=== PATIENT | female | born 1960 | race Caucasian/White ===

== ENCOUNTER 2023-09-23 13:56 | Outpatient (OUT) | payer OTHER, SELFPAY ==
--- NOTE | 2023-09-23 13:59 | MM_ITS ---
Patient: IGNACIO DIAZ Exam Date: 09/23/2023 : 1960 Gender:F Ordering : DR CHIRAG SAN . Admission #: [id number] Family : Order #: [id number] CLICK HERE TO VIEW EXAM RADIOLOGY REPORT PROCEDURE: MM TOMOSYNTHESIS SCREENING BI COMPARISON: MG MAMM SCREEN 3D REGINALD CAD, 09/22/2022. MG MAMM SCREEN 3D REGINALD CAD, 09/09/2021. MG MAMM SCREEN REGINALD W CAD, 09/06/2020. MAMMO REGINALD SCREEN, 01/12/2003. INDICATIONS: Screening Calculator Name NCI Breast Cancer Risk Assessment Tool 5 Year Breast Cancer Risk 1.20% Lifetime Breast Cancer Risk 5.80% Personal Breast Cancer No Personal Ovarian Cancer No Treatments None Family Cancers Mother with ovarian cancer at age 46; Grandmother-maternal with lymph node cancer at age 80. LOCATION: [facility] BREAST COMPOSITION: Heterogeneously dense,which may obscure small masses. FINDINGS: DIAGNOSTIC CATEGORY 1--NEGATIVE. RIGHT BREAST: No significant suspicious finding. No significant change has occurred. LEFT BREAST: No significant suspicious finding. No significant change has occurred. RECOMMENDATIONS: ROUTINE MAMMOGRAM AND CLINICAL EVALUATION IN 12 MONTHS. PLEASE NOTE: A NORMAL MAMMOGRAM DOES NOT EXCLUDE THE POSSIBILITY OF BREAST CANCER. A CLINICALLY SUSPICIOUS PALPABLE LUMP SHOULD BE BIOPSIED. Dictated by: Odin Green M.D. on 09/27/2023 at 13:36 Approved by: Odin Green M.D. on 09/27/2023 at 13:39
== END 2023-09-23 13:57 | disposition home or self-care (01) ==
LOC: MAMMO 13:56
PROVIDERS: PCP Family Medicine; Visit Provider Family Medicine
DX: Z12.31 Encounter for screening mammogram for malignant neoplasm of breast (principal); Z80.41 Family history of malignant neoplasm of ovary; Z80.7 Family history of other malignant neoplasms of lymphoid, hematopoietic and related tissues
CPT/HCPCS: 77063; 77067

== ENCOUNTER 2024-04-12 13:59 | Outpatient (OUT) | payer OTHER, SELFPAY ==
--- OUTSIDE RECORDS SUMMARY | 2024-04-12 14:15 | XMS_ITS | CCD ---
Author Organization [facility] Care Team Providers Care Polisher Eyeglass Frames Name Role Phone Nayana Huitron Unavailable MD Nayana Huitron Attending Provider [phone] NON STAFF Primary Care Provider UnavailCaprice Syed Unavailable Kusum Palencia Unavailable CARIDAD TREJO Admitting Unavailable CARIDAD TREJO Attending Unavailable JASWINDER, DR CHIRAG Tellez Primary Care Unavailable SOTO HINOJOSA Consulting Unavailable NICHELLE II, DAVIE Consulting Unavailable CARIDAD TREJO Consulting Unavailable JASWINDER, DR CHIRAG Tellez Admitting Unavailable JASWINDER, DR CHIRAG Tellez Attending Unavailable JASWINDER, DR CHIRAG Tellez Primary Care Unavailable [place], DR GIBRAN Beyer Consulting Unavailable JASWINDER, DR CHIRAG Tellez Consulting Unavailable MAGUE Parekh Attending Provider [phone] Kena Parekh Attending Unavailable Kena Parekh Admitting Unavailable CHIRAG SAN Attending Unavailable CHIRAG SAN Attending Unavailable Allergies Allergy Classification Reported Allergen(s) Allergy Type Date of Onset Reaction(s) Facility (7 sources) Sulfamethoxazole / Trimethoprim Drug Allergy Unknown [facility] Other (1 source) Sulfamethoxazole / Trimethoprim Drug Allergy 9 [facility] Repository (3 sources) Sulfamethoxazole; Translations: [sulfamethoxazole] Drug Allergy 4 [facility] (3 sources) Trimethoprim; Translations: [trimethoprim] Drug Allergy 4 [facility] Medications Current Medications Medication Drug Class(es) Dates Sig (Normalized) Sig (Original) acetaminophen 325 mg oral tablet (3 sources) take 1 tablet by mouth every four hours Tylenol 325 MG 1 tablet as needed Orally every 4 hrs Active cefdinir 300 mg oral capsule (1 source) Cephalosporin Antibacterial take 1 capsule by mouth twice daily Cefdinir 300 MG TAKE 1 CAPSULE BY MOUTH TWICE A DAY Oral for 10 Days Active cholecalciferol 0.025 mg oral tablet (9 sources) Vitamin D Start: 01-13-2024 take 25 ug by mouth once daily Cholecalciferol (Vitamin D3) Active 25 MCG PO Daily January 13, 2024 12:00am take 1 tablet by cici th every twenty-four hours Vitamin D 50 MCG (1999 UT) 1 tablet Orally Once a day Active omeprazole 40 mg delayed release oral capsule (9 sources) Proton Pump Inhibitor Start: 01-13-2024 take 40 mg by mouth once daily Omeprazole Active 40 MG PO Daily January 13, 2024 12:00am Omeprazole 40 MG Oral for 90 Days Active phenazopyridine hydrochloride 200 mg oral tablet (2 sources) Start: 01-13-2024 take 1 tablet by mouth three times daily Phenazopyridine (Pyridium) 200 mg tablet Active 200 MG PO Three times daily 6 2 January 13, 2024 12:00am predniSONE 20 mg oral tablet (3 sources) Start: 09-16-2022 take 1 tablet by mouth every twelve hours predniSONE 20 MG 1 tablet Orally 2 times a day for 5 day(s) Aug, Active Completed/Discontinued Medications Medication Drug Class(es) Dates Sig (Normalized) Sig (Original) triamcinolone acetonide 40 mg/ml injectable suspension (14 sources) Corticosteroid Start: 12-30-2022 Kenalog-40 14 Sep, 2023 20 mg Start: 07-03-2022 Kenalog-40 Jun, 10 mg Problems Active Problems Problem Classification Problem Date Documented Date Episodic/Chronic Esophageal disorders (3 sources) Gastro-esophageal reflux disease without esophagitis; Translations: [Gastroesophageal reflux disease] Onset: 03-08-2023 01-13-2024 Chronic Genitourinary symptoms and ill-defined conditions (5 sources) Dysuria; Translations: [Dysuria] Onset: 01-13-2024 01-13-2024 Episodic Osteoarthritis (14 sources) Osteoarthritis of joint of right hand; Translations: [Primary osteoarthritis, right hand] Onset: 05-26-2022 Resolved: 07-03-2022 Chronic Other aftercare (1 source) Other 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 therapy; Translations: [OTH SHOCK ABSORPTION FLOOR LAYER CURRENT DRUG THERAPY] Onset: 03-08-2023 Episodic Other connective tissue disease (5 sources) Pain in right hand Onset: 05-26-2022 Resolved: 07-03-2022 Episodic Other screening for suspected conditions (not mental disorders or infectious disease) (8 sources) Encounter for screening for malignant neoplasm of colon; Translations: [Encounter for screening mammogram for malignant neoplasm of breast] Onset: 09-22-2022 Episodic Otitis media and related conditions (1 source) Unspecified nonsuppurative otitis media, right ear Episodic Residual codes; unclassified (1 source) Acquired absence of both cervix and uterus; Translations: [ACQUIRED ABSENCE BOTH CERVIX AND UTERUS] Onset: 03-08-2023 Episodic Past or Other Problems Problem Classification Problem Date Documented Date Episodic/Chronic Open wounds of extremities (1 source) Laceration without foreign body, unspecified lower leg, initial encounter Onset: 06-08-2022 Resolved: 06-08-2022 Episodic Residual codes; unclassified (1 source) Family history of malignant neoplasm of ovary; Translations: [FAM HX MALIGNANT NEOPLASM OVARY] Onset: 09-29-2022 Episodic Residual codes; unclassified (1 source) Family history of other malignant neoplasms of lymphoid, hematopoietic and related tissues; Translations: [FAM HX OTH MAL JUAN LYMPH HEMATPOETC] Onset: 09-29-2022 Episodic Results Test Name Value Interpretation Reference Range Facil ity Chlamydia/GC/Trich NAAon Chlamydia Trachomotis, FROILAN Negative Normal Negative [facility] Comment on above: Performed By: #### G CCHLAMTRI #### [facility] , #### CUU #### [facility] [address] [place] [address] [place] Neisseria Gonorrhoeae, FROILAN Negative Normal Negative [facility] Comment on above: Performed By: #### G CCHLAMTRI #### [facility] , #### CUU #### [facility] [address] [place] [address] [place] Trichomonas FROILAN Negative Normal Negative [facility] Comment on above: Result Comment: Perf ormed at: =G - [facility] [address] [id number] Massage Operator: Meena Mccabe MD, Phone: [phone] PERFORMED BY: [place] [address] PATHOLOGIST MANAGER PROPERTY SANTHOSH STAFFORD M.D. Performed By: #### G CCHLAMTRI #### [facility] , #### CUU #### [address] Urine Cultureon 01-13-2024 Bacteria identified Cx Nom (U) ORGANISM: Escherichia coli (O:ESCCOL) [place] Count 50,000 Aerobic JUVENTINO Charge (NMIC56) --- SUSCEPTIBILITY -- ORGANISM: O:ESCCOL ANTIBIOTIC INTERPRETATION JUVENTINO Amikacin S <16 Amoxacillin/K Clavulanate S <8 Ampicillin S <8 Ampicillin/Sulbactam S <4 Aztreonam S <4 Cefazolin S <2 Cefepime S <2 Ceftazidime S <1 Ceftazidime/Avibactam S <4 Ceftolozane/Tazobactam S <2 Ceftriaxone S <1 Cefuroxime S <4 Ciprofloxacin S <0.25 Ertapenem S <0.5 Gentamicin S <2 Levofloxacin S <0.5 Meropenem S <1 Meropenem/Vaborbactam S <2 Nitrofurantoin S <32 Piperacillin/Tazobacta m S <8 Tetracycline S <4 Tigecycline S <2 Tobramycin S <2 Trimethoprim/Sulfameth oxazole S <0.5 S = SUSCEPTIBLE I = INTERMEDIATE R = RESISTANT BLANK = DATA NOT AVAILABLE, OR DRUG NOT ADVISABLE OR TESTED R* = RESISTANCE DUE TO EXTENDED SPECTRUM BETA-LACTAMASES ESBL = EXTENDED SPECTRUM BETA-LACTAMASE TFG = THYMIDINE-DEPENDENT STRAIN FILEMON = BETA-LACTAMASE POSITIVE IB = INDUCIBLE BETA-LACTAMASE. APPEARS IN PLACE OF 'S' WITH SPECIES KNOWN TO POSSESS INDUCIBLE BETA-LACTAMASES. POTENTIALLY THEY MAY BECOME RESISTANT TO ALL B-LACTAM DRUGS. PERFORMED BY: [place] [address] PATHOLOGIST MANAGER PROPERTY SANTHOSH STAFFORD M.D. Normal [facility] Comment on above: Performed By: #### G CCHLAMTRI #### [facility] , #### CUU #### [facility] [address] [id number] [facility] MG MAMM SCREEN 3D REGINALD CADon 09-22-2022 MG MAMM SCREEN 3D REGINALD CAD Patient: IGNACIO DIAZ Exam Date: 09/22/2022 : 1960 Gender:F Ordering : DR CIHRAG SAN . Admission #: [id number] Family : Order #: [id number] CLICK HERE TO VIEW EXAM RADIOLOGY REPORT PROCEDURE: MAMMOGRAM SCREENING 3D BILATERAL CAD COMPARISON: MG MAMM SCREEN 3D REGINALD CAD, 09/09/2021. MG MAMM SCREEN REGINALD W CAD, 09/06/2020. INDICATIONS: Screening mammography Calculator Name NCI Breast Cancer Risk Assessment Tool 5 Year Breast Cancer Risk 1.20% Lifetime Breast Cancer Risk 6.00% Personal Breast Cancer No Personal Ovarian Cancer No Treatments None Family Cancers Mother with ovarian cancer at age 46; Grandmother-maternal with lymph node cancer at age 80. LOCATION: [facility] BREAST COMPOSITION: Heterogeneously dense,which may obscure small masses. FINDINGS: DIAGNOSTIC CATEGORY 2--BENIGN FINDING. NO CHANGE FROM COMPARISON. Scattered benign-appearing calcifications are present. Scattered benign-appearing lymph nodes are present. RIGHT BREAST: No significant suspicious finding. LEFT BREAST: No significant suspicious finding. RECOMMENDATIONS: ROUTINE MAMMOGRAM AND CLINICAL EVALUATION IN 12 MONTHS. PLEASE NOTE: A NORMAL MAMMOGRAM DOES NOT EXCLUDE THE POSSIBILITY OF BREAST CANCER. A CLINICALLY SUSPICIOUS PALPABLE LUMP SHOULD BE BIOPSIED. Dictated by: Gibran Lemus MD on 09/23/2022 at 07:58 Approved by: Gibran Lemus MD on 09/23/2022 at 08:00 Normal [facility] Vital Signs Date Time Vital Sign Value Performing Clinician Facility 01-13-2024 14:40-0500 Body height 170.18 cm [facility] 01-13-2024 14:40-0500 Body mass index (BMI) [Ratio] 26.9 kg/m2 [facility] 01-13-2024 14:40-0500 Body temperature 98.4 [degF] [facility] 01-13-2024 14:40-0500 Body weight 78.01 kg [facility] 01-13-2024 14:40-0500 Diastolic blood pressure 73 mm[Hg] [facility] 01-13-2024 14:40-0500 Heart rate 87 /min [facility] 01-13-2024 14:40-0500 Respiratory rate 18 /min [facility] 01-13-2024 14:40-0500 SaO2% (BldA) [Mass fraction] 97 % [facility] 01-13-2024 14:40-0500 Systolic blood pressure 125 mm[Hg] [facility] 09-16-2022 15:50-0400 Body height 170.18 cm Kusum Slime Other [facility] Other 09-16-2022 15:50-0400 Body mass index (BMI) [Ratio] 24.9 kg/m2 Kusum Slime Other [facility] Other 09-16-2022 15:50-0400 Body temperature 98.8 [degF] Kusum Slime Other [facility] Other 09-16-2022 15:50-0400 Body weight 72.12 kg Kusum Slime Other [facility] Other 09-16-2022 15:50-0400 Diastolic blood pressure 87 mm[Hg] Kusum Slime Other [facility] Other 09-16-2022 15:50-0400 Respiratory rate 18 /min Kusum Slime Other [facility] Other 09-16-2022 15:50-0400 SaO2% (BldA) [Mass fraction] 99 % Kusum Slime Other [facility] Other 09-16-2022 15:50-0400 Systolic blood pressure 127 mm[Hg] Kusum Palencia Other [facility] Other 07-03-2022 09:00-0400 Body height 170.18 cm Nayana Huitron Other [facility] Other 06-08-2022 17:25-0400 Body height 170.18 cm Caprice Jude Other [facility] Other 06-08-2022 17:25-0400 Body mass index (BMI) [Ratio] 24.9 kg/m2 Caprice Roque Other [facility] Other 06-08-2022 17:25-0400 Body temperature 99 [degF] Caprice Roque Other [facility] Other 06-08-2022 17:25-0400 Body weight 72.12 kg Caprice Jude Other [facility] Other 06-08-2022 17:25-0400 Diastolic blood pressure 62 mm[Hg] Caprice Roque Other [facility] Other 06-08-2022 17:25-0400 Respiratory rate 16 /min Caprice Roque Other [facility] Other 06-08-2022 17:25-0400 SaO2% (BldA) [Mass fraction] 100 % Caprice Roque Other [facility] Other 06-08-2022 17:25-0400 Systolic blood pressure 121 mm[Hg] Caprice Roque Other [facility] Other Encounters Encounter Date Encounter Type Care Provider Facility Start: 04-06-2024 End: 04-06-2024 ambulatory CHIRAG SAN Not Available Start: 03-13-2024 End: 03-13-2024 ambulatory CHIRAG SAN Not Available Start: 01-13-2024 End: 01-13-2024 Departed Referred [employer] Kena Parekh Work Phone: [facility] [place] Work Phone: Start: 01-13-2024 End: 01-13-2024 ambulatory Kena Parekh [facility] Work Phone: Start: 01-13-2024 End: 01-13-2024 Patient encounter procedure [facility] Work Phone: Start: 10-12-2023 End: 10-12-2023 ambulatory Nayana Huitron Other [facility] Other Start: 10-12-2023 Office outpatient visit 15 minutes Nayana Calvey [facility] Start: 03-05-2023 End: 03-05-2023 ambulatory CARIDAD JIMENEZ . Facility:[facility] Start: 12-30-2022 End: 12-30-2022 ambulatory Nayana Calvsaundra Other [facility] Other Start: 12-30-2022 Office outpatient visit 15 minutes Nayana Calvey [facility] Start: 09-22-2022 End: 09-23-[address] CHIRAG SAN Facility:[facility] Start: 09-16-2022 End: 09-16-2022 ambulatory Kusum Palencia Other [facility] Other Start: 09-16-2022 Office outpatient visit 15 minutes Kusum Palencia [facility] Start: 08-04-2022 End: 08-04-2022 ambulatory Nayana Huitron Other [facility] Other Start: 08-04-2022 Office outpatient visit 15 minutes Nayana Huitron [facility] Start: 07-03-2022 End: 07-03-2022 ambulatory Nayana Huitron Other [facility] Other Start: 07-03-2022 Office outpatient visit 15 minutes Nayana Huitron [facility] Start: 06-08-2022 (URG) Urgent Care Visit Caprice Roque [facility] Start: 06-08-2022 End: 06-08-2022 ambulatory Caprice Roque Other [facility] Other Start: 05-26-2022 End: 05-26-2022 ambulatory Nayana Huitron Other [facility] Other Start: 05-26-2022 Office outpatient ne w 30 minutes Nayana Huitron [facility] Start: 05-26-2022 End: 05-26-2022 Patient encounter procedure MD Nayana Huitron Work Phone: [facility] Procedures Date Procedure Procedure Detail Performing Clinician Start: 05-26-2022 Plain X-ray of right hand MD Nayana Huitron Work Phone: Plan of Treatment Date Care Activity Detail Author Start: 01-14-2024 Bacteria identified in Urine by Culture [facility] Start: 01-14-2024 [facility] Start: 01-13-2024 Bacteria identified in Urine by Culture [facility] Chlamydia trachomati s DNA [Presence] in Unspecified specimen by FROILAN with probe detection [facility] Neisseria gonorrhoea e DNA [Presence] in Unspecified specimen by FROILAN with probe detection [facility] Trichomonas vaginali s DNA [Presence] in Unspecified specimen by FROILAN with probe detection [facility] Immunizations Immunization Date Immunization Notes Care Provider Fa steven 06-08-2022 tetanus toxoid, redu simone diphtheria toxoid, and acellular pertussis vaccine, adsorbed Caprice Roque Other [facility] Payers Date Payer Category Payer Self-pay [id number] 1960 Unknown [id number] [id number] [id number] 1960 Unknown [id number] 2.16.84 [id number] 1960 Unknown [id number] 2.16.84 [id number] 1960 Unknown [id number] 2.16.84 [id number] 1957 Unknown [id number] 2. [id number] Unknown [id number] 2.16.8 [id number] Social History Date Type Detail Facility Sex Assigned At [facility] Other Start: 1960 Sex Assigned At Female F [facility] Start: 01-13-2024 Tobacco smoking stat [facility] Never smoked tobacco (finding) [facility] Evaluation note 10-12-2023 Note Date & Type Note Facility 10-12-2023 Evaluation note Encounter Date Diagnosis Assessment Notes Sep, Right hand pain (ICD-10 - M79.641) Sep, Primary osteoarthritis of right hand (ICD-10 - M19.041) Right ring and small PIP joints injected with cortisone, patient tolerated well [facility] Other Evaluation note 12-30-2022 Note Date & Type Note Facility 12-30-2022 Evaluation note Encounter Date Diagnosis Assessment Notes Dec, Right hand pain (ICD-10 - M79.641) Dec, Primary osteoarthritis of right hand (ICD-10 - M19.041) Patient returns with complaints of right hand pain secondary to osteoarthritis of the right hand, right ring and small PIP joints. Patient opts for continued conservative treatment via cortisone injections as they have been very effective in relieving her symptoms in the past. We discussed future treatment with surgical intervention for permanant relief. Patient voiced understanding and states she would like to hold off on surgery until she can retire in two years. We will proceed with cortisone injections today. , We performed a cortisone injection into the right ring and small PIP joints under sterile technique. The patient tolerated this well without complication. We discussed that the wrist/hand may feel numb and tingle for hours after this injection. [facility] Other Evaluation note 09-16-2022 Note Date & Type Note Facility 09-16-2022 Evaluation note Encounter Date Diagnosis Assessment Notes Aug, Right otitis media with effusion (ICD-10 - H65.91) Drink plenty fluids, get plenty of rest. Take the prednisone as prescribed until gone. Continue to use your Flonase inhaler as prescribed anterior symptoms improved. Follow-up with your family physician if no improvement in 2 to 3 days. Take Tylenol or Motrin as needed for aches pains or fevers Aug, Other Ear fluid (middle ear effusion) material was printed [facility] Other Evaluation note 08-04-2022 Note Date & Type Note Facility 08-04-2022 Evaluation note Encounter Date Diagnosis Assessment Notes Jul, Right hand pain (ICD-10 - M79.641) Jul, Primary osteoarthritis of right hand (ICD-10 - M19.041) Patient is progressing well from injections. May consider repeat injections in the future if needed. Continue topical and/or oral NSAIDs as needed for pain/inflammat ion. Call with questions/conc erns or return in pain. [facility] Other Evaluation note 07-03-2022 Note Date & Type Note Facility 07-03-2022 Evaluation note Encounter Date Diagnosis Assessment Notes Jun, Right hand pain (ICD-10 - M79.641) Jun, Primary osteoarthritis of right hand (ICD-10 - M19.041) The pain appears to be from arthritis in the hand, specifically the PIP joints of the ring and small fingers. Patient was instructed on the use of lidocaine patches. Cortisone injections were performed into the right ring and small finger PIP joints after sterile prep. Patient tolerated well. She was instructed to contact the office with any questions or concerns. [facility] Other Evaluation note 06-08-2022 Note Date & Type Note Facility 06-08-2022 Evaluation note Encounter Date Diagnosis Assessment Notes May, Laceration of hendrix (ICD-10 - S81.819A) Keep wound area completely dry for at least 24 hours. Do not pick at scabbed area where Dermabond applied. Call office, follow up with primary care provider or seek emergency treatment if any signs or symptoms of infection occur including increased swelling, increased pain, drainage, redness to area, fever, or have chills. TDAP updated [facility] Other Evaluation note 05-26-2022 Note Date & Type Note Facility 05-26-2022 Evaluation note Encounter Date Diagnosis Assessment Notes Apr, Right hand pain (ICD-10 - M79.641) Apr, Primary osteoarthritis of right hand (ICD-10 - M19.041) Xrays were reviewed with patient in detail. We discussed conservative and surgical option in detail. Patient would like to try topical and oral anti inflammatory medication. Additionally we will provide an order for formal therapy. If pain persists we consider a medrol dose pack or cortisone injection [facility] Other History general Narrative - Reported 06-30-2016 Note Date & Type Note Facility 06-30-2016 History general N arrative - Reported Type Medical History acid reflux Surgical History shoulder surgery right 2009 Surgical History hysterectomy 2006 Surgical History Throat Surgery 06/30/16 Surgical History wrist surgery 2020 Hospitalization History See Above [facility] Other Evaluation note Note Date & Type Note Facility Evaluation note No assessment information availa [facility] Work Phone: Evaluation note Note Date & Type Note Facility Evaluation note Diagnosis Onset Date Dysuria acute [facility] Work Phone: Chief Complaint and Reason for Visit Chief Complaint M79.641 Chief Complaint poss uti Reason for Visit Dysuria Chief Complaint poss uti Dysuria Reason for Visit Dysuria Advance Directives No Advanced Directives Records Found Advance Directive Response Recorded Date/ Time Advance Directives No May 26 10:51am Advance Directive Response Recorded Date/ Time Advance Directives No May 26 9:51am Summary Purpose Family History No Family History Records Found Relationship Condition Age at Onset Recorded Date/T angela Not Specified Unknown Malignant neoplasm Unknown father Heart disease Unknown Unknown Additional Source Comments REASON FOR VISIT (unrecogniz ed section and content) Right Hand PainLEFT KNEE/OZZIE N LACERATION TODAYRecheck Right HandRIGHT EARACHERecheck Right HandRight Hand PainRight Hand Pain Care Teams (unrecognized sec tion and content) Team Status: Inactive Member Role Status Dates Nayana Huitron MD Attending Provider Active NON STAFF Primary Care Provider Active Team Status: Active Member Role Status Dates NON STAFF Primary Care Provider Active Team Status: Inactive Member Role Status Dates NON STAFF Primary Care Provider Active Start: January 13, 2024 End: January 13, 2024 Kena Parekh APRN Attending Provider Active Start: January 13, 2024 End: January 13, 2024 Team Status: Inactive Member Role Status Dates Kena Parekh APRN Attending Provider Active Start: January 13, 2024 End: January 13, 2024 Goals (unrecognized section and content) Goals may be documented in a n alternate section INFORMATION SOURCE (unrecogn ized section and content) DATE CREATED AUTHOR 03/08/2023 [facility] DATE CREATED AUTHOR AUTHOR'S ORGANIZ ATION 01/19/2024 [facility] DATE CREATED AUTHOR AUTHOR'S ORGANIZ ATION 04/08/2024 [facility] FOR RECORDS PERTAINING TO PATIENTS WHO ARE OR HAVE BEEN ENROLLED IN A CHEMICAL DEPENDENCY/SUBSTANCEABUSE PROGRAM, SOME INFORMATION MAY BE OMITTED. This clinical summary was aggregated from multiple sources. Caution should be exercised in using it in the provision of clinical care. This summary normalizes information from multiple sources, and as a consequence, information in this document may materially change the coding, format and clinical context of patient data. In addition, data may be omitted in some cases. CLINICAL DECISIONS SHOULD BE BASED ON THE PRIMARY CLINICAL RECORDS. [employer] [facility]. provides no warranty or guarantee of the accuracy or completeness of information in this document.
== END 2024-04-12 14:00 | disposition home or self-care (01) ==
LOC: CARD 13:59
PROVIDERS: PCP Family Medicine; Visit Provider Family Medicine
DX: R00.2 Palpitations (principal)
CPT/HCPCS: 93242

== ENCOUNTER 2024-04-26 06:39 | Outpatient (OUT) | payer OTHER, SELFPAY ==
--- NOTE | 2024-04-26 | NM_ITS ---
Patient Name: IGNACIO DIAZ MR#: [id number] : 1960 Exam Date: 04/26/2024 Ordering Doctor: DR CHIRAG SAN . RADIOLOGY REPORT PROCEDURE: NM CEM PERF SPECT REST STR COMPARISON: None. INDICATIONS: PRECORDIAL PAIN TECHNIQUE: Exam Description: Stress/Rest one day protocol gated SPECT Rest Imagin.2 mCi Tc-99m Cardiolite IV on 04/26/2024 Stress Imaging 31.5 mCi Tc-99m Cardiolite IV on 04/26/2024 Exercise Protocol: Edward Heart Rate (bpm): Rest: 63 Max: 144 PMHR: 91 Blood Pressure: Rest: 118/76 Max: 178/82 Exercise Time: Minutes: 9 Seconds: 28 Stage Reached: Stage: 4 Mets 11.6 Symptoms: Rest and peak stress ECG findings were non-diagnostic and the exercise portion of the study was Non-diagnostic per attending physician Dr. Tristan due to Inferolateral ST-segment downsloping changed to upsloping during exercise. For more details please see separate cardiac stress test report. FINDINGS: QUALITY OF STUDY: Excellent. PERFUSION DEFECT: None. LOCATION: N/A SIZE: N/A. SEVERITY: N/A. TYPE: N/A. WALL MOTION: Normal. LV SIZE: Normal. 72 mL. TID / TCD: None; 0.8 LVEF: Normal. Calculated EF 80%. SUMMARY: Myocardial perfusion imaging study is NORMAL. CONCLUSION: 1. No perfusion abnormality. No reversible ischemia 2. Nondiagnostic exercise test secondary to EKG changes Dictated by: Charles Lemus MD on 04/26/2024 at 14:23 Approved by: Charles Lemus MD on 04/26/2024 at 14:28
--- OUTSIDE RECORDS SUMMARY | 2024-04-26 06:41 | XMS_ITS ---
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 Name Role Phone Nayana Huitron Unavailable MD Nayana Huitron Attending Provider NON STAFF Primary Care Provider UnavailCaprice Syed Unavailable Kusum Palencia Unavailable CARIDAD TREJO Admitting Unavailable CARIDAD TREJO Attending Unavailable JASWINDER, DR CHIRAG Tellez Primary Care Unavailable SOTO HINOJOSA Consulting Unavailable NICHELLE II, DAVIE Consulting Unavailable CARIDAD TREJO Consulting Unavailable JASWINDER, DR CHIRAG Tellez Admitting Unavailable JASWINDER, DR CHIRAG Tellez Attending Unavailable JASWINDER, DR CHIRAG Tellez Primary Care Unavailable SOUTH SUTTON, DR GIBRAN Beyer Consulting Unavailable JASWINDER, DR CHIRAG Tellez Consulting Unavailable MAGUE Parekh Attending Provider Kena Parekh Attending Unavailable Kena Parekh Admitting Unavailable JASWINDER, CHIRAG Attending Unavailable JASWINDER, CHIRAG Attending Unavailable Allergies Allergy Classification Reported Allergen(s) Allergy Type Date of Onset Reaction(s) Facility (7 sources) Sulfamethoxazole / Trimethoprim Drug Allergy Unknown [facility] Other (1 source) Sulfamethoxazole / Trimethoprim Drug Allergy 9 [facility] (3 sources) Sulfamethoxazole; Translations: [sulfamethoxazole] Drug Allergy [address] [facility] (3 sources) Trimethoprim; Translations: [trimethoprim] Drug Allergy [address] 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 ENGINEERING MANAGER Kena Parekh Work Phone: [facility] [place] Work Phone: Start: 01-13-2024 End: 01-13-2024 ambulatory Kena Kierra Parekh [facility] Work Phone: Start: 01-13-2024 End: 01-13-2024 Patient encounter procedure [facility] Work Phone: Start: 10-12-2023 End: 10-12-2023 ambulatory Nayana Calvey Other [facility] Other Start: 10-12-2023 Office outpatient visit 15 minutes Nayana Calvey [facility] Start: 03-05-2023 End: 03-05-2023 ambulatory CARIDAD JIMENEZ . Facility: Start: 12-30-2022 End: 12-30-2022 ambulatory Nayana Calvey Other [facility] Other Start: 12-30-2022 Office outpatient visit 15 minutes Nayana Calvey [facility] Start: 09-22-2022 End: 09-23-[address] CHIRAG SAN Facility: Start: 09-16-2022 End: 09-16-2022 ambulatory Kusum Palnecia Other [facility] Other Start: 09-16-2022 Office outpatient visit 15 minutes Kusum Palencia [facility] Start: 08-04-2022 End: 08-04-2022 ambulatory Nayana Calvey Other [facility] Other Start: 08-04-2022 Office outpatient visit 15 minutes Nayana Calvey [facility] Start: 07-03-2022 End: 07-03-2022 ambulatory Nayana Calvey Other [facility] Other Start: 07-03-2022 Office outpatient visit 15 minutes Nayana Huitron [facility] Start: 06-08-2022 (URG) Urgent Care Visit Caprice Roque [facility] Start: 06-08-2022 End: 06-08-2022 ambulatory Caprice Roque Other [facility] Other Start: 05-26-2022 End: 05-26-2022 ambulatory Nayana Huitron Other [facility] Other Start: 05-26-2022 Office outpatient ne w 30 minutes Nayana Huitron [facility] Start: 05-26-2022 End: 05-26-2022 Patient encounter procedure MD Nayana Huitron Work Phone: [facility] Immunizations Immunization Date Immunization Notes Care Provider Fa steven 06-08-2022 tetanus toxoid, redu simone diphtheria toxoid, and acellular pertussis vaccine, adsorbed Caprice Roque Other [facility] Medications Current Medications Medication Drug Class(es) Dates [...] every twenty-four hours Vitamin D 50 MCG (1999) 1 tablet Orally Once a day Active [...] 200 MG PO Three times daily 6 January 13, 2024 12:00am predniSONE 20 mg oral tablet (3 sources) Start: 09-16-2022 take 1 tablet by mouth every twelve hours predniSONE 20 MG 1 tablet Orally 2 times a day for 5 day(s) Aug, Active Completed/Discontinued Medications Medication Drug Class(es) Dates Sig (Normalized) Sig (Original) triamcinolone acetonide 40 mg/ml injectable suspension (14 sources) Corticosteroid Start: 12-30-2022 Kenalog-40 Sep, 20 mg Start: 07-03-2022 Kenalog-40 Jun, 10 mg Payers Date Payer Category Payer Self-pay [id number] 1960 Unknown [id number] 2.16.84 [id number] 1960 Unknown [id number] 2.16.84 [id number] 1960 Unknown [id number] 2.16.84 [id number] 1960 Unknown [id number] 2.16.84 [id number] 1957 Unknown [id number] 2. [id number] Unknown [id number] 2.16.8 [id number] Plan of Treatment Date Care Activity Detail Author Start: 01-14-2024 Bacteria identified in Urine by Culture [facility] Start: 01-14-2024 [facility] Start: 01-13-2024 Bacteria identified in Urine by Culture [facility] Chlamydia trachomati s DNA [Presence] in Unspecified specimen by FROILAN with probe detection [facility] Neisseria gonorrhoea e DNA [Presence] in Unspecified specimen by FROILAN with probe detection [facility] Trichomonas vaginali s DNA [Presence] in Unspecified specimen by FROILAN with probe detection [facility] Problems Active Problems Problem Classification Problem Date [...] 07-03-2022 Chronic Other aftercare (1 source) 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; Translations: [OTH [facility] CURRENT DRUG THERAPY] Onset: 03-08-2023 Episodic Other [...] MAL JUAN LYMPH HEMATPOETC] Onset: 09-29-2022 Episodic Procedures Date Procedure Procedure Detail Performing Clinician Start: 05-26-2022 Plain X-ray of right hand MD Nayana Huitron Work Phone: Results Test Name Value Interpretation Reference Range Facil ity Chlamydia/GC/Trich NAAon Chlamydia Trachomotis, FROILAN Negative Normal Negative [facility] Comment on above: Performed By: #### G CCHLAMTRI #### [facility] , #### CUU #### [facility] [address] [place] [address] Neisseria Gonorrhoeae, FROILAN Negative Normal Negative [facility] Comment on above: Performed By: #### G CCHLAMTRI #### [facility] , #### CUU #### [facility] [address] [place] [address] [place] Trichomonas FROILAN Negative Normal Negative [facility] Comment on above: Result Comment: Perf ormed at: =G - [facility] [address] [id number] Spa Technician: Meena Mccabe MD, Phone: [phone] PERFORMED BY: [place] [address] PATHOLOGIST MULTIPLE PRESSURE RIVETER OPERATOR SANTHOSH STAFFORD M.D. Performed By: #### G CCHLAMTRI #### [facility] , #### CUU #### [facility] [address] [place] [address] Urine Cultureon 01-13-2024 Bacteria identified Cx Nom (U) ORGANISM: Escherichia coli (O:ESCCOL) Celeste Count 50,000 Aerobic JUVENTINO Charge (NMIC56) --- [...] RESISTANT TO ALL B-LACTAM DRUGS. PERFORMED BY: [place] [address] PATHOLOGIST MULTIPLE PRESSURE RIVETER OPERATOR SANTHOSH STAFFORD M.D. [facility] Comment on above: Performed By: #### G CCHLAMTRI #### [facility] , #### CUU #### [address] MG MAMM SCREEN 3D REGINALD CADon 09-22-2022 MG MAMM SCREEN 3D REGINALD CAD Patient: IGNACIO DIAZ Exam Date: 09/22/2022 : 1960 Gender:F Ordering : DR CHIRAG SAN . Admission #: [id number] Family : Order #: [id number] CLICK HERE TO VIEW EXAM RADIOLOGY REPORT [...] node cancer at age 82. LOCATION: [facility] BREAST COMPOSITION: Heterogeneously dense,which may obscure [...] Lemus MD on 09/23/2022 at 08:00 Normal [facility] Social History Date Type Detail Facility Start: 01-13-2024 Tobacco smoking stat us ORIS Never smoked tobacco (finding) [facility] Start: 1960 Sex Assigned At Female F [facility] Sex Assigned At [facility] Other Vital Signs Date Time Vital Sign Value Performing Clinician Facility 01-13-2024 14:40-0500 Body height 170.18 cm [facility] 01-13-2024 14:40-0500 Body mass index (BMI) [Ratio] 26.9 kg/m2 [facility] 01-13-2024 14:40-0500 Body temperature 98.4 [degF] [facility] 01-13-2024 14:40-0500 Body weight 78.01 kg [facility] 01-13-2024 14:40-0500 Diastolic blood pressure 73 mm[Hg] [facility] 01-13-2024 14:40-0500 Heart rate 87 /min [facility] 01-13-2024 14:40-0500 Respiratory rate 18 /min [facility] 01-13-2024 14:40-0500 SaO2% (BldA) [Mass fraction] 97 % [facility] 01-13-2024 14:40-0500 Systolic blood pressure 125 mm[Hg] [facility] 09-16-2022 15:50-0400 Body height 170.18 cm Kusum Palencia Other [facility] Other 09-16-2022 15:50-0400 Body mass index (BMI) [Ratio] 24.9 kg/m2 Kusum Palencia Other [facility] Other 09-16-2022 15:50-0400 Body temperature 98.8 [degF] Kusum Palencia Other [facility] Other 09-16-2022 15:50-0400 Body weight 72.12 kg Kusum Palencia Other [facility] Other 09-16-2022 15:50-0400 Diastolic blood pressure 87 mm[Hg] Kusum Palencia Other [facility] Other 09-16-2022 15:50-0400 Respiratory rate 18 /min Kusum Palencia Other [facility] Other 09-16-2022 15:50-0400 SaO2% (BldA) [Mass fraction] 99 % Kusum Palencia Other [facility] Other 09-16-2022 15:50-0400 Systolic blood pressure 127 mm[Hg] Kusum Palencia Other [facility] Other 07-03-2022 09:00-0400 Body height 170.18 cm Naynaa Huitron Other [facility] Other 06-08-2022 17:25-0400 Body height 170.18 cm Caprice Roque Other [facility] Other 06-08-2022 17:25-0400 Body mass index (BMI) [Ratio] 24.9 kg/m2 Caprice Roque Other [facility] Other 06-08-2022 17:25-0400 Body temperature 99 [degF] Caprice Roque Other [facility] Other 06-08-2022 17:25-0400 Body weight 72.12 kg Caprice Roque Other [facility] Other 06-08-2022 17:25-0400 Diastolic blood pressure 62 mm[Hg] Caprice Roque Other [facility] Other 06-08-2022 17:25-0400 Respiratory rate 16 /min Caprice Roque Other [facility] Other 06-08-2022 17:25-0400 SaO2% (BldA) [Mass fraction] 100 % Caprice Roque Other [facility] Other 06-08-2022 17:25-0400 Systolic blood pressure 121 mm[Hg] Caprice Roque Other [facility] Other Evaluation note 10-12-2023 Note Date & Type Note Facility 10-12-2023 Evaluation note Encounter Date Diagnosis Assessment Notes Sep, Right hand pain (ICD-10 - M79.641) Sep, Primary osteoarthritis of right hand (ICD-10 - M19.041) Right ring and small PIP joints injected with cortisone, patient tolerated well [facility] Other Evaluation note 12-30-2022 Note Date & [...] and tingle for hours after this injection. [facility] Other Evaluation note 09-16-2022 Note Date & [...] fluid (middle ear effusion) material was printed [facility] Other Evaluation note 08-04-2022 Note Date & [...] with questions/conc erns or return in pain. [facility] Other Evaluation note 07-03-2022 Note Date & [...] the office with any questions or concerns. [facility] Other Evaluation note 06-08-2022 Note Date & [...] area, fever, or have chills. TDAP updated [facility] Other Evaluation note 05-26-2022 Note Date & [...] a medrol dose pack or cortisone injection [facility] Other History general Narrative - Reported 06-30-2016 Note Date & Type Note Facility 06-30-2016 History general N arrative - Reported Type Medical History acid reflux Surgical History shoulder surgery right 2009 Surgical History hysterectomy 2006 Surgical History Throat Surgery 06/30/16 Surgical History wrist surgery 2020 Hospitalization History See Above [facility] Other Evaluation note Note Date & Type Note Facility Evaluation note No assessment information availa [facility] Work Phone: Evaluation note Note Date & Type Note Facility Evaluation note Diagnosis Onset Date Dysuria acute [facility] Work Phone: Chief Complaint and Reason [...] and content) DATE CREATED AUTHOR 03/08/2023 [facility] DATE CREATED AUTHOR AUTHOR'S ORGANIZ ATION 01/19/2024 [facility] DATE CREATED AUTHOR AUTHOR'S ORGANIZ ATION 04/08/2024 [facility] FOR RECORDS PERTAINING TO PATIENTS WHO [...] BE BASED ON THE PRIMARY CLINICAL RECORDS. [facility]. provides no warranty or guarantee of the accuracy or completeness of information in this document.
--- NOTE | 2024-04-26 12:54 | PM.STRESS ---
Stress Test Stress Test Requesting physician: Filiberto Bernard Procedure: Exercise Cardiolite stress test General Information: Reason for Stress Test: Chest pain Cardiac History and Risk Factors: No personal history reported. A grandfather had OK. Resting 12 - Lead Electrocardiogram: Rate & rhythm: Normal sinus at a rate of 73. Mcintire: Right axis deviation ST-segments: Downsloping in the inferior (II, III, aVF) and lateral (V4-6) leads Stress Test: Protocol: Edward protocol was followed, with injection of Cardiolite once target heart rate was achieved. Exercise capacity: Good exercise capacity. Total exercise time of 9 minutes 26 seconds reached Edward stage 4 at 4.2MPH, 16% grade, & 11.6 METs. Blood pressure: Initial: 118/76, Maximum: 178/82 Rate & rhythm: Patient remained in sinus rhythm during the exercise and recovery portions of the study.? The maximum heart rate was 144, which was 91% of the maximum predicted heart rate 158. PACs and PVCs are present. ST-segments & T-waves: During exercise, the aforementioned ST-segment downsloping in the inferolateral leads assumed an upsloping orientation, which during recovery resumed their baseline donwloping. Patient response/symptoms: No reproducible symptoms to chief complaint. Interpretation: This is a non-diagnostic stress test based on the abnormal ST-segment changes in the inferolateral leads. No reproducible chest pain. Cardiolite imaging interpretation will be reported separately. Clinical correlation required.?
== END 2024-04-26 06:40 | disposition home or self-care (01) ==
LOC: NM 06:39
PROVIDERS: PCP Family Medicine; Visit Provider Family Medicine
DX: R07.2 Precordial pain (principal)
CPT/HCPCS: 78452; 93017; A9500

== ENCOUNTER 2024-05-12 09:38 | Outpatient (OUT) | payer OTHER, SELFPAY ==
--- NOTE | 2024-05-12 09:43 | CA_ITS ---
Patient Name: IGNACIO DIAZ MR#: [id number] : 1960 Exam Date: 05/12/2024 Ordering Doctor: DEYSI SMITH ECHOCARDIOGRAM REPORT PROCEDURE: CA ECHO DOPPLER COMPLETE INDICATIONS: Abnormal EKG, Chest pain COMPARISON: None. DESCRIPTION: COMPLETE ECHOCARDIOGRAM Real-time transthoracic echocardiography with 2D, M-mode, spectral and color flow Doppler performed. QUALITY: Technical quality was good. LEFT VENTRICLE: Normal chamber size. Normal left ventricular wall thickness. Global left ventricular systolic function is normal. LV EF: Estimated left ventricular ejection fraction is 55-60%. DIASTOLIC: Normal diastolic function. ATRIAL SEPTUM: LEFT ATRIUM: Normal chamber size. RIGHT ATRIUM: Mild dilatation. RIGHT VENTRICLE: Mild chamber dilatation. Normal right ventricular systolic function. TRICUSPID VALVE: Normal mobility and thickness. No stenosis with trivial regurgitation. No evidence of pulmonary hypertension. RVSP 27 mmHg MITRAL VALVE: Normal mobility and thickness. No evidence of mitral valve stenosis. There is no mitral annular calcification. Mild mitral regurgitation. AORTIC VALVE: Normal trileaflet appearance. No visible sclerosis. Normal leaflet mobility. No evidence of aortic valve stenosis. Mild aortic regurgitation. AORTIC ROOT: Mildly dilated, measuring 3.7 cm. The ascending aorta is normal diameter [3.2 cm] and appearance. The aortic arch measures 3.2 cm. PULMONIC VALVE: Normal thickness and mobility. No stenosis. Trivial regurgitation. PERICARDIUM: No evidence of pericardial effusion. IVC: Collapses with inspirations. Normal size. PLEURA: CONCLUSION: 1. Normal left ventricular size and systolic function. LVEF is 55 to 60%. 2. Mildly dilated right ventricle with normal systolic function. 3. Mild aortic and mitral regurgitation. 4. Mildly dilated aortic root. 5. Normal right-sided pressures. Adult Echocardiography Procedure Report Left Ventricle LVEDD (3.7 - 5.6 cm): 4.75 cm LVESD (2.2 - 4.0 cm): 3.05 cm LVIVS thickness (0.6 - 1.2 cm): 0.94 cm LVPW thickness (0.5 - 1.0 cm): 1.00 cm e': 0.10 m/s E - e': 6.77 LVOT Max Gradient: 4.89 mm[Hg] LVOT Area (cm2): 1.11 m/s Peak Velocity (LVOT): 1.11 m/s Mean Velocity (LVOT): 0.67 m/s LVOT Diameter 2.23 cm Left Ventricular Ejection Fraction: 55-60 % Left Atrium LA Volume Index (2D A2C): 22.19 ml/m2 Left Atrium Systolic Dimension: 2.74 cm Mitral Valve MV E to A Ratio: 1.19 Mitral Valve A-Wave Peak Velocity: 0.56 m/s Mitral Valve E-Wave Peak Velocity: 0.67 m/s Right Ventricle RV Internal Diastolic Dimension: 3.00 cm Aorta AO Root Diam: 3.67 cm Ascending Ao Diam: 3.18 cm Aortic Valve AoV Area (Peak Mk): 4.56 cm2, 4.56 cm2 AoV Area (VTI): 4.08 cm2, 4.08 cm2 Deceleration Warrick: 0.47 m/s2 Pressure Half-Time: 1.81 s Peak Velocity(Antegrade Flow): 0.94 m/s Peak Gradient(Antegrade Flow): 3.56 mm[Hg] Mean Velocity(Antegrade Flow): 0.66 m/s Mean Gradient(Antegrade Flow): 1.99 mm[Hg] Velocity Time Integral: 23.56 cm Tricuspid Valve Peak Velocity (Regurgitant Flow): 2.06 m/s, 2.18 m/s, 2.46 m/s Pulmonic Valve Mean Gradient: 1.26 mm[Hg] Mean Velocity: 0.53 m/s Peak Velocity: 0.74 m/s, 0.67 m/s Peak Gradient: 1.78 mm[Hg], 2.18 mm[Hg] Right Atrium Right Atrium Systolic Pressure: 38.60 ml, 38.60 ml Dictated by: Tanmay Dao M.D. on 05/15/2024 at 16:36 Approved by: Tanmay Dao M.D. on 05/15/2024 at 16:40
== END 2024-05-12 09:39 | disposition home or self-care (01) ==
LOC: CARD 09:38
PROVIDERS: PCP Family Medicine; Visit Provider Internal Medicine Cardiovascular Disease
DX: R07.89 Other chest pain (principal); R94.31 Abnormal electrocardiogram [ECG] [EKG]
CPT/HCPCS: 93306

== ENCOUNTER 2024-07-17 10:39 | Outpatient (OUT) | payer OTHER, SELFPAY ==
--- OUTSIDE RECORDS SUMMARY | 2024-07-17 11:01 | XMS_ITS | CCD ---
Author Organization [facility] Care Team Providers Care Thin Film Technician Name Role Phone Nayana Huitron Unavailable MD Nayana Huitron Attending Provider NON STAFF Primary Care Provider UnavailCaprice Syed Unavailable Kusum Palencia Unavailable CARIDAD TREJO Admitting Unavailable CARIDAD TREJO Attending Unavailable JASWINDER, DR FILIBERTO Tellez Primary Care Unavailable SOTO HINOJOSA Consulting Unavailable NICHELLE II, DAVIE Consulting Unavailable CARIDAD TREJO Consulting Unavailable JASWINDER, DR FILIBERTO Tellez Admitting Unavailable JASWINDER, DR FILIBERTO Tellez Attending Unavailable JASWINDER, DR FILIBERTO Tellez Primary Care Unavailable YUMA, DR GIBRAN Beyer Consulting Unavailable JASWINDER, DR FILIBERTO Tellez Consulting Unavailable MAGUE Parekh Attending Provider Kena Parekh Attending Unavailable Kena Parekh Admitting Unavailable JASWINDER, FILIBERTO Attending Unavailable JASWINDER, FILIBERTO Attending Unavailable DEYSI BARRON Attending Unavailable Allergies Allergy Classification Reported Allergen(s) Allergy Type Date of Onset Reaction(s) Facility (7 sources) Sulfamethoxazole / Trimethoprim Drug Allergy Unknown [facility] Other (1 source) Sulfamethoxazole / Trimethoprim Drug Allergy 11-03-[address] [facility] Repository (4 sources) Sulfamethoxazole; Translations: [sulfamethoxazole] Drug Allergy 01-13-20 [facility] (4 sources) Trimethoprim; Translations: [trimethoprim] Drug Allergy 01-13-20 [facility] (1 source) Sulfamethoxazole / Trimethoprim; Translations: [SULFAMETHOXAZOLE-T RIMETHOPRIM] Drug Allergy 09-29-20 [facility] Repository (1 source) Sulfonamides (Antibiotic); Translations: [SULFA (SULFONAMIDE ANTIBIOTICS)] Propensity to adverse reactions to drug (disorder) 01-13-20 [facility] Repository Medications Current Medications Medication Drug Class(es) Dates [...] Days Active cholecalciferol 0.025 mg oral tablet (10 sources) Vitamin D Start: 01-13-2024 take 25 ug by mouth once daily Cholecalciferol (Vitamin D3) Active 25 MCG PO Daily January 13, 2024 1:00am take 1 tablet by cici th every twenty-four hours Vitamin D 50 MCG (1999) 1 tablet Orally Once a day Active omeprazole 40 mg delayed release oral capsule (10 sources) Proton Pump Inhibitor Start: 01-13-2024 take 40 mg by mouth once daily Omeprazole Active 40 MG PO Daily January 13, 2024 1:00am Omeprazole 40 MG Oral for 90 Days Active predniSONE 20 mg oral tablet (3 sources) Start: 09-16-2022 take 1 tablet by mouth every twelve hours predniSONE 20 MG 1 tablet Orally 2 times a day for 5 day(s) Aug, Active Completed/Discontinued Medications Medication Drug Class(es) Dates Sig (Normalized) Sig (Original) phenazopyridine hydrochloride 200 mg oral tablet (3 sources) Start: 01-13-2024 End: 07-04-2024 take 1 tablet by mouth three times daily Phenazopyridine (Pyridium) 200 mg tablet Discontinued 200 MG PO Three times daily 6 January 13, 2024 1:00am July 04, 2024 9:21am triamcinolone acetonide 40 mg/ml injectable suspension (14 sources) Corticosteroid Start: 12-30-2022 Kenalog-40 Sep, 20 mg Start: 07-03-2022 Kenalog-40 Jun, 10 mg Problems Active Problems Problem Classification Problem Date Documented Date Episodic/Chronic Cardiac dysrhythmias (2 sources) Palpitations; Translations: [Palpitations] Onset: 05-03-2024 Episodic Esophageal disorders (4 sources) Gastro-esophageal reflux disease without esophagitis; Translations: [Gastroesophageal reflux disease] Onset: 03-08-2023 01-13-2024 Chronic Genitourinary symptoms and ill-defined conditions (6 sources) Dysuria; Translations: [Dysuria] Onset: 01-13-2024 01-13-2024 Episodic Nonspecific chest pain (2 sources) Other chest pain; Translations: [Other chest pain] Onset: 05-03-2024 Episodic Osteoarthritis (16 sources) Osteoarthritis of joint of right hand; Translations: [Primary osteoarthritis, right hand] Onset: 05-26-2022 Resolved: 07-03-2022 Chronic Other aftercare (1 source) Other halfway (current) drug therapy; Translations: [OTH HALF-WAY CURRENT DRUG THERAPY] Onset: 03-08-2023 Episodic Other connective tissue disease (6 sources) Pain in right hand; Translations: [Pain in limb] Onset: 05-26-2022 Resolved: 07-03-2022 Episodic Other connective tissue disease (1 source) Hand pain; Translations: [Pain in right hand] 07-03-2024 Episodic Other lower respiratory disease (2 sources) Other forms of dyspnea; Translations: [Other forms of dyspnea] Onset: 05-03-2024 Episodic Other screening for suspected conditions (not mental disorders or infectious disease) (10 sources) Encounter for screening for malignant neoplasm of colon; Translations: [Encounter for screening mammogram for malignant neoplasm of breast] Onset: 09-22-2022 Episodic Otitis media and related conditions (1 source) Unspecified nonsuppurative otitis media, right ear Episodic Residual codes; unclassified (1 source) Acquired absence of both cervix and uterus; Translations: [ACQUIRED ABSENCE BOTH CERVIX AND UTERUS] Onset: 03-08-2023 Episodic Unclassified (1 source) Other ventricular tachycardia; Translations: [Other ventricular tachycardia] Onset: 05-03-2024 Past or Other Problems Problem Classification Problem [...] related tissues; Translations: [FAM HX OTH MAL JUNA LYMPH HEMATPOETC] Onset: 09-29-2022 Episodic Unclassified (1 source) Other ventricular tachycardia; Translations: [Other ventricular tachycardia] Onset: 05-03-2024 Results Test Name Value Interpretation Reference Range Facil ity 36on 05-24-2024 36 Pt informed [facility] 36 Regarding echo performed on 05/12/2024: MD Carisa Healy MA Please notify the patient that her echo is overall good, heart function is good, she had mild valvular leak which is not significant and we will follow over the years. Continue current management Dr. Barron [facility] 36on 05-10-[address] Barron regarding patient's labs: Her LDL cholesterol is high and I think she needs to be on treatment but I need to know first what the date of this blood test before I recommend any treatment Thank you I spoke with the patient and she said those labs were drawn on 04/07/2024. [facility] Office Visiton 05-03-2024 Follow-up visit [id number] Ignacio Mock 1960 F Date Provider Department Center 05/03/2024 [id number] [id number] Family History Problem Relation Age of Onset Heart attack Father Heart failure Father Heart failure Maternal Grandfather Family Status - Relation Status Age at Father Maternal Grandfather Level of Service:99172 HI OFFICE/OUTPATIENT NEW MODERATE MDM 45 MINUTES [facility] Chlamydia/GC/Trich NAAon Chlamydia Trachomotis, FROILAN Negative Normal Negative [facility] Comment on above: Performed By: #### G CCHLAMTRI #### [facility] , #### CUU #### [address] Neisseria Gonorrhoeae, FROILAN Negative Normal Negative [facility] Comment on above: Performed By: #### G CCHLAMTRI #### [facility] , #### CUU #### [facility] [address] [place] [address] Trichomonas FROILAN Negative Normal Negative [facility] Comment on above: Result Comment: Perf ormed at: =G - [facility] [place] Pratik Flynn W [id number] Sewing Pattern Layout Technician: Meena Mccabe MD, Phone: [phone] PERFORMED BY: [place] [address] PATHOLOGIST LEAD ELECTRICIAN SANTHOSH STAFFORD M.D. Performed By: #### G CCHLAMTRI #### [facility] , #### CUU #### [facility] [address] [place] [address] Urine Cultureon 01-13-2024 Bacteria identified Cx Nom (U) ORGANISM: Escherichia coli (O:ESCCOL) Fishs Eddy Count 50,000 Aerobic JUVENTINO Charge (NMIC56) ---- SUSCEPTIBILITY --- ORGANISM: O:ESCCOL ANTIBIOTIC INTERPRETATION JUVENTINO Amikacin S <16 Amoxacillin/K Clavulanate S <8 Ampicillin S <8 Ampicillin/Sulbactam S <4 Aztreonam S <4 Cefazolin S <2 Cefepime S <2 Ceftazidime S <1 Ceftazidime/Avibactam S <4 Ceftolozane/Tazobacta m S <2 Ceftriaxone S <1 Cefuroxime S <4 Ciprofloxacin S <0.25 Ertapenem S <0.5 Gentamicin S <2 Levofloxacin S <0.5 Meropenem S <1 Meropenem/Vaborbactam S <2 Nitrofurantoin S <32 Piperacillin/Tazobact am S <8 Tetracycline S <4 Tigecycline S <2 Tobramycin S <2 Trimethoprim/Sulfamet hoxazole S <0.5 S = SUSCEPTIBLE I = [...] RESISTANT TO ALL B-LACTAM DRUGS. PERFORMED BY: [place] [address] PATHOLOGIST LEAD ELECTRICIAN SANTHOSH STAFFORD M.D. Normal [facility] Comment on above: Performed By: #### G CCHLAMTRI #### [facility] , #### CUU #### [address] MG MAMM SCREEN 3D REGINALD CADon 09-22-2022 MG MAMM SCREEN 3D REGINALD CAD Patient: IGNACIO MOCK Exam Date: 09/22/2022 : 1960 Gender:F Ordering : DR FILIBEROT SAN . Admission #: [id number] Family : Order #: [id number] CLICK HERE TO VIEW EXAM RADIOLOGY REPORT [...] node cancer at age 82. LOCATION: [facility] BREAST COMPOSITION: Heterogeneously dense,which may obscure [...] Lemus MD on 09/23/2022 at 08:[address] [facility] Vital Signs Date Time Vital Sign Value Performing Clinician Facility 07-04-2024 09:20-0400 Body height 167.64 cm [facility] 07-04-2024 09:20-0400 Body mass index (BMI) [Ratio] 25.3 kg/m2 [facility] 07-04-2024 09:20-0400 Body weight 71.21 kg [facility] 01-13-2024 14:40-0500 Body height 170.18 cm [facility] 01-13-2024 14:40-0500 Body mass index (BMI) [Ratio] 26.9 kg/m2 [facility] 01-13-2024 14:40-0500 Body temperature 98.4 [degF] [facility] 01-13-2024 14:40-0500 Body weight 78.01 kg [facility] 01-13-2024 14:40-0500 Diastolic blood pressure 73 mm[Hg] [facility] 01-13-2024 14:40-0500 Heart rate 87 /min [facility] 01-13-2024 14:40-0500 Respiratory rate 18 /min [facility] 01-13-2024 14:40-0500 SaO2% (BldA) [Mass fraction] 97 % [facility] 01-13-2024 14:40-0500 Systolic blood pressure 125 mm[Hg] [facility] 09-16-2022 15:50-0400 Body height 170.18 cm Kusum Palencia Other [facility] Other 09-16-2022 15:50-0400 Body mass index (BMI) [Ratio] 24.9 kg/m2 Kusum Slime Other [facility] Other 09-16-2022 15:50-0400 Body temperature 98.8 [degF] Kusum Slime Other [facility] Other 09-16-2022 15:50-0400 Body weight 72.12 kg Kusum Slime Other [facility] Other 09-16-2022 15:50-0400 Diastolic blood pressure 87 mm[Hg] Kusum Palencia Other [facility] Other 09-16-2022 15:50-0400 Respiratory rate 18 /min Kusum Palencia Other [facility] Other 09-16-2022 15:50-0400 SaO2% (BldA) [Mass fraction] 99 % Kusum Palencia Other [facility] Other 09-16-2022 15:50-0400 Systolic blood pressure 127 mm[Hg] Kusum Palencia Other [facility] Other 07-03-2022 09:00-0400 Body height 170.18 cm Nayana Huitron Other [facility] Other 06-08-2022 17:25-0400 Body height 170.18 cm Caprice Jude Other [facility] Other 06-08-2022 17:25-0400 Body mass index (BMI) [Ratio] 24.9 kg/m2 Caprice Jude Other [facility] Other 06-08-2022 17:25-0400 Body temperature 99 [degF] Caprice Jude Other [facility] Other 06-08-2022 17:25-0400 Body weight 72.12 kg Caprice Jude Other [facility] Other 06-08-2022 17:25-0400 Diastolic blood pressure 62 mm[Hg] Caprice Roque Other [facility] Other 06-08-2022 17:25-0400 Respiratory rate 16 /min Caprice Roque Other [facility] Other 06-08-2022 17:25-0400 SaO2% (BldA) [Mass fraction] 100 % Caprice Roque Other [facility] Other 06-08-2022 17:25-0400 Systolic blood pressure 121 mm[Hg] Caprice Roque Other [facility] Other Encounters Encounter Date Encounter Type Care Provider Facility Start: 07-04-2024 End: 07-04-2024 ambulatory [facility] Work Phone: Start: 07-04-2024 End: 07-04-2024 Patient encounter procedure [facility] Work Phone: Start: 05-03-2024 End: 05-03-2024 ambulatory [facility] Start: 04-06-2024 End: 04-06-2024 ambulatory FILIBERTO NADERER Not Available Start: 03-13-2024 End: 03-13-2024 ambulatory FILIBERTO NADERER Not Available Start: 01-13-2024 End: 01-13-2024 Departed Referred VAULT INSTALLER Kena Parekh Work Phone: [facility] Work Phone: Start: 01-13-2024 End: 01-13-2024 ambulatory Kena Parekh [facility] Work Phone: Start: 01-13-2024 End: 01-13-2024 Patient encounter procedure [facility] Work Phone: Start: 10-12-2023 End: 10-12-2023 ambulatory Nayana Huitron Other [facility] Other Start: 10-12-2023 Office outpatient visit 15 minutes Nayana Calvey [facility] Start: 03-05-2023 End: 03-05-2023 ambulatory CARIDAD JIMENEZ . Facility:[facility] Start: 12-30-2022 End: 12-30-2022 ambulatory Nayana Calvey Other [facility] Other Start: 12-30-2022 Office outpatient visit 15 minutes Nayana Calvey [facility] Start: 09-22-2022 End: 09-23-[address] FILIBERTO SAN Facility:[facility] Start: 09-16-2022 End: 09-16-2022 ambulatory Kusum Palencia Other [facility] Other Start: 09-16-2022 Office outpatient visit 15 minutes Kusum Slime [facility] Start: 08-04-2022 End: 08-04-2022 ambulatory Nayana Calvey Other [facility] Other Start: 08-04-2022 Office outpatient visit 15 minutes Nayana Calvey [facility] Start: 07-03-2022 End: 07-03-2022 ambulatory Nayana Calvey Other [facility] Other Start: 07-03-2022 Office outpatient visit 15 minutes Nayana Calvey [facility] Start: 06-08-2022 (URG) Urgent Care Visit Caprice Roque [facility] Start: 06-08-2022 End: 06-08-2022 ambulatory Capricekenia Roque Other [facility] Other Start: 05-26-2022 End: 05-26-2022 ambulatory Nayana Calvey Other [facility] Other Start: 05-26-2022 Office outpatient ne w 30 minutes Anyana Calvey [facility] Start: 05-26-2022 End: 05-26-2022 Patient encounter procedure MD Nayana Huitron Work Phone: [facility] Procedures Date Procedure Procedure Detail Performing Clinician Start: 05-26-2022 Plain X-ray of right hand MD Nayana Huitron Work Phone: Plan of Treatment Date Care Activity Detail Author Start: 01-14-2024 Bacteria identified in Urine by Culture [facility] Start: 01-14-2024 [facility] Start: 01-13-2024 Bacteria identified in Urine by Culture [facility] Chlamydia trachomati s DNA [Presence] in Unspecified specimen by FROILAN with probe detection [facility] Neisseria gonorrhoea e DNA [Presence] in Unspecified specimen by FROILAN with probe detection [facility] Trichomonas vaginali s DNA [Presence] in Unspecified specimen by FROILAN with probe detection [facility] Immunizations Immunization Date Immunization Notes Care Provider Fa pattity 06-08-2022 tetanus toxoid, redu simone diphtheria toxoid, and acellular pertussis vaccine, adsorbed Caprice Roque Other [facility] Payers Date Payer Category Payer Self-pay [id number] 1960 Unknown [id number] 2.16.84 [id number] 1960 Unknown [id number] 2.16.84 [id number] 1960 Unknown [id number] 2.16.84 [id number] 1960 Unknown [id number] 2.16.84 [id number] 1957 Unknown [id number] 2. [id number] Unknown [id number] 2.16.8 [id number] Social History Date Type Detail Facility Sex Assigned At License [facility] Other Start: 1960 Sex Assigned At Female F [facility] Start: 01-13-2024 End: 01-13-2024 Tobacco smoking status NHIS Never smoked tobacco (finding) [facility] Clinical Notes 06-30-2016 to 05-03-2024 Note Date & Type Note Facility 05-03-2024 Note [facility] Note Reason for cardiology consult: New patient here to establish care. Ref from Dr. Filiberto San for chest pain. stress test performed last week at [facility]. Chief Complaint: Chest pain HPI: Ignacio Mock is a 64 y.o. female without past medical history. She denies history of hypertension, or diabetes mellitus. Though she has borderline hyperlipidemia has been controlled with diet. She denies prior history of smoking. She states that lately she has been having chest pains sometimes pressure-like discomfort and sometimes sharp pain. She states that she is active and she walks a lot on her job but she does not exercise on a regular basis. Sometimes she feels little chest pressure with activities which lasts for about 20 seconds or so. The sharp pain is usually intermittent and it can occur anytime at rest or with exertion and also it lasts about 10 seconds. She admits shortness of breath with climbing stairs but not with normal walking. She denies orthopnea or paroxysmal nocturnal dyspnea or dizziness. She admits occasional fluttering without any other associated symptoms. She denies dizziness or syncope or near syncope. She denies legs edema or discomfort on exertion. She drinks 2 to 3 cans of Pepsi a day. She drinks water too. She drinks alcohol probably once every 1 to 2 weeks about 4-5 beers each time. She denies any illicit drugs. Regarding family history her father had history of coronary artery disease, stents and CABG, her paternal grandfather had [place]. Cardiology ROS: All symptoms were reviewed, they were negative except for the positive findings noted above in the history Past Medical History She has a past medical history of Chest pain, GERD (gastroesophageal reflux disease), GERD (gastroesophageal reflux disease), Heart palpitations, and Hyperlipidemia. Surgical History She has a past surgical history that includes Hysterectomy; Wrist surgery; and Esophageal dilation. Social History She reports that she has never smoked. She has never used smokeless tobacco. She reports current alcohol use. She reports that she does not use drugs. Family History Family History Problem Relation Name Age of Onset Heart attack Father Heart failure Father Heart failure Maternal Grandfather Allergies Sulfa (sulfonamide antibiotics) and Sulfamethoxazole-trimethoprim Medications Current Outpatient Medications: cholecalciferol (Vitamin D-3) 25 MCG (1000 units) tablet, Take 1,000 Units by mouth in the morning., Disp: , Rfl: omeprazole (PriLOSEC) [address] capsule, in the morning., Disp: , Rfl: Last Recorded Vitals Visit Vitals BP 122/82 (BP Location: Left arm, Patient Position: Sitting) Pulse 85 Ht 1.702 m (5' 7 ) Wt 72.1 kg (159 lb) SpO2 97% BMI 24.90 kg/m??? Smoking Status Never BSA 1.85 m??? Physical Examination: GENERAL: alert and oriented x3, well developed, in no acute distress. HEAD: atraumatic, normocephalic. EYES: NIESHA, EOMI. NECK: trachea midline, no JVD present, no carotid bruits present. CARDIAC: S1, S2 present. RRR. No murmur, rubs, or gallops. RESPIRATORY: CTAB, no increased effort of breathing, no rales, rhonchi, or wheezing. ABDOMEN: soft, nontender, nondistended. EXTREMITIES: no lower extremity edema, peripheral pulses are 2+ bilaterally. No rash/skin discoloration present. NEURO: strength/sensation equal and symmetric in bilateral upper and lower extremities. PSYCH: appropriate mood, affect, and judgement. Labs: In process of getting them from her PCP Last Images: Resting EKG 04/26/2024 at stress test showed normal sinus rhythm, slight ST depression was nonspecific T wave changes in inferior and lateral leads. Stress nuclear test 04/26/2024 Rest and peak stress ECG findings were non-diagnostic and the exercise portion of the study was Non-diagnostic per attending physician Dr. Tristan due to Inferolateral ST-segment downsloping changed to upsloping during exercise. Nuclear portion QUALITY OF STUDY: Excellent. PERFUSION DEFECT: None. LOCATION: N/A SIZE: N/A. SEVERITY: N/A. TYPE: N/A. WALL MOTION: Normal. LV SIZE: Normal. 72 mL. TID / TCD: None; 0.8 LVEF: Normal. Calculated EF 80%. SUMMARY: Myocardial perfusion imaging study is NORMAL. CONCLUSION: 1. No perfusion abnormality. No reversible ischemia 2. Nondiagnostic exercise test secondary to EKG changes Dictated by: Gibran Lemus MD on 04/26/2024 at 14:23 Approved by: Gibran Lemus MD on 04/26/2024 at 14:28 Holter monitor 04/26/2024 Interpretive Statements Predominant rhythm is sinus with average rate of 71 bpm Tachycardia - max rate of 140 bpm (PSVT) - 8 episodes of PSVT w/ longest duration of 8 beats - longest episode of 42min 48sec with rates between 111-127 bpm Bradycardia - min rate of 44 bpm - longest episode of 59min 26sec with rates between 49-55 bpm Ventricular ectopy - 107 total, <1% - 107 PVC Patient (more content not included)... [facility] 10-12-2023 Evaluation note Encounter Date Diagnosis Assessment Notes Sep, Right hand pain (ICD-10 - M79.641) Sep, Primary osteoarthritis of right hand (ICD-10 - M19.041) Right ring and small PIP joints injected with cortisone, patient tolerated well [facility] Other 02-01-2023 Evaluation note* Encounter Date Diagnosis Assessment Notes Treatment Notes Treatment Clinical Notes Dec, Right hand pain (ICD-10 - [...] and tingle for hours after this injection. [facility] Other 10-19-2022 Evaluation note* Encounter Date Diagnosis Assessment Notes Treatment Notes Treatment Clinical Notes Aug, Right otitis media with effusion (ICD-10 - H65.91) Drink plenty fluids, get plenty of rest. Take the prednisone as prescribed until gone. Continue to use your Flonase inhaler as prescribed anterior symptoms improved. Follow-up with your family physician if no improvement in 2 to 3 days. Take Tylenol or Motrin as needed for aches pains or fevers Aug, Other Ear fluid (midd le ear effusion) material was printed [facility] Other 09-06-2022 Evaluation note* Encounter Date Diagnosis Assessment Notes Treatment Notes Treatment Clinical Notes Jul, Right hand pain (ICD-10 - M79.641) Jul, Primary osteoarthritis of right hand (ICD-10 - M19.041) Patient is progressing well from injections. May consider repeat injections in the future if needed. Continue topical and/or oral NSAIDs as needed for pain/inflammation . Call with questions/concern s or return in pain. [facility] Other 08-05-2022 Evaluation note* Encounter Date Diagnosis Assessment Notes Treatment Notes Treatment Clinical Notes Jun, Right hand pain (ICD-10 - [...] the office with any questions or concerns. [facility] Other 07-11-2022 Evaluation note* Encounter Date Diagnosis Assessment Notes Treatment Notes Treatment Clinical Notes May, Laceration of hendrix (ICD-10 - S81.819A) Keep wound area completely dry for at least 24 hours. Do not pick at scabbed area where Dermabond applied. Call office, follow up with primary care provider or seek emergency treatment if any signs or symptoms of infection occur including increased swelling, increased pain, drainage, redness to area, fever, or have chills. TDAP updated [facility] Other 06-28-2022 Evaluation note* Encounter Date Diagnosis Assessment Notes Treatment Notes Treatment Clinical Notes Apr, Right hand pain (ICD-10 - [...] a medrol dose pack or cortisone injection [facility] Other 08-02-2016 History general Narrative - Reported* Type Description Date Medical History acid reflux Surgical History shoulder surgery right 2009 Surgical History hysterectomy 2006 Surgical History Throat Surgery 06/30/16 Surgical History wrist surgery 2020 Hospitalization History See Above [facility] Other Evaluation noteNo assessment information available [facility] Work Phone: Evaluation note* Diagnosis Onset Date Resolution Status Dysuria acute [facility] Work Phone: Evaluation note* Diagnosis Onset Date Resolution Status Pain in right hand acute Primary osteoarthritis of right hand acute [facility] Work Phone: Chief Complaint and Reason for Visit Chief Complaint M79.641 Chief Complaint poss uti Reason for Visit Dysuria Chief Complaint poss uti Dysuria Reason for Visit Dysuria Chief Complaint OP SP RT HAND PIAN R EQ INJECTION Reason for Visit Pain in right hand Primary osteoarthritis of right hand Advance Directives Advance Directive Response Recorded Date/ Time Advance Directives No May 26 10:51am Advance Directive Response Recorded Date/ Time Advance Directives No May 26 9:51am Summary Purpose Family History Relationship Condition Age at Onset Recorded Date/T angela Not Specified Unknown Malignant neoplasm Unknown father Heart disease Unknown Unknown Relationship Condition Age at Onset Recorded Date/T angela mother Unknown Malignant neoplasm Unknown father Heart disease [...] 2024 End: January 13, 2024 Team Status: Active Member Role Status Dates Filiberto San MD Primary Care Provider Active Team Status: Inactive Member Role Status Dates Nayana Huitron MD Attending Provider Active Start: July 04, 2024 End: July 04, 2024 Filiberto San MD Primary Care Provider Active S tart: July 04, 2024 End: July 04, 2024 Goals (unrecognized section and content) Goals may be documented in a n alternate section INFORMATION SOURCE (unrecogn ized section and content) DATE CREATED AUTHOR 03/08/[address] [facility] DATE CREATED AUTHOR AUTHOR'S ORGANIZ ATION 01/19/2024 [facility] DATE CREATED AUTHOR AUTHOR'S ORGANIZ ATION 04/08/2024 [facility] DATE CREATED AUTHOR AUTHOR'S ORGANIZ ATION 05/26/2024 [facility] FOR RECORDS PERTAINING TO PATIENTS WHO ARE [...] BE BASED ON THE PRIMARY CLINICAL RECORDS. [employer] provides no warranty or guarantee of the accuracy or completeness of information in this document.
[2024-07-17 12:16] LABS: Alanine Aminotransferase 20 U/L (14-59); Anion Gap 12.5; Aspartate Amino Transferase 18 U/L (15-37); Calcium 10.4 mg/dL (8.5-10.1); Carbon Dioxide 28.3 mmol/L (21.0-32.0); Chloride 104 mmol/L (98-107); Estimated GFR (African America >60 (>=60); Estimated GFR (Non-African Ame >60 (>=60); Glucose 92 mg/dL (74-106); Potassium 3.8 mmol/L (3.5-5.1); Sodium 141 mmol/L (136-145); Thyroid Stimulating Hormone 2.504 uIU/mL (0.358-3.740)
== END 2024-07-17 10:40 | disposition home or self-care (01) ==
LOC: LAB 10:40
PROVIDERS: PCP Family Medicine; Visit Provider Internal Medicine Cardiovascular Disease
DX: I47.29 Other ventricular tachycardia (principal); R00.2 Palpitations; E78.5 Hyperlipidemia, unspecified
CPT/HCPCS: 36415; 80048; 84443; 84450; 84460

== ENCOUNTER 2024-08-02 14:31 | Outpatient (OUT) | payer OTHER, SELFPAY ==
--- OUTSIDE RECORDS SUMMARY | 2024-08-02 14:38 | XMS_ITS | CCD ---
Author Organization [facility] Care Team Providers Care Motor Vehicle Examiner Name Role Phone Nayana Huitron Unavailable MD [...] JASWINDER, DR FILIBERTO Tellez Primary Care Unavailable PLEASANTON, DR GIBRAN Beyer Consulting Unavailable JASWINDER, DR FILIBERTO Tellez Consulting Unavailable MAGUE Parekh Attending Provider Kena Parekh Attending Unavailable Kena Parekh Admitting Unavailable JASWINDER, FILIBERTO Attending Unavailable JASWINDER, FILIBERTO Attending Unavailable DEYSI BARRON Attending Unavailable DEYSI BARRON Attending Unavailable Allergies Allergy Classification Reported Allergen(s) Allergy Type Date of Onset Reaction(s) Facility (7 sources) Sulfamethoxazole / Trimethoprim Drug Allergy Unknown [facility] Other (1 source) Sulfamethoxazole / Trimethoprim Drug Allergy 11-03-20 19 [facility] Repository (4 sources) Sulfamethoxazole; Translations: [sulfamethoxazole] Drug Allergy 01-13-20 [facility] (4 sources) Trimethoprim; Translations: [trimethoprim] Drug Allergy 01-13-20 24 [facility] (1 source) Sulfamethoxazole / Trimethoprim; Translations: [SULFAMETHOXAZOLE-T RIMETHOPRIM] Drug Allergy 09-29-20 [facility] Repository (1 source) Sulfonamides (Antibiotic); Translations: [SULFA (SULFONAMIDE ANTIBIOTICS)] Propensity to adverse reactions to drug (disorder) 01-13-20 [facility] Repository Medications Current Medications Medication Drug Class(es) [...] times daily 6 2 January 13, 2024 1:00am July 04, 2024 9:21am triamcinolone acetonide 40 mg/ml injectable suspension (14 sources) Corticosteroid Start: 12-30-2022 Kenalog-40 Sep, 20 mg Start: 07-03-2022 Kenalog-40 Jun, 10 mg Problems Active Problems Problem Classification Problem Date Documented Date Episodic/Chronic Cardiac dysrhythmias (2 sources) Palpitations; Translations: [Palpitations] Onset: 05-03-2024 Episodic Disorders of lipid metabolism (2 sources) Hyperlipidemia, unspecified; Translations: [Hyperlipidemia, unspecified] Onset: 05-03-2024 Chronic Esophageal disorders (4 sources) Gastro-esophageal reflux disease without esophagitis; Translations: [Gastroesophageal reflux disease] Onset: 03-08-2023 01-13-2024 Chronic Genitourinary symptoms and ill-defined conditions (6 sources) Dysuria; Translations: [Dysuria] Onset: 01-13-2024 01-13-2024 Episodic Heart valve disorders (2 sources) Rheumatic disorders of both mitral and aortic valves; Translations: [Rheumatic disorders of both mitral and aortic valves] Onset: 07-17-2024 Chronic Nonspecific chest pain (2 sources) Other chest pain; Translations: [Other chest pain] Onset: 05-03-2024 Episodic Osteoarthritis (16 sources) Osteoarthritis of joint of right hand; Translations: [Primary osteoarthritis, right hand] Onset: 05-26-2022 Resolved: 07-03-2022 Chronic Other aftercare (1 source) Other care home (current) drug therapy; Translations: [OTH [facility] CURRENT DRUG THERAPY] Onset: 03-08-2023 Episodic Other [...] MAL JUAN LYMPH HEMATPOETC] Onset: 09-29-2022 Episodic Unclassified (1 source) Other ventricular tachycardia; Translations: [Other ventricular tachycardia] Onset: 07-17-2024 Results Test Name Value Interpretation Reference Range Facil ity Office Visiton 07-17-2024 Follow-up visit [id number] Ignacio Mock 1960 F Date Provider Department Center 07/17/2024 [id number] BARRON [facility] Family History Problem Relation Age of Onset Heart attack Father Heart failure Father Heart failure Maternal Grandfather Family Status - Relation Status Age at Father Maternal Grandfather Level of Service:23649 [place] OFFICE/OUTPATIENT ESTABLISHED MOD MDM 30 MIN Reason for Visit and Comments: Shortness of Breath [566597] Palpitations [276723] Hyperlipidemia [182] Chest Pain [703401] [facility] 36on 05-24-2024 36 Pt informed [facility] 36 Regarding echo performed on 05/12/2024: MD Carisa Healy MA Please notify the patient that her echo is overall good, heart function is good, she had mild valvular leak which is not significant and we will follow over the years. Continue current management Dr. Barron [facility] 36on 05-10-[address] Barron regarding patient's labs: Her LDL cholesterol is high and I think she needs to be on treatment but I need to know first what the date of this blood test before I recommend any treatment Thank you I spoke with the patient and she said those labs were drawn on 04/07/2024. [facility] Office Visiton 05-03-2024 Follow-up visit [id number] Ignacio Mock 1960 F Date Provider Department Center 05/03/2024 [id number], SAMSANTOS MALIKA [facility] Family History Problem Relation Age of Onset Heart attack Father Heart failure Father Heart failure Maternal Grandfather Family Status - Relation Status Age at Father Maternal Grandfather Level of Service:30864 [place] OFFICE/OUTPATIENT NEW MODERATE MDM 45 MINUTES Normal [facility] Chlamydia/GC/Trich NAAon Chlamydia Trachomotis, FROILAN Negative Normal Negative [facility] Comment on above: Performed By: #### G CCHLAMTRI #### [facility] , #### CUU #### [facility] [address] [place] [address] Neisseria Gonorrhoeae, FROILAN Negative Normal Negative [facility] Comment on above: Performed By: #### G CCHLAMTRI #### [facility] , #### CUU #### [facility] [address] [place] [address] Trichomonas FROILAN Negative Normal Negative [facility] Comment on above: Result Comment: Perf ormed at: =G - [facility] [address] [id number] Lance Crewmember/Mlrs Sergeant: Meena Mccabe MD, Phone: [phone] PERFORMED BY: [place] [address] PATHOLOGIST RUBBER FACTORY WORKER SANTHOSH STAFFORD M.D. Performed By: #### G CCHLAMTRI #### [facility] , #### CUU #### [facility] [address] [place] [address] Urine Cultureon 01-13-2024 Bacteria identified Cx Nom (U) ORGANISM: Escherichia coli (O:ESCCOL) [place] Count 50,000 Aerobic JUVENTINO Charge (NMIC56) ---- [...] RESISTANT TO ALL B-LACTAM DRUGS. PERFORMED BY: [place] [address] PATHOLOGIST RUBBER FACTORY WORKER SANTHOSH STAFFORD M.D. [facility] Comment on above: Performed By: #### G CCHLAMTRI #### [facility] , #### CUU #### [address] MG MAMM SCREEN 3D REGINALD CADon 09-22-2022 MG MAMM SCREEN 3D REGINALD CAD Patient: IGNACIO MOCK Exam Date: 09/22/2022 : 1960 Gender:F Ordering : DR FILIBERTO SAN . Admission #: [id number] Family : Order #: [id number] CLICK HERE TO VIEW EXAM RADIOLOGY REPORT [...] lymph node cancer at age 82. LOCATION: [facility] BREAST COMPOSITION: Heterogeneously dense,which may obscure [...] Lemus MD on 09/23/2022 at 08:00 Normal [facility] Vital Signs Date Time Vital Sign Value Performing Clinician Facility 07-04-2024 09:20-0400 Body height 167.64 cm [facility] 07-04-2024 09:20-0400 Body mass index (BMI) [Ratio] 25.3 kg/m2 [facility] 07-04-2024 09:20-0400 Body weight 71.21 kg [facility] 01-13-2024 14:40-0500 Body height 170.18 cm [facility] 01-13-2024 14:40-0500 Body mass index (BMI) [Ratio] 26.9 kg/m2 [facility] 01-13-2024 14:40-0500 Body temperature 98.4 [degF] [facility] 01-13-2024 14:40-0500 Body weight 78.01 kg [facility] 01-13-2024 14:40-0500 Diastolic blood pressure 73 mm[Hg] [facility] 01-13-2024 14:40-0500 Heart rate 87 /min [facility] 01-13-2024 14:40-0500 Respiratory rate 18 /min [facility] 01-13-2024 14:40-0500 SaO2% (BldA) [Mass fraction] 97 % [facility] 01-13-2024 14:40-0500 Systolic blood pressure 125 mm[Hg] [facility] 09-16-2022 15:50-0400 Body height 170.18 cm Kusum Palencia Other [facility] Other 09-16-2022 15:50-0400 Body mass index (BMI) [Ratio] 24.9 kg/m2 Kusum Palencia Other [facility] Other 09-16-2022 15:50-0400 Body temperature 98.8 [degF] Kusum Palencia Other [facility] Other 09-16-2022 15:50-0400 Body weight 72.12 kg Kusum Palencia Other [facility] Other 09-16-2022 15:50-0400 Diastolic blood pressure 87 mm[Hg] Kusum Palencia Other [facility] Other 09-16-2022 15:50-0400 Respiratory rate 18 /min Kusum Palencia Other [facility] Other 09-16-2022 15:50-0400 SaO2% (BldA) [Mass fraction] 99 % Kusum Palencia Other [facility] Other 09-16-2022 15:50-0400 Systolic blood pressure 127 mm[Hg] Kus[facility] Palencia Other [facility] Other 07-03-2022 09:00-0400 Body height 170.18 cm Nayana Huitron Other [facility] Other 06-08-2022 17:25-0400 Body height 170.18 cm Caprice Roque Other [facility] Other 06-08-2022 17:25-0400 Body mass index (BMI) [Ratio] 24.9 kg/m2 Caprice Roque Other [facility] Other 06-08-2022 17:25-0400 Body temperature 99 [degF] Caprice Roque Other [facility] Other 06-08-2022 17:25-0400 Body weight 72.12 kg Caprice Roque Other [facility] Other 06-08-2022 17:25-0400 Diastolic blood pressure 62 mm[Hg] Capriec Roque Other [facility] Other 06-08-2022 17:25-0400 Respiratory rate 16 /min Caprice Roque Other [facility] Other 06-08-2022 17:25-0400 SaO2% (BldA) [Mass fraction] 100 % Caprice Roque Other [facility] Other 06-08-2022 17:25-0400 Systolic blood pressure 121 mm[Hg] Caprice Roque Other [facility] Other Encounters Encounter Date Encounter Type Care Provider Facility Start: 07-17-2024 End: 07-17-2024 ambulatory [facility] Start: 07-04-2024 End: 07-04-2024 ambulatory [facility] Work Phone: Start: 07-04-2024 End: 07-04-2024 Patient encounter procedure [facility] Work Phone: Start: 05-03-2024 End: 05-03-2024 ambulatory DEYSI LUIS [facility] Start: 04-06-2024 End: 04-06-2024 ambulatory FILIBERTO SAN Not Available Start: 03-13-2024 End: 03-13-2024 ambulatory FILIBERTO SAN Not Available Start: 01-13-2024 End: 01-13-2024 Departed Referred [employer] WORKER Kena Parekh Work Phone: [facility] [place] Work Phone: Start: 01-13-2024 End: 01-13-2024 ambulatory Kena Parekh [facility] Work Phone: Start: 01-13-2024 End: 01-13-2024 Patient encounter procedure [facility] Work Phone: Start: 10-12-2023 End: 10-12-2023 ambulatory Nayana Huitron Other [facility] Other Start: 10-12-2023 Office outpatient visit 15 minutes Nayana Calvey [facility] Start: 03-05-2023 End: 03-05-2023 ambulatory CARIDAD LAUGEORGEBrayden . Facility:[facility] Start: 12-30-2022 End: 12-30-2022 ambulatory Nayana Calvey Other [facility] Other Start: 12-30-2022 Office outpatient visit 15 minutes Nayana Calvey [facility] Start: 09-22-2022 End: 09-23-[address] FILIBERTO SAN Facility:[facility] Start: 09-16-2022 End: 09-16-2022 ambulatory Kusum Palencia Other [facility] Other Start: 09-16-2022 Office outpatient visit 15 minutes Kusum Palencia [facility] Start: 08-04-2022 End: 08-04-2022 ambulatory Nayana Calvsaundra Other [facility] Other Start: 08-04-2022 Office outpatient visit 15 minutes Nayana Huitron [facility] Start: 07-03-2022 End: 07-03-2022 ambulatory Nayana Huitron Other [facility] Other Start: 07-03-2022 Office outpatient visit 15 minutes Nayana Huitron [facility] Start: 06-08-2022 (URG) Urgent Care Visit Caprice Roque [facility] Start: 06-08-2022 End: 06-08-2022 ambulatory Caprice Roque Other [facility] Other Start: 05-26-2022 End: 05-26-2022 ambulatory Nayana Huitron Other [facility] Other Start: 05-26-2022 Office outpatient ne w 30 minutes Nayana Huitron [facility] Start: 05-26-2022 End: 05-26-2022 Patient encounter procedure MD Nayana Huitron Work Phone: [facility] Procedures Date Procedure Procedure Detail Performing Clinician Start: 05-26-2022 Plain X-ray of right hand MD Nayana Huitron Work Phone: Plan of Treatment Date Care Activity Detail Author Start: 01-14-2024 Bacteria identified in Urine by Culture [facility] Start: 01-14-2024 [facility] Start: 01-13-2024 Bacteria identified in Urine by Culture [facility] Chlamydia trachomati s DNA [Presence] in Unspecified specimen by FROILAN with probe detection [facility] Neisseria gonorrhoea e DNA [Presence] in Unspecified specimen by FROILAN with probe detection [facility] Trichomonas vaginali s DNA [Presence] in Unspecified specimen by FROILAN with probe detection [facility] Immunizations Immunization Date Immunization Notes Care Provider Fa steven 06-08-2022 tetanus toxoid, redu simone diphtheria toxoid, and acellular pertussis vaccine, adsorbed Caprice Crowleyault Other [facility] Payers Date Payer Category Payer Self-pay [id number] 1960 Unknown [id number] 2.16.84 [id number] 1960 Unknown [id number] 2.16.84 [id number] 1960 Unknown [id number] 2.16.84 [id number] 1960 Unknown [id number] 2.16.84 [id number] 1957 Unknown [id number] 2. [id number] Unknown [id number] 2.16.8 [id number] Social History Date Type Detail Facility Sex Assigned At [facility] Other Start: 1960 Sex Assigned At Female F [facility] Start: 01-13-2024 End: 01-13-2024 Tobacco smoking status NHIS Never smoked tobacco (finding) [facility] Clinical Notes 06-30-2016 to 07-17-2024 Note Date & Type Note Facility 07-17-2024 Note [facility] Note Reason for cardiology follow-up: 2 months follow-up Chief Complaint: Chest pain HPI: 07/17/2024 Patient reports 2 events of having lightheadedness after or during the shower which she takes early in the morning before she goes to work. No prior similar history. No history of syncope. Patient drinks water however she drinks a lot of [employer]epsi about 4 cans a day and she is cutting down to 2-3 a day. She rarely drinks small amount of alcohol probably once a month. She continues to have brief episodes of chest discomfort which lasts 5 to 10 seconds, they are random, not necessarily related to exertion. No other symptoms. She denies exertional dyspnea, orthopnea or paroxysmal nocturnal dyspnea or legs edema. 05/03/2024 Ignacio Mock is a 64 y.o. female [...] stents and CABG, her paternal grandfather had [facility]. Cardiology ROS: All symptoms were reviewed, they [...] Rfl: Last Recorded Vitals Visit Vitals BP 139/79 (BP Location: Right arm, Patient Position: Sitting) Pulse 74 Ht 1.702 m (5' 7 ) Wt 69.9 kg (154 lb) SpO2 99% BMI 24.12 kg/m??? Smoking Status Never BSA 1.82 m??? Physical Examination: GENERAL: alert and oriented [...] PSYCH: appropriate mood, affect, and judgement. Labs: 05/04/2024 Cholesterol 220, HDL 59, LDL 143, triglyceride 89, glucose 98 Last Images: Resting EKG 04/26/2024 at stress test showed normal sinus rhythm, slight ST depression was nonspecific T wave changes in inferior and lateral leads. Echo 05/12/2024 Stress nuclear test 04/26/2024 Rest and peak [...] CONCLUSION: 1. No perfusion abnormality. No reversible isc (more content not included)... [facility] 05-03-2024 Note [facility] Note Reason for cardiology consult: New patient here to establish care. Ref from Dr. Filiberto San for chest pain. stress test performed last week at [facility]. Chief Complaint: Chest pain HPI: Ignacio Mock [...] stents and CABG, her paternal grandfather had [facility]. Cardiology ROS: All symptoms were reviewed, they [...] 107 PVC Patient (more content not included)... [facility] 10-12-2023 Evaluation note Encounter Date Diagnosis Assessment Notes Sep, Right hand pain (ICD-10 - M79.641) Sep, Primary osteoarthritis of right hand (ICD-10 - M19.041) Right ring and small PIP joints injected with cortisone, patient tolerated well [facility] Other 02-01-2023 Evaluation note* Encounter Date Diagnosis [...] and tingle for hours after this injection. [facility] Other 10-19-2022 Evaluation note* Encounter Date Diagnosis [...] (midd le ear effusion) material was printed [facility] Other 09-06-2022 Evaluation note* Encounter Date Diagnosis Assessment Notes Treatment Notes Treatment Clinical Notes Jul, Right hand pain (ICD-10 - M79.641) Jul, Primary osteoarthritis of right hand (ICD-10 - M19.041) Patient is progressing well from injections. May consider repeat injections in the future if needed. Continue topical and/or oral NSAIDs as needed for pain/inflammation . Call with questions/concern s or return in pain. [facility] Other 08-05-2022 Evaluation note* Encounter Date Diagnosis [...] the office with any questions or concerns. [facility] Other 07-11-2022 Evaluation note* Encounter Date Diagnosis [...] area, fever, or have chills. TDAP updated [facility] Other 06-28-2022 Evaluation note* Encounter Date Diagnosis [...] a medrol dose pack or cortisone injection [facility] Other 08-02-2016 History general Narrative - Reported* Type Description Date Medical History acid reflux Surgical History shoulder surgery right 2009 Surgical History hysterectomy 2007 Surgical History Throat Surgery 06/30/16 Surgical History wrist surgery 2020 Hospitalization History See Above [facility] Other Evaluation noteNo assessment information available [facility] Work Phone: Evaluation note* Diagnosis Onset Date Resolution Status Dysuria acute [facility] Work Phone: Evaluation note* Diagnosis Onset Date Resolution Status Pain in right hand acute Primary osteoarthritis of right hand acute [facility] Work Phone: Chief Complaint and Reason for Visit Chief Complaint M79.641 Chief Complaint poss uti Reason for Visit Dysuria Chief Complaint poss uti Dysuria Reason for Visit Dysuria Chief Complaint OP SP RT HAND PIAN R EQ INJECTION Reason for Visit Pain in right hand Primary osteoarthritis of right hand Advance Directives No Advanced Directives Records Found [...] and content) DATE CREATED AUTHOR 03/08/2023 [facility] DATE CREATED AUTHOR AUTHOR'S ORGANIZ ATION 01/19/2024 [facility] DATE CREATED AUTHOR AUTHOR'S ORGANIZ ATION 04/08/2024 [facility] DATE CREATED AUTHOR AUTHOR'S ORGANIZ ATION 07/18/2024 [facility] FOR RECORDS PERTAINING TO PATIENTS WHO ARE [...] BE BASED ON THE PRIMARY CLINICAL RECORDS. [employer] provides no warranty or guarantee of the accuracy or completeness of information in this document.
[2024-08-02 16:07] LABS: Magnesium 2.1 mg/dL (1.8-2.4)
== END 2024-08-02 14:32 | disposition home or self-care (01) ==
LOC: LAB 14:32
PROVIDERS: PCP Family Medicine; Visit Provider Internal Medicine Cardiovascular Disease
DX: I47.29 Other ventricular tachycardia (principal); R00.2 Palpitations
CPT/HCPCS: 36415; 83735

== ENCOUNTER 2024-09-27 13:07 | Outpatient (OUT) | payer OTHER, SELFPAY ==
--- NOTE | 2024-09-27 13:10 | MM_ITS ---
Patient Name: IGNACIO DIAZ MR#: [id number] : 1960 Exam Date: 09/27/2024 Ordering Doctor: DR Filiberto Bernard . RADIOLOGY REPORT PROCEDURE: MM TOMOSYNTHESIS SCREENING BI COMPARISON: MM TOMOSYNTHESIS SCREENING BI, 09/23/2023. MG MAMM SCREEN 3D REGINALD CAD, 09/22/2022. MG MAMM SCREEN 3D REGINALD CAD, 09/09/2021. MAMMO REGINALD SCREEN, 01/12/2003. INDICATIONS: Screening Calculator Name NCI Breast Cancer Risk Assessment Tool 5 Year Breast Cancer Risk 1.20% Lifetime Breast Cancer Risk 5.70% Personal Breast Cancer No Personal Ovarian Cancer No Treatments None Family Cancers Mother with ovarian cancer at age 46; Grandmother-maternal with lymph node cancer at age 80. LOCATION: [facility] BREAST COMPOSITION: The breasts are heterogeneously dense,which may obscure small masses. FINDINGS: DIAGNOSTIC CATEGORY 2--BENIGN FINDING: RIGHT BREAST: No significant suspicious finding. No significant change has occurred. LEFT BREAST: No significant suspicious finding. Scattered benign-appearing calcifications are present. No significant change has occurred.. No significant change has occurred. No significant change has occurred. No significant change has occurred. No significant change has occurred. RECOMMENDATIONS: ROUTINE MAMMOGRAM AND CLINICAL EVALUATION IN 12 MONTHS. PLEASE NOTE: A NORMAL MAMMOGRAM DOES NOT EXCLUDE THE POSSIBILITY OF BREAST CANCER. A CLINICALLY SUSPICIOUS PALPABLE LUMP SHOULD BE BIOPSIED. Dictated by: Odin Green M.D. on 09/27/2024 at 16:35 Approved by: Odin Green M.D. on 09/27/2024 at 16:38
== END 2024-09-27 13:08 | disposition home or self-care (01) ==
LOC: MAMMO 13:07
PROVIDERS: PCP Family Medicine; Visit Provider Family Medicine
DX: Z12.31 Encounter for screening mammogram for malignant neoplasm of breast (principal); Z80.41 Family history of malignant neoplasm of ovary; Z80.7 Family history of other malignant neoplasms of lymphoid, hematopoietic and related tissues
CPT/HCPCS: 77063; 77067

== ENCOUNTER 2024-10-20 09:54 | Outpatient (OUT) | payer OTHER, SELFPAY ==
--- OUTSIDE RECORDS SUMMARY | 2024-10-20 10:09 | XMS_ITS | CCD ---
Author Organization [facility] Care Team Providers Care Forming Fixer Name Role Phone Nayana Huitron Unavailable MD [...] JASWINDER, DR FILIBERTO Tellez Primary Care Unavailable PUEBLO, DR GIBRAN Beyer Consulting Unavailable JASWINDER, DR FILIBERTO Tellez Consulting Unavailable MAGUE Parekh Attending Provider Kena Parekh Attending Unavailable Kena Parekh Admitting Unavailable JASWINDER, FILIBERTO Attending Unavailable JASWINDER, FILIBERTO Attending Unavailable DEYSI BARRON Attending Unavailable DEYSI BARRON Attending Unavailable Allergies Allergy Classification Reported Allergen(s) Allergy Type Date of Onset Reaction(s) Facility (7 sources) Sulfamethoxazole / Trimethoprim Drug Allergy Unknown [facility] Other (1 source) Sulfamethoxazole / Trimethoprim Drug Allergy 11-03-20 19 [facility] Repository (4 sources) Sulfamethoxazole; Translations: [sulfamethoxazole] Drug Allergy 01-13-20 [facility] (4 sources) Trimethoprim; Translations: [trimethoprim] Drug Allergy 01-13-20 24 [facility] (1 source) Sulfamethoxazole / Trimethoprim; Translations: [SULFAMETHOXAZOLE-T RIMETHOPRIM] Drug Allergy 09-29-20 [facility] Repository (1 source) Sulfonamides (Antibiotic); Translations: [SULFA (SULFONAMIDE ANTIBIOTICS)] Propensity to adverse reactions to drug (disorder) 01-13-20 [facility] Repository Medications Current Medications Medication Drug Class(es) [...] 07-03-2022 Chronic Other aftercare (1 source) Other correction (current) drug therapy; Translations: [OTH LONGTERM CURRENT DRUG THERAPY] Onset: 03-08-2023 Episodic Other connective tissue disease (6 sources) Pain in right hand; Translations: [Pain in limb] Onset: 05-26-2022 Resolved: 07-03-2022 Episodic Other connective tissue disease (1 source) Hand pain; Translations: [Pain in right hand] 07-03-2024 Episodic Other screening for suspected conditions (not [...] initial encounter Onset: 06-08-2022 Resolved: 06-08-2022 Episodic Other lower respiratory disease (2 sources) Other forms of dyspnea; Translations: [Other forms of dyspnea] Onset: 05-03-2024 Episodic Residual codes; unclassified (1 source) Family [...] Value Interpretation Reference Range Facil ity 36on 08-02-2024 36 Regarding lab result s for 07/17/24 From: Deysi Barron MD Sent: 08/01/2024 4:58 PM EDT To: Carisa Cash MA Subject: RE: Scan Those labs are normal. But we need to check magnesium level please Pt was informed and will stop down today to have the magnesium level drawn. 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 [facility] Office Visiton 07-17-2024 Follow-up visit [id number] Ignacio Mock 1960 F Date Provider Department Center 07/17/2024 [id number] BARRON MALIKA [place] [facility] Family History Problem Relation Age of Onset Heart attack Father Heart failure Father Heart failure Maternal Grandfather Family Status - Relation Status Age at Father Maternal Grandfather Level of Service:94686 [place] OFFICE/OUTPATIENT ESTABLISHED MOD MDM 30 MIN Reason for Visit and Comments: Shortness of Breath [894145] Palpitations [658715] Hyperlipidemia [182] Chest Pain [534863] [facility] 36on 05-24-2024 36 Pt informed [facility] 36 Regarding echo performed on 05/12/2024: MD Carisa Healy MA Please notify the patient that her echo is overall good, heart function is good, she had mild valvular leak which is not significant and we will follow over the years. Continue current management Dr. Barron [facility] 36on 05-10-[address] Barron regarding patient's labs: Her LDL cholesterol is high and I think she needs to be on treatment but I need to know first what the date of this blood test before I recommend any treatment Thank you I spoke with the patient and she said those labs were drawn on 04/07/2024. Normal [facility] Office Visiton 05-03-2024 Follow-up visit [id number] Ignacio Mock Geoff 1960 F Date Provider Department Center 05/03/2024 [id number] RODRIGUEZ [facility] Pamela [facility] Family History Problem Relation Age of Onset Heart attack Father Heart failure Father Heart failure Maternal Grandfather Family Status - Relation Status Age at Father Maternal Grandfather Level of Service:26875 [place] OFFICE/OUTPATIENT NEW MODERATE MDM 45 MINUTES Normal [facility] Chlamydia/GC/Trich NAAon Chlamydia Trachomotis, FROILAN Negative Normal Negative [facility] Comment on above: Performed By: #### G CCHLAMTRI #### [facility] , #### CUU #### [facility] [address] [place] [address] [place] Neisseria Gonorrhoeae, FROILAN Negative Normal Negative [facility] Comment on above: Performed By: #### G CCHLAMTRI #### [facility] , #### CUU #### [facility] [address] [place] [address] Trichomonas FROILAN Negative Normal Negative [facility] Comment on above: Result Comment: Perf ormed at: =G - [facility] [address] [id number] Luster Repairer: Meena Mccabe MD, Phone: [phone] PERFORMED BY: [place] [address] PATHOLOGIST BOAT PERSON SANTHOSH STAFFORD M.D. Performed By: #### G CCHLAMTRI #### [facility] , #### CUU #### [facility] [address] [place] [address] [place] Urine Cultureon 01-13-2024 Bacteria identified Cx Nom (U) ORGANISM: Escherichia coli (O:ESCCOL) [place] Count 50,000 Aerobic JUVENTINO Charge (NMIC56) ---- [...] RESISTANT TO ALL B-LACTAM DRUGS. PERFORMED BY: [place] [address] PATHOLOGIST BOAT PERSON SANTHOSH STAFFORD M.D. Normal [facility] Comment on above: Performed By: #### G CCHLAMTRI #### [facility] , #### CUU #### [address] MG MAMM SCREEN 3D REGINALD CADon 09-22-2022 MG MAMM SCREEN 3D REGINALD CAD Patient: IGNACIO MOCK Exam Date: 09/22/2022 : 1960 Gender:F Ordering : DR FILIBERTO SAN . Admission #: [id number] Family : Order #: [id number] CLICK HERE TO VIEW EXAM RADIOLOGY REPORT [...] node cancer at age 82. LOCATION: [facility] BREAST COMPOSITION: Heterogeneously dense,which may obscure [...] MD on 09/23/2022 at 08:00 Normal [facility] Vital Signs Date Time Vital Sign Value Performing Clinician Facility 07-04-2024 09:20-0400 Body height 167.64 cm [facility] 07-04-2024 09:20-0400 Body mass index (BMI) [Ratio] 25.3 kg/m2 [facility] 07-04-2024 09:20-0400 Body weight 71.21 kg [facility] 01-13-2024 14:40-0500 Body height 170.18 cm [facility] 01-13-2024 14:40-0500 Body mass index (BMI) [Ratio] 26.9 kg/m2 [facility] 01-13-2024 14:40-0500 Body temperature 98.4 [degF] [facility] 01-13-2024 14:40-0500 Body weight 78.01 kg [facility] 01-13-2024 14:40-0500 Diastolic blood pressure 73 mm[Hg] [facility] 01-13-2024 14:40-0500 Heart rate 87 /min [facility] 01-13-2024 14:40-0500 Respiratory rate 18 /min [facility] 01-13-2024 14:40-0500 SaO2% (BldA) [Mass fraction] 97 % [facility] 01-13-2024 14:40-0500 Systolic blood pressure 125 mm[Hg] [facility] 09-16-2022 15:50-0400 Body height 170.18 cm Kusum Slime Other [facility] Other 09-16-2022 15:50-0400 Body mass index (BMI) [Ratio] 24.9 kg/m2 [facility] Sl[facility] Other [facility] Other 09-16-2022 15:50-0400 Body temperature 98.8 [degF] [facility] Other [facility] Other 09-16-2022 15:50-0400 Body weight 72.12 kg Kusum Slime Other [facility] Other 09-16-2022 15:50-0400 Diastolic blood pressure 87 mm[Hg] [facility] Slime Other [facility] Other 09-16-2022 15:50-0400 Respiratory rate 18 /min Kusum Slime Other [facility] Other 09-16-2022 15:50-0400 SaO2% (BldA) [Mass fraction] 99 % Kusum Slime Other [facility] Other 09-16-2022 15:50-0400 Systolic blood pressure 127 mm[Hg] [facility] Other [facility] Other 07-03-2022 09:00-0400 Body height 170.18 cm Nayana Huitron Other [facility] Other 06-08-2022 17:25-0400 Body height 170.18 cm Caprice Jude Other [facility] Other 06-08-2022 17:25-0400 Body mass index (BMI) [Ratio] 24.9 kg/m2 Caprice Jude Other [facility] Other 06-08-2022 17:25-0400 Body temperature 99 [degF] Caprice Jude Other [facility] Other 06-08-2022 17:25-0400 Body weight 72.12 kg Caprice Crowleyault Other [facility] Other 06-08-2022 17:25-0400 Diastolic blood pressure 62 mm[Hg] Caprice Jude Other [facility] Other 06-08-2022 17:25-0400 Respiratory rate 16 /min Caprice Jude Other [facility] Other 06-08-2022 17:25-0400 SaO2% (BldA) [Mass fraction] 100 % Caprice Jude Other [facility] Other 06-08-2022 17:25-0400 Systolic blood pressure 121 mm[Hg] Caprice Jude Other [facility] Other Encounters Encounter Date Encounter Type Care Provider Facility Start: 07-17-2024 End: 07-17-2024 ambulatory [facility] Start: 07-04-2024 End: 07-04-2024 ambulatory [facility] Work Phone: Start: 07-04-2024 End: 07-04-2024 Patient encounter procedure [facility] Work Phone: Start: 05-03-2024 End: 05-03-2024 ambulatory [facility] Start: 04-06-2024 End: 04-06-2024 ambulatory FILIBERTO SAN Not Available Start: 03-13-2024 End: 03-13-2024 ambulatory FILIBERTO SAN Not Available Start: 01-13-2024 End: 01-13-2024 Departed Referred MAGUE Parekh Work Phone: [facility] Work Phone: Start: 01-13-2024 End: 01-13-2024 ambulatory Kena Parekh [facility] Work Phone: Start: 01-13-2024 End: 01-13-2024 Patient encounter procedure [facility] Work Phone: Start: 10-12-2023 End: 10-12-2023 ambulatory Nayana Huitron Other [employer] [facility] [employer] Other Start: 10-12-2023 Office outpatient visit 15 minutes Nayana Calvey [facility] Start: 03-05-2023 End: 03-05-2023 ambulatory CARIDAD LAUGEORGEBrayden . Facility:[facility]1 Start: 12-30-2022 End: 12-30-2022 ambulatory Nayana Huitron Other [facility] Other Start: 12-30-2022 Office outpatient visit 15 minutes Nayana Calvey [facility] Start: 09-22-2022 End: 09-23-[address] FILIBERTO A NADERER Facility:[facility] Start: 09-16-2022 End: 09-16-2022 ambulatory Kusum Palencia Other [facility] Other Start: 09-16-2022 Office outpatient visit 15 minutes Kusum Palencia [facility] Start: 08-04-2022 End: 08-04-2022 ambulatory Nayana Huitron Other [facility] Other Start: 08-04-2022 Office outpatient visit 15 minutes Nayana Calvey [facility] Start: 07-03-2022 End: 07-03-2022 ambulatory Nayana Tomy Other [facility] Other Start: 07-03-2022 Office outpatient visit 15 minutes Nayana Calvey [facility] Start: 06-08-2022 (URG) Urgent Care Visit Caprice Jude [facility] Start: 06-08-2022 End: 06-08-2022 ambulatory Caprice Crowleyault Other [facility] Other Start: 05-26-2022 End: 05-26-2022 ambulatory Nayana Huitron Other [facility] Other Start: 05-26-2022 Office outpatient ne w 30 minutes Nayanapuneet Huitron [facility] Start: 05-26-2022 End: 05-26-2022 Patient encounter procedure MD Nayana Huitron Work Phone: [facility] Procedures Date Procedure Procedure Detail Performing Clinician Start: 05-26-2022 Plain X-ray of right hand MD Nayana Huitron Work Phone: Plan of Treatment Date Care Activity Detail Author Start: 01-14-2024 Bacteria identified in Urine by Culture [facility] Start: 01-14-2024 [facility] Start: 01-13-2024 Bacteria identified in Urine by Culture [facility] Chlamydia trachomati s DNA [Presence] in Unspecified specimen by FROILAN with probe detection [facility] Neisseria gonorrhoea e DNA [Presence] in Unspecified specimen by FROILAN with probe detection [facility] Trichomonas vaginali s DNA [Presence] in Unspecified specimen by FROILAN with probe detection [facility] Immunizations Immunization Date Immunization Notes Care Provider Kate harris 06-08-2022 tetanus toxoid, redu simone diphtheria toxoid, and acellular pertussis vaccine, adsorbed Caprice Roque Other [facility] Payers Date Payer Category Payer Self-pay [id number] 1960 Unknown [id number] 2.16.84 [id number] 1960 Unknown [id number] [id number] [id number] 1960 Unknown [id number] 2.16.84 [id number] 1960 Unknown [id number] 2.16.84 [id number] 1957 Unknown [id number] 2. [id number] Unknown [id number] 2.16.8 [id number] Social History Date Type Detail Facility Sex Assigned At [facility] Other Start: 1960 Sex Assigned At Female F [facility] Start: 01-13-2024 End: 01-13-2024 Tobacco smoking status NHIS Never smoked tobacco (finding) [facility] Clinical Notes 06-30-2016 to 07-17-2024 Note Date & Type Note Facility 07-17-2024 Note [facility] Note Reason for cardiology [...] stents and CABG, her paternal grandfather had PA. Cardiology ROS: All symptoms were reviewed, they [...] No reversible isc (more content not included)... [facility] 05-03-2024 Note [facility] Note Reason for cardiology consult: New patient here to establish care. Ref from Dr. Filiberto San for chest pain. stress test performed last week at [facility]. Chief Complaint: Chest pain HPI: Ignacio [...] stents and CABG, her paternal grandfather had PA. Cardiology ROS: All symptoms were reviewed, they [...] 107 PVC Patient (more content not included)... [facility] 10-12-2023 Evaluation note Encounter Date Diagnosis Assessment Notes Sep, Right hand pain (ICD-10 - M79.641) Sep, Primary osteoarthritis of right hand (ICD-10 - M19.041) Right ring and small PIP joints injected with cortisone, patient tolerated well [facility] Other 02-01-2023 Evaluation note* Encounter Date Diagnosis [...] and tingle for hours after this injection. [facility] Other 10-19-2022 Evaluation note* Encounter Date Diagnosis [...] (midd le ear effusion) material was printed [facility] Other 09-06-2022 Evaluation note* Encounter Date Diagnosis Assessment Notes Treatment Notes Treatment Clinical Notes Jul, Right hand pain (ICD-10 - M79.641) Jul, Primary osteoarthritis of right hand (ICD-10 - M19.041) Patient is progressing well from injections. May consider repeat injections in the future if needed. Continue topical and/or oral NSAIDs as needed for pain/inflammation . Call with questions/concern s or return in pain. [facility] Other 08-05-2022 Evaluation note* Encounter Date Diagnosis [...] the office with any questions or concerns. [facility] Other 07-11-2022 Evaluation note* Encounter Date Diagnosis [...] area, fever, or have chills. TDAP updated [facility] Other 06-28-2022 Evaluation note* Encounter Date Diagnosis [...] a medrol dose pack or cortisone injection [employer] [facility] [employer] Other 08-02-2016 History general Narrative - Reported* Type Description Date Medical History acid reflux Surgical History shoulder surgery right 2009 Surgical History hysterectomy 2007 Surgical History Throat Surgery 06/30/16 Surgical History wrist surgery 2020 Hospitalization History See Above [facility] Other Evaluation noteNo assessment information available [facility] Work Phone: Evaluation note* Diagnosis Onset Date Resolution Status Dysuria acute [facility] Work Phone: Evaluation note* Diagnosis Onset Date Resolution Status Pain in right hand acute Primary osteoarthritis of right hand acute [facility] Work Phone: Chief Complaint and Reason for [...] and content) DATE CREATED AUTHOR 03/08/2023 [facility] DATE CREATED AUTHOR AUTHOR'S ORGANIZ ATION 01/19/2024 [facility] DATE CREATED AUTHOR AUTHOR'S ORGANIZ ATION 04/08/2024 [facility] DATE CREATED AUTHOR AUTHOR'S ORGANIZ ATION 08/04/2024 [facility] FOR RECORDS PERTAINING TO PATIENTS WHO ARE [...] BE BASED ON THE PRIMARY CLINICAL RECORDS. [employer] provides no warranty or guarantee of the accuracy or completeness of information in this document.
[2024-10-20 11:00] LABS: Chol HDL Ratio 3.1; Cholesterol 213 mg/dL (<=200); HDL Cholesterol 69 mg/dL (40-60); Triglycerides 45 mg/dL (<=150)
== END 2024-10-20 09:55 | disposition home or self-care (01) ==
LOC: LAB 09:55
PROVIDERS: PCP Family Medicine; Visit Provider Internal Medicine Cardiovascular Disease
DX: E78.5 Hyperlipidemia, unspecified (principal)
CPT/HCPCS: 36415; 80061

== ENCOUNTER 2024-12-04 13:04 | Emergency (ER) | payer OTHER, SELFPAY ==
[2024-12-04 13:10] VITALS: BP 137/84; PULSE 82; TEMP 36.8; O2SAT 98; BMI 24.3
--- NOTE | 2024-12-04 13:15 | XR_ITS ---
The [address] [address] Patient Name: IGNACIO DIAZ MRN: [id number] date: 1960 Sex: F Assigned Patient Location: ER Current Patient Location: ED.MAIN Accession/Order Number: [id number] Exam Date: 12/04/2024 13:20 Report Date: 12/04/2024 14:00 At the request of: ADY DOSS Procedure: XR elbow LT min 3V EXAM: XR elbow LT min 3V HISTORY: fall c/o pain COMPARISON: None. TECHNIQUE: 3 views of the left elbow were obtained. FINDINGS: Very subtle cortical changes are seen in the radial neck suggesting a nondisplaced fracture. There is no other evidence of an acute fracture or dislocation. The joint spaces are intact throughout. No osteochondral injury is identified. There is a significant joint effusion present. XR/XR elbow LT min 3V IMPRESSION: A subtle fracture involving the radial neck is suggested and may be present. There is no other evidence of an acute fracture or dislocation. The prominent joint effusion suggested fracture as well. A follow-up study in 6-8 days is recommended. Electronically authenticated by: LAYLA HAAS Date: 12/04/2024 14:00
--- NOTE | 2024-12-04 13:15 | XR_ITS ---
The [address] [address] Patient Name: IGNACIO DIAZ MRN: [id number] date: 1960 Sex: F Assigned Patient Location: ER Current Patient Location: ER Accession/Order Number: [id number] Exam Date: 12/04/2024 13:20 Report Date: 12/04/2024 14:07 At the request of: ADY DOSS Procedure: XR forearm LT 2V EXAM: XR forearm LT 2V HISTORY: fall c/o pain after patient fell on ice. COMPARISON: None. TECHNIQUE: 2 views left forearm. FINDINGS: There is a left elbow effusion with positive anterior and posterior fat pad signs partially visualized on this nondedicated examination. There is suggestion of a subtle acute left radial head fracture. XR/XR forearm LT 2V IMPRESSION: 1. Left elbow effusion with suggestion of a subtle acute left radial head fracture. Correlate with site of patient's pain. Dedicated left elbow radiographs may be useful for further evaluation. Electronically authenticated by: ROSY CHRISTIE Date: 12/04/2024 14:07
--- NOTE | 2024-12-04 13:41 | ED_ITS ---
HPI HPI - Extremity Injury (Upper) General Chief Complaint: Extremity Injury, Upper Stated Complaint: FELL ON ICE, UPPER EXTRIMITY PAIN Time Seen by Provider: 12/04/24 13:19 Source: patient Mode of arrival: walk-in Limitations: no limitations History of Present Illness HPI narrative: 64-year-old female presents to the emergency department for left elbow pain. She fell in her driveway this morning about 10 AM snowblowing. No other injury was sustained. She did not hit her head and has no hip pain. She came in ambulatory. It hurts to extend her elbow. Related Data Home Medications ?Medication ?Instructions ?Recorded ?Confirmed atorvastatin 20 mg tablet 20 mg PO BEDTIME 12/04/24 12/04/24 cholecalciferol (vitamin D3) 25 25 mcg PO DAILY 12/04/24 12/04/24 mcg (1,000 unit) tablet omeprazole 40 mg capsule,delayed 40 mg PO DAILY 12/04/24 12/04/24 release Previous Rx's ?Medication ?Instructions ?Recorded acetaminophen 300 mg-codeine 30 mg 1 tab PO Q6H PRN pain 5 days #20 12/04/24 tablet tabs Allergies Allergy/AdvReac Type Severity Reaction Status Date / Time sulfamethoxazole (From Allergy Severe Hives Verified 12/04/24 13:10 Bactrim) trimethoprim (From Bactrim) Allergy Severe Hives Verified 12/04/24 13:10 Opioid HPI Opioid Management Most Recent Pain and Opioid Data: No Data to Display Review of Systems ROS Narrative A ten point review of systems is negative except as noted above. PFSH PFSH Social History Little interest or pleasure in doing things: not at all Feeling down, depressed, or hopeless: not at all Exam Narrative Exam Narrative: Nurses note and vital signs reviewed and patient is not hypoxic. General: The patient appears in no apparent distress. Skin: Warm, dry, no pallor noted. There is no rash noted. Head: Normocephalic, atraumatic Eye: Normal conjunctiva, no drainage Ears, Nose, Mouth, and Throat: oral mucosa is moist. Nares patent. Cardiovascular: Regular Rate and Rhythm Respiratory: Patient is in no distress, no accessory muscle use, lungs are clear to auscultation, no wheezing, rales or rhonchi Back: non-tender GI: Soft and nontender Musculoskeletal: The left elbow has no obvious deformity. She is unable to fully extend it. No break in the skin. Wrist and shoulder are nontender. Neurological: A&O, normal speech Psychiatric: Cooperative Constitutional Vital Signs, click to edit/add: Last Vital Signs Temp 98.2 F 12/04/24 13:10 Pulse 82 12/04/24 13:10 Resp 20 12/04/24 13:10 BP 137/84 12/04/24 13:10 Pulse Ox 98 12/04/24 13:10 Course Vital Signs Vital signs: Vital Signs Temperature 98.2 F 12/04/24 13:10 Pulse Rate 82 12/04/24 13:10 Respiratory Rate 20 12/04/24 13:10 Blood Pressure 137/84 12/04/24 13:10 Pulse Oximetry 98 12/04/24 13:10 Temperature 98.2 F 12/04/24 13:10 Pulse Rate 82 12/04/24 13:10 Respiratory Rate 20 12/04/24 13:10 Blood Pressure 137/84 12/04/24 13:10 Pulse Oximetry 98 12/04/24 13:10 MDM - Extremity Injury (Upper) MDM Narrative Medical decision making narrative: Radial head fractures identified on her x-ray. Long-arm posterior splint applied by me, the patient is neurovascular intact. Sling also applied, application checked by me and found to be appropriate, she is neurovascularly intact Case discussed with Dr. Juarez and follow-up is arranged. She was made an appointment for a week from todayDecember 11 at 11 AM. Treatment diagnosis and follow-up were discussed with the patient. Differential Diagnosis Differential diagnosis: Likely other (Contusion, fracture) Imaging Data Left elbow: Radiologist's impression: ITS Impressions Elbow X-Ray 12/04/24 13:15 IMPRESSION: A subtle fracture involving the radial neck is suggested and may be present. There is no other evidence of an acute fracture or dislocation. The prominent joint effusion suggested fracture as well. A follow-up study in 6-8 days is recommended. Electronically authenticated by: LAYLA HAAS Date: 12/04/2024 14:00 Forearm X-Ray 12/04/24 13:15 IMPRESSION: 1. Left elbow effusion with suggestion of a subtle acute left radial head fracture. Correlate with site of patient's pain. Dedicated left elbow radiographs may be useful for further evaluation. Electronically authenticated by: ROSY CHRISTIE Date: 12/04/2024 14:07 Discharge Plan Discharge Chief Complaint: Extremity Injury, Upper Clinical Impression: Closed fracture of radial head Patient Disposition: Home, Self-Care Time of Disposition Decision: 15:08 Condition: Good Mode of Transportation: Private Vehicle Prescriptions / Home Meds: New acetaminophen-codeine 300-30 mg tablet 1 tab PO Q6H PRN (Reason: pain) 5 Days Qty: 20 0RF No Action atorvastatin 20 mg tablet 20 mg PO BEDTIME cholecalciferol (vitamin D3) 25 mcg (1,000 unit) tablet 25 mcg PO DAILY omeprazole 40 mg capsule,delayed release(DR/EC) 40 mg PO DAILY Print Language: Beninese Instructions: Elbow Fracture (ED) Referrals: Filiberto Bernard MD [Primary Care Provider] - 1 week Odin Juarez MD [Physician] - 12/11/24 11:00 am
== END 2024-12-04 15:19 | disposition home or self-care (01) ==
PROVIDERS: Emergency Provider Emergency Medicine; PCP Family Medicine
DX: S52.122A Displaced fracture of head of left radius, initial encounter for closed fracture (principal); W00.0XXA Fall on same level due to ice and snow, initial encounter
CPT/HCPCS: 29105; 73080; 73090; 99283

== ENCOUNTER 2024-12-18 10:30 | Outpatient (OUT) | payer OTHER, SELFPAY ==
--- NOTE | 2024-12-18 | XR_ITS ---
[address] [address] Patient Name: IGNACIO DIAZ MRN: [id number] date: 1960 Sex: F Assigned Patient Location: Current Patient Location: Accession/Order Number: [id number] Exam Date: 12/18/2024 11:07 Report Date: 12/18/2024 23:14 At the request of: BARBIE LIANG Procedure: XR elbow LT min 3V EXAM: XR elbow LT min 3V HISTORY: LEFT ELBOW PAIN COMPARISON: None. FINDINGS/IMPRESSION: 1. There is an elbow joint effusion.. 2. Suspected nondisplaced fracture of the proximal aspect of the radius. 3. Normal alignment of the elbow. Electronically authenticated by: OSMAN DAY Date: 12/18/2024 23:14
--- OUTSIDE RECORDS SUMMARY | 2024-12-18 10:33 | XMS_ITS | CCD ---
Author Organization [facility] Care Team Providers Care Flavor Room Worker Name Role Phone Nayana Huitron Unavailable MD Nayana Huitron Attending Provider NON STAFF Primary Care Provider UnavailCaprice Syed Unavailable Kusum Palencia Unavailable TAMCARIDAD MCINTOSH Admitting Unavailable CARIDAD TREJO Attending Unavailable JASWINDER, DR FILIBERTO Tellez Primary Care Unavailable SOTO HINOJOSA Consulting Unavailable NICHELLE IIDAVIE Consulting Unavailable CARIDAD TREJO Consulting Unavailable JASWINDER, DR FILIBERTO Tellez Admitting Unavailable JASWINDER, DR FILIBERTO Tellez Attending Unavailable JASWINDER, DR FILIBERTO Tellez Primary Care Unavailable QUINCY, DR GIBRAN Beyer Consulting Unavailable JASWINDER, DR FILIBERTO Tellez Consulting Unavailable MAGUE Parekh Attending Provider Kena Parekh Attending Unavailable Kena Parekh Admitting Unavailable FILIBERTO SAN Attending Unavailable FILIBERTO SAN Attending Unavailable DEYSI BARRON Attending Unavailable DEYSI BARRON Attending Unavailable Filiberto San MD Primary Care Provider Filiberto San MD Unavailable Allergies Allergy Classification Reported Allergen(s) Allergy Type Date of Onset Reaction(s) Facility (7 sources) Sulfamethoxazole / Trimethoprim Drug Allergy Unknown [facility] Other (1 source) Sulfamethoxazole / Trimethoprim Drug Allergy 11-03-20 19 [facility] (4 sources) Sulfamethoxazole; Translations: [sulfamethoxazole] Drug Allergy 01-13-20 24 [facility] (4 sources) Trimethoprim; Translations: [trimethoprim] Drug Allergy 01-13-20 [facility] (1 source) Sulfamethoxazole / Trimethoprim; Translations: [SULFAMETHOXAZOLE-T RIMETHOPRIM] Drug Allergy 09-29-[address] [facility] (1 source) Sulfonamides (Antibiotic); Translations: [SULFA (SULFONAMIDE ANTIBIOTICS)] Propensity to adverse reactions to drug (disorder) 01-13-[address] [facility] (2 sources) Sulfonamides (Antibiotic) Propensity to adverse reactions 03-13-20 [facility] Medications Current Medications Medication Drug Class(es) Dates [...] Days Active cholecalciferol 0.025 mg oral tablet (13 sources) Vitamin D Start: 10-09-2024 take 1 tablet by mouth once daily cholecalciferol (Vitamin D3) 25 MCG (1000 UT) tablet Indications: Vitamin D deficiency TAKE 1 TABLET BY MOUTH EVERY DAY 90 tablet 5 10/09/2024 Active Start: 01-13-2024 take 25 ug by mouth once daily Cholecalciferol (Vitamin D3) Active 25 MCG PO Daily January 13, 2024 1:00am cholecalciferol (Vitamin D-3) 50 MCG (2000 UT) tablet 1 (one) time each day at the same time Active omeprazole 40 mg delayed release oral capsule (12 sources) Proton Pump Inhibitor Start: 09-11-2024 omeprazole (PriLOSEC ) [address] capsule Indications: Gastroesophageal reflux disease without esophagitis TAKE 1 CAPSULE DAILY 90 capsule 3 09/11/2024 Active Start: 01-13-2024 omeprazole (Pr iLOSEC) [address] capsule Daily 01/13/2024 Active Omeprazole 40 MG Oral for 90 Days [...] Discontinued 200 MG PO Three times daily 04 30January 13, 2024 1:00am July 04, 2024 9:21am triamcinolone acetonide 40 mg/ml injectable suspension (14 sources) Corticosteroid Start: 12-30-2022 Kenalog-40 Sep, 20 mg Start: 07-03-2022 Kenalog-40 Jun, 10 mg Problems Active Problems Problem Classification Problem Date Documented Date Episodic/Chronic Disorders of lipid metabolism (4 sources) Hyperlipidemia, unspecified; Translations: [Dyslipidemia] Onset: 03-13-2024 Chronic Esophageal disorders (6 sources) Gastro-esophageal reflux disease without esophagitis; Translations: [Gastroesophageal reflux disease] Onset: 03-08-2023 01-13-2024 Chronic Genitourinary symptoms and ill-defined conditions (6 sources) Dysuria; Translations: [Dysuria] Onset: 01-13-2024 01-13-2024 Episodic Heart valve disorders (2 sources) Rheumatic disorders of both mitral and aortic valves; Translations: [Rheumatic disorders of both mitral and aortic valves] Onset: 07-17-2024 Chronic Nutritional deficiencies (2 sources) Vitamin D deficiency; Translations: [Vitamin D deficiency, unspecified] Onset: 03-13-2024 03-13-2024 Chronic Osteoarthritis (18 sources) Osteoarthritis of joint of right hand; Translations: [Primary osteoarthritis, right hand] Onset: 05-26-2022 Resolved: 07-03-2022 Chronic Other acquired deformities (2 sources) Equinus contracture of the ankle; Translations: [Contracture, left ankle] Onset: 03-13-2024 03-13-2024 Chronic Other aftercare (1 source) Other long term care administrator (current) drug therapy; Translations: [OTH SWITCH OPERATORS SUPERVISOR CURRENT DRUG THERAPY] Onset: 03-08-2023 Episodic Other [...] Problem Date Documented Date Episodic/Chronic Cardiac dysrhythmias (4 sources) Palpitations; Translations: [Palpitations] Onset: 04-06-2024 Episodic Fracture of upper limb (2 sources) Closed Colles' fracture; Translations: [Colles' fracture of right radius, initial encounter for closed fracture] Onset: 03-13-2024 Resolved: 03-13-2024 03-13-2024 Episodic Nonspecific chest pain (4 sources) Other chest pain; Translations: [Precordial pain] Onset: 04-06-2024 Episodic Open wounds of extremities (1 source) Laceration without foreign body, unspecified lower leg, initial encounter Onset: 06-08-2022 Resolved: 06-08-2022 Episodic Other connective tissue disease (2 sources) Pain of left heel; Translations: [Pain in left foot] Onset: 03-13-2024 03-13-2024 Episodic Other lower respiratory disease (2 sources) [...] MAL JUAN LYMPH HEMATPOETC] Onset: 09-29-2022 Episodic Residual codes; unclassified (2 sources) Persistent insomnia; Translations: [Insomnia, unspecified] Onset: 03-13-2024 03-13-2024 Episodic Spondylosis; intervertebral disc disorders; other back problems (2 sources) Acute thoracic back pain; Translations: [Pain in thoracic spine] Onset: 03-13-2024 03-13-2024 Episodic Unclassified (1 source) Other ventricular tachycardia; Translations: [Other ventricular tachycardia] Onset: 07-17-2024 Results Test Name Value Interpretation Reference Range Facility ALL LIPID PROFILE (FASTING)o n 10-20-2024 [facility] Comment on above: 3.3 - 4.4 LOW RISK 4.4 - 7.1 AVERAGE RISK 7.1 - 11.0 MODERATE RISK >11.0 HIGH RISK Cholesterol [Mass/Vol] 213 mg/dL High NINF - 200 mg/dL [facility] Cholesterol in HDL [Mass/Vol] 69 mg/dL High 40 - 60 mg/dL [facility] Comment on above: > or =60 mg/dl - LOW CARDIOVASCULAR RISK <40 mg/dl - HIGH CARDIOVASCULAR RISK Interpretation and review of laboratory results Abnormal [facility] Magnesium [Mass/Vol] 135 mg/dL [facility] Comment on above: <100 mg/dl OPTIMAL 100-129 mg/dl NEAR OR ABOVE OPTIMAL 130-159 mg/dl BORDERLINE HIGH 160-189 mg/dl HIGH >190 mg/dl VERY HIGH Magnesium [Mass/Vol] 9 mg/dL [facility] Triglyceride [Mass/Vol] 45 mg/dL NINF - 150 mg/dL [facility] 36on 08-02-2024 36 Regarding lab result s for 07/17/24 From: Deysi Barron MD Sent: 08/01/2024 4:58 PM EDT To: Carisa Cash MA Subject: RE: Scan Those labs are normal. But we need to check magnesium level please Pt was informed and will stop down today to have the magnesium level drawn. 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 Normal [facility] ALL MAGNESIUMon 08-02-2024 Magnesium [Mass/Vol] 2.1 mg/dL 1.8 - 2 .4 mg/dL [facility] Office Visiton 07-17-2024 Follow-up visit [id number] Ignacio Mock 1960 F Date Provider Department Center 07/17/2024 [id number] Delgado Family History Problem Relation Age of Onset Heart attack Father Heart failure Father Heart failure Maternal Grandfather Family Status - Relation Status Age at Father Maternal Grandfather Level of Service:72885 [place] OFFICE/OUTPATIENT ESTABLISHED MOD MDM 30 MIN Reason for Visit and Comments: Shortness of Breath [762151] Palpitations [423520] Hyperlipidemia [182] Chest Pain [811605] [facility] 36on 05-24-2024 36 Pt informed [facility] 36 Regarding echo performed on 05/12/2024: MD Carisa Healy MA Please notify the patient that her echo is overall good, heart function is good, she had mild valvular leak which is not significant and we will follow over the years. Continue current management Dr. Barron [facility] 36on 05-10-[address] Barron regarding patient's labs: Her LDL cholesterol is high and I think she needs to be on treatment but I need to know first what the date of this blood test before I recommend any treatment Thank you I spoke with the patient and she said those labs were drawn on 04/07/2024. [facility] Office Visiton 05-03-2024 Follow-up visit [id number] Ignacio Mock 1960 F Date Provider Department Center 05/03/2024 [id number] BARRON Family History Problem Relation Age of Onset Heart attack Father Heart failure Father Heart failure Maternal Grandfather Family Status - Relation Status Age at Father Maternal Grandfather Level of Service:70995 [place] OFFICE/OUTPATIENT NEW MODERATE MDM 45 MINUTES [facility] Chlamydia/GC/Trich NAAon Chlamydia Trachomotis, FROILAN Negative Normal Negative [facility] Comment on above: Performed By: #### G CCHLAMTRI #### [facility] , #### CUU #### [facility] [address] Neisseria Gonorrhoeae, FROILAN Negative Normal Negative [facility] Comment on above: Performed By: #### G CCHLAMTRI #### [facility] , #### CUU #### [facility] [address] Trichomonas FROILAN Negative Normal Negative [facility] Comment on above: Result Comment: Perf ormed at: =G - [facility] [address] Pratik Flynn W [id number] Internet Retailer: Meena Mccabe MD, Phone: [phone] PERFORMED BY: [place] [address] PATHOLOGIST FINANCIAL REPORTING ANALYST SANTHOSH STAFFORD M.D. Performed By: #### G CCHLAMTRI #### [facility] , #### CUU #### [facility] [address] [place] [address] Urine Cultureon 01-13-2024 Bacteria identified Cx Nom (U) ORGANISM: Escherichia coli (O:ESCCOL) [place] Count 50,000 Aerobic JUVENTINO Charge (NMIC56) ---- [...] RESISTANT TO ALL B-LACTAM DRUGS. PERFORMED BY: [place] [id number] PATHOLOGIST FINANCIAL REPORTING ANALYST SANTHOSH STAFFORD M.D. Normal [facility] Comment on above: Performed By: #### G CCHLAMTRI #### [facility] , #### CUU #### [address] MG MAMM SCREEN 3D REGINALD CADon 09-22-2022 MG MAMM SCREEN 3D REGINALD CAD Patient: IGNACIO MOCK Exam Date: 09/22/2022 : 1960 Gender:F Ordering : DR FILIBERTO SAN . Admission #: [id number] Family : Order #: [id number] CLICK HERE TO VIEW EXAM RADIOLOGY REPORT [...] node cancer at age 82. LOCATION: [facility] BREAST COMPOSITION: Heterogeneously dense,which may obscure [...] Lemus MD on 09/23/2022 at 08:00 Normal [facility] Vital Signs Date Time Vital Sign Value Performing Clinician Facility 07-04-2024 09:20-0400 Body height 167.64 cm [facility] 07-04-2024 09:20-0400 Body mass index (BMI) [Ratio] 25.3 kg/m2 [facility] 07-04-2024 09:20-0400 Body weight 71.21 kg [facility] 01-13-2024 14:40-0500 Body height 170.18 cm [facility] 01-13-2024 14:40-0500 Body mass index (BMI) [Ratio] 26.9 kg/m2 [facility] 01-13-2024 14:40-0500 Body temperature 98.4 [degF] [facility] 01-13-2024 14:40-0500 Body weight 78.01 kg [facility] 01-13-2024 14:40-0500 Diastolic blood pressure 73 mm[Hg] [facility] 01-13-2024 14:40-0500 Heart rate 87 /min [facility] 01-13-2024 14:40-0500 Respiratory rate 18 /min [facility] 01-13-2024 14:40-0500 SaO2% (BldA) [Mass fraction] 97 % [facility] 01-13-2024 14:40-0500 Systolic blood pressure 125 mm[Hg] [facility] 09-16-2022 15:50-0400 Body height 170.18 cm Kusum Palencia Other [facility] Other 09-16-2022 15:50-0400 Body mass index (BMI) [Ratio] 24.9 kg/m2 Kusum Palencia Other [facility] Other 09-16-2022 15:50-0400 Body temperature 98.8 [degF] Kusum Palencia Other [facility] Other 09-16-2022 15:50-0400 Body weight 72.12 kg Kusum Palencia Other [facility] Other 09-16-2022 15:50-0400 Diastolic blood pressure 87 mm[Hg] Kusum Palencia Other [facility] Other 09-16-2022 15:50-0400 Respiratory rate 18 /min Kusum Palencia Other [facility] Other 09-16-2022 15:50-0400 SaO2% (BldA) [Mass fraction] 99 % Kusum Palencia Other [facility] Other 09-16-2022 15:50-0400 Systolic blood pressure 127 mm[Hg] Kusum Palencia Other [facility] Other 07-03-2022 09:00-0400 Body height 170.18 cm Nayana Huitron Other [facility] Other 06-08-2022 17:25-0400 Body height 170.18 cm Caprice Roque Other [facility] Other 06-08-2022 17:25-0400 Body mass index (BMI) [Ratio] 24.9 kg/m2 Caprice Roque Other [facility] Other 06-08-2022 17:25-0400 Body temperature 99 [degF] Caprice Roque Other [facility] Other 06-08-2022 17:25-0400 Body weight 72.12 kg Caprice Roque Other [facility] Other 06-08-2022 17:25-0400 Diastolic blood pressure 62 mm[Hg] Caprice Roque Other [facility] Other 06-08-2022 17:25-0400 Respiratory rate 16 /min Caprice Roque Other [facility] Other 06-08-2022 17:25-0400 SaO2% (BldA) [Mass fraction] 100 % Caprice Roque Other [facility] Other 06-08-2022 17:25-0400 Systolic blood pressure 121 mm[Hg] Caprice Roque Other [facility] Other Encounters Encounter Date Encounter Type Care Provider Facility Start: 10-20-2024 End: 10-20-2024 [facility] Result Encounter Generic External Data Provider [facility] External Department Unsolicited Start: 10-20-2024 End: 10-20-2024 [facility] Result Encounter Generic External Data Provider [facility] External Department Unsolicited Start: 08-02-2024 End: 08-02-2024 [facility] Result Encounter Generic External Data Provider [facility] External Department Unsolicited Start: 08-02-2024 End: 08-02-2024 [facility] Result Encounter Generic External Data Provider [facility] External Department Unsolicited Start: 07-17-2024 End: 07-17-2024 ambulatory [facility] Start: 07-04-2024 End: 07-04-[address] [facility] Work Phone: Start: 07-04-2024 End: 07-04-2024 Patient encounter procedure [facility] Work Phone: Start: 05-03-2024 End: 05-03-2024 ambulatory [facility] Start: 04-06-2024 End: 04-06-2024 ambulatory FILIBERTO NADERER Not Available Start: 03-13-2024 End: 03-13-2024 ambulatory FILIBERTO NADERER Not Available Start: 01-13-2024 End: 01-13-2024 Departed Referred HIGH LEAD YARDER Kena Parekh Work Phone: [facility] [place] Work Phone: Start: 01-13-2024 End: 01-13-2024 ambulatory Kena Kierra Parekh [facility] Work Phone: Start: 01-13-2024 End: 01-13-2024 Patient encounter procedure [facility] Work Phone: Start: 10-12-2023 End: 10-12-2023 ambulatory Nayana Huitron Other [facility] Other Start: 10-12-2023 Office outpatient visit 15 minutes Nayana Calvey [facility] Start: 03-05-2023 End: 03-05-2023 ambulatory CARIDAD JIMENEZ . Facility:[facility] Start: 12-30-2022 End: 12-30-2022 ambulatory Nayana Calvey Other [facility] Other Start: 12-30-2022 Office outpatient visit 15 minutes Nayana Calvey [facility] Start: 09-22-2022 End: 09-23-[address] FILIBERTO SAN Facility: Start: 09-16-2022 End: 09-16-2022 ambulatory Kusum Palencia Other [facility] Other Start: 09-16-2022 Office outpatient visit 15 minutes Kusum Palencia [facility] Start: 08-04-2022 End: 08-04-2022 ambulatory Nayana Calvey Other [facility] Other Start: 08-04-2022 Office outpatient visit 15 minutes Nayana Calvey [facility] Start: 07-03-2022 End: 07-03-2022 ambulatory Nayana Calvey Other [facility] Other Start: 07-03-2022 Office outpatient visit 15 minutes Nayana Huitron [facility] Start: 06-08-2022 (URG) Urgent Care Visit Caprice Roque [facility] Start: 06-08-2022 End: 06-08-2022 ambulatory Caprice Roque Other [facility] Other Start: 05-26-2022 End: 05-26-2022 ambulatory Nayana Huitron Other [facility] Other Start: 05-26-2022 Office outpatient ne w 30 minutes Nayana Huitron [facility] Start: 05-26-2022 End: 05-26-2022 Patient encounter procedure MD Nayana Huitron Work Phone: [facility] Procedures Date Procedure Procedure Detail Performing Clinician Start: 10-20-2024 ALL LIPID PROFILE (FASTING) Generic External Data Provider Start: 09-27-2024 Mammography Generic Pr ovider Start: 08-02-2024 ALL MAGNESIUM Generic E xternal Data Provider Start: 09-23-2023 Mammography Generic Pr ovider Start: 03-05-2023 Colonoscopy Generic Pr ovider Start: 05-26-2022 Plain X-ray of right hand MD Nayana Huitron Work Phone: Plan of Treatment Date Care Activity Detail Author Start: 03-05-2033 Screening for malign ant neoplasm of colon [facility] Start: 09-27-2025 Screening for malign ant neoplasm of breast Mammogram [facility] Start: 09-23-2024 Screening for malign ant neoplasm of breast Mammogram [facility] Start: 07-30-2024 Influenza vaccination Influenza Vacc ine (#1) [facility] Start: 01-14-2024 Bacteria identified in Urine by Culture [facility] Start: 01-14-2024 [facility] Start: 01-13-2024 Bacteria identified in Urine by Culture [facility] Start: 1992 Screening for malign ant neoplasm of cervix [facility] Start: 1983 Screening for malign ant neoplasm of cervix Pap Smear [facility] Start: 1960 Screening for malign ant neoplasm of colon [facility] Chlamydia trachomati s DNA [Presence] in Unspecified specimen by FROILAN with probe detection [facility] Neisseria gonorrhoea e DNA [Presence] in Unspecified specimen by FROILAN with probe detection [facility] Trichomonas vaginali s DNA [Presence] in Unspecified specimen by FROILAN with probe detection [facility] Immunizations Immunization Date Immunization Notes Care Provider Fa cility 09-30-2023 influenza virus vaccine, unspecified formulation Generic Provider [facility] 06-08-2022 tetanus toxoid, reduced diphtheria toxoid, and acellular pertussis vaccine, adsorbed Caprice Roque Other [facility] Payers Date Payer Category Payer Self-pay [id number] [phone] [id number] 2023 Private Health Insurance [employer] [id number] 2023 Unknown [employer] [id number] 2023-Present [address] [place] [address] [id number] 1960 Unknown [id number] 1960 Unknown [id number] 1960 Unknown [id number] 1960 Unknown [id number] 1959 Unknown [id number] Unknown [id number] Social History Date Type Detail Facility Start: 03-13-2024 End: 03-30-2024 Sex Assigned At [facility] Start: 1960 Sex Assigned At Female [facility] Start: 01-13-2024 End: 03-13-2024 Tobacco smoking status NHIS Never smoked tobacco (finding) [facility] Start: 03-13-2024 Tobacco use and exposure Smokeless tobacco non-user [facility] Start: 03-13-2024 End: 03-30-2024 History of Social function [facility] Do you belong to any clubs or organizations such as congregation groups, unions, fraternal or athletic groups, or school groups? No [facility] Are you now , , , , never or living with a partner? [facility] How often to you hav e a drink containing alcohol? Monthly or less [facility] How many standard dr inks containing alcohol do you have on a typical day? 1 or 2 [facility] How often do you hav e 6 or more drinks on 1 occasion? Less than monthly [facility] How hard is it for y ou to pay for the very basics like food, housing, medical care, and heating Not hard at all [facility] Do you feel stress - tense, restless, nervous, or anxious, or unable to sleep at night because your mind is troubled all the time - these days [OSQ] Not at all [facility] (I/We) worried whekim er (my/our) food would run out before (I/we) got money to buy more. Never true [facility] Start: 03-13-2024 Gender identity Identifies as female gender (finding) [facility] Start: 03-13-2024 Sexual orientation Heterosexual (finding) [facility] Clinical Notes 06-30-2016 to 07-17-2024 Note Date & Type Note Facility 07-17-2024 Note [facility] Note Reason for cardiology [...] stents and CABG, her paternal grandfather had SD. Cardiology ROS: All symptoms were reviewed, they [...] No reversible isc (more content not included)... [facility] 05-03-2024 Note [facility] Note Reason for cardiology consult: New patient here to establish care. Ref from Dr. Filiberto San for chest pain. stress test performed last week at [facility]. Chief Complaint: Chest pain HPI: Ignacio [...] stents and CABG, her paternal grandfather had SD. Cardiology ROS: All symptoms were reviewed, they [...] 107 PVC Patient (more content not included)... [facility] 10-12-2023 Evaluation note Encounter Date Diagnosis Assessment Notes Sep, Right hand pain (ICD-10 - M79.641) Sep, Primary osteoarthritis of right hand (ICD-10 - M19.041) Right ring and small PIP joints injected with cortisone, patient tolerated well [facility] Other 02-01-2023 Evaluation note* Encounter Date Diagnosis [...] and tingle for hours after this injection. [facility] Other 10-19-2022 Evaluation note* Encounter Date Diagnosis [...] (midd le ear effusion) material was printed [facility] Other 09-06-2022 Evaluation note* Encounter Date Diagnosis Assessment Notes Treatment Notes Treatment Clinical Notes Jul, Right hand pain (ICD-10 - M79.641) Jul, Primary osteoarthritis of right hand (ICD-10 - M19.041) Patient is progressing well from injections. May consider repeat injections in the future if needed. Continue topical and/or oral NSAIDs as needed for pain/inflammation . Call with questions/concern s or return in pain. [facility] Other 08-05-2022 Evaluation note* Encounter Date Diagnosis [...] the office with any questions or concerns. [facility] Other 07-11-2022 Evaluation note* Encounter Date Diagnosis [...] area, fever, or have chills. TDAP updated [facility] Other 06-28-2022 Evaluation note* Encounter Date Diagnosis [...] a medrol dose pack or cortisone injection [facility] Other 08-02-2016 History general Narrative - Reported* Type Description Date Medical History acid reflux Surgical History shoulder surgery right 2009 Surgical History hysterectomy 2006 Surgical History Throat Surgery 06/30/16 Surgical History wrist surgery 2020 Hospitalization History See Above [facility] Other Evaluation noteNo assessment information available [facility] Work Phone: Evaluation note* Diagnosis Onset Date Resolution Status Dysuria acute [facility] Work Phone: Evaluation note* Diagnosis Onset Date Resolution Status Pain in right hand acute Primary osteoarthritis of right hand acute [facility]. [facility] Work Phone: Chief Complaint and Reason [...] July 04, 2024 End: July 04, 2024 Flavor Room Worker Relationship Specialty Start Date End Date Filiberto San MD [address] [place] [id number] PCP - General Family Medicine 01/13/24 Filiberto San MD [address] [place] [id number] PCP - Medical [employer] 11/29/12 11/28/99 Flavor Room Worker Relationship Specialty Start Date End Date Filiberto San MD [address] [place] [id number] PCP - General Family Medicine 01/13/24 Filiberto San MD [address] [place] [id number] PCP - Medical [employer] 11/29/12 11/28/99 Goals (unrecognized section and content) Goals may be documented in a n alternate section INFORMATION SOURCE (unrecogn ized section and content) DATE CREATED AUTHOR 03/08/2023 [facility] pital DATE CREATED AUTHOR AUTHOR'S ORGANIZ ATION 01/19/2024 [facility] DATE CREATED AUTHOR AUTHOR'S ORGANIZ ATION 04/08/2024 [facility] dical [facility] DATE CREATED AUTHOR AUTHOR'S ORGANIZ ATION 08/04/2024 [facility] FOR RECORDS PERTAINING TO PATIENTS [...] BE BASED ON THE PRIMARY CLINICAL RECORDS. [employer] provides no warranty or guarantee of the accuracy or completeness of information in this document.
== END 2024-12-18 10:31 | disposition home or self-care (01) ==
LOC: EC 10:31
PROVIDERS: PCP Family Medicine; Visit Provider Orthopaedic Surgery
DX: S52.125A Nondisplaced fracture of head of left radius, initial encounter for closed fracture (principal); M25.422 Effusion, left elbow
CPT/HCPCS: 73080

== ENCOUNTER 2024-12-29 09:02 | Outpatient (OUT) | payer OTHER, SELFPAY ==
--- OUTSIDE RECORDS SUMMARY | 2024-12-29 09:12 | XMS_ITS | CCD ---
Author Organization [facility] ion Partnership [facility] Care Team Providers Care 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 Name Role Phone Nayana Huitron Unavailable MD Nayana Huitron Attending Provider [phone] NON STAFF Primary Care Provider UnavailCaprice Syed Unavailable Kusum Palencia Unavailable TAMCARIDAD MCINTOSH Admitting Unavailable CARIDAD TREJO Attending Unavailable JASWINDER, DR FILIBERTO Tellez Primary Care Unavailable SOTO HINOJOSA Consulting Unavailable NICHELLE IIDAVIE Consulting Unavailable CARIDAD TREJO Consulting Unavailable JASWINDER, DR FILIBERTO Tellez Admitting Unavailable JASWINDER, DR FILIBERTO Tellez Attending Unavailable JASWINDER, DR FILIBERTO Tellez Primary Care Unavailable AVON, DR GIBRAN Beyer Consulting Unavailable JASWINDER, DR [...] sources) Sulfamethoxazole / Trimethoprim Drug Allergy Unknown [employer] Other (1 source) Sulfamethoxazole / Trimethoprim Drug Allergy 11-03-20 19 [facility] (4 sources) Sulfamethoxazole; Translations: [sulfamethoxazole] Drug Allergy 01-13-20 [facility] (4 sources) Trimethoprim; Translations: [trimethoprim] Drug Allergy 01-13-20 [facility] (1 source) Sulfamethoxazole / Trimethoprim; Translations: [SULFAMETHOXAZOLE-T RIMETHOPRIM] Drug Allergy 09-29-20 [facility] (1 source) Sulfonamides (Antibiotic); Translations: [SULFA (SULFONAMIDE ANTIBIOTICS)] Propensity to adverse reactions to drug (disorder) 01-13-20 [facility] (2 sources) Sulfonamides (Antibiotic) Propensity to adverse reactions 03-13-20 [facility] Medications Current Medications Medication Drug [...] 03-13-2024 Chronic Other aftercare (1 source) 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; Translations: [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 CURRENT DRUG THERAPY] Onset: 03-08-2023 Episodic Other [...] (FASTING)o n 10-20-2024 [facility]OL [facility] Comment on above: 3.3 - 4.4 LOW RISK 4.4 - 7.1 AVERAGE RISK 7.1 - 11.0 MODERATE RISK >11.0 HIGH RISK Cholesterol [Mass/Vol] 213 mg/dL High NINF - 200 mg/dL [facility] Cholesterol in HDL [Mass/Vol] 69 mg/dL High 40 - 60 mg/dL [facility] Comment on above: > or =60 mg/dl - LOW CARDIOVASCULAR RISK <40 mg/dl - HIGH CARDIOVASCULAR RISK Interpretation and review of laboratory results Abnormal [facility] Magnesium [Mass/Vol] 135 mg/dL [facility] Comment on above: <100 mg/dl OPTIMAL 100-129 mg/dl NEAR OR ABOVE OPTIMAL 130-159 mg/dl BORDERLINE HIGH 160-189 mg/dl HIGH >190 mg/dl VERY HIGH Magnesium [Mass/Vol] 9 mg/dL [facility] Triglyceride [Mass/Vol] 45 mg/dL NINF - 150 mg/dL [facility] Health[facility] e 36on 08-02-2024 36 Regarding lab result s for 07/17/24 From: Deysi Barron MD Sent: 08/01/2024 4:58 PM EDT To: Carisa Cash MA Subject: RE: Scan Those labs are normal. But we need to check magnesium level please Pt was informed and will stop down today to have the magnesium level drawn. Order walked down to front end assistant. Normal [facility] ALL MAGNESIUMon 08-02-2024 Magnesium [Mass/Vol] 2.1 mg/dL 1.8 - 2 .4 mg/dL [facility] Office Visiton 07-17-2024 Follow-up visit [id number] Ignacio Mock 1960 F Date Provider Department Center 07/17/2024 [id number] Delgado Family History Problem Relation Age of Onset Heart attack Father Heart failure Father Heart failure Maternal Grandfather Family Status - Relation Status Age at Father Maternal Grandfather Level of Service:23992 CO OFFICE/OUTPATIENT ESTABLISHED MOD MDM 30 MIN Reason for Visit and Comments: Shortness of Breath [244087] Palpitations [015252] Hyperlipidemia [182] Chest Pain [949346] [facility] 36on 05-24-2024 36 Pt informed [facility] 36 Regarding echo performed on 05/12/2024: MD Carisa Healy MA Please notify the patient that her echo is overall good, heart function is good, she had mild valvular leak which is not significant and we will follow over the years. Continue current management Dr. Barron [facility] 36on 05-10-[address] Barron regarding patient's labs: Her LDL cholesterol is high and I think she needs to be on treatment but I need to know first what the date of this blood test before I recommend any treatment Thank you I spoke with the patient and she said those labs were drawn on 04/07/2024. [facility] Office Visiton 05-03-2024 Follow-up visit [id number] Ignacio Mock 1960 F Date Provider Department Center 05/03/2024 [id number] BARRON Family History Problem Relation Age of Onset Heart attack Father Heart failure Father Heart failure Maternal Grandfather Family Status - Relation Status Age at Father Maternal Grandfather Level of Service:02200 CO OFFICE/OUTPATIENT NEW MODERATE MDM 45 MINUTES [facility] Chlamydia/GC/Trich NAAon Chlamydia Trachomotis, FROILAN Negative Normal Negative [facility] Comment on above: Performed By: #### G CCHLAMTRI #### [facility] , #### CUU #### [facility] [address] Neisseria Gonorrhoeae, FROILAN Negative Normal Negative [facility] Comment on above: Performed By: #### G CCHLAMTRI #### [facility] , #### CUU #### [facility] [address] Trichomonas FROILAN Negative Normal Negative [facility] Comment on above: Result Comment: Perf ormed at: =G - [facility] [address] Pratik Flynn W [id number] Venture Capitalist: Meena Mccabe MD, Phone: [phone] PERFORMED BY: [place] [address] PATHOLOGIST GIS SOFTWARE ENGINEER SANTHOSH STAFFORD M.D. Performed By: #### G CCHLAMTRI #### [facility] , #### CUU #### [facility] [address] [place] [address] Urine Cultureon 01-13-2024 Bacteria identified Cx Nom (U) ORGANISM: Escherichia coli (O:ESCCOL) [place]lin Count 50,000 Aerobic JUVENTINO Charge (NMIC56) ---- [...] RESISTANT TO ALL B-LACTAM DRUGS. PERFORMED BY: [place] [id number] PATHOLOGIST GIS SOFTWARE ENGINEER SANTHOSH STAFFORD M.D. Normal [facility] Comment on above: Performed By: #### G CCHLAMTRI #### [facility] , #### CUU #### [address] MG MAMM SCREEN 3D REGINALD CADon 09-22-2022 MG MAMM SCREEN 3D REGINALD CAD Patient: IGNACIO MOCK Exam Date: 09/22/2022 : 1960 Gender:F Ordering : DR FILIBERTO SAN . Admission #: [id number] Family : Order #: [id number] CLICK HERE TO VIEW EXAM RADIOLOGY REPORT [...] cancer at age 82. LOCATION: [facility] BREAST COMPOSITION: Heterogeneously dense,which may obscure small [...] Lemus MD on 09/23/2022 at 08:00 Normal [facility] Vital Signs Date Time Vital Sign Value Performing Clinician Facility 07-04-2024 09:20-0400 Body height 167.64 cm [facility] 07-04-2024 09:20-0400 Body mass index (BMI) [Ratio] 25.3 kg/m2 [facility] 07-04-2024 09:20-0400 Body weight 71.21 kg [facility] 01-13-2024 14:40-0500 Body height 170.18 cm [facility] 01-13-2024 14:40-0500 Body mass index (BMI) [Ratio] 26.9 kg/m2 [facility] 01-13-2024 14:40-0500 Body temperature 98.4 [degF] [facility] 01-13-2024 14:40-0500 Body weight 78.01 kg [facility] 01-13-2024 14:40-0500 Diastolic blood pressure 73 mm[Hg] [facility] 01-13-2024 14:40-0500 Heart rate 87 /min [facility] 01-13-2024 14:40-0500 Respiratory rate 18 /min [facility] 01-13-2024 14:40-0500 SaO2% (BldA) [Mass fraction] 97 % [facility] 01-13-2024 14:40-0500 Systolic blood pressure 125 mm[Hg] [facility] 09-16-2022 15:50-0400 Body height 170.18 cm Kusum Palencia Other [employer] [facility] [employer] Other 09-16-2022 15:50-0400 Body mass index (BMI) [Ratio] 24.9 kg/m2 Kusum Palencia Other [employer] Other 09-16-2022 15:50-0400 Body temperature 98.8 [degF] Kusum Palencia Other [employer] Other 09-16-2022 15:50-0400 Body weight 72.12 kg Kusum Palencia Other [employer] Other 09-16-2022 15:50-0400 Diastolic blood pressure 87 mm[Hg] Kusum Palencia Other [employer] Other 09-16-2022 15:50-0400 Respiratory rate 18 /min Kusum Palencia Other [employer] Other 09-16-2022 15:50-0400 SaO2% (BldA) [Mass fraction] 99 % Kusum Palencia Other [employer] Other 09-16-2022 15:50-0400 Systolic blood pressure 127 mm[Hg] Kusum Palencia Other [employer] Other 07-03-2022 09:00-0400 Body height 170.18 cm Nayana Huitron Other [employer] Other 06-08-2022 17:25-0400 Body height 170.18 cm Caprice Roque Other [employer] Other 06-08-2022 17:25-0400 Body mass index (BMI) [Ratio] 24.9 kg/m2 Caprice Roque Other [employer] Other 06-08-2022 17:25-0400 Body temperature 99 [degF] Caprice Roque Other [employer] Other 06-08-2022 17:25-0400 Body weight 72.12 kg Caprice Roque Other [employer] Other 06-08-2022 17:25-0400 Diastolic blood pressure 62 mm[Hg] Caprice Roque Other [employer] Other 06-08-2022 17:25-0400 Respiratory rate 16 /min Caprice Roque Other [employer] Other 06-08-2022 17:25-0400 SaO2% (BldA) [Mass fraction] 100 % Caprice Roque Other [employer] Other 06-08-2022 17:25-0400 Systolic blood pressure 121 mm[Hg] Caprice Roque Other [employer] Other Encounters Encounter Date Encounter Type Care [...] Department Unsolicited Start: 07-17-2024 End: 07-17-2024 ambulatory [facility] Start: 07-04-2024 End: 07-04-2024 ambulatory [facility] Work Phone: Start: 07-04-2024 End: 07-04-2024 Patient encounter procedure [facility] Work Phone: Start: 05-03-2024 End: 05-03-2024 ambulatory [facility] Start: 04-06-2024 End: 04-06-2024 ambulatory FILIBERTO NADERER Not Available Start: 03-13-2024 End: 03-13-2024 ambulatory FILIBERTO NADERER Not Available Start: 01-13-2024 End: 01-13-2024 Departed [employer] WORKDAY DIRECTOR Kena Parekh Work Phone: [facility] [place] Work Phone: Start: 01-13-2024 End: 01-13-2024 ambulatory Kena Kierra Parekh [facility] Work Phone: Start: 01-13-2024 End: 01-13-2024 Patient encounter procedure [facility] Work Phone: Start: 10-12-2023 End: 10-12-2023 ambulatory Nayana Huitron Other [employer] Other Start: 10-12-2023 Office outpatient visit 15 minutes Nayana Calvey [facility] Start: 03-05-2023 End: 03-05-2023 ambulatory CARIDAD JIMENEZ . Facility:[facility]1 Start: 12-30-2022 End: 12-30-2022 ambulatory Nayana Calvey Other [employer] Other Start: 12-30-2022 Office outpatient visit 15 minutes Nayana Calvey [facility] Start: 09-22-2022 End: 09-23-[address] FILIBERTO SAN Facility: Start: 09-16-2022 End: 09-16-2022 ambulatory Kusum Palencia Other [employer] Other Start: 09-16-2022 Office outpatient visit 15 minutes Kusum Palencia [facility] Start: 08-04-2022 End: 08-04-2022 ambulatory Nayana Calvey Other [employer] Other Start: 08-04-2022 Office outpatient visit 15 minutes Nayana Calvey [facility] Start: 07-03-2022 End: 07-03-2022 ambulatory Nayana Calvey Other [employer] Other Start: 07-03-2022 Office outpatient visit 15 minutes Nayana Huitron [facility] Start: 06-08-2022 (URG) Urgent Care Visit Caprice Roque [facility] Start: 06-08-2022 End: 06-08-2022 ambulatory Caprice Roque Other [facility] [employer] Other Start: 05-26-2022 End: 05-26-2022 ambulatory Nayana Huitron Other [employer] Other Start: 05-26-2022 Office outpatient ne w 30 minutes Nayana Huitron [facility] Start: 05-26-2022 End: 05-26-2022 Patient encounter procedure MD Nayana Huitron Work Phone: [facility] Procedures Date Procedure Procedure Detail Performing [...] Screening for malign ant neoplasm of colon [facility] Start: 09-27-2025 Screening for malign ant neoplasm of breast Mammogram [facility] Start: 09-23-2024 Screening for malign ant neoplasm of breast Mammogram [facility] Start: 07-30-2024 Influenza vaccination Influenza Vacc ine (#1) [facility] Start: 01-14-2024 Bacteria identified in Urine by Culture [facility] Start: 01-14-2024 [facility] Start: 01-13-2024 Bacteria identified in Urine by Culture [facility] Start: 1992 Screening for malign ant neoplasm of cervix [facility] Start: 1983 Screening for malign ant neoplasm of cervix Pap Smear [facility] Start: 1960 Screening for malign ant neoplasm of colon [facility] Chlamydia trachomati s DNA [Presence] in Unspecified specimen by FROILAN with probe detection [facility] Neisseria gonorrhoea e DNA [Presence] in Unspecified specimen by FROILAN with probe detection [facility] Trichomonas vaginali s DNA [Presence] in Unspecified specimen by FROILAN with probe detection [facility] Immunizations Immunization Date Immunization Notes Care Provider Fa cility 09-30-2023 influenza virus vaccine, unspecified formulation Generic Provider [facility] 06-08-2022 tetanus toxoid, reduced diphtheria toxoid, and acellular pertussis vaccine, adsorbed Caprice Roque Other [facility] Payers Date Payer Category Payer Self-pay [id number] [phone] [id number] 2023 Private Health Insurance [employer] [id number] 2023 Unknown [employer] [id number] 2023-Present [address] [place] [address] [id number] 1960 Unknown [id number] 1960 Unknown [id number] 1960 Unknown [id number] [id number] 1960 Unknown [id number] [id number] 1959 Unknown [id number] Unknown [id number] Social History Date Type Detail Facility Start: 03-13-2024 End: 03-30-2024 Sex Assigned At [facility] Start: 1960 Sex Assigned At Female [facility] Start: 01-13-2024 End: 03-13-2024 Tobacco smoking status NHIS Never smoked tobacco (finding) [facility] Start: 03-13-2024 Tobacco use and exposure Smokeless tobacco non-user [facility] Start: 03-13-2024 End: 03-30-2024 History of Social function [facility] Do you belong to any clubs or organizations such as sikhism groups, unions, fraternal or athletic groups, or [...] Date & Type Note Facility 07-17-2024 Note [facility] Note Reason for cardiology [...] stents and CABG, her paternal grandfather had [place]. Cardiology ROS: All symptoms were reviewed, they [...] No reversible isc (more content not included)... [facility] 05-03-2024 Note [facility] Note Reason for cardiology consult: New patient here to establish care. Ref from Dr. Filiberto San for chest pain. stress test performed last week at [facility]. Chief Complaint: Chest pain HPI: Ignacio Mock [...] stents and CABG, her paternal grandfather had [place]. Cardiology ROS: All symptoms were reviewed, they [...] 107 PVC Patient (more content not included)... [facility] 10-12-2023 Evaluation note Encounter Date Diagnosis Assessment Notes Sep, Right hand pain (ICD-10 - M79.641) Sep, Primary osteoarthritis of right hand (ICD-10 - M19.041) Right ring and small PIP joints injected with cortisone, patient tolerated well [employer] Other 02-01-2023 Evaluation note* Encounter Date Diagnosis [...] and tingle for hours after this injection. [employer] Other 10-19-2022 Evaluation note* Encounter Date Diagnosis [...] (midd le ear effusion) material was printed [employer] Other 09-06-2022 Evaluation note* Encounter Date Diagnosis Assessment Notes Treatment Notes Treatment Clinical Notes Jul, Right hand pain (ICD-10 - M79.641) Jul, Primary osteoarthritis of right hand (ICD-10 - M19.041) Patient is progressing well from injections. May consider repeat injections in the future if needed. Continue topical and/or oral NSAIDs as needed for pain/inflammation . Call with questions/concern s or return in pain. [employer] Other 08-05-2022 Evaluation note* Encounter Date Diagnosis [...] the office with any questions or concerns. [employer] Other 07-11-2022 Evaluation note* Encounter Date Diagnosis [...] area, fever, or have chills. TDAP updated [employer] Other 06-28-2022 Evaluation note* Encounter Date Diagnosis [...] a medrol dose pack or cortisone injection [employer] Other 08-02-2016 History general Narrative - Reported* Type Description Date Medical History acid reflux Surgical History shoulder surgery right 2009 Surgical History hysterectomy 2006 Surgical History Throat Surgery 06/30/16 Surgical History wrist surgery 2020 Hospitalization History See Above [employer] Other Evaluation noteNo assessment information available [facility] Work Phone: Evaluation note* Diagnosis Onset Date Resolution Status Dysuria acute [facility] Work Phone: Evaluation note* Diagnosis Onset Date Resolution Status Pain in right hand acute Primary osteoarthritis of right hand acute [facility] Work Phone: Chief Complaint and Reason [...] July 04, 2024 End: July 04, 2024 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 Relationship Specialty Start Date End Date Filiberto San MD [address] [place] [id number] PCP - General Family Medicine 01/13/24 Filiberto San MD [address] [place] [id number] PCP - Medical [employer] 11/29/12 11/28/99 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 Relationship Specialty Start Date End Date Filiberto San MD [address] [place] [phone] PCP - General Family Medicine 01/13/24 Filiberto San MD [address] [place] [id number] PCP - Medical [employer] 11/29/12 11/28/99 Goals (unrecognized section and content) Goals may be documented in a n alternate section INFORMATION SOURCE (unrecogn ized section and content) DATE CREATED AUTHOR 03/08/2023 [facility] pital DATE CREATED AUTHOR AUTHOR'S ORGANIZ ATION 01/19/2024 [facility] DATE CREATED AUTHOR AUTHOR'S ORGANIZ ATION 04/08/2024 [facility] dical [facility] DATE CREATED AUTHOR AUTHOR'S ORGANIZ ATION 08/04/2024 [facility] FOR RECORDS PERTAINING TO PATIENTS WHO ARE [...] BE BASED ON THE PRIMARY CLINICAL RECORDS. [employer] provides no warranty or guarantee of the accuracy or completeness of information in this document.
[2024-12-29 10:05] LABS: Alanine Aminotransferase 21 U/L (14-59); Aspartate Amino Transferase 16 U/L (15-37); Chol HDL Ratio 2.5; Cholesterol 146 mg/dL (<=200); HDL Cholesterol 58 mg/dL (40-60); LDL Cholesterol Calculated 76.8 mg/dL; Triglycerides 56 mg/dL (<=150); VLDL CHOLESTEROL 11.2 mg/dL
== END 2024-12-29 09:03 | disposition home or self-care (01) ==
LOC: LAB 09:06
PROVIDERS: PCP Family Medicine; Visit Provider Internal Medicine Cardiovascular Disease
DX: E78.5 Hyperlipidemia, unspecified (principal)
CPT/HCPCS: 36415; 80061; 84450; 84460

== ENCOUNTER 2025-01-15 08:19 | Outpatient (OUT) | payer OTHER, SELFPAY ==
--- NOTE | 2025-01-15 | XR_ITS ---
The [address] [address] Patient Name: IGNACIO DIAZ MRN: [id number] date: 1960 Sex: F Assigned Patient Location: Current Patient Location: Accession/Order Number: [id number] Exam Date: 01/15/2025 08:43 Report Date: 01/15/2025 16:30 At the request of: BARBIE LIANG Procedure: XR elbow LT min 3V EXAM: XR elbow LT min 3V HISTORY: LEFT ELBOW PAIN COMPARISON: 12/18/2024. TECHNIQUE: 3 views. FINDINGS: There has been interval decrease of previously noted hemarthrosis. Slight sclerosis radial neck consistent with interval healing of nondisplaced fracture. XR/XR elbow LT min 3V IMPRESSION: 1. Slight transverse sclerotic band of the radial neck consistent with interval healing of nondisplaced radial neck fracture. 2. Interval decreased size of hemarthrosis. Electronically authenticated by: DAVIE WEN Date: 01/15/2025 16:30
--- OUTSIDE RECORDS SUMMARY | 2025-01-15 08:42 | XMS_ITS | CCD ---
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 Name Role Phone Nayana Huitron Unavailable MD [...] JASWINDER, DR FILIBERTO Tellez Primary Care Unavailable MONESSEN, DR GIBRAN Beyer Consulting Unavailable JASWINDER, DR FILIBERTO Tellez Consulting Unavailable MAGUE Parekh Attending Provider [phone] Kena Parekh Attending Unavailable Kena Parekh Admitting Unavailable FILIBERTO SAN Attending Unavailable FILIBERTO SAN Attending Unavailable Filiberto San MD Primary Care Provider Filiberto San MD Unavailable DEYSI BARRON Attending Unavailable DEYSI BARRON Attending Unavailable DEYSI BARRON Attending Unavailable Allergies Allergy Classification Reported Allergen(s) Allergy Type Date of Onset Reaction(s) Facility (7 sources) Sulfamethoxazole / Trimethoprim Drug Allergy Unknown [facility] Other (1 source) Sulfamethoxazole / Trimethoprim Drug Allergy 11-03-20 19 [facility] Repository (4 sources) Sulfamethoxazole; Translations: [sulfamethoxazole] Drug Allergy 01-13-20 [facility] (4 sources) Trimethoprim; Translations: [trimethoprim] Drug Allergy 01-13-20 [facility] (3 sources) Sulfonamides (Antibiotic) Propensity to adverse reactions 03-13-[address] [facility] (1 source) Sulfamethoxazole / Trimethoprim; Translations: [SULFAMETHOXAZOLE-T RIMETHOPRIM] Drug Allergy 09-29-20 [facility] Repository (1 source) Sulfonamides (Antibiotic); Translations: [SULFA (SULFONAMIDE ANTIBIOTICS)] Propensity to adverse reactions to drug (disorder) 01-13-20 [facility] Repository Medications Current Medications Medication Drug [...] Days Active cholecalciferol 0.025 mg oral tablet (15 sources) Vitamin D Start: 10-09-2024 take 1 [...] omeprazole 40 mg delayed release oral capsule (13 sources) Proton Pump Inhibitor Start: 09-11-2024 omeprazole [...] Problem Classification Problem Date Documented Date Episodic/Chronic Aortic; peripheral; and visceral artery aneurysms (2 sources) Thoracic aortic ectasia; Translations: [Thoracic aortic ectasia] Onset: 01-05-2025 Chronic Conditions associated with dizziness or vertigo (2 sources) Dizziness and giddiness; Translations: [Dizziness and giddiness] Onset: 01-05-2025 Episodic Disorders of lipid metabolism (5 sources) Dyslipidemia; Translations: [Hyperlipidemia, unspecified] Onset: 03-13-2024 03-13-2024 Chronic Esophageal disorders (7 sources) Gastro-esophageal reflux disease without esophagitis; Translations: [Gastroesophageal reflux disease] Onset: 03-08-2023 01-13-2024 Chronic Genitourinary symptoms and ill-defined conditions (6 sources) Dysuria; Translations: [Dysuria] Onset: 01-13-2024 01-13-2024 Episodic Heart valve disorders (2 sources) Rheumatic disorders of both mitral and aortic valves; Translations: [Rheumatic disorders of both mitral and aortic valves] Onset: 07-17-2024 Chronic Nonspecific chest pain (7 sources) Precordial pain; Translations: [Precordial pain] Onset: 04-06-2024 04-06-2024 Episodic Nutritional deficiencies (3 sources) Vitamin D deficiency; Translations: [Vitamin D deficiency, unspecified] Onset: 03-13-2024 03-13-2024 Chronic Osteoarthritis (19 sources) Osteoarthritis of joint of right hand; Translations: [Primary osteoarthritis, right hand] Onset: 05-26-2022 Resolved: 07-03-2022 Chronic Other acquired deformities (3 sources) Equinus contracture of the ankle; Translations: [Contracture, left ankle] Onset: 03-13-2024 03-13-2024 Chronic Other aftercare (1 source) Other jail (current) drug therapy; Translations: [OTH INDIGO VAT TENDER CLOTH CURRENT DRUG THERAPY] Onset: 03-08-2023 Episodic Other connective tissue disease (6 sources) Pain in right hand; Translations: [Pain in limb] Onset: 05-26-2022 Resolved: 07-03-2022 Episodic Other connective tissue disease (1 source) Hand pain; Translations: [Pain in right hand] 07-03-2024 Episodic Otitis media and related conditions (1 source) Unspecified nonsuppurative otitis media, right ear Episodic Residual codes; unclassified (1 source) Acquired absence of both cervix and uterus; Translations: [ACQUIRED ABSENCE BOTH CERVIX AND UTERUS] Onset: 03-08-2023 Episodic Unclassified (1 source) Other ventricular tachycardia; Translations: [Other ventricular tachycardia] Onset: 05-03-2024 Past or Other Problems Problem Classification Problem Date Documented Date Episodic/Chronic Cardiac dysrhythmias (5 sources) Palpitations; Translations: [Palpitations] Onset: 04-06-2024 04-06-2024 Episodic Fracture of upper limb (3 sources) Closed Colles' fracture; Translations: [Colles' fracture of right radius, initial encounter for closed fracture] Onset: 03-13-2024 Resolved: 03-13-2024 03-13-2024 Episodic Open wounds of extremities (1 source) Laceration without foreign body, unspecified lower leg, initial encounter Onset: 06-08-2022 Resolved: 06-08-2022 Episodic Other connective tissue disease (3 sources) Pain of left heel; Translations: [Pain [...] malignant neoplasm of breast] Onset: 09-22-2022 Episodic Residual codes; unclassified (1 source) Family history of malignant neoplasm of ovary; Translations: [FAM HX MALIGNANT NEOPLASM OVARY] Onset: 09-29-2022 Episodic Residual codes; unclassified (1 source) Family history of other malignant neoplasms of lymphoid, hematopoietic and related tissues; Translations: [FAM HX OTH MAL JUAN LYMPH HEMATPOETC] Onset: 09-29-2022 Episodic Residual codes; unclassified (3 sources) Persistent insomnia; Translations: [Insomnia, unspecified] Onset: 03-13-2024 03-13-2024 Episodic Spondylosis; intervertebral disc disorders; other back problems (3 sources) Acute thoracic back pain; Translations: [Pain in thoracic spine] Onset: 03-13-2024 03-13-2024 Episodic Unclassified (1 source) Other ventricular tachycardia; Translations: [Other ventricular tachycardia] Onset: 05-03-2024 Results Test Name Value Interpretation Reference Range Facility Office Visiton 01-05-2025 Follow-up visit [id number] Ignacio Mock 1960 F Date Provider Department Center 01/05/2025 [id number] BARRON [facility] Family History Problem Relation Age of Onset Heart attack Father Heart failure Father Heart failure Maternal Grandfather Family Status - Relation Status Age at Father Maternal Grandfather Level of Service:40147 AL OFFICE/OUTPATIENT NEW MODERATE MDM 45 MINUTES Reason for Visit and Comments: Chest Pain [963198] - Says chest pain is occurring much less often that it was before. Valve Disorder [3372] Hyperlipidemia [182] - Had lipid in Sep 2024, and again last week. Shortness of Breath [451660] - Only with stairs Normal [facility] ALL LIPID PROFILE (FASTING)o n 12-29-2024 CHOL HDL RATIO 2.5 [facility] Comment on above: 3.3 - 4.4 LOW RISK 4.4 - 7.1 AVERAGE RISK 7.1 - 11.0 MODERATE RISK >11.0 HIGH RISK Cholesterol [Mass/Vol] 146 mg/dL NINF - 200 mg/dL [facility] Cholesterol in HDL [Mass/Vol] 58 mg/dL 40 - 60 mg/dL [facility] Comment on above: > or =60 mg/dl - LOW CARDIOVASCULAR RISK <40 mg/dl - HIGH CARDIOVASCULAR RISK Magnesium [Mass/Vol] 76.8 mg/dL [facility] Comment on above: <100 mg/dl OPTIMAL 100-129 mg/dl NEAR OR ABOVE OPTIMAL 130-159 mg/dl BORDERLINE HIGH 160-189 mg/dl HIGH >190 mg/dl VERY HIGH Magnesium [Mass/Vol] 11.2 mg/dL [facility] Triglyceride [Mass/Vol] 56 mg/dL NINF - 150 mg/dL [facility] Onur 12-29-2024 ALT [Catalytic activity/Vol] 21 U/L 14 - 59 U/L [facility] Shandra 12-29-2024 AST [Catalytic activity/Vol] 16 U/L 15 - 37 U/L [facility] No Panel Informationon 12-29 [facility] 11-02-2024 36 Regarding lab result s from 10/20/2024: MD Carisa Healy MA Please notify the patient that her total cholesterol and LDL cholesterol are elevated. The goal is to have LDL cholesterol below 100. I recommend to start atorvastatin 20 mg daily with low-fat diet and recheck lipids and ALT/AST in 2 months. Spoke with patient and she is now agreeable to start atorvastatin. RX sent to [facility]. She will have labs prior to her follow up with Dr. Barron in Dec 2024. Lab orders printed, faxed to [facility], and also sent to patient in the mail. She verbalized understanding. Normal [facility] ALL LIPID PROFILE (FASTING)o n 10-20-2024 CHOL HDL RATIO 3.1 [facility] Comment on above: 3.3 - 4.4 LOW RISK 4.4 - 7.1 AVERAGE RISK 7.1 - 11.0 MODERATE RISK >11.0 HIGH RISK Cholesterol [Mass/Vol] 213 mg/dL High NINF - 200 mg/dL [facility] Cholesterol in HDL [Mass/Vol] 69 mg/dL High 40 - 60 mg/dL [facility] Comment on above: > or =60 mg/dl - LOW CARDIOVASCULAR RISK <40 mg/dl - HIGH CARDIOVASCULAR RISK Interpretation and review of laboratory results Abnormal [facility] Magnesium [Mass/Vol] 135 mg/dL [facility] Comment on above: <100 mg/dl OPTIMAL 100-129 mg/dl NEAR OR ABOVE OPTIMAL 130-159 mg/dl BORDERLINE HIGH 160-189 mg/dl HIGH >190 mg/dl VERY HIGH Magnesium [Mass/Vol] 9 mg/dL [facility] Triglyceride [Mass/Vol] 45 mg/dL NINF - 150 mg/dL [facility]on 08-02-2024 36 Regarding lab result s for 07/17/24 From: Deysi Barron MD Sent: 08/01/2024 4:58 PM EDT To: Carisa Cash MA Subject: RE: Scan Those labs are normal. But we need to check magnesium level please Pt was informed and will stop down today to have the magnesium level drawn. Order walked down to front desk host. [facility] ALL MAGNESIUMon 08-02-2024 Magnesium [Mass/Vol] 2.1 mg/dL 1.8 - 2 .4 mg/dL [facility] Office Visiton 07-17-2024 Follow-up visit [id number] Ignacio Mock 1960 F Date Provider Department Center 07/17/2024 [id number] BARRON MALIKA Santiago [facility] Family History Problem Relation Age of Onset Heart attack Father Heart failure Father Heart failure Maternal Grandfather Family Status - Relation Status Age at Father Maternal Grandfather Level of Service:18703 AL OFFICE/OUTPATIENT ESTABLISHED MOD MDM 30 MIN Reason for Visit and Comments: Shortness of Breath [811179] Palpitations [565664] Hyperlipidemia [182] Chest Pain [241267] [facility] 36on 05-24-2024 36 Pt informed [facility] 36 Regarding echo performed on 05/12/2024: MD Carisa Healy MA Please notify the patient that her echo is overall good, heart function is good, she had mild valvular leak which is not significant and we will follow over the years. Continue current management Dr. Barron [facility] 36on 05-10-[address] Barron regarding patient's labs: Her LDL cholesterol is high and I think she needs to be on treatment but I need to know first what the date of this blood test before I recommend any treatment Thank you I spoke with the patient and she said those labs were drawn on 04/07/2024. [facility] Office Visiton 05-03-2024 Follow-up visit [id number] Ignacio Mock 1960 F Date Provider Department Center 05/03/2024 [id number], SAMSANTOS MALIKA [facility] Family History Problem Relation Age of Onset Heart attack Father Heart failure Father Heart failure Maternal Grandfather Family Status - Relation Status Age at Father Maternal Grandfather Level of Service:86997 AL OFFICE/OUTPATIENT NEW MODERATE MDM 45 MINUTES Normal [facility] Chlamydia/GC/Trich NAAon Chlamydia Trachomotis, FROILAN Negative Normal Negative [facility] Comment on above: Performed By: #### G CCHLAMTRI #### [facility] , #### CUU #### [facility] [address] [place] [address] Neisseria Gonorrhoeae, FROILAN Negative Normal Negative [facility] Comment on above: Performed By: #### G CCHLAMTRI #### [facility] , #### CUU #### [facility] [address] [place] [address] Trichomonas FROILAN Negative Normal Negative [facility] Comment on above: Result Comment: Perf ormed at: =G - [facility] [address] [id number] Doormaker: Meena Mccabe MD, Phone: [phone] PERFORMED BY: [place] [address] PATHOLOGIST POLE CUTTER SANTHOSH STAFFORD M.D. Performed By: #### G CCHLAMTRI #### [facility] , #### CUU #### [facility] [address] [place] [address] Urine Cultureon 01-13-2024 Bacteria identified Cx Nom (U) ORGANISM: Escherichia coli (O:ESCCOL) Tovey Count 50,000 Aerobic JUVENTINO Charge (NMIC56) ---- [...] RESISTANT TO ALL B-LACTAM DRUGS. PERFORMED BY: [place] [address] PATHOLOGIST POLE CUTTER SANTHOSH STAFFORD M.D. [facility] Comment on above: Performed By: #### G CCHLAMTRI #### [facility] , #### CUU #### [address] MG MAMM SCREEN 3D REGINALD CADon 09-22-2022 MG MAMM SCREEN 3D REIGNALD CAD Patient: IGNACIO MOCK Exam Date: 09/22/2022 : 1960 Gender:F Ordering : DR FILIBERTO SAN . Admission #: [id number] Family : Order #: [id number] CLICK HERE TO VIEW EXAM RADIOLOGY REPORT [...] lymph node cancer at age 82. LOCATION: [facility] BREAST COMPOSITION: Heterogeneously dense,which may obscure small [...] Lemus MD on 09/23/2022 at 08:00 Normal [facility] Vital Signs Date Time Vital Sign Value Performing Clinician Facility 07-04-2024 09:20-0400 Body height 167.64 cm [facility] 07-04-2024 09:20-0400 Body mass index (BMI) [Ratio] 25.3 kg/m2 [facility] 07-04-2024 09:20-0400 Body weight 71.21 kg [facility] 01-13-2024 14:40-0500 Body height 170.18 cm [facility] 01-13-2024 14:40-0500 Body mass index (BMI) [Ratio] 26.9 kg/m2 [facility] 01-13-2024 14:40-0500 Body temperature 98.4 [degF] [facility] 01-13-2024 14:40-0500 Body weight 78.01 kg [facility] 01-13-2024 14:40-0500 Diastolic blood pressure 73 mm[Hg] [facility] 01-13-2024 14:40-0500 Heart rate 87 /min [facility] 01-13-2024 14:40-0500 Respiratory rate 18 /min [facility] 01-13-2024 14:40-0500 SaO2% (BldA) [Mass fraction] 97 % [facility] 01-13-2024 14:40-0500 Systolic blood pressure 125 mm[Hg] [facility] 09-16-2022 15:50-0400 Body height 170.18 cm Kusum Palencia Other [facility] Other 09-16-2022 15:50-0400 Body mass index (BMI) [Ratio] 24.9 kg/m2 Kuusm Palencia Other [facility] Other 09-16-2022 15:50-0400 Body temperature 98.8 [degF] Kusum Palencia Other [facility] Other 09-16-2022 15:50-0400 Body weight 72.12 kg Kusum Palencia Other [facility] Other 09-16-2022 15:50-0400 Diastolic blood pressure 87 mm[Hg] Kusum Palencia Other [facility] Other 09-16-2022 15:50-0400 Respiratory rate 18 /min Kusum Palencia Other [facility] Other 09-16-2022 15:50-0400 SaO2% (BldA) [Mass fraction] 99 % Kusum Palencia Other [facility] Other 09-16-2022 15:50-0400 Systolic blood pressure 127 mm[Hg] Kusum Palencia Other [facility] Other 07-03-2022 09:00-0400 Body height 170.18 cm Nayana Huitron Other [facility] Other 06-08-2022 17:25-0400 Body height 170.18 cm Caprice Roque Other [facility] Other 06-08-2022 17:25-0400 Body mass index (BMI) [Ratio] 24.9 kg/m2 Caprice Roque Other [facility] Other 06-08-2022 17:25-0400 Body temperature 99 [degF] Caprice Roque Other [facility] Other 06-08-2022 17:25-0400 Body weight 72.12 kg Caprice Roque Other [facility] Other 06-08-2022 17:25-0400 Diastolic blood pressure 62 mm[Hg] Caprice Roque Other [facility] Other 06-08-2022 17:25-0400 Respiratory rate 16 /min Caprice Roque Other [facility] Other 06-08-2022 17:25-0400 SaO2% (BldA) [Mass fraction] 100 % Caprice Roque Other [facility] Other 06-08-2022 17:25-0400 Systolic blood pressure 121 mm[Hg] Caprice Roque Other [facility] Other Encounters Encounter Date Encounter Type Care Provider Facility Start: 01-05-2025 End: 01-05-2025 [facility] Start: 12-29-2024 End: 12-29-2024 [facility] Result Encounter Generic External Data Provider [facility] External Department Unsolicited Start: 12-29-2024 End: 12-29-2024 [facility] Result Encounter Generic External Data Provider [...] Department Unsolicited Start: 07-17-2024 End: 07-17-2024 ambulatory [facility] Start: 07-04-2024 End: 07-04-2024 ambulatory [facility] Work Phone: Start: 07-04-2024 End: 07-04-2024 Patient encounter procedure [facility] Physician [facility] Work Phone: Start: 05-03-2024 End: 05-03-2024 ambulatory [facility] Start: 04-06-2024 End: 04-06-2024 ambulatory FILIBERTO NADERER Not Available Start: 03-13-2024 End: 03-13-2024 ambulatory FILIBERTO NADERER Not Available Start: 01-13-2024 End: 01-13-2024 Departed Referred MAGUE Parekh Work Phone: [facility] [place] Work Phone: Start: 01-13-2024 End: 01-13-2024 ambulatory Kena Parekh [facility] Work Phone: Start: 01-13-2024 End: 01-13-2024 Patient encounter procedure [facility] Physician [facility] Work Phone: Start: 10-12-2023 End: 10-12-2023 ambulatory Nayana Huitron Other [facility] Other Start: 10-12-2023 Office outpatient visit 15 minutes Nayana Calvey [facility] Start: 03-05-2023 End: 03-05-2023 ambulatory CARIDAD JIMENEZ . Facility:[facility] Start: 12-30-2022 End: 12-30-2022 ambulatory Nayanapuneet Huitron Other [facility] Other Start: 12-30-2022 Office outpatient visit 15 minutes Nayana Antoineey [facility] Start: 09-22-2022 End: 09-23-[address] FILIBERTO SAN Facility:[facility] Start: 09-16-2022 End: 09-16-2022 ambulatory Kusum Palencia Other [facility] Other Start: 09-16-2022 Office outpatient visit 15 minutes Kusum Slime [facility] Start: 08-04-2022 End: 08-04-2022 ambulatory Nayanapuneet Huitron Other [facility] Other Start: 08-04-2022 Office outpatient visit 15 minutes Nayana Tomy [facility] Start: 07-03-2022 End: 07-03-2022 ambulatory Nayanapuneet Huitron Other [facility] Other Start: 07-03-2022 Office outpatient visit 15 minutes Nayanapuneet Huitron [facility] Start: 06-08-2022 (URG) Urgent Care Visit Caprice Roque [facility] Start: 06-08-2022 End: 06-08-2022 ambulatory Caprice Roque Other [facility] Other Start: 05-26-2022 End: 05-26-2022 ambulatory Nayana Tomy Other [facility] Other Start: 05-26-2022 Office outpatient ne w 30 minutes Nayana Calvey [facility] Start: 05-26-2022 End: 05-26-2022 Patient encounter procedure MD Nayana Huitron Work Phone: [facility] Procedures Date Procedure Procedure Detail Performing Clinician Start: 12-29-2024 ALL LIPID PROFILE (FASTING) Generic External Data Provider Start: 12-29-2024 [facility] ALT Generic Ex ternal Data Provider Start: 12-29-2024 [facility] AST Generic Ex ternal Data Provider Start: 10-20-2024 ALL LIPID PROFILE (FASTING) Generic [...] Screening for malign ant neoplasm of colon [facility] Start: 09-27-2025 Screening for malign ant neoplasm of breast Mammogram [facility] Start: 09-23-2024 Screening for malign ant neoplasm of breast Mammogram [facility] Start: 07-30-2024 Influenza vaccination Influenza Vacc ine (#1) [facility] Start: 01-14-2024 Bacteria identified in Urine by Culture [facility] Start: 01-14-2024 [facility] Start: 01-13-2024 Bacteria identified in Urine by Culture [facility] Start: 1992 Screening for malign ant neoplasm of cervix [facility] Start: 1983 Screening for malign ant neoplasm of cervix Pap Smear [facility] Start: 1960 Screening for malign ant neoplasm of colon [facility] Chlamydia trachomati s DNA [Presence] in Unspecified specimen by FROILAN with probe detection [facility] Neisseria gonorrhoea e DNA [Presence] in Unspecified specimen by FROILAN with probe detection [facility] Trichomonas vaginali s DNA [Presence] in Unspecified specimen by FROILAN with probe detection [facility] Immunizations Immunization Date Immunization Notes Care Provider Fa cility 09-30-2023 influenza virus vaccine, unspecified formulation Generic Provider [facility] 06-08-2022 tetanus toxoid, reduced diphtheria toxoid, and acellular pertussis vaccine, adsorbed Caprice Jude Other [facility] Payers Date Payer Category Payer Self-pay [id number] [phone] [id number] 2023 Private Health Insurance [employer] [id number] 2023 Unknown [employer] [id number] 2023-Present [address] [place] [address] [id number] 1960 Unknown [id number] 1960 Unknown [id number] 1960 Unknown [id number] 1960 Unknown [id number] 1959 Unknown [id number] Unknown [id number] Social History Date Type Detail Facility Start: 03-13-2024 End: 03-30-2024 Sex Assigned At [facility] Start: 1960 Sex Assigned At Female [facility] Start: 01-13-2024 End: 03-13-2024 Tobacco smoking status NHIS Never smoked tobacco (finding) [facility] Start: 03-13-2024 Tobacco use and exposure Smokeless tobacco non-user [facility] Start: 03-13-2024 End: 03-30-2024 History of Social function [facility] Do you belong to any clubs or organizations such as religious groups, unions, fraternal or athletic groups, or [...] Not at all [facility] (I/We) worried wheth er (my/our) food would run out before (I/we) got money to buy more. Never true [facility] Start: 03-13-2024 Gender identity Identifies as female gender (finding) [facility] Start: 03-13-2024 Sexual orientation Heterosexual (finding) [facility] Clinical Notes 06-30-2016 to 01-05-2025 Note Date & Type Note Facility 01-05-2025 Note [facility] Note Reason for cardiology visit: follow-up HPI: 01/05/2025 The patient is here today for follow-up visit. She had recently a fall on the ice which caused a fracture on the left forearm required a cast. The cast is off and she is able now to do exercises with the arm. Otherwise she has been doing well. She still has occasional brief chest pain not related to exertion but much less than before. She denies exertional dyspnea orthopnea or paroxysmal nocturnal dyspnea. She denies any further dizziness or palpitations. She denies legs edema or leg discomfort on exertion 07/17/2024 Patient reports 2 events of having [...] stents and CABG, her paternal grandfather had [place]. Cardiology ROS: All symptoms were reviewed, they were negative except for the positive findings noted above in the history Past Medical History She has a past medical history of Abnormal ECG, Chest pain, GERD (gastroesophageal reflux disease), GERD [...] antibiotics) and Sulfamethoxazole-trimethoprim Medications Current Outpatient Medications: atorvastatin (Lipitor) 20 mg tablet, Take 1 tablet (20 mg) by mouth at bedtime., Disp: 90 tablet, Rfl: 3 cholecalciferol (Vitamin D-3) 25 MCG (1000 units) tablet, Take 1,000 Units by mouth in the morning., Disp: , Rfl: omeprazole (PriLOSEC) [address] capsule, in the morning., Disp: , Rfl: Last Recorded Vitals Visit Vitals Pulse 70 Ht 1.702 m (5' 7 ) Wt 71.7 kg (158 lb) SpO2 98% BMI 24.75 kg/m??? Smoking Status Never BSA 1.84 m??? Physical Examination: GENERAL: alert and oriented x3, well developed, in no acute distress. HEAD: atraumatic, normocephalic. EYES: NIESHA, EOMI. NECK: trachea midline, no JVD present, no carotid bruits present. CARDIAC: S1, S2 present. RRR. No murmur, rubs, or gallops. RESPIRATORY: CTAB, no increased effort of breathing, no rales, rhonchi, or wheezing. ABDOMEN: soft, nontender, nondistended. EXTREMITIES: no lower extremity edema. No rash/skin discoloration present. NEURO: strength/sensation equal and symmetric in bilateral upper and lower extremities. PSYCH: appropriate mood, affect, and judgement. Labs: 12/29/2024 Cholesterol 146, triglyceride 56, HDL 58, LDL 76.8, AST 16, ALT 21 10/20/2024 Cholesterol 213, HDL 59, LDL 135, triglyceride 45 05/04/2024 Cholesterol 220, HDL 59, LDL 143, triglyceride 89, glucose 98 Last Images: Resting EKG 04/26/2024 at stress test showed normal sinus rhythm, slight ST depression was nonspecific T wave changes in inferior an (more content not included)... [facility] 07-17-2024 Note [facility] Note Reason for cardiology [...] stents and CABG, her paternal grandfather had AK. Cardiology ROS: All symptoms were reviewed, they [...] No reversible isc (more content not included)... [facility] 05-03-2024 Note [facility] Note Reason for cardiology consult: New patient here to establish care. Ref from Dr. Filiberto San for chest pain. stress test performed last week at [facility]. Chief Complaint: Chest pain HPI: Ignacio [...] stents and CABG, her paternal grandfather had AK. Cardiology ROS: All symptoms were reviewed, they [...] 107 PVC Patient (more content not included)... [facility] 10-12-2023 Evaluation note Encounter Date Diagnosis Assessment Notes Sep, Right hand pain (ICD-10 - M79.641) Sep, Primary osteoarthritis of right hand (ICD-10 - M19.041) Right ring and small PIP joints injected with cortisone, patient tolerated well [employer] Other 02-01-2023 Evaluation note* Encounter Date Diagnosis [...] and tingle for hours after this injection. [employer] [facility] Other 10-19-2022 Evaluation note* Encounter Date Diagnosis [...] (midd le ear effusion) material was printed [employer] Other 09-06-2022 Evaluation note* Encounter Date Diagnosis Assessment Notes Treatment Notes Treatment Clinical Notes Jul, Right hand pain (ICD-10 - M79.641) Jul, Primary osteoarthritis of right hand (ICD-10 - M19.041) Patient is progressing well from injections. May consider repeat injections in the future if needed. Continue topical and/or oral NSAIDs as needed for pain/inflammation . Call with questions/concern s or return in pain. [employer] [facility] Other 08-05-2022 Evaluation note* Encounter Date Diagnosis [...] the office with any questions or concerns. [employer] Other 07-11-2022 Evaluation note* Encounter Date Diagnosis [...] area, fever, or have chills. TDAP updated [employer] Other 06-28-2022 Evaluation note* Encounter Date Diagnosis [...] a medrol dose pack or cortisone injection [employer] [facility] [employer] Other 08-02-2016 History general Narrative - Reported* Type Description Date Medical History acid reflux Surgical History shoulder surgery right 2009 Surgical History hysterectomy 2006 Surgical History Throat Surgery 06/30/16 Surgical History wrist surgery 2020 Hospitalization History See Above [employer] Other Evaluation noteNo assessment information available [facility] Work Phone: Evaluation note* Diagnosis Onset Date Resolution Status Dysuria acute [facility] Work Phone: Evaluation note* Diagnosis Onset Date Resolution Status Pain in right hand acute Primary osteoarthritis of right hand acute [facility] Work Phone: Chief Complaint and Reason for [...] July 04, 2024 End: July 04, 2024 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 Start Date End Date Filiberto San MD [address] [place] [phone] PCP - General Family Medicine 01/13/24 Filiberto San MD [address] [place] [phone] PCP - Medical [facility] 11/29/12 11/28/99 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 Start Date End Date Filiberto San MD [address] [place] [phone] PCP - General Family Medicine 01/13/24 Filiebrto San MD [address] [place] [phone] PCP - Medical [facility] 11/29/12 11/28/99 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 Start Date End Date Filiberto San MD [address] [place] [phone] PCP - General Family Medicine 01/13/24 Filiberto San MD [address] [place] [phone] PCP - Medical [facility] [employer] 11/29/12 11/28/99 Goals (unrecognized section and content) Goals may be documented in a n alternate section INFORMATION SOURCE (unrecogn ized section and content) DATE CREATED AUTHOR 03/08/2023 [facility] DATE CREATED AUTHOR AUTHOR'S ORGANIZ ATION 01/19/2024 [facility] DATE CREATED AUTHOR AUTHOR'S ORGANIZ ATION 04/08/2024 [facility] DATE CREATED AUTHOR AUTHOR'S ORGANIZ ATION 01/07/2025 [facility] FOR RECORDS PERTAINING TO PATIENTS WHO ARE [...] BE BASED ON THE PRIMARY CLINICAL RECORDS. [employer] provides no warranty or guarantee of the accuracy or completeness of information in this document.
== END 2025-01-15 08:20 | disposition home or self-care (01) ==
PROVIDERS: PCP Family Medicine; Visit Provider Orthopaedic Surgery
DX: S52.125D Nondisplaced fracture of head of left radius, subsequent encounter for closed fracture with routine healing (principal)
CPT/HCPCS: 73080

== ENCOUNTER 2025-02-12 08:26 | Outpatient (OUT) | payer OTHER, SELFPAY ==
--- NOTE | 2025-02-12 | XR_ITS ---
The [address] [address] Patient Name: IGNACIO DIAZ MRN: [id number] date: 1960 Sex: F Assigned Patient Location: Current Patient Location: Accession/Order Number: [id number] Exam Date: 02/12/2025 10:11 Report Date: 02/12/2025 10:12 At the request of: BARBIE LIANG MD Procedure: XR elbow LT min 3V LEFT ELBOW - 3 views CLINICAL HISTORY: Left elbow pain. Follow-up radial neck fracture. COMPARISON: Left elbow 01/15/2025 FINDINGS: No elbow joint effusion. No fracture line is seen involving the radial head/neck region. Proximal ulna appears intact. XR/XR elbow LT min 3V IMPRESSION: NO FRACTURE LINE IS SEEN INVOLVING THE RADIAL NECK. Impression dictated by: Ankit James Jr., D.O.02/12/2025 10:12 AM Dictation Location: [place] [address] Electronically authenticated by: [id number] Y Date: 02/12/2025 10:12
--- OUTSIDE RECORDS SUMMARY | 2025-02-12 08:47 | XMS_ITS | CCD ---
Author Organization [facility] ion Partnership [facility] Care Team Providers Care Telephone Order Dispatcher Name Role Phone Nayana Huitron Unavailable MD Nayana Huitron Attending Provider [phone] NON STAFF Primary Care Provider UnavailCaprice Syed Unavailable Kusum Palencia Unavailable TAMCARIDAD MCINTOSH Admitting Unavailable CARIDAD TREJO Attending Unavailable JASWINDER, DR FILIBERTO Tellez Primary Care Unavailable SOTO HINOJOSA Consulting Unavailable NICHELLE IIDAVIE Consulting Unavailable CARIDAD TREJO Consulting Unavailable JASWINDER, DR FILIBERTO Tellez Admitting Unavailable JASWINDER, DR FILIBERTO Tellez Attending Unavailable JASWINDER, DR FILIBERTO Tellez Primary Care Unavailable RESTON, DR GIBRAN Beyer Consulting Unavailable JASWINDER, DR FILIBERTO Tellez Consulting Unavailable MAGUE Parekh Attending Provider Kena Parekh Attending Unavailable Kena Parekh Admitting Unavailable FILIBERTO SAN Attending Unavailable FILIBERTO SAN Attending Unavailable Filiberto San MD Primary Care Provider [phone] Filiberto San MD Unavailable DEYSI BARRON Attending Unavailable DEYSI BARRON Attending Unavailable DEYSI BARRON Attending Unavailable Allergies Allergy Classification Reported Allergen(s) Allergy Type Date of Onset Reaction(s) Facility (7 sources) Sulfamethoxazole / Trimethoprim Drug Allergy Unknown [facility] Other (1 source) Sulfamethoxazole / Trimethoprim Drug Allergy 11-03-[address] [facility] Repository (4 sources) Sulfamethoxazole; Translations: [sulfamethoxazole] Drug Allergy 01-13-20 24 [facility] (4 sources) Trimethoprim; Translations: [trimethoprim] Drug Allergy 01-13-20 [facility] (4 sources) Sulfonamides (Antibiotic) Propensity to adverse reactions 03-13-20 [facility] (1 source) Sulfamethoxazole / Trimethoprim; Translations: [SULFAMETHOXAZOLE-T RIMETHOPRIM] Drug Allergy 09-29-20 [place] Repository (1 source) Sulfonamides (Antibiotic); Translations: [SULFA (SULFONAMIDE ANTIBIOTICS)] Propensity to adverse reactions to drug (disorder) 01-13-20 [place] Repository Medications Current Medications Medication Drug Class(es) [...] Days Active cholecalciferol 0.025 mg oral tablet (17 sources) Vitamin D Start: 10-09-2024 take 1 [...] omeprazole 40 mg delayed release oral capsule (14 sources) Proton Pump Inhibitor Start: 09-11-2024 omeprazole [...] Onset: 01-05-2025 Episodic Disorders of lipid metabolism (6 sources) Dyslipidemia; Translations: [Hyperlipidemia, unspecified] Onset: 03-13-2024 03-13-2024 Chronic Esophageal disorders (8 sources) Gastro-esophageal reflux disease without esophagitis; Translations: [Gastroesophageal reflux disease] Onset: 03-08-2023 01-13-2024 Chronic Genitourinary symptoms and ill-defined conditions (6 sources) Dysuria; Translations: [Dysuria] Onset: 01-13-2024 01-13-2024 Episodic Heart valve disorders (2 sources) Rheumatic disorders of both mitral and aortic valves; Translations: [Rheumatic disorders of both mitral and aortic valves] Onset: 07-17-2024 Chronic Nutritional deficiencies (4 sources) Vitamin D deficiency; Translations: [Vitamin D deficiency, unspecified] Onset: 03-13-2024 03-13-2024 Chronic Osteoarthritis (20 sources) Osteoarthritis of joint of right hand; Translations: [Primary osteoarthritis, right hand] Onset: 05-26-2022 Resolved: 07-03-2022 Chronic Other acquired deformities (4 sources) Equinus contracture of the ankle; Translations: [Contracture, left ankle] Onset: 03-13-2024 03-13-2024 Chronic Other aftercare (1 source) 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; Translations: [OTH NURSING HOME CURRENT DRUG THERAPY] Onset: 03-08-2023 Episodic Other [...] Problem Date Documented Date Episodic/Chronic Cardiac dysrhythmias (6 sources) Palpitations; Translations: [Palpitations] Onset: 04-06-2024 04-06-2024 Episodic Fracture of upper limb (4 sources) Closed Colles' fracture; Translations: [Colles' fracture of right radius, initial encounter for closed fracture] Onset: 03-13-2024 Resolved: 03-13-2024 03-13-2024 Episodic Nonspecific chest pain (8 sources) Precordial pain; Translations: [Precordial pain] Onset: 04-06-2024 04-06-2024 Episodic Open wounds of extremities (1 source) Laceration without foreign body, unspecified lower leg, initial encounter Onset: 06-08-2022 Resolved: 06-08-2022 Episodic Other connective tissue disease (4 sources) Pain of left heel; Translations: [Pain [...] HEMATPOETC] Onset: 09-29-2022 Episodic Residual codes; unclassified (4 sources) Persistent insomnia; Translations: [Insomnia, unspecified] Onset: 03-13-2024 03-13-2024 Episodic Spondylosis; intervertebral disc disorders; other back problems (4 sources) Acute thoracic back pain; Translations: [Pain in thoracic spine] Onset: 03-13-2024 03-13-2024 Episodic Unclassified (1 source) Other ventricular tachycardia; Translations: [Other ventricular tachycardia] Onset: 05-03-2024 Results Test Name Value Interpretation Reference Range Facility XR Elbow - left [address] [place] [address] XRay Report Signed Patient: IGNACIO MOCK MR#: [id number] : 1960 Acct:[id number] Age/Sex: 65 / F ADM Date: 01/15/25 Loc: EC Attending Dr: Odin Liang M.D. Ordering Physician: Odin Liang M.D. Date of Service: 01/15/25 Procedure(s): XR elbow LT min 3V Accession Number(s): [id number] cc: Odin Liang M.D.; Filiberto San M.D. [place] [id number] Patient Name: IGNACIO MOCK MRN: [id number] date: 1960 Sex: F Assigned Patient Location: Current Patient Location: Accession/Order Number: [id number] Exam Date: 2025 08:43 Report Date: 2025 16:30 At the request of: ODIN LIANG Procedure: XR elbow LT min 3V EXAM: XR elbow LT min 3V HISTORY: LEFT ELBOW PAIN COMPARISON: 12/18/2024. TECHNIQUE: 3 views. FINDINGS: There has been interval decrease of previously noted hemarthrosis. Slight sclerosis radial neck consistent with interval healing of nondisplaced fracture. XR/XR elbow LT min 3V IMPRESSION: 1. Slight transverse sclerotic band of the radial neck consistent with interval healing of nondisplaced radial neck fracture. 2. Interval decreased size of hemarthrosis. Electronically authenticated by: DAVIE WEN Date: 2025 16:30 Dictated By: Davie Wen M.D. Signed By: 01/15/25 1633 DD/ 1630 TD/TT: Stator Winder: [facility] Radiology, Radiologist, MD - [address] [place] [address] XRay Report Signed Patient: IGNACIO MOCK MR#: [id number] : 1960 Acct:[id number] Age/Sex: 65 / F ADM Date: 01/15/25 Loc: EC Attending Dr: Odin Liang M.D. Ordering Physician: Odin Liang M.D. Date of Service: 01/15/25 Procedure(s): XR elbow LT min 3V Accession Number(s): [id number] cc: Odin Liang M.D.; Filiberto San M.D. [facility] [place] [address] Patient Name: IGNACIO MOCK MRN: [facility]:[id number] date: 1960 Sex: F Assigned Patient Location: Current Patient Location: Accession/Order Number: [id number] Exam Date: 2025 08:43 Report Date: 2025 16:30 At the request of: ODIN LIANG Procedure: XR elbow LT min 3V EXAM: XR elbow LT min 3V HISTORY: LEFT ELBOW PAIN COMPARISON: 12/18/2024. TECHNIQUE: 3 views. FINDINGS: There has been interval decrease of previously noted hemarthrosis. Slight sclerosis radial neck consistent with interval healing of nondisplaced fracture. XR/XR elbow LT min 3V IMPRESSION: 1. Slight transverse sclerotic band of the radial neck consistent with interval healing of nondisplaced radial neck fracture. 2. Interval decreased size of hemarthrosis. Electronically authenticated by: DAVIE WEN Date: 2025 16:30 Dictated By: Davie Wen M.D. Signed By: 01/15/25 163 DD/ 163 TD/TT: Stator Winder: [facility] Radiology Study observation (narrative) [facility] XR Elbow - left 3 ViewsOrder ed By: Radi[facility] Office Visiton 01-05-2025 Follow-up visit [id number] Ignacio Mock 1960 F Date Provider Department Center 01/05/2025 [id number] BARRON Family History Problem Relation Age of Onset Heart attack Father Heart failure Father Heart failure Maternal Grandfather Family Status - Relation Status Age at Father Maternal Grandfather Level of Service:70555 [place] OFFICE/OUTPATIENT NEW MODERATE MDM 45 MINUTES Reason for Visit and Comments: Chest Pain [181232] - Says chest pain is occurring much less often that it was before. Valve Disorder [3372] Hyperlipidemia [182] - Had lipid in Sep 2024, and again last week. Shortness of Breath [676196] - Only with stairs Normal [place] ALL LIPID PROFILE (FASTING)o n 12-29-2024 CHOL HDL RATIO 2.5 [facility] Comment on above: 3.3 - 4.4 LOW RISK 4.4 - 7.1 AVERAGE RISK 7.1 - 11.0 MODERATE RISK >11.0 HIGH RISK Cholesterol [Mass/Vol] 146 mg/dL NINF - 200 mg/dL [facility] Cholesterol in HDL [Mass/Vol] 58 mg/dL 40 - 60 mg/dL [facility] Comment on above: > or =60 mg/dl - LOW CARDIOVASCULAR RISK <40 mg/dl - HIGH CARDIOVASCULAR RISK Magnesium [Mass/Vol] 76.8 mg/dL [facility] Comment on above: <100 mg/dl OPTIMAL 100-129 mg/dl NEAR OR ABOVE OPTIMAL 130-159 mg/dl BORDERLINE HIGH 160-189 mg/dl HIGH >190 mg/dl VERY HIGH Magnesium [Mass/Vol] 11.2 mg/dL [facility] Triglyceride [Mass/Vol] 56 mg/dL NINF - 150 mg/dL [facility] On[facility] 12-29-2024 ALT [Catalytic activity/Vol] 21 U/L 14 - 59 U/L [facility] Shandra 12-29-2024 AST [Catalytic activity/Vol] 16 U/L 15 - 37 U/L [facility] No Panel Informationon 12-29 [facility] 36on 11-02-2024 36 Regarding lab [...] agreeable to start atorvastatin. RX sent to [facility]. She will have labs prior to her follow up with Dr. Barron in Dec 2024. Lab orders printed, faxed to [facility], and also sent to patient in the mail. She verbalized understanding. Normal [place] ALL LIPID PROFILE (FASTING)o n 10-20-2024 [facility]OL [facility]1 [facility] Comment on above: 3.3 - 4.4 LOW RISK 4.4 - 7.1 AVERAGE RISK 7.1 - 11.0 MODERATE RISK >11.0 HIGH RISK Cholesterol [Mass/Vol] 213 mg/dL High NINF - 200 mg/dL [facility] Cholesterol in HDL [Mass/Vol] 69 mg/dL High 40 - 60 mg/dL [facility] Comment on above: > or =60 mg/dl - LOW CARDIOVASCULAR RISK <40 mg/dl - HIGH CARDIOVASCULAR RISK Interpretation and review of laboratory results Abnormal [facility] Magnesium [Mass/Vol] 135 mg/dL [facility] Comment on above: <100 mg/dl OPTIMAL 100-129 mg/dl NEAR OR ABOVE OPTIMAL 130-159 mg/dl BORDERLINE HIGH 160-189 mg/dl HIGH >190 mg/dl VERY HIGH Magnesium [Mass/Vol] 9 mg/dL [facility] Triglyceride [Mass/Vol] 45 mg/dL NINF - 150 mg/dL [facility] 36on 08-02-2024 36 Regarding lab result s for 07/17/24 From: Deysi Barron MD Sent: 08/01/2024 4:58 PM EDT To: Carisa Cash MA Subject: RE: Scan Those labs are normal. But we need to check magnesium level please Pt was informed and will stop down today to have the magnesium level drawn. 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 [facility] ALL MAGNESIUMon 08-02-2024 Magnesium [Mass/Vol] 2.1 mg/dL 1.8 - 2 .4 mg/dL [facility] Visiton 07-17-2024 Follow-up visit [id number] Ignacio Mock 1960 F Date Provider Department Center 07/17/2024 DEYSI THOMASON Family History Problem Relation Age of Onset Heart attack Father Heart failure Father Heart failure Maternal Grandfather Family Status - Relation Status Age at Father Maternal Grandfather Level of Service:61846 AR OFFICE/OUTPATIENT ESTABLISHED MOD MDM 30 MIN Reason for Visit and Comments: Shortness of Breath [778309] Palpitations [337716] Hyperlipidemia [182] Chest Pain [184530] [facility] 36on 05-24-2024 36 Pt informed [facility] 36 Regarding echo performed on 05/12/2024: MD Carisa Healy MA Please notify the patient that her echo is overall good, heart function is good, she had mild valvular leak which is not significant and we will follow over the years. Continue current management Dr. Barron [facility] 36on 05-10-[address] Barron regarding patient's labs: Her LDL cholesterol is high and I think she needs to be on treatment but I need to know first what the date of this blood test before I recommend any treatment Thank you I spoke with the patient and she said those labs were drawn on 04/07/2024. [facility] Office Visiton 05-03-2024 Follow-up visit [id number] Ignacio Mock 1960 F Date Provider Department Center 05/03/2024 [id number], SAMAR BH CARD [facility] Family History Problem Relation Age of Onset Heart attack Father Heart failure Father Heart failure Maternal Grandfather Family Status - Relation Status Age at Father Maternal Grandfather Level of Service:89164 [place] OFFICE/OUTPATIENT NEW MODERATE MDM 45 MINUTES Normal [place] Chlamydia/GC/Trich NAAon Chlamydia Trachomotis, FROILAN Negative Normal Negative [facility] Comment on above: Performed By: #### G CCHLAMTRI #### [facility] , #### CUU #### [facility] [address] [place] [address] Neisseria Gonorrhoeae, FROILAN Negative Normal Negative [facility] Comment on above: Performed By: #### G CCHLAMTRI #### [facility] , #### CUU #### [facility] [address] [place] [address] Trichomonas FROILAN Negative Normal Negative [facility] Comment on above: Result Comment: Perf ormed at: =G - [facility] [address] [id number] Candy Separator Enrobing: Meena Mccabe MD, Phone: [phone] PERFORMED BY: [place] [address] PATHOLOGIST LANDSCAPE ARCHITECTURE TEACHER SANTHOSH STAFFORD M.D. Performed By: #### G CCHLAMTRI #### [facility] , #### CUU #### [facility] [address] [place] [address] Urine Cultureon 01-13-2024 Bacteria identified Cx Nom (U) ORGANISM: Escherichia coli (O:ESCCOL) [place] Count 50,000 Aerobic JUVENTINO Charge (NMIC56) ---- [...] RESISTANT TO ALL B-LACTAM DRUGS. PERFORMED BY: [place] [address] PATHOLOGIST LANDSCAPE ARCHITECTURE TEACHER SANTHOSH STAFFORD M.D. [place] Comment on above: Performed By: #### G CCHLAMTRI #### [facility] , #### CUU #### [address] MG MAMM SCREEN 3D REGINALD CADon 09-22-2022 MG MAMM SCREEN 3D REGINALD CAD Patient: IGNACIO MOCK Exam Date: 09/22/2022 : 1960 Gender:F Ordering : DR FILIBERTO SAN . Admission #: [id number] Family : Order #: [id number] CLICK HERE TO VIEW EXAM RADIOLOGY REPORT [...] node cancer at age 82. LOCATION: [facility] BREAST COMPOSITION: Heterogeneously dense,which may [...] Lemus MD on 09/23/2022 at 08:00 Normal [facility] Vital Signs Date Time Vital Sign Value Performing Clinician Facility 07-04-2024 09:20-0400 Body height 167.64 cm [facility] 07-04-2024 09:20-0400 Body mass index (BMI) [Ratio] 25.3 kg/m2 [facility] 07-04-2024 09:20-0400 Body weight 71.21 kg [facility] 01-13-2024 14:40-0500 Body height 170.18 cm [facility] 01-13-2024 14:40-0500 Body mass index (BMI) [Ratio] 26.9 kg/m2 [facility] 01-13-2024 14:40-0500 Body temperature 98.4 [degF] [facility] 01-13-2024 14:40-0500 Body weight 78.01 kg [facility] 01-13-2024 14:40-0500 Diastolic blood pressure 73 mm[Hg] [facility] 01-13-2024 14:40-0500 Heart rate 87 /min [facility] 01-13-2024 14:40-0500 Respiratory rate 18 /min [facility] 01-13-2024 14:40-0500 SaO2% (BldA) [Mass fraction] 97 % [facility] 01-13-2024 14:40-0500 Systolic blood pressure 125 mm[Hg] [facility] 09-16-2022 15:50-0400 Body height 170.18 cm Kusum Palencia Other [facility] Other 09-16-2022 15:50-0400 Body mass index (BMI) [Ratio] 24.9 kg/m2 Kusum Palencia Other [facility] Other 09-16-2022 15:50-0400 Body temperature 98.8 [degF] Kusum Palencia Other [facility] Other 09-16-2022 15:50-0400 Body weight 72.12 kg Kusum Palencia Other [facility] Other 09-16-2022 15:50-0400 Diastolic blood pressure 87 mm[Hg] Kusum Rolandmond Other [facility] Other 09-16-2022 15:50-0400 Respiratory rate 18 /min Kusum Palencia Other [facility] Other 09-16-2022 15:50-0400 SaO2% (BldA) [Mass fraction] 99 % Kusum Palencia Other [facility] Other 09-16-2022 15:50-0400 Systolic blood pressure 127 mm[Hg] Kusum Palencia Other [facility] Other 07-03-2022 09:00-0400 Body height 170.18 cm Nayana Huitron Other [facility] Other 06-08-2022 17:25-0400 Body height 170.18 cm Caprice Roque Other [facility] Other 06-08-2022 17:25-0400 Body mass index (BMI) [Ratio] 24.9 kg/m2 Caprice Roque Other [facility] Other 06-08-2022 17:25-0400 Body temperature 99 [degF] Caprice Roque Other [facility] Other 06-08-2022 17:25-0400 Body weight 72.12 kg Caprice Roque Other [facility] Other 06-08-2022 17:25-0400 Diastolic blood pressure 62 mm[Hg] Caprice Roque Other [facility] Other 06-08-2022 17:25-0400 Respiratory rate 16 /min Caprice Roque Other [facility] Other 06-08-2022 17:25-0400 SaO2% (BldA) [Mass fraction] 100 % Caprice Roque Other [facility] Other 06-08-2022 17:25-0400 Systolic blood pressure 121 mm[Hg] Caprice Roque Other [facility] Other Encounters Encounter Date Encounter Type Care Provider Facility Start: 2025 End: 2025 [facility] Result Encounter Generic External Data Provider [facility] External Department Unsolicited Start: 2025 End: 2025 [facility] Result Encounter Generic External Data Provider [facility] External Department Unsolicited Start: 01-05-2025 End: 01-05-2025 [facility] Start: 12-29-2024 End: 12-29-2024 [facility] Result Encounter [...] Department Unsolicited Start: 07-17-2024 End: 07-17-2024 ambulatory [facility] Start: 07-04-2024 End: 07-04-2024 ambulatory [facility] Work Phone: Start: 07-04-2024 End: 07-04-2024 Patient encounter procedure [facility] Physician [facility] Work Phone: Start: 05-03-2024 End: 05-03-2024 ambulatory [facility] Start: 04-06-2024 End: 04-06-2024 ambulatory FILIBERTO NADERER Not Available Start: 03-13-2024 End: 03-13-2024 ambulatory FILIBERTO NADERER Not Available Start: 01-13-2024 End: 01-13-2024 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[employer] Kena Parekh Work Phone: [facility] [place] Work Phone: Start: 01-13-2024 End: 01-13-2024 ambulatory Kena Parekh [facility] Work Phone: Start: 01-13-2024 End: 01-13-2024 Patient encounter procedure [facility] Physician [facility] Work Phone: Start: 10-12-2023 End: 10-12-2023 ambulatory Nayana Huitron Other [facility] Other Start: 10-12-2023 Office outpatient visit 15 minutes Nayana Calvey [facility] Start: 03-05-2023 End: 03-05-2023 ambulatory CARIDAD JIMENEZ . Facility:[facility] Start: 12-30-2022 End: 12-30-2022 ambulatory Nayana Calvey Other [facility] Other Start: 12-30-2022 Office outpatient visit 15 minutes Nayana Calvey [facility] Start: 09-22-2022 End: 09-23-[address] FILIBERTO SAN Facility:[facility] Start: 09-16-2022 End: 09-16-2022 ambulatory Kusum Palencia Other [facility] Other Start: 09-16-2022 Office outpatient visit 15 minutes Kusumjeanette Palencia [facility] Start: 08-04-2022 End: 08-04-2022 ambulatory Nayana Calvey Other [facility] Other Start: 08-04-2022 Office outpatient visit 15 minutes Nayana Calvey [facility] Start: 07-03-2022 End: 07-03-2022 ambulatory Nayana Calvey Other [facility] Other Start: 07-03-2022 Office outpatient visit 15 minutes Nayana Calvey [facility] Start: 06-08-2022 (URG) Urgent Care Visit Caprice Roque [facility] Start: 06-08-2022 End: 06-08-2022 ambulatory Caprice Roque Other [facility] Other Start: 05-26-2022 End: 05-26-2022 ambulatory Nayana Calvey Other [facility] Other Start: 05-26-2022 Office outpatient ne w 30 minutes Nayana Calvey [facility] Start: 05-26-2022 End: 05-26-2022 Patient encounter procedure MD Nayana Huitron Work Phone: [facility] Procedures Date Procedure Procedure Detail Performing Clinician Start: 2025 Radex elbow complete minimum 3 views Generic External Data Provider Start: 12-29-2024 ALL LIPID PROFILE (FASTING) Generic [...] Screening for malign ant neoplasm of colon [facility] Start: 09-27-2025 Screening for malign ant neoplasm of breast Mammogram [facility] Start: 09-23-2024 Screening for malign ant neoplasm of breast Mammogram [facility] Start: 07-30-2024 Influenza vaccination Influenza Vacc ine (#1) [facility] Start: 01-14-2024 Bacteria identified in Urine by Culture [facility] Start: 01-14-2024 [facility] Start: 01-13-2024 Bacteria identified in Urine by Culture [facility] Start: 1992 Screening for malign ant neoplasm of cervix [facility] Start: 1983 Screening for malign ant neoplasm of cervix Pap Smear [facility] Start: 1960 Screening for malign ant neoplasm of colon [facility] Chlamydia trachomati s DNA [Presence] in Unspecified specimen by FROILAN with probe detection [facility] Neisseria gonorrhoea e DNA [Presence] in Unspecified specimen by FROILAN with probe detection [facility] Trichomonas vaginali s DNA [Presence] in Unspecified specimen by FROILAN with probe detection [facility] Immunizations Immunization Date Immunization Notes Care Provider Fa pattity 09-30-2023 influenza virus vaccine, unspecified formulation Generic Provider [facility] 06-08-2022 tetanus toxoid, reduced diphtheria toxoid, and acellular pertussis vaccine, adsorbed Caprice Roque Other [facility] Payers Date Payer Category Payer Self-pay [id number] [phone] [id number] 2023 Private Health Insurance [employer] [id number] 2023 Unknown [employer] [id number] 2023-Present [address] [place] [address] [id number] 1960 Unknown [id number] 1960 Unknown [id number] 1960 Unknown [id number] [id number] 1960 Unknown [id number] [id number] 1959 Unknown [id number] Unknown [id number] Social History Date Type Detail Facility Start: 03-13-2024 End: 03-30-2024 Sex Assigned At [facility] Start: 1960 Sex Assigned At Female [facility] Start: 01-13-2024 End: 03-13-2024 Tobacco smoking status NHIS Never smoked tobacco (finding) [facility] Start: 03-13-2024 Tobacco use and exposure Smokeless tobacco non-user [facility] Start: 03-13-2024 End: 03-30-2024 History of Social function [facility] Do you belong to any clubs or organizations such as roman catholic groups, unions, fraternal or athletic groups, or [...] (finding) [facility] Clinical Notes 06-30-2016 to 01-05-2025 Note Date & Type Note Facility 01-05-2025 Note [facility] Note Reason for cardiology [...] stents and CABG, her paternal grandfather had MS. Cardiology ROS: All symptoms were reviewed, they [...] in inferior an (more content not included)... [place] 07-17-2024 Note [facility] Note Reason [...] stents and CABG, her paternal grandfather had MS. Cardiology ROS: All symptoms were reviewed, they [...] No reversible isc (more content not included)... [place] 05-03-2024 Note [facility] Note Reason for cardiology consult: New patient here to establish care. Ref from Dr. Filiberto San for chest pain. stress test performed last week at [facility]. Chief Complaint: Chest pain HPI: Ignacio [...] stents and CABG, her paternal grandfather had MS. Cardiology ROS: All symptoms were reviewed, they [...] 107 PVC Patient (more content not included)... [place] 10-12-2023 Evaluation note Encounter Date Diagnosis Assessment Notes Sep, Right hand pain (ICD-10 - M79.641) Sep, Primary osteoarthritis of right hand (ICD-10 - M19.041) Right ring and small PIP joints injected with cortisone, patient tolerated well [facility] Other 02-01-2023 Evaluation note* Encounter Date Diagnosis [...] and tingle for hours after this injection. [facility] Other 10-19-2022 Evaluation note* Encounter Date Diagnosis [...] (midd le ear effusion) material was printed [facility] Other 09-06-2022 Evaluation note* Encounter Date Diagnosis Assessment Notes Treatment Notes Treatment Clinical Notes Jul, Right hand pain (ICD-10 - M79.641) Jul, Primary osteoarthritis of right hand (ICD-10 - M19.041) Patient is progressing well from injections. May consider repeat injections in the future if needed. Continue topical and/or oral NSAIDs as needed for pain/inflammation . Call with questions/concern s or return in pain. [facility] Other 08-05-2022 Evaluation note* Encounter Date Diagnosis [...] the office with any questions or concerns. [facility] Other 07-11-2022 Evaluation note* Encounter Date Diagnosis [...] area, fever, or have chills. TDAP updated [facility] Other 06-28-2022 Evaluation note* Encounter Date Diagnosis [...] a medrol dose pack or cortisone injection [facility] Other 08-02-2016 History general Narrative - Reported* Type Description Date Medical History acid reflux Surgical History shoulder surgery right 2009 Surgical History hysterectomy 2006 Surgical History Throat Surgery 06/30/16 Surgical History wrist surgery 2020 Hospitalization History See Above [facility] Other Evaluation noteNo assessment information available [facility] Work Phone: Evaluation note* Diagnosis Onset Date Resolution Status Dysuria acute [facility] Work Phone: Evaluation note* Diagnosis Onset Date Resolution Status Pain in right hand acute Primary osteoarthritis of right hand acute [facility] Work Phone: Chief Complaint and Reason [...] July 04, 2024 End: July 04, 2024 Telephone Order Dispatcher Relationship Specialty Start Date End Date Filiberto San MD [address] [place] [phone] PCP - General Family Medicine 01/13/24 Filiberto San MD [address] [place] [phone] PCP - Medical [place] [employer] 11/29/12 11/28/99 Telephone Order Dispatcher Relationship Specialty Start Date End Date Filiberto San MD [address] [place] [phone] PCP - General Family Medicine 01/13/24 Filiberto San MD [address] [place] [phone] PCP - Medical [place] [employer] 11/29/12 11/28/99 Telephone Order Dispatcher Relationship Specialty Start Date End Date Filiberto San MD [address] [place] [phone] PCP - General Family Medicine 01/13/24 Filiberto San MD [address] [place] [phone] PCP - Medical [place] [employer] 11/29/12 11/28/99 Goals (unrecognized section and content) Goals may be documented in a n alternate section INFORMATION SOURCE (unrecogn ized section and content) DATE CREATED AUTHOR [facility]/08/2023 [facility] DATE CREATED AUTHOR AUTHOR'S ORGANIZ ATION 01/19/2024 [facility] DATE CREATED AUTHOR AUTHOR'S ORGANIZ ATION 04/08/2024 [facility] DATE CREATED AUTHOR AUTHOR'S ORGANIZ ATION 01/07/2025 [facility] FOR RECORDS PERTAINING TO PATIENTS WHO [...] BE BASED ON THE PRIMARY CLINICAL RECORDS. [employer] provides no warranty or guarantee of the accuracy or completeness of information in this document.
== END 2025-02-12 08:27 | disposition home or self-care (01) ==
LOC: EC 08:26
PROVIDERS: PCP Family Medicine; Visit Provider Orthopaedic Surgery
DX: S52.125D Nondisplaced fracture of head of left radius, subsequent encounter for closed fracture with routine healing (principal)
CPT/HCPCS: 73080

== ENCOUNTER 2025-05-11 09:39 | Outpatient (OUT) | payer OTHER, SELFPAY ==
--- OUTSIDE RECORDS SUMMARY | 2024-12-18 06:20 | XMS_ITS ---
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 Name Role Phone Odin Juarez Unavailable [phone] Allergies Allergen (clinical drug ingredient) Drug/Non Drug Allergy documented on EMR Reaction Allergy Type Onset Date Status sulfamethoxazole / trimethoprim Bactrim Unknown Drug Allergy Active Results Component Value Reference Range Notes SCC- ELBOW 3 VIEW LEFT [id number] Reviewed date:12/19/2024 03:35:47 PM Interpretation: Performing Lab: Notes/Report: REASON FOR VISIT LEFT RADIAL HEAD FX Social History Tobacco Use: Social History Observation Description Date Details (start date - stop date) Never Smoker NA - NA AUDIT-C (Standard) Question Answer Notes Did you have a drink contain ing alcohol in the past year? Yes How often did you have six o r more drinks on one occasion in the past year? Never (0 point) How many drinks did you have on a typical day when you were drinking in the past year? 1 or 2 drinks (0 point) How often did you have a dri nk containing alcohol in the past year? Monthly or less (1 point) Points 1 Interpretation Negative Tobacco Control (Standard) Question Answer Notes Tobacco use: Nonsmoker Problems Problem Type SNOMED Code ICD Code Onset Dates Problem Status W/U Status Risk Notes Problem [id number] Nondisplaced fracture of head of left radius, subsequent encounter for closed fracture with routine healing (S52.125D) Active confirmed Encounters Encounter Location Date Provider Diagnosis [facility] [address] [place] [address] [address] [place] [address] 12/18/2024 Odin Juarez Nondisplaced fractur e of head of left radius, subsequent encounter for closed fracture with routine healing S52.125D Assessments Encounter Date Diagnosis (ICD Code) Assessment Notes Treatment Notes Treatment Clinical Notes Section Notes 12/18/2024 Nondisplaced fracture of head of left radius, subsequent encounter for closed fracture with routine healing (ICD-10 - S52.125D) 12/18/2024 Other Tear splint was removed today in clinic. She will wear a sling. She will work on restoring motion. She will not do any lifting. She will follow-up in 4 weeks to repeat x-rays of her elbow and reassess her progress. Import medication Plan Of Treatment Treatment Notes Assessment Notes Other Tear splint was removed today in clinic. She will wear a sling. She will work on restoring motion. She will not do any lifting. She will follow-up in 4 weeks to repeat x-rays of her elbow and reassess her progress. 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 She has been having minimal discomfort. * Medical History: * Surgical History: w rist 2020 * Family History: N o Family History documented.. * Social History: E xercise regularly D o you exercise? Y es. W hat is your place of residence? W here do you live? P rivate home. A LISA-C (Standard) D id you have a drink containing alcohol in the past year? Y es, H ow often did you have six or more drinks on one occasion in the past year? N ever (0 point), H ow many drinks did you have on a typical day when you were drinking in the past year? 1 or 2 drinks (0 point), H ow often did you have a drink containing alcohol in the past year? M onthly or less (1 point), P oints 1 , I nterpretation N egative. T obacco Control (Standard) T obacco use: N onsmoker. * Medications: N one * Allergies: B actrimno[Allergies Verified] Objective: * Vitals: * Examination: G eneral examination: O n exam today she is in no obvious distress. Splint was removed from the elbow. She has nearly full extension and flexes past 100 degrees. . X -ray Imaging Studies: X -rays show the radial head fracture is difficult to visualize. . Assessment: * Assessment: 1. N ondisplaced fracture of head of left radius, subsequent encounter for closed fracture with routine healing - S52.125D (Primary) Plan: * Treatment: * Procedure Codes: * Follow Up: 4 Weeks Forms: * Images: * Sign off status: Completed true * Provider: Madelin Juarez MD Date: 0 12/18/2024 Generated for Mandeep farah/Mannie/Joselinitting on: 0 05/11/2025 09:43 AM EDT History and Physical Notes * HPI (History of Present Illness) Category Sub-Category Detail Notes Category Not es General Follow Up Information Patient presents tod ay for follow-up of her left radial head fracture doing well. She has been having minimal discomfort. Examination Category Sub-Category Detail Notes Category Not es General examination On exam today she is in no obvious distress. Splint was removed from the elbow. She has nearly full extension and flexes past 100 degrees. X-ray Imaging Studies X-rays show the radial head fracture is difficult to visualize.
--- OUTSIDE RECORDS SUMMARY | 2025-02-12 04:10 | XMS_ITS ---
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 Role Phone Odin Juarez Unavailable [phone] Lakshmi Monzon Unavailable [phone] REASON FOR VISIT Left radial head fx Medications Medication SIG (Take, Route, Frequency, Duration) Notes Start Date End Date Status Vitamin D3 Active PriLOSEC Active Encounters Encounter Location Date Provider Diagnosis [facility] Office [address] [place] [address] [address] [place] [address] 02/12/2025 Lakshmi Monzon Nondisplaced fractur e of head of left radius, subsequent encounter for closed fracture with routine healing S52.125D Assessments Encounter Date Diagnosis (ICD Code) Assessment Notes Treatment Notes Treatment Clinical Notes Section Notes 02/12/2025 Nondisplaced fracture of head of left radius, subsequent encounter for closed fracture with routine healing (ICD-10 - S52.125D) 02/12/2025 Other Patient is now a little over 2 months out from injury and doing well with return to work and activities of daily living with lifting restriction. Her fracture is healed on x-ray today and I am going to start allowing her to progressively start lifting more as tolerated. We can see her back on an as-needed basis. Plan Of Treatment Treatment Notes Assessment Notes Other Patient is now a lit tle over 2 months out from injury and doing well with return to work and activities of daily living with lifting restriction. Her fracture is healed on x-ray today and I am going to start allowing her to progressively start lifting more as tolerated. We can see her back on an as-needed basis. Pending Test Test Name Order Date SCC- ELBOW 3 VIEW LEFT [id number] 02/12/2025 Next Appt Details Follow Up: prn, Reason: Progress Notes * DESHAWN DIAZOB:[birth year] (65 yo F)Acc No.[id number]:02/12/2025 Patient: IGNACIO CARTER Provider: VENUS Heath :1960 A ge:65 Y S ex:Female Date:02/12/2025 Address:[address] [place] [address] Subjective: * Chief Complaints: * L eft radial head fx * HPI: G eneral Follow Up Information: Patient returns the office today for recheck of her left radial head fracture. At her last appointment we had let her return to work with lifting restrictions. Today she states she is doing well, minimal discomfort, has been having help with lifting at work. 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 * Medical History: * Surgical History: * Medications: T akingVitamin D3 PriLOSEC Taking Vitamin D3 Taking PriLOSEC Objective: * Vitals: * Examination: G eneral examination: O n exam patient is in no distress, age-appropriate, alert and oriented x 3. On inspection skin is intact, no swelling, no erythema, no warmth to touch. Left elbow has full ROM as compared contralaterally. Radial head is nontender with palpation. 5/5 senior energy analyst strength. 2+ radial pulse palpated. Sensation intact distally with light touch. X -ray Imaging Studies: 3 view x-rays of the left elbow were taken in office today and reviewed and interpreted by myself as a healed radial head fracture. No new fracture or dislocation noted. Assessment: * Assessment: 1. N ondisplaced fracture of head of left radius, subsequent encounter for closed fracture with routine healing - S52.125D (Primary) Plan: * Treatment: 2. O thers Notes: Patient is now a little over 2 months out from injury and doing well with return to work and activities of daily living with lifting restriction. Her fracture is healed on x-ray today and I am going to start allowing her to progressively start lifting more as tolerated. We can see her back on an as-needed basis. * Procedure Codes: * Follow Up: p rn Forms: * Images: * Sign off status: Completed true * Provider: VENUS Heath Date: 0 02/12/2025 Generated for Mandeep farah/Mannie/Abiel on: 0 05/11/2025 09:43 AM EDT History and Physical Notes * HPI (History of Present Illness) Category Sub-Category Detail Notes Category Not es General Follow Up Information Patient returns the office today for recheck of her left radial head fracture. At her last appointment we had let her return to work with lifting restrictions. Today she states she is doing well, minimal discomfort, has been having help with lifting at work. 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 Examination Category Sub-Category Detail Notes Category Not es General examination On exam patient is in no distress, age-appropriate, alert and oriented x 3. On inspection skin is intact, no swelling, no erythema, no warmth to touch. Left elbow has full ROM as compared contralaterally. Radial head is nontender with palpation. 5/5 senior energy analyst strength. 2+ radial pulse palpated. Sensation intact distally with light touch. X-ray Imaging Studies 3 view x-rays of the left elbow were taken in office today and reviewed and interpreted by myself as a healed radial head fracture. No new fracture or dislocation noted.
--- OUTSIDE RECORDS SUMMARY | 2025-05-11 09:43 | XMS_ITS | Encounter Summary ---
Author Organization [facility] Address [address] [place] [address] Care Team Providers Care Event Management Consultant Name Role Phone Filiberto Bernard MD Primary Care Provider [phone] Filiberto Bernard MD Unavailable Encounter Details Date Type Department Care Team (Late st Contact Info) Description 05/15/2024 Clinisync Result Encounter [facility] External Department Unsolicited Provider, Generic External Data Social History Tobacco Use Types Packs/Day Years Used Date Smoking Tobacco: Never Smokeless Tobacco: Never Social Connection and Isolat ion Panel [NHANES] Answer Date Recorded In a typical week, how many times do you talk on the phone with family, friends, or neighbors? More than three times a week 03/30/2024 How often do you get togethe r with friends or relatives? Twice a week 03/30/2024 How often do you attend chur ch or mandaeism services? More than 4 times per year 03/30/2024 Do you belong to any clubs o r organizations such as restorationist groups, unions, fraternal or athletic groups, or school groups? No 03/30/2024 How often do you attend meet ings of the clubs or organizations you belong to? 1 to 4 times per year 03/30/2024 Are you , , di vorced, , never , or living with a partner? 03/30/2024 AUDIT-C Answer Date Recorded Q1: How often do you have a drink containing alc ohol? Monthly or less 03/30/2024 Q2: How many drinks containi ng alcohol do you have on a typical day when you are drinking? 1 or 2 03/30/2024 Q3: How often do you have si x or more drinks on one occasion? Less than monthly 03/30/2024 Overall Financial Resource Strain (CARDIA) Answe r Date Recorded How hard is it for you to pa y for the very basics like food, housing, medical care, and heating? Not hard at all 03/30/2024 PHQ-2 Answer Date Recorded Patient Health Questionnaire-2 Score 0 03/13/2024 [facility] Occupational Stress Questionnaire Answer Date Recorded Do you feel stress - tense, restless, nervous, or anxious, or unable to sleep at night because your mind is troubled all the time - these days? Not at all 03/30/2024 Exercise Vital Sign Answer Date Recorde d On average, how many days pe r week do you engage in moderate to strenuous exercise (like a brisk walk)? 2 days 03/30/2024 On average, how many minutes do you engage in exercise at this level? 60 min 03/30/2024 Hunger Vital Sign Answer Date Recorded Within the past 12 months, y ou worried that your food would run out before you got the money to buy more. Never true 03/30/20 24 Within the past 12 months, t he food you bought just didn't last and you didn't have money to get more. Never true 03/30/2024 PRAPARE - Transportation Answer Date Re corded In the past 12 months, has l ack of transportation kept you from medical appointments or from getting medications? No 12/2023 In the past 12 months, has l ack of transportation kept you from meetings, work, or from getting things needed for daily living? No 03/30/2024 Housing Stability Vital Sign Answer Solo e Recorded In the last 12 months, was t here a time when you were not able to pay the mortgage or rent on time? No 03/30/2024 In the last 12 months, how many places have you lived? 1 03/30/2024 In the last 12 months, was t here a time when you did not have a steady place to sleep or slept in a skilled nursing (including now)? No 03/30/2024 Comments Unknown Sex and Gender Information Value Date Recorded Sex Assigned at Female 03/13/2024 9:44 AM EDT Legal Sex Female 10:15 PM EDT Gender Identity Female 03/13/2024 9:44 AM EDT Sexual Orientation Straight 03/13/2024 9: 44 AM EDT documented as of this encounter Plan of Treatment Upcoming Encounters Date Type Department Care Team (Late st Contact Info) Description 06/18/2025 9:45 AM EDT Office Visit [facility] [address] [place] [address] Filiberto Bernard MD [address] [place] [address] documented as of this encounter Procedures Procedure Name Priority Date/Time Associated Diagnosis Comments CA ECHO DOPPLER COMPLETE 05/15/2024 4:40 PM EDT documented in this encounter Results * CA ECHO DOPPLER COMPLETE (05/15/2024 4:40 PM EDT) Anatomical Region Laterality Modality Other 05/15/2024 4:40 PM EDT Narrative 05/15/2024 4:42 [place] [address] Cardiology Report Signed Patient: KAROLINA DIAZ MR#: [id number] : 1960 Acct:[id number] Age/Sex: 64 / F ADM Date: 05/12/24 Loc: CARD Attending Dr: Deysi Barron M.D. Ordering Physician: Deysi Barron M.D. Date of Service: 05/12/24 Procedure(s): CA echo doppler complete Accession Number(s): [id number] cc: Deysi Barron M.D.; Filiberto Bernard M.D. Patient Name: KAROLINA DIAZ MR#: [id number] : 1960 Exam Date: 05/12/2024 Ordering Doctor: DEYSI BARRON ECHOCARDIOGRAM REPORT PROCEDURE: CA ECHO DOPPLER COMPLETE INDICATIONS: Abnormal EKG, Chest pain COMPARISON: None. DESCRIPTION: COMPLETE ECHOCARDIOGRAM Real-time transthoracic echocardiography with 2D, M-mode, spectral and color flow Doppler performed. QUALITY: Technical quality was good. LEFT VENTRICLE: Normal chamber size. Normal left ventricular wall thickness. Global left ventricular systolic function is normal. LV EF: Estimated left ventricular ejection fraction is 55-60%. DIASTOLIC: Normal diastolic function. ATRIAL SEPTUM: LEFT ATRIUM: Normal chamber size. RIGHT ATRIUM: Mild dilatation. RIGHT VENTRICLE: Mild chamber dilatation. Normal right ventricular systolic function. TRICUSPID VALVE: Normal mobility and thickness. No stenosis with trivial regurgitation. No evidence of pulmonary hypertension. RVSP 27 mmHg MITRAL VALVE: Normal mobility and thickness. No evidence of mitral valve stenosis. There is no mitral annular calcification. Mild mitral regurgitation. AORTIC VALVE: Normal trileaflet appearance. No visible sclerosis. Normal leaflet mobility. No evidence of aortic valve stenosis. Mild aortic regurgitation. AORTIC ROOT: Mildly dilated, measuring 3.7 cm. The ascending aorta is normal diameter [3.2 cm] and appearance. The aortic arch measures 3.2 cm. PULMONIC VALVE: Normal thickness and mobility. No stenosis. Trivial regurgitation. PERICARDIUM: No evidence of pericardial effusion. IVC: Collapses with inspirations. Normal size. PLEURA: CONCLUSION: 1. Normal left ventricular size and systolic function. LVEF is 55 to 60%. 2. Mildly dilated right ventricle with normal systolic function. 3. Mild aortic and mitral regurgitation. 4. Mildly dilated aortic root. 5. Normal right-sided pressures. Adult Echocardiography Procedure Report Left Ventricle LVEDD (3.7 - 5.6 cm): 4.75 cm LVESD (2.2 - 4.0 cm): 3.05 cm LVIVS thickness (0.6 - 1.2 cm): 0.94 cm LVPW thickness (0.5 - 1.0 cm): 1.00 cm e': 0.10 m/s E - e': 6.77 LVOT Max Gradient: 4.89 mm[Hg] LVOT Area (cm2): 1.11 m/s Peak Velocity (LVOT): 1.11 m/s Mean Velocity (LVOT): 0.67 m/s LVOT Diameter 2.23 cm Left Ventricular Ejection Fraction: 55-60 % Left Atrium LA Volume Index (2D A2C): 22.19 ml/m2 Left Atrium Systolic Dimension: 2.74 cm Mitral Valve MV E to A Ratio: 1.19 Mitral Valve A-Wave Peak Velocity: 0.56 m/s Mitral Valve E-Wave Peak Velocity: 0.67 m/s Right Ventricle RV Internal Diastolic Dimension: 3.00 cm Aorta AO Root Diam: 3.67 cm Ascending Ao Diam: 3.18 cm Aortic Valve AoV Area (Peak Mk): 4.56 cm2, 4.56 cm2 AoV Area (VTI): 4.08 cm2, 4.08 cm2 Deceleration Crisp: 0.47 m/s2 Pressure Half-Time: 1.81 s Peak Velocity(Antegrade Flow): 0.94 m/s Peak Gradient(Antegrade Flow): 3.56 mm[Hg] Mean Velocity(Antegrade Flow): 0.66 m/s Mean Gradient(Antegrade Flow): 1.99 mm[Hg] Velocity Time Integral: 23.56 cm Tricuspid Valve Peak Velocity (Regurgitant Flow): 2.06 m/s, 2.18 m/s, 2.46 m/s Pulmonic Valve Mean Gradient: 1.26 mm[Hg] Mean Velocity: 0.53 m/s Peak Velocity: 0.74 m/s, 0.67 m/s Peak Gradient: 1.78 mm[Hg], 2.18 mm[Hg] Right Atrium Right Atrium Systolic Pressure: 38.60 ml, 38.60 ml Dictated by: Christian Dao M.D. on 05/15/2024 at 16:36 Approved by: Christian Dao M.D. on 05/15/2024 at 16:40 Dictated By: CHRISTIAN DAO Signed By: 05/15/24 1642 DD/ 1640 TD/TT: Screen Printing Supervisor: Procedure Note Radiology, Radiologist, MD - 05/15/2024 [facility] [place] [id number] Cardiology Report Signed Patient: KAROLINA DIAZ [facility]#: [id number] : 2Acct:[id number] Age/Sex: 64 / FADM Date: 05/12/24 Loc: CARD Attending Dr: Deysi Barron M.D. Ordering Physician: Deysi Barron M.D. Date of Service: 05/12/24 Procedure(s): CA echo doppler complete Accession Number(s): [id number] cc: Deysi Barron M.D.; Filiberto Bernard M.D. Patient Name: KAROLINA DIAZ MR#: [id number] : 1960 Exam Date: 05/12/2024 Ordering Doctor: DEYSI BARRON ECHOCARDIOGRAM REPORT PROCEDURE: CA ECHO DOPPLER COMPLETE INDICATIONS: Abnormal EKG, Chest pain COMPARISON: None. DESCRIPTION: COMPLETE ECHOCARDIOGRAM Real-time transthoracic echocardiography with 2D, M-mode, spectral and color flow Dopplerperformed. QUALITY: Technical quality was good. LEFT VENTRICLE: Normal chamber size. Normal left ventricular wall thickness. Global left ventricular systolic function is normal. LV EF: Estimated left ventricular ejection fraction is 55-60%. DIASTOLIC: Normal diastolic function. ATRIAL SEPTUM: LEFT ATRIUM: Normal chamber size. RIGHT ATRIUM: Mild dilatation. RIGHT VENTRICLE: Mild chamber dilatation. Normal right ventricular systolic function. TRICUSPID VALVE: Normal mobility and thickness. No stenosis withtrivial regurgitation. No evidence of pulmonary hypertension. RVSP 27 mmHg MITRAL VALVE: Normal mobility and thickness. No evidence of mitralvalve stenosis. There is no mitral annular calcification. Mild mitral regurgitation. AORTIC VALVE: Normal trileaflet appearance. No visible sclerosis.Normal leaflet mobility. No evidence of aortic valve stenosis. Mild aortic regurgitation. AORTIC ROOT: Mildly dilated, measuring 3.7 cm. The ascending aorta is normal diameter [3.2 cm] and appearance. The aortic arch measures 3.2 cm. PULMONIC VALVE: Normal thickness and mobility. No stenosis. Trivial regurgitation. PERICARDIUM: No evidence of pericardial effusion. IVC: Collapses with inspirations. Normal size. PLEURA: CONCLUSION: 1. Normal left ventricular size and systolic function. LVEF is 55 to 60%. 2. Mildly dilated right ventricle with normal systolic function. 3. Mild aortic and mitral regurgitation. 4. Mildly dilated aortic root. 5. Normal right-sided pressures. Adult Echocardiography Procedure Report Left Ventricle LVEDD (3.7 - 5.6 cm): 4.75 cm LVESD (2.2 - 4.0 cm): 3.05 cm LVIVS thickness (0.6 - 1.2 cm): 0.94 cm LVPW thickness (0.5 - 1.0 cm): 1.00 cm e': 0.10 m/s E - e': 6.77 LVOT Max Gradient: 4.89 mm[Hg] LVOT Area (cm2): 1.11 m/s Peak Velocity (LVOT): 1.11 m/s Mean Velocity (LVOT): 0.67 m/s LVOT Diameter 2.23 cm Left Ventricular Ejection Fraction: 55-60 % Left Atrium LA Volume Index (2D A2C): 22.19 ml/m2 Left Atrium Systolic Dimension: 2.74 cm Mitral Valve MV E to A Ratio: 1.19 Mitral Valve A-Wave Peak Velocity: 0.56 m/s Mitral Valve E-Wave Peak Velocity: 0.67 m/s Right Ventricle RV Internal Diastolic Dimension: 3.00 cm Aorta AO Root Diam: 3.67 cm Ascending Ao Diam: 3.18 cm Aortic Valve AoV Area (Peak Mk): 4.56 cm2, 4.56 cm2 AoV Area (VTI): 4.08 cm2, 4.08 cm2 Deceleration Crisp: 0.47 m/s2 Pressure Half-Time: 1.81 s Peak Velocity(Antegrade Flow): 0.94 m/s Peak Gradient(Antegrade Flow): 3.56 mm[Hg] Mean Velocity(Antegrade Flow): 0.66 m/s Mean Gradient(Antegrade Flow): 1.99 mm[Hg] Velocity Time Integral: 23.56 cm Tricuspid Valve Peak Velocity (Regurgitant Flow): 2.06 m/s, 2.18 m/s, 2.46 m/s Pulmonic Valve Mean Gradient: 1.26 mm[Hg] Mean Velocity: 0.53 m/s Peak Velocity: 0.74 m/s, 0.67 m/s Peak Gradient: 1.78 mm[Hg], 2.18 mm[Hg] Right Atrium Right Atrium Systolic Pressure: 38.60 ml, 38.60 ml Dictated by: Christian Dao M.D. on 05/15/2024 at 16:36 Approved by: Christian Dao M.D. on 05/15/2024 at 16:40 Dictated By: CHRISTIAN DAO Signed By:05/15/24 1642 DD/ 1640 TD/TT: Screen Printing Supervisor: us Generic External Data Provider [facility] Final Result documented in this encounter Visit Diagnoses Not on filedocumented in this encounter Care Teams Event Management Consultant Relationship Specialty Start Date End Date Filiberto Bernard MD [address] [place] [phone] PCP - General Family Medicine 01/13/24 Filiberto Bernard MD [address] [place] [address] PCP - Medical [place] [employer] 11/29/12 11/28/99 documented as of this encounter
--- OUTSIDE RECORDS SUMMARY | 2025-05-11 09:43 | XMS_ITS | Encounter Summary ---
Author Organization [facility] Address [address] [place] [address] Care Team Providers Care Hogshead Roller Name Role Phone Filiberto Bernard MD Primary Care Provider [phone] Filiberto Bernard MD Unavailable Encounter Details Date Type Department Care Team (Late st Contact Info) Description 05/04/2024 Orders Only [facility] [address] [place] [address] Filiberto Bernard MD [address] [facility] [place] [address] Social History Tobacco Use Types Packs/Day Years [...] often do you attend chur ch or jain services? More than 4 times per year 03/30/2024 Do you belong to any clubs o r organizations such as shinto groups, unions, fraternal or athletic groups, or [...] Recorded Patient Health Questionnaire-2 Score 0 03/13/2024 [facility] - Occupational Stress Questionnaire Answer Date Recorded [...] place to sleep or slept in a group home (including now)? No 03/30/2024 Comments Unknown Sex [...] 06/18/2025 9:45 AM EDT Office Visit [facility] [address] [place] [address] Filiberto Bernard MD [address] [place] [phone] documented as of this encounter Procedures Procedure Name Priority Date/Time Associated Diagnosis Comments HOLTER MONITOR 48 HOUR Routine 05/04/2024 1:59 PM EDT documented in this encounter Results * Holter monitor 48 hour (05/04/2024 1:59 PM EDT) Anatomical Region Laterality Modality Other Filiberto Bernard MD [facility] PROCEDURES F inal Result documented in this encounter Visit Diagnoses Not on filedocumented in this encounter Care Teams Hogshead Roller Relationship Specialty Start Date End Date Filiberto Bernard MD [address] [place] [phone] PCP - General Family Medicine 01/13/24 Filiberto Bernard MD [address] [place] [phone] PCP - Medical [place] [employer] 11/29/12 11/28/99 documented as of this encounter
--- OUTSIDE RECORDS SUMMARY | 2025-05-11 09:43 | XMS_ITS | Clinical Summary ---
Author Organization [facility] Address [address] [place] [address] Care Team Providers Care Account Specialist Name Role Phone Filiberto Bernard MD Primary Care Provider [phone] Filiberto Bernard MD Unavailable Allergies Active Allergy Reactions Criticality Noted Date Comments Sulfa Antibiotics Hives 03/13/2024 Medications cholecalciferol (Vitamin D-3) 50 MCG (2000 UT) tablet 1 (one) time each day at the same time Active omeprazole (PriLOSEC) [address] capsuleIndicatio ns:Gastroesophag eal reflux disease without esophagitis TAKE 1 CAPSULE DAILY 90 capsule 3 09/11/2024 Active cholecalciferol (Vitamin D3) 25 MCG (1000 UT) tabletIndication s:Vitamin D deficiency TAKE 1 TABLET BY MOUTH EVERY DAY 90 tablet 5 10/09/2024 Active Active Problems Problem Noted Date Diagnosed Date Palpitation 04/06/2024 Assessment & Plan (04/06/2024 3:13 PM EDT): Frequent symptoms and check Holter. Precordial pain 04/06/2024 Assessment & Plan (04/06/2024 3:13 PM EDT): Recent pain and concerning of cardiac ischemia. Check treadmill cardiolyte stress test. If pain worsens or persists go to ER. Dyslipidemia 03/13/2024 Equinus contracture of left ankle 03/13/2024 Gastroesophageal reflux disease without esophagi tis 03/13/2024 Persistent insomnia 03/13/2024 Pain of left heel 03/13/2024 Vitamin D deficiency 03/13/2024 Primary osteoarthritis of right hand 03/13/2024 Acute right-sided thoracic back pain 03/13/2024 Assessment & Plan (03/13/2024 11:19 AM EDT): Recent pain but no injury and likely muscular. Treat with prednisone and use robaxin PRN. Use heat PRN. If no improvement will refer for PT. Resolved Problems Problem Noted Date Diagnosed Date Resolved Date Closed Colles' fracture of right radius 03/13/2024 03/13/2024 Encounters Date Type Department Care Team Description 02/12/2025 Clinisync Result Encounter [facility] External Department Unsolicited Provider, Generic External Data from Last 3 Months Social History Tobacco Use Types Packs/Day Years Used Date Smoking Tobacco: Never Smokeless Tobacco: Never Tobacco Cessation:Counseling Given: Not Answered Social Connection and Isolat ion Panel [NHANES] Answer Date Recorded In a typical week, how many times do you talk on the phone with family, friends, or neighbors? More than three times a week 03/30/2024 How often do you get togethe r with friends or relatives? Twice a week 03/30/2024 How often do you attend chur ch or jew services? More than 4 times per year 03/30/2024 Do you belong to any clubs o r organizations such as spiritism groups, unions, fraternal or athletic groups, or [...] Recorded Patient Health Questionnaire-2 Score 0 03/13/2024 [facility] - Occupational Stress Questionnaire Answer Date [...] place to sleep or slept in a m[facility]p (including now)? No 03/30/2024 Comments Unknown Sex and Gender Information Value Date Recorded Sex Assigned at Female 03/13/2024 9:44 AM EDT Legal Sex Female 10:15 PM EDT Gender Identity Female 03/13/2024 9:44 AM EDT Sexual Orientation Straight 03/13/2024 9: 44 AM EDT Last Filed Vital Signs Vital Sign Reading Time Taken Comments Blood Pressure 116/60 04/06/2024 1:40 PM EDT Pulse 69 04/06/2024 1:40 PM EDT Temperature 36.6 C (97.9 F) 04/06/2024 1:40 PM EDT Respiratory Rate 20 04/06/2024 1:40 PM EDT Oxygen Saturation 98% 04/06/2024 1:40 PM EDT Inhaled Oxygen Concentration - - Weight 74.8 kg (165 lb) 04/06/2024 1:40 PM EDT Height 170.2 cm (5' 7 ) 04/06/2024 1:40 PM EDT Body Mass Index 25.84 04/06/2024 1:40 PM EDT Plan of Treatment Upcoming Encounters Date Type Department Care Team (Late st Contact Info) Description 06/18/2025 9:45 AM EDT Office Visit [facility] [address] [place] [address] Filiberto Bernard MD [address] [place] [address] Health Maintenance Due Date Last Done Comments CT Colonography 1962 FIT-DNA 1962 FIT 1962 FOBT 1962 Sigmoidoscopy 1962 Pap Smear 1983 Cervical Cancer Screening 1992 HPV/Cotest 1992 Mammogram 09/27/2025 09/27/2024, 09/23/2023, 09/29 Colonoscopy 03/05/2033 03/05/2023 Colorectal Cancer Screening 03/05/2033 Influenza Vaccine Completed 09/08/2024, , 10/10/2022, Additional history exists Procedures Procedure Name Priority Date/Time Associated Diagnosis Comments XR ELBOW 3+ VIEWS LEFT 10:12 AM EDT MM TOMOSYNTHESIS SCREENING BI 09/27/2024 4:38 PM EDT from Last 3 Months or Most Recently Relevant to Health Maintenance Results * XR elbow 3+ views left (02/12/2025 10:12 AM EDT) Anatomical Region Laterality Modality Upper Extremities, Elbow Left Radiogr aphic Imaging 02/12/2025 10:1 2 AM EDT Narrative 02/12/2025 10:15 [place] [address] XRay Report Signed Patient: KAROLINA MOCK MR#: [id number] : 1960 Acct:[id number] Age/Sex: 65 / F ADM Date: 02/12/25 Loc: EC Attending Dr: Barbie Liang M.D. Ordering Physician: Barbie Liang M.D. Date of Service: 02/12/25 Procedure(s): XR elbow LT min 3V Accession Number(s): [id number] cc: Barbie Liang M.D.; Filiberto Bernard M.D. [place] [id number] Patient Name: KAROLINA MOCK MRN: [facility]:[id number] date: 1960 Sex: F Assigned Patient Location: Current Patient Location: Accession/Order Number: [id number] Exam Date: 02/12/2025 10:11 Report Date: 02/12/2025 10:12 At the request of: BARBIE LIANG MD Procedure: XR elbow LT min 3V LEFT ELBOW - 3 views CLINICAL HISTORY: Left elbow pain. Follow-up radial neck fracture. COMPARISON: Left elbow 2025 FINDINGS: No elbow joint effusion. No fracture line is seen involving the radial head/neck region. Proximal ulna appears intact. XR/XR elbow LT min 3V IMPRESSION: NO FRACTURE LINE IS SEEN INVOLVING THE RADIAL NECK. Impression dictated by: Ankit James Jr., D.O.02/12/2025 10:12 AM Dictation Location: [place] [address] Electronically authenticated by: [id number] Y Date: 02/12/2025 10:12 Dictated By: Ankit James M.D. Signed By: 02/12/25 1015 DD/ 1012 TD/TT: Equal Opportunity Officer: Procedure Note Radiology, Radiologist, - 02/12/2025 [place] [address] XRay Report Signed Patient: KAROLINA MOCK AMR#: [id number] : 1960cct:[id number] Age/Sex: 65 / FADM Date: 02/12/25 Loc: Attending Dr: Barbie Liang M.D. Ordering Physician: Barbie Liang M.D. Date of Service: 02/12/25 Procedure(s): XR elbow LT min 3V Accession Number(s): [id number] cc: Barbie Liang M.D.; Filiberto Bernard M.D. The [place] [address] Patient Name: KAROLINA MOCK MRN: [facility]:[id number] date: 1960 Sex: F Assigned Patient Location: Current Patient Location: Accession/Order Number: [id number] Exam Date: 02/12/2025 10:11 Report Date: 02/12/2025 10:12 At the request of: BARBIE LIANG MD Procedure: XR elbow LT min 3V LEFT ELBOW - 3 views CLINICAL HISTORY: Left elbow pain. Follow-up radial neck fracture. COMPARISON: Left elbow 2025 FINDINGS: No elbow joint effusion. No fracture line is seen involving the radial head/neck region. Proximal ulna appears intact. XR/XR elbow LT min 3V IMPRESSION: NO FRACTURE LINE IS SEEN INVOLVING THE RADIAL NECK. Impression dictated by: Ankit James Jr., D.O.02/12/2025 10:12 AM Dictation Location: [place] [address] Electronically authenticated by: [id number] Y Date: 0:12 Dictated By: Ankit James M.D. Signed By:02/12/25 1015 DD/ 1012 TD/TT: Equal Opportunity Officer: us Generic External Data Provider IMG XR PROCEDURES Final Result * MM TOMOSYNTHESIS SCREENING BI (09/27/2024 4:38 PM EDT) Anatomical Region Laterality Modality Other 09/27/2024 4:38 PM EDT Narrative 09/27/2024 4:39 [place] [address] Mammography Report Signed Patient: KAROLINA MOCK MR#: [id number] : 1960 Acct:[id number] Age/Sex: 64 / F ADM Date: 09/27/24 Loc: MAMMO Attending Dr: Filiberto Bernard M.D. Ordering Physician: Filiberto Bernard M.D. Results: Date of Service: 09/27/24 Follow Up: Procedure(s): MM tomosynthesis screening BI Accession Number(s): [id number] cc: Filiberto Bernard M.D. Patient Name: KAROLINA MOCK MR#: [id number] : 1960 Exam Date: 09/27/2024 Ordering Doctor: DR Filiberto Bernard . RADIOLOGY REPORT PROCEDURE: MM TOMOSYNTHESIS SCREENING BI COMPARISON: MM TOMOSYNTHESIS SCREENING BI, 09/23/2023. MG MAMM SCREEN 3D REGINALD CAD, 09/22/2022. MG MAMM SCREEN 3D REGINALD CAD, 09/09/2021. MAMMO REGINALD SCREEN, 01/12/2003. INDICATIONS: Screening Calculator Name NCI Breast Cancer Risk Assessment Tool 5 Year Breast Cancer Risk 1.20% Lifetime Breast Cancer Risk 5.70% Personal Breast Cancer No Personal Ovarian Cancer No Treatments None Family Cancers Mother with ovarian cancer at age 46; Grandmother-maternal with lymph node cancer at age 80. LOCATION: The [facility] BREAST COMPOSITION: The breasts are heterogeneously dense,which may obscure small masses. FINDINGS: DIAGNOSTIC CATEGORY 2--BENIGN FINDING: RIGHT BREAST: No significant suspicious finding. No significant change has occurred. LEFT BREAST: No significant suspicious finding. Scattered benign-appearing calcifications are present. No significant change has occurred.. No significant change has occurred. No significant change has occurred. No significant change has occurred. No significant change has occurred. RECOMMENDATIONS: ROUTINE MAMMOGRAM AND CLINICAL EVALUATION IN 12 MONTHS. PLEASE NOTE: A NORMAL MAMMOGRAM DOES NOT EXCLUDE THE POSSIBILITY OF BREAST CANCER. A CLINICALLY SUSPICIOUS PALPABLE LUMP SHOULD BE BIOPSIED. Dictated by: Barbie Green M.D. on 09/27/2024 at 16:35 Approved by: Barbie Green M.D. on 09/27/2024 at 16:38 Dictated By: Barbie Green M.D. Signed By: 09/27/24 1639 DD/ 1638 TD/TT: Equal Opportunity Officer: Procedure Note Radiology, Radiologist, MD - 09/27/2024 [place] [address] Mammography Report Signed Patient: KAROLINA MOCK AMR#: [id number] : 1960cct:[id number] Age/Sex: 64 / FADM Date: 09/27/24 Loc: MAMMO Attending Dr: Filiberto Bernard M.D. Ordering Physician: Filiberto Bernard M.D.Results: Date of Service: 09/27/24Follow Up: Procedure(s): MM tomosynthesis screening BI Accession Number(s): [id number] cc: Filiberto Bernard M.D. Patient Name: KAROLINA MOCK MR#: [id number] : 1960 Exam Date: 09/27/2024 Ordering Doctor: DR Filiberto Bernard . RADIOLOGY REPORT PROCEDURE: MM TOMOSYNTHESIS SCREENING BI COMPARISON: MM TOMOSYNTHESIS SCREENING BI, 09/23/2023. MG MAMM [id number] REGINALD CAD, 09/22/2022. MG MAMM SCREEN 3D REGINALD CAD, 09/09/2021. MAMMO REGINALD SCREEN, 01/12/2003. INDICATIONS: Screening Calculator Name NCI Breast Cancer Risk Assessment Tool 5 Year Breast Cancer Risk 1.20% Lifetime Breast Cancer Risk 5.70% Personal Breast Cancer No Personal Ovarian Cancer No Treatments None Family Cancers Mother with ovarian cancer at age 46;Grandmother-maternal with lymph node cancer at age 80. LOCATION: The [facility] BREAST COMPOSITION: The breasts are heterogeneously dense,which may obscure small masses. FINDINGS: DIAGNOSTIC CATEGORY 2--BENIGN FINDING: RIGHT BREAST: No significant suspicious finding. No significant changehas occurred. LEFT BREAST: No significant suspicious finding. Scatteredbenign-appearing calcifications are present. No significant change has occurred.. No significant change has occurred. No significant change has occurred. No significant change has occurred. No significant change has occurred. RECOMMENDATIONS: ROUTINE MAMMOGRAM AND CLINICAL EVALUATION IN 12 MONTHS. PLEASE NOTE: A NORMAL MAMMOGRAM DOES NOT EXCLUDE THE POSSIBILITY OFBREAST CANCER. A CLINICALLY SUSPICIOUS PALPABLE LUMP SHOULD BE BIOPSIED. Dictated by: Barbie Green M.D. on 09/27/2024 at 16:35 Approved by: Barbie Green M.D. on 09/27/2024 at 16:38 Dictated By: Barbie Green M.D. Signed By:09/27/249 DD/ TD/TT: Equal Opportunity Officer: Filiberto Bernard MD [facility] Final Result from Last 3 Months or Most Recently Relevant to Health Maintenance Insurance [employer] Care Teams Account Specialist Relationship Specialty Start Date End Date Filiberto Bernard MD [address] [place] [phone] PCP - General Family Medicine 01/13/24 Filiberto Bernard MD [address] [place] [phone] PCP - Medical [employer] 11/29/12 11/28/99
--- OUTSIDE RECORDS SUMMARY | 2025-05-11 09:43 | XMS_ITS | Encounter Summary ---
Author Organization [facility] Address [id number] [address] [place] [address] Care Team Providers Care Maintenance Mill[place] Name Role Phone Remy Kirby DO Primary Care Provider [phone] Encounter Details Date Type Department Care Team (Late st Contact Info) Description 06/22/2016 [facility]ation [facility] [address] [facility], [address] [id number] Jose Raul Green MD Social History Tobacco Use Types Packs/Day Years Used Date Smoking Tobacco: Never Alcohol Use Standard Drinks/Week Comments Yes 0 (1 standard drink = 0.6 oz pur e alcohol) Comments Unknown Sex and Gender Information Value Date Recorded Sex Assigned at Not on file Legal Sex Female 11:23 AM EDT Gender Identity Not on file Sexual Orientation Not on file documented as of this encounter Plan of Treatment Not on file documented as of this encounter Visit Diagnoses Not on filedocumented in this encounter Care Teams Maintenance [place] Relationship Specialty Start Date End Date Remy Kirby DO [address] [place] [address] PCP - General 03/20/13 documented as of this encounter
--- OUTSIDE RECORDS SUMMARY | 2025-05-11 09:43 | XMS_ITS | Clinical Summary ---
Author Organization [facility] Address [id number] [address] [place] [address] Care Team Providers Care Athletic Trainer Name Role Phone Remy Kirby Primary Care Provider [phone] Allergies Active Allergy Reactions Criticality Noted Date Comments Sulfamethoxazole-Trimethoprim 2015 Latex, Natural Rubber 04/17/2016 Medications NEXIUM 40 mg capsule Take 40 mg by mouth once daily. 4 6 Active esomeprazole (NexIUM) 40 mg capsuleIndicati ons:Esophageal reflux Take 1 capsule (40 mg total) by mouth every morning before breakfast. 90 capsule 3 6 Active Additional Information Patient not taking.Reported on 09/26/2018 omeprazole (PriLOSEC) 40 mg capsule Take 40 mg by mouth daily. Active zolpidem (AMBIEN) 5 mg tablet Take 5 mg by mouth as needed for sleep. Active meloxicam (MOBIC) 15 mg tablet Take 15 mg by mouth daily as needed. 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 Oropharyngeal dysphagia 05/08/2016 Family History Medical History Relation Name Comments Heart disease Father Asthma Mother Relation Name Status Comments Father Mother Social History Tobacco Use Types Packs/Day Years Used Date Smoking Tobacco: Never Smokeless Tobacco: Never Alcohol Use Standard Drinks/Week Comments Yes 0 (1 standard drink = 0.6 oz pur e alcohol) Childcare Answer Date Recorded Childcare Unknown 05/10/2019 Employment Answer Date Recorded Employment Unknown 05/10/2019 Purpose - Life Answer Date Recorded Purpose and direction in life Unknown Comments Unknown Sex and Gender Information Value Date Recorded Sex Assigned at Not on file Legal Sex Female 11:23 AM EDT Gender Identity Not on file Sexual Orientation Not on file Last Filed Vital Signs Vital Sign Reading Time Taken Comments Blood Pressure 130/78 09/26/2018 3:33 PM EDT Pulse - - Temperature 37.1 C (98.7 F) 07/13/2016 1:24 PM EDT Respiratory Rate - - Oxygen Saturation - - Inhaled Oxygen Concentration - - Weight 71.7 kg (158 lb) 09/26/2018 3:33 PM EDT Height 170.2 cm (5' 7 ) 09/26/2018 3:33 PM EDT Body Mass Index 24.75 09/26/2018 3:33 PM EDT Plan of Treatment Health Maintenance Due Date Last Done Comments Depression Screening 1974 Tobacco Screening 1974 Adult BMI Screening 1980 DTaP,Tdap and Td Vaccines (1 - Tdap) 1981 Pap Smear 1983 Zoster (Shingles) Vaccine (1 of 2) 2012 Influenza Vaccine 07/30/2025 Medical Devices Not on file Insurance [employer] Care Teams Athletic Trainer Relationship Specialty Start Date End Date Remy Kirby DO [address] [place] [id number] PCP - General 03/20/13
--- OUTSIDE RECORDS SUMMARY | 2025-05-11 09:43 | XMS_ITS | Encounter Summary ---
Author Organization [facility] Address [address] [place] [address] Care Team Providers Care Safety Specialist Name Role Phone Filiberto Bernard MD Primary Care Provider [phone] Filiberto Bernard MD Unavailable Encounter Details Date Type Department Care Team (Late st Contact Info) Description 12/18/2024 Clinisync Result Encounter [facility] External Department Unsolicited [...] often do you attend chur ch or restorationism services? More than 4 times per year 03/30/2024 Do you belong to any clubs o r organizations such as taoist groups, unions, fraternal or athletic groups, or [...] Recorded Patient Health Questionnaire-2 Score 0 03/13/2024 [facility] - Occupational Stress Questionnaire Answer Date [...] place to sleep or slept in a senior living (including now)? No 03/30/2024 Comments Unknown Sex [...] 9:45 AM EDT Office Visit [facility] [address] [place] [address] Filiberto Bernard MD [address] [place] [address] documented as of this encounter Procedures Procedure Name Priority Date/Time Associated Diagnosis Comments XR ELBOW 3+ VIEWS LEFT 12/18/2024 11:14 PM EST documented in this encounter Results * XR elbow 3+ views left (12/18/2024 11:14 PM EST) Anatomical Region Laterality Modality Upper Extremities, Elbow Left Radiogr aphic Imaging 12/18/2024 11:1 4 PM EST Narrative 12/18/2024 11:16 PM EST The [place] [id number] XRay Report Signed Patient: KAROLINA DIAZ MR#: [id number] : 1960 Acct:[id number] Age/Sex: 64 / F ADM Date: 12/18/24 Loc: EC Attending Dr: Odin Liang M.D. Ordering Physician: Odin Liang M.D. Date of Service: 12/18/24 Procedure(s): XR elbow LT min 3V Accession Number(s): [id number] cc: Odin Liang M.D.; Filiberto Bernard M.D. The [address] [id number] Patient Name: KAROLINA DIAZ MRN: [id number] date: 1960 Sex: F Assigned Patient Location: Current Patient Location: Accession/Order Number: [id number] Exam Date: 12/18/2024 11:07 Report Date: 12/18/2024 23:14 At the request of: ODIN LIANG Procedure: XR elbow LT min 3V EXAM: XR elbow LT min 3V HISTORY: LEFT ELBOW PAIN COMPARISON: None. FINDINGS/IMPRESSION: 1. There is an elbow joint effusion.. 2. Suspected nondisplaced fracture of the proximal aspect of the radius. 3. Normal alignment of the elbow. Electronically authenticated by: NICHOLAS CONTI Date: 12/18/2024 23:14 Dictated By: Nicholas Conti M.D. Signed By: 12/18/242315 DD/ 13 TD/TT: Pipeline Gang Supervisor: Procedure Note Radiology, Radiologist, MD - 12/18/2024 [place] [address] XRay Report Signed Patient: KAROLINA DIAZ AMR#: [id number] : 1960cct:[id number] Age/Sex: 64 / FADM Date: 12/18/24 Loc: EC Attending Dr: Odin Liang M.D. Ordering Physician: Odin Liang M.D. Date of Service: 12/18/24 Procedure(s): XR elbow LT min 3V Accession Number(s): [id number] cc: Odin Liang M.D.; Filiberto Bernard M.D. The [address] [id number] Patient Name: KAROLINA DIAZ MRN: [id number] date: 1960 Sex: F Assigned Patient Location: Current Patient Location: Accession/Order Number: [id number] Exam Date: 12/18/2024 11:07 Report Date: 12/18/2024 23:14 At the request of: ODIN LIANG Procedure: XR elbow LT min 3V EXAM: XR elbow LT min 3V HISTORY: LEFT ELBOW PAIN COMPARISON: None. FINDINGS/IMPRESSION: 1. There is an elbow joint effusion.. 2. Suspected nondisplaced fracture of the proximal aspect of the radius. 3. Normal alignment of the elbow. Electronically authenticated by: NICHOLAS CONTI Date: 12/18/2024 23:14 Dictated By: Nicholas Conti M.D. Signed By:12/18/242315 DD/ 13 TD/TT: Pipeline Gang Supervisor: us Generic External Data Provider IMG XR PROCEDURES Final Result documented in this encounter Visit Diagnoses Not on filedocumented in this encounter Care Teams Safety Specialist Relationship Specialty Start Date End Date Filiberto Bernard MD [address] [place] [address] PCP - General Family Medicine 01/13/24 Filiberto Bernard MD [address] [place] [address] PCP - Medical [employer] 11/29/12 11/28/99 documented as of this encounter
--- OUTSIDE RECORDS SUMMARY | 2025-05-11 09:43 | XMS_ITS | Encounter Summary ---
Author Organization [facility] Address [address] [place] [address] Care Team Providers Care Baker Paint Name Role Phone Chirag San MD Primary Care Provider [phone] Chirag San MD Unavailable Encounter Details Date Type Department Care Team (Late st Contact Info) Description 04/26/2024 Clinisync Result Encounter [facility] External Department Unsolicited Chirag San MD [address] [place] [address] Social History Tobacco Use Types Packs/Day Years [...] often do you attend chur ch or samaritan services? More than 4 times per year 03/30/2024 Do you belong to any clubs o r organizations such as baptist groups, unions, fraternal or athletic groups, or [...] Recorded Patient Health Questionnaire-2 Score 0 03/13/2024 [facility] - Occupational Stress Questionnaire Answer Date Recorded [...] place to sleep or slept in a penitentiary (including now)? No 03/30/2024 Comments Unknown Sex [...] Visit [facility] [address] [place] [address] Chirag San MD [address] [place] [address] documented as of this encounter Procedures Procedure Name Priority Date/Time Associated Diagnosis Comments CA HOLTER MONITOR 2-7 DAYS 04/26/2024 3:04 PM EDT documented in this encounter Results * CA HOLTER MONITOR 2-7 DAYS (04/26/2024 3:04 PM EDT) Anatomical Region Laterality Modality Other 04/26/2024 3:04 PM EDT Narrative 04/27/2024 6:56 [place] [address] Cardiology Report Signed Patient: KAROLINA DIAZ MR#: [id number] : 1960 Acct:[id number] Age/Sex: 64 / F ADM Date: 04/12/24 Loc: CARD Attending Dr: Chirag San M.D. Ordering Physician: Chirag San M.D. Date of Service: 04/12/24 Procedure(s): CA holter montior 2-7 days Accession Number(s): [id number] cc: Chirag San M.D. The [facility] Date: 2024-04-26 Pat Name: KAROLINA DIAZ Department: Room: - Gender: Female Trader: : 1960 Requested By: CHIRAG SAN Order Number: [id number] Reading MD: DAYRON JONES Interpretive Statements Predominant rhythm is sinus with [...] 107 total, <1% - 107 PVC Patient triggered events: 1 - associated with chest pain - associated with NSR Impression: - Predominant rhythm is sinus with average rate of 71 bpm - Fastest rate of 140 bpm (PSVT) and slowest rate of 44 bpm - 107 PVC - 8 episodes of PSVT w/ longest duration of 8 beats - There are episodes where the QRS widens into a BBB pattern. During slower rates a P wave can be easily seen prior to each QRS, however when the rate is faster it appears to resemble NSVT - No atrial fibrillation - No pauses or blocks Electronically Signed On 04-27-2024 6:55:41 EDT by DAYRON JONES Dictated By: Dayron Jones D.O. Signed By: 04/27/24 0656 04/27/24 0656 DD/ 1504 TD/TT: Technical Asst: Procedure Note Radiology, Radiologist, MD - 04/27/2024 [place] [address] Cardiology Report Signed Patient: KAROLINA DIAZ AMR#: [id number] : 2Acct:[id number] Age/Sex: 64 / FADM Date: 04/12/24 Loc: CARD Attending Dr: Chirag San M.D. Ordering Physician: Chirag San M.D. Date of Service: 04/12/24 Procedure(s): CA holter montior 2-7 days Accession Number(s): [id number] cc: Chirag San M.D. The [facility] Test Date: 2024-04-26 Pat Name: KAROLINA DIAZ Department: Room: - Gender: Female Trader: : 1960 Requested By: CHIRAG SAN Order Number: [id number] Reading MD: DAYRON JONES Interpretive Statements Predominant rhythm is sinus with [...] 107 total, <1% - 107 PVC Patient triggered events: 1 - associated with chest pain - associated with NSR Impression: - Predominant rhythm is sinus with average rate of 71 bpm - Fastest rate of 140 bpm (PSVT) and slowest rate of 44 bpm - 107 PVC - 8 episodes of PSVT w/ longest duration of 8 beats - There are episodes where the QRS widens into a BBB pattern. Duringslower rates a P wave can be easily seen prior to each QRS, however when the rateis faster it appears to resemble NSVT - No atrial fibrillation - No pauses or blocks Electronically Signed On 04-27-2024 6:55:41 EDT by DAYRON JONES Dictated By: Dayron Jones D.O. Signed By:04/27/24 0656 04/27/24 0656 DD/ 1504 TD/TT: Technical Asst: Chirag San MD [facility] Final Result documented in this encounter Visit Diagnoses Not on filedocumented in this encounter Care Teams Baker Paint Relationship Specialty Start Date End Date Chirag San MD [address] [place] [address] PCP - General Family Medicine 01/13/24 Chirag San MD [address] [place] [address] PCP - Medical [place] [employer] 11/29/12 11/28/99 documented as of this encounter
--- OUTSIDE RECORDS SUMMARY | 2025-05-11 09:43 | XMS_ITS | Clinical Summary ---
Author Organization [facility] Address [address] [place] [address] Care Team Providers Care Relays Draftsperson Name Role Phone Filiberto Bernard MD Primary Care Provider [phone] Allergies Active Allergy Reactions Criticality Noted Date Comments Sulfa (Sulfonamide Antibiotics) Hives 12/30 Sulfamethoxazole-Trimethoprim Hives 2011 Medications cholecalciferol (Vitamin D-3) 25 MCG (1000 units) tablet Take 1,000 Units by mouth in the morning. Active omeprazole (PriLOSEC) [address] capsule in the morning. 4 Active atorvastatin (Lipitor) 20 mg tabletIndications:H yperlipidemia, unspecified hyperlipidemia type Take 1 tablet (20 mg) by mouth at bedtime. 90 tablet 3 4 11/02/20 25 Active Active Problems Problem Noted Date Diagnosed Date Dizziness 01/05/2025 Nonrheumatic aortic valve insufficiency 01/05/20 25 Aortic root dilatation 01/05/2025 Mitral valve insufficiency and aortic valve insu fficiency 07/17/2024 Dysuria 05/03/2024 Other chest pain 05/03/2024 Abnormal EKG 05/03/2024 Dyspnea on exertion 05/03/2024 Nonsustained ventricular tachycardia 05/03/2024 Palpitations 04/06/2024 Overview (05/03/2024): Last Assessment & Plan: Frequent symptoms and check Holter. Precordial pain 04/06/2024 Overview (05/03/2024): Last Assessment & Plan: Recent pain and concerning of cardiac ischemia. Check treadmill cardiolyte stress test. If pain worsens or persists go to ER. Acute right-sided thoracic back pain 03/13/2024 Overview (05/03/2024): Last Assessment & Plan: Recent pain but no injury and likely muscular. Treat with prednisone and use robaxin PRN. Use heat PRN. If no improvement will refer for PT. Hyperlipidemia 03/13/2024 Equinus contracture of left ankle 03/13/2024 Gastroesophageal reflux disease without esophagi tis 03/13/2024 Pain of left heel 03/13/2024 Persistent insomnia 03/13/2024 Primary osteoarthritis of right hand 03/13/2024 Vitamin D deficiency 03/13/2024 Cricopharyngeal spasm 05/08/2016 Oropharyngeal dysphagia 05/08/2016 Skin lesion of right leg 10/06/2012 Family History Medical History Relation Name Comments Heart attack Father Heart failure Father Heart failure Maternal Grandfather Relation Name Status Comments Father Maternal Grandfather Social History Tobacco Use Types Packs/Day Years Used Date Smoking Tobacco: Never Smokeless Tobacco: Never Tobacco Cessation:Counseling Given: Not Answered Alcohol Use Standard Drinks/Week Comments Yes 0 (1 standard drink = 0.6 oz pure alcohol) Once every 1 to 2 weeks, usually 4-5 [place] Safety & Environment Answer Date Rec orded Fear of Current or Ex-Partner Not on file Emotionally Abused Not on file 04/28/2024 Physically Abused Not on file 04/28/2024 Sexually Abused Not on file 04/28/2024 Physically or Sexually Abused Not on file Comments Unknown Sex and Gender Information Value Date Recorded Sex Assigned at Not on file Legal Sex Female 11:12 AM EDT Gender Identity Not on file Sexual Orientation Not on file Last Filed Vital Signs Vital Sign Reading Time Taken Comments Blood Pressure 114/76 01/05/2025 1:45 PM EST Pulse 70 01/05/2025 1:45 PM EST Temperature - - Respiratory Rate - - Oxygen Saturation 98% 01/05/2025 1:45 PM EST Inhaled Oxygen Concentration - - Weight 71.7 kg (158 lb) 01/05/2025 1:45 PM EST Height 170.2 cm (5' 7 ) 01/05/2025 1:45 PM EST Body Mass Index 24.75 01/05/2025 1:45 PM EST Plan of Treatment Health Maintenance Due Date Last Done Comments CT Colonography 1960 Colonoscopy 1960 Colorectal Cancer Screening 1960 FIT-DNA 1960 FIT 1960 FOBT 1960 Sigmoidoscopy 1960 Depression Screening 1974 Pneumococcal Vaccine: Pediatrics (0 to 5 Years) and At-Risk Patients (6 to 64 Years) (1 of 2 - PCV) 1981 Pap Smear 1983 Cervical Cancer Screening 1992 HPV/Cotest 1992 Zoster Vaccines (1 of 2) 2012 Mammogram 10/08/2016 10/08/2014 COVID-19 Vaccine ( season) 2024 09/18/2024, 09/30/2023, 11/25/2022, Additional history exists Adult Tetanus 06/08/2032 06/08/2022 Influenza Vaccine Completed 09/08/2024, , 10/10/2022, Additional history exists HIB Vaccines Aged Out No longer eligi ble based on patient's age to complete this topic HPV Vaccines Aged Out No longer eligi ble based on patient's age to complete this topic IPV Vaccines Aged Out No longer eligi ble based on patient's age to complete this topic Meningococcal B Vaccine Aged Out No l onger eligible based on patient's age to complete this topic Meningococcal Vaccine Aged Out No tera hipolito eligible based on patient's age to complete this topic Rotavirus Vaccines Aged Out No longer eligible based on patient's age to complete this topic Insurance [employer] Care Teams Relays Draftsperson Relationship Specialty Start Date End Date Filiberto Bernard MD [address] [place] [address] PCP - General Family Medicine 05/03/24
--- OUTSIDE RECORDS SUMMARY | 2025-05-11 09:43 | XMS_ITS | Encounter Summary ---
Author Organization [facility] Address [address] [place] [address] Care Team Providers Care Display Trimmer Name Role Phone Filiberto Bernard MD Primary Care Provider [phone] Filiberto Bernard MD Unavailable Encounter Details Date Type Department Care Team (Late st Contact Info) Description 12/04/2024 Orders Only [facility] [address] [place] [address] Didier Vu MD [address] [place] [address] Social History Tobacco Use Types Packs/Day Years [...] often do you attend chur ch or yazidi services? More than 4 times per year 03/30/2024 Do you belong to any clubs o r organizations such as alevism groups, unions, fraternal or athletic groups, or [...] Recorded Patient Health Questionnaire-2 Score 0 03/13/2024 [facility] - Occupational Stress Questionnaire Answer Date [...] place to sleep or slept in a care home (including now)? No 03/30/2024 Comments Unknown [...] Office Visit [facility] [address] [place] [address] Filiberto Bernard MD [address] [place] [address] documented as of this encounter Procedures Procedure Name Priority Date/Time Associated Diagnosis Comments XR ELBOW 3+ VIEWS LEFT Routine 12/04/2024 2:39 PM EST documented in this encounter Results * XR elbow 3+ views left (12/04/2024 2:39 PM EST) Anatomical Region Laterality Modality Upper Extremities, Elbow Left Radiogr aphic Imaging Didier Vu MD IMG XR PROCEDURES Final Resul t documented in this encounter Visit Diagnoses Not on filedocumented in this encounter Care Teams Display Trimmer Relationship Specialty Start Date End Date Filiberto Bernard MD [address] [place] [address] PCP - General Family Medicine 01/13/24 Filiberto Bernard MD [address] [place] [address] PCP - Medical [employer] 11/29/12 11/28/99 documented as of this encounter
--- OUTSIDE RECORDS SUMMARY | 2025-05-11 09:43 | XMS_ITS | Encounter Summary ---
Author Organization [facility] Address [address] [place] [address] Care Team Providers Care Personal Care Home Administrator Name Role Phone Chirag San MD Primary Care Provider Chirag San MD Unavailable Encounter Details Date Type Department Care Team (Late st Contact Info) Description 04/26/2024 Clinisync Result Encounter [facility] External Department Unsolicited Chirag San MD [address] [place] [address] Social History Tobacco Use Types [...] often do you attend chur ch or advent services? More than 4 times per year 03/30/2024 Do you belong to any clubs o r organizations such as latter day groups, unions, fraternal or athletic groups, or [...] Recorded Patient Health Questionnaire-2 Score 0 03/13/2024 [facility] - Occupational Stress [...] place to sleep or slept in a chcf (including now)? No 03/30/2024 Comments Unknown Sex [...] Visit [facility] [address] [place] [address] Chirga San MD [address] [place] [address] documented as of this encounter Procedures Procedure Name Priority Date/Time Associated Diagnosis Comments NM CEM PERF SPECT REST STR 04/26/2024 2:28 PM EDT documented in this encounter Results * NM CEM PERF SPECT REST STR (04/26/2024 2:28 PM EDT) Anatomical Region Laterality Modality Other 04/26/2024 2:28 PM EDT Narrative 04/26/2024 2:29 [place] [address] Nuclear Medicine Report Signed Patient: KAROLINA DIAZ MR#: [id number] : 1960 Acct:[id number] Age/Sex: 64 / F ADM Date: 04/26/24 Loc: NM Attending Dr: Chirag San M.D. Ordering Physician: Chirag San M.D. Date of Service: 04/26/24 Procedure(s): NM cem perf SPECT rest str Accession Number(s): [id number] cc: Chirag San M.D. Patient Name: KAROLINA DIAZ MR#: [id number] : 1960 Exam Date: 04/26/2024 Ordering Doctor: DR CHIRAG SAN . RADIOLOGY REPORT PROCEDURE: NM CEM PERF SPECT REST STR COMPARISON: None. INDICATIONS: PRECORDIAL PAIN TECHNIQUE: Exam Description: Stress/Rest one day protocol gated SPECT Rest Imagin.2 mCi Tc-99m Cardiolite IV on 04/26/2024 Stress Imaging 31.5 mCi Tc-99m Cardiolite IV on 04/26/2024 Exercise Protocol: Edward Heart Rate (bpm): Rest: 63 Max: 144 PMHR: 91 Blood Pressure: Rest: 118/76 Max: 178/82 Exercise Time: Minutes: 9 Seconds: 28 Stage Reached: Stage: 4 Mets 11.6 Symptoms: Rest and peak stress ECG findings were non-diagnostic and the exercise portion of the study was Non-diagnostic per attending physician Dr. Tristan due to Inferolateral ST-segment downsloping changed to upsloping during exercise. For more details please see separate cardiac stress test report. FINDINGS: QUALITY OF STUDY: Excellent. PERFUSION DEFECT: None. LOCATION: N/A SIZE: N/A. SEVERITY: N/A. TYPE: N/A. WALL MOTION: Normal. LV SIZE: Normal. 72 mL. TID / TCD: None; 0.8 LVEF: Normal. Calculated EF 80%. SUMMARY: Myocardial perfusion imaging study is NORMAL. CONCLUSION: 1. No perfusion abnormality. No reversible ischemia 2. Nondiagnostic exercise test secondary to EKG changes Dictated by: Charles Lemus MD on 04/26/2024 at 14:23 Approved by: Charles Lemus MD on 04/26/2024 at 14:28 Dictated By: Charles Lemus M.D. Signed By: 04/26/24 1429 DD/ 1428 TD/TT: Touch Up Carver: Procedure Note Radiology, Radiologist, - 04/26/2024 [place] [address] Nuclear Medicine Report Signed Patient: KAROLINA DIAZ AMR#: [id number] : 1960cct:[id number] Age/Sex: 64 / FADM Date: 04/26/24 Loc: NM Attending Dr: Chirag San M.D. Ordering Physician: Chirag San M.D. Date of Service: 04/26/24 Procedure(s): NM cem perf SPECT rest str Accession Number(s): [id number] cc: Chirag San M.D. Patient Name: KAROLINA DIAZ MR#: [id number] : 1960 Exam Date: 04/26/2024 Ordering Doctor: DR CHIRAG Stern RADIOLOGY REPORT PROCEDURE: NM CEM PERF SPECT REST STR COMPARISON: None. INDICATIONS: PRECORDIAL PAIN TECHNIQUE: Exam Description: Stress/Rest one day protocol gated SPECT Rest Imagin.2 mCi Tc-99m Cardiolite IV on 04/26/2024 Stress Imaging 31.5 mCi Tc-99m Cardiolite IV on 04/26/2024 Exercise Protocol: Edward Heart Rate (bpm): Rest: 63 Max: 144 PMHR: 91 Blood Pressure: Rest: 118/76 Max: 178/82 Exercise Time: Minutes: 9 Seconds: 28 Stage Reached: Stage: 4 Mets 11.6 Symptoms: Rest and peak stress ECG findings were non-diagnostic and the exerciseportion of the study was Non-diagnostic per attending physician Dr. Tristan due to Inferolateral ST-segment downsloping changed to upsloping during exercise.For more details please see separate cardiac stress test report. FINDINGS: QUALITY OF STUDY: Excellent. PERFUSION DEFECT: None. LOCATION: N/A SIZE: N/A. SEVERITY: N/A. TYPE: N/A. WALL MOTION: Normal. LV SIZE: Normal. 72 mL. TID / TCD: None; 0.8 LVEF: Normal. Calculated EF 80%. SUMMARY: Myocardial perfusion imaging study is NORMAL. CONCLUSION: 1. No perfusion abnormality. No reversible ischemia 2. Nondiagnostic exercise test secondary to EKG changes Dictated by: Charles Lemus MD on 04/26/2024 at 14:23 Approved by: Charles Lemus MD on 04/26/2024 at 14:28 Dictated By: Charles Lemus M.D. Signed By:04/26/24 1429 DD/ 1428 TD/TT: Touch Up Carver: Chirag San MD [facility] Final Result documented in this encounter Visit Diagnoses Not on filedocumented in this encounter Care Teams Personal Care Home Administrator Relationship Specialty Start Date End Date Chirag San MD [address] [place] [address] PCP - General Family Medicine 01/13/24 Chirag San MD [address] [place] [address] PCP - Medical [place] [employer] 11/29/12 11/28/99 documented as of this encounter
--- OUTSIDE RECORDS SUMMARY | 2025-05-11 09:43 | XMS_ITS | Referral Summary ---
Author Organization [facility] Address [address] [place] [address] Care Team Providers Care Fmd Teacher Name Role Phone Filiberto Bernard MD Primary Care Provider [phone] Allergies Active Allergy Reactions Criticality Noted Date [...] 05/08/2016 Skin lesion of right leg 10/06/2012 Social History Tobacco Use Types Packs/Day Years [...] 01/05/2025 1:45 PM EST Plan of Treatment Not on file Insurance [employer] Care Teams Fmd Teacher Relationship Specialty Start Date End Date Filiberto Bernard MD [address] [place] [address] PCP - General Family Medicine 05/03/24
--- OUTSIDE RECORDS SUMMARY | 2025-05-11 09:43 | XMS_ITS | Encounter Summary ---
Author Organization [facility] Address [address] [place] [address] Care Team Providers Care Master Plumber Name Role Phone Filiberto Bernard MD Primary Care Provider [phone] Filiberto Bernard MD Unavailable Encounter Details Date Type Department Care Team (Late st Contact Info) Description 04/27/2024 Orders Only [facility] [address] [place] [address] Filiberto Bernard MD [address] [place] [address] Social History Tobacco Use Types Packs/Day Years [...] often do you attend chur ch or spiritism services? More than 4 times per year 03/30/2024 Do you belong to any clubs o r organizations such as confucianism groups, unions, fraternal or athletic groups, or [...] Recorded Patient Health Questionnaire-2 Score 0 03/13/2024 [facility] - Occupational Stress Questionnaire Answer [...] Visit [facility] [address] [address] Filiberto Bernard MD [address] [place] [address] documented as of this encounter Procedures Procedure Name Priority Date/Time Associated Diagnosis Comments CARD HOLTER MONITOR RECORDING Routine 04/27/2024 8:25 AM EDT documented in this encounter Results * CARD HOLTER MONITOR RECORDING (04/27/2024 8:25 AM EDT) Anatomical Region Laterality Modality Radiographic Purvi ging Filiberto Bernard MD IMG XR PROCEDURES Final Result documented in this encounter Visit Diagnoses Not on filedocumented in this encounter Care Teams Master Plumber Relationship Specialty Start Date End Date Filiberto Bernard MD [address] [place] [address] PCP - General Family Medicine 01/13/24 Filiberto Bernard MD [address] [place] [address] PCP - Medical [place] [employer] 11/29/12 11/28/99 documented as of this encounter
--- OUTSIDE RECORDS SUMMARY | 2025-05-11 09:43 | XMS_ITS | Clinical Summary ---
Author Organization [facility] Address [address] [place] [address] Care Team Providers Care Farmworker Fruit Name Role Phone KofiRemy DO Primary Care Provider Unavaila ble Allergies Active Allergy Reactions Criticality Noted Date Comments Bactrim Hives 09/29/2012 Medications esomeprazole Magnesium (NEXIUM) 40 MG PACK Take 40 mg by mouth daily. Active Active Problems Problem Noted Date Diagnosed Date Skin lesion of right infrapatellar area 10/06/20 12 Resolved Problems Problem Noted Date Diagnosed Date Resolved Date Left thigh lump 10/04/2013 10/09/2013 Family History Medical History Relation Name Comments Cancer Mother Uterine Relation Name Status Comments Father Alive Mother Social History Tobacco Use Types Packs/Day Years Used Date Smoking Tobacco: Never Smokeless Tobacco: Never Alcohol Use Standard Drinks/Week Comments Yes 0 (1 standard drink = 0.6 oz pur e alcohol) occasional beer Comments No Sex and Gender Information Value Date Recorded Sex Assigned at Not on file Legal Sex Female 9:21 AM EST Gender Identity Not on file Sexual Orientation Not on file Last Filed Vital Signs Vital Sign Reading Time Taken Comments Blood Pressure 159/86 01/17/2016 9:47 PM EST Pulse 93 01/17/2016 7:35 PM EST Temperature 37.2 C (98.9 F) 10/12/2013 3:19 PM EST Respiratory Rate 20 01/17/2016 7:35 PM EST Oxygen Saturation 96% 01/17/2016 9:31 PM EST Inhaled Oxygen Concentration - - Weight 74.8 kg (165 lb) 01/17/2016 7:35 PM EST Height 170.2 cm (5' 7 ) 01/17/2016 7:35 PM EST Body Mass Index 25.84 01/17/2016 7:35 PM EST Plan of Treatment Not on file Advance Directives * Full Code (Latest Code Status on File) Date Activated Date Inactivated Comments 10/04/2013 5:50 PM 10/05/2013 11:55 AM * Full Code Date Activated Date Inactivated Comments 11/10/2012 5:56 PM 11/11/2012 3:04 PM Care Teams Farmworker Fruit Relationship Specialty Start Date End Date Remy Kirby DO PCP - General Family Medicine 09/19/12
--- OUTSIDE RECORDS SUMMARY | 2025-05-11 09:43 | XMS_ITS | Encounter Summary ---
Author Organization [facility] Address [address] [place] [address] Care Team Providers Care Orthopedic Shoe Maker Name Role Phone Filiberto Bernard MD Primary Care Provider [phone] Filiberto Bernard MD Unavailable Encounter Details Date Type Department Care Team (Late st Contact Info) Description 09/27/2024 Clinisync Result Encounter [facility] External Department Unsolicited Filiberto Bernard MD [address] [place] [address] Social History Tobacco Use Types [...] often do you attend chur ch or restorationist services? More than 4 times per year 03/30/2024 Do you belong to any clubs o r organizations such as episcopal groups, unions, fraternal or athletic groups, or [...] Recorded Patient Health Questionnaire-2 Score 0 03/13/2024 [facility] - [...] place to sleep or slept in a longterm (including now)? No 03/30/2024 Comments Unknown Sex [...] Visit [facility] [address] [place] [address] Filiberto Bernard MD [address] [place] [address] documented as of this encounter Procedures Procedure Name Priority Date/Time Associated Diagnosis Comments MM TOMOSYNTHESIS SCREENING BI 09/27/2024 4:38 PM EDT documented in this encounter Results * MM TOMOSYNTHESIS SCREENING BI (09/27/2024 4:38 PM EDT) Anatomical Region Laterality Modality Other 09/27/2024 4:38 PM EDT Narrative 09/27/2024 4:39 [place] [address] Mammography Report Signed Patient: KAROLINA DIAZ MR#: [id number] : 1960 Acct:[id number] Age/Sex: 64 / F ADM Date: 09/27/24 Loc: MAMMO Attending Dr: Filiberto Bernard M.D. Ordering Physician: Filiberto Bernard M.D. Results: Date of Service: 09/27/24 Follow Up: Procedure(s): MM tomosynthesis screening BI Accession Number(s): [id number] cc: Filiberto Bernard M.D. Patient Name: KAROLINA DIAZ MR#: [id number] : 1960 Exam Date: 09/27/2024 Ordering Doctor: [...] node cancer at age 82. LOCATION: [facility] BREAST COMPOSITION: The breasts are heterogeneously dense,which [...] PALPABLE LUMP SHOULD BE BIOPSIED. Dictated by: Odin Green M.D. on 09/27/2024 at 16:35 Approved by: Odin Green M.D. on 09/27/2024 at 16:38 Dictated By: Odin Green M.D. Signed By: 09/27/24 1639 DD/ 1638 TD/TT: Hand Cultivator: Procedure Note Radiology, Radiologist, MD - 09/27/2024 [place] [address] Mammography Report Signed Patient: KAROLINA DIAZ [facility]#: [id number] : 2Acct:[id number] Age/Sex: 64 / FADM Date: 09/27/24 Loc: MAMMO Attending Dr: Filiberto Bernard M.D. Ordering Physician: Filiberto Benrard M.D.Results: Date of Service: 09/27/24Follow Up: Procedure(s): MM tomosynthesis screening BI Accession Number(s): [id number] cc: Filiberto Bernard M.D. Patient Name: KAROLINA DIAZ MR#: [id number] : 1960 Exam Date: 09/27/2024 Ordering Doctor: DR Filiberto Bernard . RADIOLOGY REPORT PROCEDURE: MM TOMOSYNTHESIS SCREENING BI COMPARISON: MM TOMOSYNTHESIS SCREENING BI, 09/23/2023. MG MAMM QBCSLL4H REGINALD CAD, 09/22/2022. MG MAMM SCREEN 3D REGINALD CAD, 09/09/2021. MAMMO REGINALD SCREEN, 01/12/2003. INDICATIONS: Screening Calculator Name NCI Breast Cancer Risk Assessment Tool 5 Year Breast Cancer Risk 1.20% Lifetime Breast Cancer Risk 5.70% Personal Breast Cancer No Personal Ovarian Cancer No Treatments None Family Cancers Mother with ovarian cancer at age 46;Grandmother-maternal with lymph node cancer at age 80. LOCATION: [facility] BREAST COMPOSITION: The breasts are heterogeneously dense,which [...] PALPABLE LUMP SHOULD BE BIOPSIED. Dictated by: Odin Green M.D. on 09/27/2024 at 16:35 Approved by: Odin Green M.D. on 09/27/2024 at 16:38 Dictated By: Odin Green M.D. Signed By:09/27/24 1639 DD/ TD/TT: Hand Cultivator: Filiberto Bernard MD [facility] Final Result documented in this encounter Visit Diagnoses Not on filedocumented in this encounter Care Teams Orthopedic Shoe Maker Relationship Specialty Start Date End Date Filibreto Bernard MD [address] [place] [address] PCP - General Family Medicine 01/13/24 Filiberto Bernard MD [address] [place] [address] PCP - Medical Shepherd Commercial 11/29/12 11/28/99 documented as of this encounter
--- OUTSIDE RECORDS SUMMARY | 2025-05-11 09:44 | XMS_ITS | Patient Health Record ---
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 Role Phone Odin Juarez Unavailable [phone] Lakshmi Monzon Unavailable [phone] Allergies Allergen (clinical drug ingredient) Drug/Non Drug Allergy documented on EMR Reaction Allergy Type Onset Date Status sulfamethoxazole / trimethoprim Bactrim Unknown Drug Allergy Active Results Component Value Reference Range Notes SCC- ELBOW 3 VIEW LEFT [id number] Reviewed date:02/15/2025 01:20:10 PM Interpretation: Performing Lab: Notes/Report: SCC- ELBOW 3 VIEW LEFT [id number] Reviewed date:12/19/2024 03:35:47 PM Interpretation: Performing Lab: Notes/Report: Reason For Referral No Information Medications Medication SIG (Take, Route, Frequency, Duration) Notes Start Date End Date Status Vitamin D3 Active PriLOSEC Active Social History Tobacco Use: Social History Observation [...] Problem Status W/U Status Risk Notes Problem 65918680 Nondisplaced fracture of head of left radius, subsequent encounter for closed fracture with routine healing (S52.125D) Active confirmed Problem 14952680 Closed nondisplaced fracture of head of left radius, initial encounter (S52.125A) Active confirmed Vital Signs Height 5'7 in 2025 Weight 158 lbs 2025 BMI 24.74 2025 Encounters Encounter Location Date Provider Diagnosis [facility] Office [address] [facility] [address] [place] [address] 12/11/2024 Odin Juarez Closed nondisplaced fracture of head of left radius, [facility] [address] [facility] [place] [address] [place] [address] 12/18/2024 Odin Juarez Nondisplaced fractur e of head of left radius, subsequent encounter for closed fracture with routine healing S52.125D [facility] [address] [place] [address] 2025 Odin Juarez Nondisplaced fractur e of head of left radius, subsequent encounter for closed fracture with routine healing S52.125D [facility] [address] [facility] [place] [address] [place] [address] 02/12/2025 Lakshmi Monzon Nondisplaced fractur e of head of left radius, subsequent encounter for closed fracture with routine healing S52.125D Assessments Encounter Date Diagnosis (ICD Code) Assessment Notes Treatment Notes Treatment Clinical Notes Section Notes 12/11/2024 Closed nondisplaced fracture of head of left radius, initial encounter (ICD-10 - S52.125A) 12/18/2024 Nondisplaced fracture of head of left radius, subsequent encounter for closed fracture with routine healing (ICD-10 - S52.125D) 2025 Nondisplaced fracture of head of left radius, subsequent encounter for closed fracture with routine healing (ICD-10 - S52.125D) 02/12/2025 Nondisplaced fracture of head of left radius, subsequent encounter for closed fracture with routine healing (ICD-10 - S52.125D) 12/11/2024 Other For left radial head fracture we will continue with the posterior splint. She will follow-up in 1 week to remove the splint and repeat x-rays. At that time we will use a sling and have her start to work on restoring motion. Import medication 12/18/2024 Other Tear splint was removed today in clinic. She will wear a sling. She will work on restoring motion. She will not do any lifting. She will follow-up in 4 weeks to repeat x-rays of her elbow and reassess her progress. Import medication 2025 Other Patient is doing well. She would like to return to work next Wednesday. She will need the work note to say no restrictions but her boss is agreed that she will be given assistance for any heavy lifting. She will follow-up in 1 month to repeat a likely final set of x-rays and reassess her progress. Import medication 02/12/2025 Other Patient is now a little over 2 months out from injury and doing well with return to work and activities of daily living with lifting restriction. Her fracture is healed on x-ray today and I am going to start allowing her to progressively start lifting more as tolerated. We can see her back on an as-needed basis. Plan Of Treatment Pending Test Test Name Order Date SCC- ELBOW 3 VIEW LEFT [id number] 02/12/2025 Insurance Providers Payer Name Payer Address Payer Phone Subscriber Number Group Number Insured Name Patient Relationship to Insured Coverage Start Date Coverage End Date [facility] [address] [place] [phone] [id number] DIAZ Self - patient is the insured Medical (General) History Medical History History ICD Code Drug Allergies Surgical History Surgery Date(Month/Year) wrist 2020
--- OUTSIDE RECORDS SUMMARY | 2025-05-11 09:44 | XMS_ITS | Patient Health Record ---
Author Organization [facility] [place] Address [address] [place] [address] Care Team Providers Care Environmental Technician Name Role Phone Filiberto Bernard MD Primary Care Provider Unavailab le Allergies Allergen (clinical drug ingredient) Drug/Non Drug Allergy documented on EMR Reaction Allergy Type Onset Date Status sulfamethoxazole / trimethoprim Bactrim Unknown Drug Allergy Active Reason For Referral No Information Medications Medication SIG (Take, Route, Frequency, Duration) Notes Start Date End Date Status traZODone HCl Active Omeprazole Active PEG-3350/Electrolyte s 236 GM as directed Orally 8 oz every 10-15 mins for 1 days drink 8 oz every 10-15 mins until the jug is completely gone. 02/23/2023 Active Vitamin D Active Social History Tobacco Use: Social History Observation Description Date Details (start date - stop date) Never Smoker NA - NA Tobacco Use/Smoking Question Answer Notes Patient is a nonsmoker Plan Of Treatment No Information Insurance Providers Payer Name Payer Address Payer Phone Subscriber Number Group Number Insured Name Patient Relationship to Insured Coverage Start Date Coverage End Date MMO [employer] [address] [place] [phone] [id number] Karolina Mock Self - patient is the insured Medical (General) History Medical History History ICD Code Colon cancer screening Z12.11 Closed Colles fracture of right radius, initial encounter S52.531A Plantar fasciitis of left foot M72.2 Acid reflux K21.9 Surgical History Surgery Date(Month/Year) throat surgery 06/30/16 shoulder surgery 02/27/09 HYSTERECTOMY TOTAL 07/07/05 Hospitalization History Reason Date(Month/Year) see above
--- OUTSIDE RECORDS SUMMARY | 2025-05-11 10:05 | XMS_ITS | CCD ---
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 Name Role Phone Nayana Huitron Unavailable MD [...] JASWINDER, DR FILIBERTO Tellez Primary Care Unavailable MCGEE, DR GIBRAN Beyer Consulting Unavailable JASWINDER, DR FILIBERTO Tellez Consulting Unavailable MAGUE Parekh Attending Provider [phone] Kena Parekh Attending Unavailable Kena Parekh Admitting Unavailable FILIBERTO SAN Attending Unavailable FILIBERTO SAN Attending Unavailable Filiberto San MD Primary Care Provider [phone] Filiberto San MD Unavailable DEYSI BARRON Attending Unavailable DEYSI BARRON Attending Unavailable DEYSI BARRON Attending Unavailable Allergies Allergy Classification Reported Allergen(s) Allergy Type Date of Onset Reaction(s) Facility (7 sources) Sulfamethoxazole / Trimethoprim Drug Allergy Unknown [facility] Other (1 source) Sulfamethoxazole / Trimethoprim Drug Allergy 11-03-20 19 [facility] Repository (4 sources) Sulfamethoxazole; Translations: [sulfamethoxazole] Drug Allergy 01-13-20 24 [facility] (4 sources) Trimethoprim; Translations: [trimethoprim] Drug Allergy 01-13-20 [facility] (5 sources) Sulfonamides (Antibiotic) Propensity to adverse reactions 03-13-20 [facility] (1 source) Sulfamethoxazole / Trimethoprim; Translations: [SULFAMETHOXAZOLE-T RIMETHOPRIM] Drug Allergy 09-29-20 [facility] Repository (1 source) Sulfonamides (Antibiotic); Translations: [SULFA (SULFONAMIDE ANTIBIOTICS)] Propensity to adverse reactions to drug (disorder) 01-13-20 [facility] Repository Medications Current Medications Medication Drug [...] Days Active cholecalciferol 0.025 mg oral tablet (19 sources) Vitamin D Start: 10-09-2024 take 1 [...] omeprazole 40 mg delayed release oral capsule (15 sources) Proton Pump Inhibitor Start: 09-11-2024 omeprazole [...] Onset: 01-05-2025 Episodic Disorders of lipid metabolism (7 sources) Dyslipidemia; Translations: [Hyperlipidemia, unspecified] Onset: 03-13-2024 03-13-2024 Chronic Esophageal disorders (9 sources) Gastro-esophageal reflux disease without esophagitis; Translations: [Gastroesophageal reflux disease] Onset: 03-08-2023 01-13-2024 Chronic Genitourinary symptoms and ill-defined conditions (6 sources) Dysuria; Translations: [Dysuria] Onset: 01-13-2024 01-13-2024 Episodic Heart valve disorders (2 sources) Rheumatic disorders of both mitral and aortic valves; Translations: [Rheumatic disorders of both mitral and aortic valves] Onset: 07-17-2024 Chronic Nutritional deficiencies (5 sources) Vitamin D deficiency; Translations: [Vitamin D deficiency, unspecified] Onset: 03-13-2024 03-13-2024 Chronic Osteoarthritis (20 sources) Osteoarthritis of joint of right hand; Translations: [Primary osteoarthritis, right hand] Onset: 05-26-2022 Resolved: 07-03-2022 Chronic Other acquired deformities (5 sources) Equinus contracture of the ankle; Translations: [Contracture, left ankle] Onset: 03-13-2024 03-13-2024 Chronic Other aftercare (1 source) Other intermediate frame tender (current) drug therapy; Translations: [OTH 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 CURRENT DRUG THERAPY] Onset: 03-08-2023 Episodic Other [...] Problem Date Documented Date Episodic/Chronic Cardiac dysrhythmias (7 sources) Palpitations; Translations: [Palpitations] Onset: 04-06-2024 04-06-2024 Episodic Fracture of upper limb (5 sources) Closed Colles' fracture; Translations: [Colles' fracture of right radius, initial encounter for closed fracture] Onset: 03-13-2024 Resolved: 03-13-2024 03-13-2024 Episodic Nonspecific chest pain (9 sources) Precordial pain; Translations: [Precordial pain] Onset: 04-06-2024 04-06-2024 Episodic Open wounds of extremities (1 source) Laceration without foreign body, unspecified lower leg, initial encounter Onset: 06-08-2022 Resolved: 06-08-2022 Episodic Other connective tissue disease (5 sources) Pain of left heel; Translations: [Pain [...] HEMATPOETC] Onset: 09-29-2022 Episodic Residual codes; unclassified (5 sources) Persistent insomnia; Translations: [Insomnia, unspecified] Onset: 03-13-2024 03-13-2024 Episodic Spondylosis; intervertebral disc disorders; other back problems (5 sources) Acute thoracic back pain; Translations: [Pain in thoracic spine] Onset: 03-13-2024 03-13-2024 Episodic Unclassified (1 source) Other ventricular tachycardia; Translations: [Other ventricular tachycardia] Onset: 05-03-2024 Results Test Name Value Interpretation Reference Range Facility XR Elbow - left [address] [place] [address] XRay Report Signed Patient: IGNACIO MOCK MR#: [id number] : 1960 Acct:[id number] Age/Sex: 65 / F ADM Date: 02/12/25 Loc: Attending Dr: Odin Liang M.D. Ordering Physician: Odin Liang M.D. Date of Service: 02/12/25 Procedure(s): XR elbow LT min 3V Accession Number(s): [id number] cc: Odin Liang M.D.; Filiberto San M.D. [place] [id number] Patient Name: IGNACIO MOCK MRN: [id number] date: 1960 Sex: F Assigned Patient Location: Current Patient Location: Accession/Order Number: [id number] Exam Date: 02/12/2025 10:11 Report Date: 02/12/2025 10:12 At the request of: ODIN LIANG MD Procedure: XR elbow LT min [...] James Jr., D.O.02/12/2025 10:12 AM Dictation Location: [place] [address] Electronically authenticated by: [id number] Y Date: 02/12/2025 10:12 Dictated By: Ankit James M.D. Signed By: 02/12/25 1015 DD/ 1012 TD/TT: Manager Of Global: [facility] Radiology, Radiologist, MD - 02/12/2025 [place] [address] XRay Report Signed Patient: IGNACIO MOCK MR#: [id number] : 1960 Acct:[id number] Age/Sex: 65 / F ADM Date: 02/12/25 Loc: Attending Dr: Odin Liang M.D. Ordering Physician: Odin Liang M.D. Date of Service: 02/12/25 Procedure(s): XR elbow LT min 3V Accession Number(s): [id number] cc: Odin Liang M.D.; Filiberto San M.D. The [place] [id number] Patient Name: IGNACIO MOCK MRN: [facility]:[id number] date: 1960 Sex: F Assigned Patient Location: Current Patient Location: Accession/Order Number: [id number] Exam Date: 02/12/2025 10:11 Report Date: 02/12/2025 10:12 At the request of: ODIN LIANG MD Procedure: XR elbow LT min [...] James Jr., D.O.02/12/2025 10:12 AM Dictation Location: [place] [address] Electronically authenticated by: [id number] Y Date: 02/12/2025 10:12 Dictated By: Ankit James M.D. Signed By: 02/12/25 1015 DD/ 1012 TD/TT: Manager Of Global: [facility] Radiology Study observation (narrative) [facility] XR Elbow - left 3 ViewsOrder ed By: Radiologist Radiology on 02-12-2025 [facility] [employer] Work Phone: XR Elbow - left [address] [place] [address] XRay Report Signed Patient: IGNACIO MOCK MR#: [id number] : 1960 Acct:[id number] Age/Sex: 65 / F ADM Date: 01/15/25 Loc: Attending Dr: Odin Liang M.D. Ordering Physician: Odin Liang M.D. Date of Service: 01/15/25 Procedure(s): XR elbow LT min 3V Accession Number(s): [id number] cc: Odin Liang M.D.; Filiberto San M.D. [place] [id number] Patient Name: IGNACIO MOCK MRN: [facility]:[id number] date: 1960 Sex: F Assigned Patient Location: Current Patient Location: Accession/Order Number: [id number] Exam Date: 2025 08:43 Report Date: 2025 [...] Signed By: 01/15/25 1633 DD/ 1630 TD/TT: Manager Of Global: [facility] Radiology, Radiologist, MD - [address] [place] [address] XRay Report Signed Patient: IGNACIO MOCK MR#: [id number] : 1960 Acct:[id number] Age/Sex: 65 / F ADM Date: 01/15/25 Loc: EC Attending Dr: Odin Liang M.D. Ordering Physician: Odin Liang M.D. Date of Service: 01/15/25 Procedure(s): XR elbow LT min 3V Accession Number(s): [id number] cc: Odin Liang M.D.; Filiberto San M.D. The [place] [address] Patient Name: IGNACIO MOCK MRN: [facility]:[id number] date: 1960 Sex: F Assigned Patient Location: Current Patient Location: Accession/Order Number: [id number] Exam Date: 2025 08:43 Report Date: 2025 [...] Wen M.D. Signed By: 01/15/25 163 DD/ 1630 TD/TT: Manager Of Global: [facility] Radiology Study observation (narrative) [facility] XR Elbow - left 3 ViewsOrder ed By: Radiologist Rad[facility] Office Visiton 01-05-2025 Follow-up visit [id number] Ignacio Mock 1960 F Date Provider Department Center 01/05/2025 [id number] BARRON [facility] Family History Problem Relation Age of Onset Heart attack Father Heart failure Father Heart failure Maternal Grandfather Family Status - Relation Status Age at Father Maternal Grandfather Level of Service:68834 NC OFFICE/OUTPATIENT NEW MODERATE MDM 45 MINUTES Reason for Visit and Comments: Chest Pain [287161] - Says chest pain is occurring much less often that it was before. Valve Disorder [3372] Hyperlipidemia [182] - Had lipid in Sep 2024, and again last week. Shortness of Breath [551667] - Only with stairs Normal [facility] ALL LIPID PROFILE (FASTING)o n 12-29-2024 CHOL [facility]IO [facility].5 [facility] Comment on above: 3.3 - 4.4 LOW RISK 4.4 - 7.1 AVERAGE RISK 7.1 - 11.0 MODERATE RISK >11.0 HIGH RISK Cholesterol [Mass/Vol] 146 mg/dL NINF - 200 mg/dL [facility] Cholesterol in HDL [Mass/Vol] 58 mg/dL 40 - 60 mg/dL [facility] Comment on above: > or =60 mg/dl - LOW CARDIOVASCULAR RISK <40 mg/dl - HIGH CARDIOVASCULAR RISK Magnesium [Mass/Vol] 76.8 mg/dL [facility] Comment on above: <100 mg/dl OPTIMAL 100-129 mg/dl NEAR OR ABOVE OPTIMAL 130-159 mg/dl BORDERLINE HIGH 160-189 mg/dl HIGH >190 mg/dl VERY HIGH Magnesium [Mass/Vol] 11.2 mg/dL [facility] Triglyceride [Mass/Vol] 56 mg/dL NINF - 150 mg/dL [facility] On[facility] 12-29-2024 ALT [Catalytic activity/Vol] 21 U/L 14 - 59 U/L [facility] Shandra 12-29-2024 AST [Catalytic activity/Vol] 16 U/L 15 - 37 U/L [facility] No Panel Informationon 12-29 [facility] 36on 11-02-2024 36 Regarding lab [...] agreeable to start atorvastatin. RX sent to [facility]. She will have labs prior to her follow up with Dr. Barron in Dec 2024. Lab orders printed, faxed to [facility], and also sent to patient in the mail. She verbalized understanding. Normal [facility] ALL LIPID PROFILE (FASTING)o n 10-20-2024 CHOL HDL RATIO 3.1 [facility] hcare Comment on above: 3.3 - 4.4 LOW RISK 4.4 - 7.1 AVERAGE RISK 7.1 - 11.0 MODERATE RISK >11.0 HIGH RISK Cholesterol [Mass/Vol] 213 mg/dL High NINF - 200 mg/dL [facility] Cholesterol in HDL [Mass/Vol] 69 mg/dL High 40 - 60 mg/dL [facility] Comment on above: > or =60 mg/dl - LOW CARDIOVASCULAR RISK <40 mg/dl - HIGH CARDIOVASCULAR RISK Interpretation and review of laboratory results [facility] Magnesium [Mass/Vol] 135 mg/dL [facility] Comment on above: <100 mg/dl OPTIMAL 100-129 mg/dl NEAR OR ABOVE OPTIMAL 130-159 mg/dl BORDERLINE HIGH 160-189 mg/dl HIGH >190 mg/dl VERY HIGH Magnesium [Mass/Vol] 9 mg/dL [facility] Triglyceride [Mass/Vol] 45 mg/dL NINF - 150 mg/dL [facility] 36on 08-02-2024 36 Regarding lab result s for 07/17/24 From: Deysi Barron MD Sent: 08/01/2024 4:58 PM EDT To: Carisa Cash MA Subject: RE: Scan Those labs are normal. But we need to check magnesium level please Pt was informed and will stop down today to have the magnesium level drawn. 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 [facility] ALL MAGNESIUMon 08-02-2024 Magnesium [Mass/Vol] 2.1 mg/dL 1.8 - 2 .4 mg/dL [facility] Visiton 07-17-2024 Follow-up visit [id number] Ignacio Mock Geoff 1960 F Date Provider Department Center 07/17/2024 DEYSI THOMASON Family History Problem Relation Age of Onset Heart attack Father Heart failure Father Heart failure Maternal Grandfather Family Status - Relation Status Age at Father Maternal Grandfather Level of Service:64946 NC OFFICE/OUTPATIENT ESTABLISHED MOD MDM 30 MIN Reason for Visit and Comments: Shortness of Breath [574757] Palpitations [067536] Hyperlipidemia [182] Chest Pain [636215] [facility] 36on 05-24-20[address] [facility] 36 Regarding echo performed on 05/12/2024: MD Carisa Healy MA Please notify the patient that her echo is overall good, heart function is good, she had mild valvular leak which is not significant and we will follow over the years. Continue current management Dr. Barron [facility] 36on 05-10-[address] Barron regarding patient's labs: Her LDL cholesterol is high and I think she needs to be on treatment but I need to know first what the date of this blood test before I recommend any treatment Thank you I spoke with the patient and she said those labs were drawn on 04/07/2024. [facility] Office Visiton 05-03-2024 Follow-up visit [id number] Ignacio Mock Geoff 1960 F Date Provider Department Center 05/03/2024 DEYSI THOMASON Family History Problem Relation Age of Onset Heart attack Father Heart failure Father Heart failure Maternal Grandfather Family Status - Relation Status Age at Father Maternal Grandfather Level of Service:46405 NC OFFICE/OUTPATIENT NEW MODERATE MDM 45 MINUTES Normal [facility] Chlamydia/GC/Trich NAAon Chlamydia Trachomotis, FROILAN Negative Normal Negative [facility] Comment on above: Performed By: #### G CCHLAMTRI #### [facility] , #### CUU #### [facility] [address] [place] [address] Neisseria Gonorrhoeae, FROILAN Negative Normal Negative [facility] Comment on above: Performed By: #### G CCHLAMTRI #### [facility] , #### CUU #### [facility] [address] [place] [address] Trichomonas FROILAN Negative Normal Negative [facility] Comment on above: Result Comment: Perf ormed at: =G - [facility] [address] [id number] [employer] Metal Sprayer: Meena Mccabe MD, Phone: [phone] PERFORMED BY: [place] [address] PATHOLOGIST CLAIM PROCESSOR SANTHOSH STAFFORD M.D. Performed By: #### G CCHLAMTRI #### [facility] , #### CUU #### [facility] [address] [place] [address] Urine Cultureon 01-13-2024 Bacteria identified Cx Nom (U) ORGANISM: Escherichia coli (O:ESCCOL) [place] Count 50,000 Aerobic JUVENTINO Charge (NMIC56) ---- [...] RESISTANT TO ALL B-LACTAM DRUGS. PERFORMED BY: [place] [address] PATHOLOGIST CLAIM PROCESSOR SANTHOSH STAFFORD M.D. [facility] Comment on above: Performed By: #### G CCHLAMTRI #### [facility] , #### CUU #### [address] MG MAMM SCREEN 3D REGINALD CADon 09-22-2022 MG MAMM SCREEN 3D REGINALD CAD Patient: IGNACIO MOCK Exam Date: 09/22/2022 : 1960 Gender:F Ordering : DR FILIBERTO SAN . Admission #: [id number] Family : Order #: [id number] CLICK HERE TO VIEW EXAM RADIOLOGY REPORT [...] node cancer at age 82. LOCATION: [facility] BREAST COMPOSITION: Heterogeneously dense,which may [...] MD on 09/23/2022 at 08:00 Normal [facility] Vital Signs Date Time Vital Sign Value Performing Clinician Facility 07-04-2024 09:20-0400 Body height 167.64 cm [facility] 07-04-2024 09:20-0400 Body mass index (BMI) [Ratio] 25.3 kg/m2 [facility] 07-04-2024 09:20-0400 Body weight 71.21 kg [facility] 01-13-2024 14:40-0500 Body height 170.18 cm [facility] 01-13-2024 14:40-0500 Body mass index (BMI) [Ratio] 26.9 kg/m2 [facility] 01-13-2024 14:40-0500 Body temperature 98.4 [degF] [facility] 01-13-2024 14:40-0500 Body weight 78.01 kg [facility] 01-13-2024 14:40-0500 Diastolic blood pressure 73 mm[Hg] [facility] 01-13-2024 14:40-0500 Heart rate 87 /min [facility] 01-13-2024 14:40-0500 Respiratory rate 18 /min [facility] 01-13-2024 14:40-0500 SaO2% (BldA) [Mass fraction] 97 % [facility] 01-13-2024 14:40-0500 Systolic blood pressure 125 mm[Hg] [facility] 09-16-2022 15:50-0400 Body height 170.18 cm Kusum Palencia Other [facility] Other 09-16-2022 15:50-0400 Body mass index (BMI) [Ratio] 24.9 kg/m2 Kusum Palencia Other [facility] Other 09-16-2022 15:50-0400 Body temperature 98.8 [degF] Kus[facility] Palencia Other [facility] Other 09-16-2022 15:50-0400 Body weight 72.12 kg Kusum Palencia Other [facility] Other 09-16-2022 15:50-0400 Diastolic blood pressure 87 mm[Hg] Kusum Palencia Other [facility] Other 09-16-2022 15:50-0400 Respiratory rate 18 /min Kusum Palencia Other [facility] Other 09-16-2022 15:50-0400 SaO2% (BldA) [Mass fraction] 99 % Kusum Palencia Other [facility] Other 09-16-2022 15:50-0400 Systolic blood pressure 127 mm[Hg] Kusum Palencia Other [facility] Other 07-03-2022 09:00-0400 Body height 170.18 cm Nayana Huitron Other [facility] Other 06-08-2022 17:25-0400 Body height 170.18 cm Caprice Roque Other [facility] Other 06-08-2022 17:25-0400 Body mass index (BMI) [Ratio] 24.9 kg/m2 Caprice Roque Other [facility] Other 06-08-2022 17:25-0400 Body temperature 99 [degF] Caprice Roque Other [facility] Other 06-08-2022 17:25-0400 Body weight 72.12 kg Caprice Roque Other [facility] Other 06-08-2022 17:25-0400 Diastolic blood pressure 62 mm[Hg] Caprice Roque Other [facility] Other 06-08-2022 17:25-0400 Respiratory rate 16 /min Caprice Roque Other [facility] Other 06-08-2022 17:25-0400 SaO2% (BldA) [Mass fraction] 100 % Caprice Roque Other [facility] Other 06-08-2022 17:25-0400 Systolic blood pressure 121 mm[Hg] Caprice Roque Other [facility] Other Encounters Encounter Date Encounter Type Care Provider Facility Start: 02-12-2025 End: 02-12-2025 [facility] Result Encounter Generic External Data Provider [facility] External Department Unsolicited Start: 02-12-2025 End: 02-12-2025 [facility] Result Encounter Generic External Data Provider [facility] External Department Unsolicited Start: 2025 End: 2025 [facility] Result Encounter Generic External Data Provider [facility] External Department Unsolicited Start: 2025 End: 2025 [facility] Result Encounter Generic External Data Provider [facility] External Department Unsolicited Start: 01-05-2025 End: 01-05-2025 ambulatory [facility] Start: 12-29-2024 End: 12-29-2024 [facility] Result [...] Department Unsolicited Start: 07-17-2024 End: 07-17-2024 ambulatory [facility] Start: 07-04-2024 End: 07-04-[address] [facility] Work Phone: Start: 07-04-2024 End: 07-04-2024 Patient encounter procedure [facility] Work Phone: Start: 05-03-2024 End: 05-03-2024 ambulatory [facility] Start: 04-06-2024 End: 04-06-2024 ambulatory FILIBERTO NADERER Not Available Start: 03-13-2024 End: 03-13-2024 ambulatory FILIBERTO NADERER Not Available Start: 01-13-2024 End: 01-13-2024 Departed Referred VISITING NURSE Kena Parekh Work Phone: [facility] [place] Work Phone: Start: 01-13-2024 End: 01-13-[address] [facility] Work Phone: Start: 01-13-2024 End: 02-15-2024 Patient encounter procedure [facility] Work Phone: Start: 10-12-2023 End: 10-12-2023 ambulatory Nayana Calvey Other [facility] Other Start: 10-12-2023 Office outpatient visit 15 minutes Nayana Calvey [facility] Start: 03-05-2023 End: 03-05-2023 ambulatory CARIDAD NEYBrayden . Facility:[facility] Start: 12-30-2022 End: 12-30-2022 ambulatory Nayana Calvey Other [facility] Other Start: 12-30-2022 Office outpatient visit 15 minutes Nayana Calvey [facility] Start: 09-22-2022 End: 09-23-[address] FILIBERTO SAN Facility: Start: 09-16-2022 End: 09-16-2022 ambulatory Kusum Palencia Other [facility] Other Start: 09-16-2022 Office outpatient visit 15 minutes Kusum Palnecia [facility] Start: 08-04-2022 End: 08-04-2022 ambulatory Nayana Calvey Other [facility] Other Start: 08-04-2022 Office outpatient visit 15 minutes Nayana Calvey [facility] Start: 07-03-2022 End: 07-03-2022 ambulatory Nayana Calvey Other [facility] Other Start: 07-03-2022 Office outpatient visit 15 minutes Nayana Calvey [facility] Start: 06-08-2022 (URG) Urgent Care Visit Caprice Roque [facility] Start: 06-08-2022 End: 06-08-2022 ambulatory Caprice Roque Other [facility] Other Start: 05-26-2022 End: 05-26-2022 ambulatory Nayana Huitron Other [facility] [employer] Other Start: 05-26-2022 Office outpatient ne w 30 minutes Nayana Huitron [facility] Start: 05-26-2022 End: 05-26-2022 Patient encounter procedure MD Nayana Huitron Work Phone: [facility] Procedures Date Procedure Procedure Detail Performing Clinician Start: 02-12-2025 Radex elbow complete minimum 3 views Generic External Data Provider Start: 2025 Radex elbow complete minimum 3 [...] Screening for malign ant neoplasm of colon [facility] Start: 09-27-2025 Screening for malign ant neoplasm of breast Mammogram [facility] Start: 09-23-2024 Screening for malign ant neoplasm of breast Mammogram [facility] Start: 07-30-2024 Influenza vaccination Influenza Vacc ine (#1) [facility] Start: 01-14-2024 Bacteria identified in Urine by Culture [facility] Start: 01-14-2024 [facility] Start: 01-13-2024 Bacteria identified in Urine by Culture [facility] Start: 1992 Screening for malign ant neoplasm of cervix [facility] Start: 1983 Screening for malign ant neoplasm of cervix Pap Smear [facility] Start: 1960 Screening for malign ant neoplasm of colon [facility] Chlamydia trachomati s DNA [Presence] in Unspecified specimen by FROILAN with probe detection [facility] Neisseria gonorrhoea e DNA [Presence] in Unspecified specimen by FROILAN with probe detection [facility] Trichomonas vaginali s DNA [Presence] in Unspecified specimen by FROILAN with probe detection [facility] Immunizations Immunization Date Immunization Notes Care Provider Fa cility 09-30-2023 influenza virus vaccine, unspecified formulation Generic Provider [facility] 06-08-2022 tetanus toxoid, reduced diphtheria toxoid, and acellular pertussis vaccine, adsorbed Caprice Roque Other [facility] Payers Date Payer Category Payer Self-pay [id number] [phone] [id number] 2023 Private Health Insurance [employer] [id number] 2023 Unknown [employer] [id number] 2023-Present [address] [place] [address] [id number] 1960 Unknown [id number] 1960 Unknown [id number] 1960 Unknown [id number] [id number] 1960 Unknown [id number] [id number] 1959 Unknown [id number] Unknown [id number] Social History Date Type Detail Facility Start: 03-13-2024 End: 03-30-2024 Sex Assigned At [facility] Start: 1960 Sex Assigned At Female [facility] Start: 01-13-2024 End: 03-13-2024 Tobacco smoking status NHIS Never smoked tobacco (finding) [facility] Start: 03-13-2024 Tobacco use and exposure Smokeless tobacco non-user [facility] Start: 03-13-2024 End: 03-30-2024 History of Social function [facility] Do you belong to any clubs or organizations such as worship groups, unions, fraternal or athletic groups, or [...] Date & Type Note Facility 01-05-2025 Note [facility] Note Reason for cardiology [...] stents and CABG, her paternal grandfather had MA. Cardiology ROS: All symptoms were reviewed, they [...] in inferior an (more content not included)... [facility] 07-17-2024 Note [facility] Note [...] stents and CABG, her paternal grandfather had MA. Cardiology ROS: All symptoms were reviewed, they [...] No reversible isc (more content not included)... [facility] 05-03-2024 Note [facility] Note Reason for cardiology consult: New patient here to establish care. Ref from Dr. Filiberto San for chest pain. stress test performed last week at [facility]. Chief Complaint: Chest pain HPI: Ignacio [...] stents and CABG, her paternal grandfather had MA. Cardiology ROS: All symptoms were reviewed, they [...] 107 PVC Patient (more content not included)... [facility] 10-12-2023 Evaluation note Encounter Date Diagnosis Assessment Notes Sep, Right hand pain (ICD-10 - M79.641) Sep, Primary osteoarthritis of right hand (ICD-10 - M19.041) Right ring and small PIP joints injected with cortisone, patient tolerated well [facility] Other 02-01-2023 Evaluation note* Encounter Date Diagnosis [...] and tingle for hours after this injection. [facility] Other 10-19-2022 Evaluation note* Encounter Date Diagnosis [...] (midd le ear effusion) material was printed [facility] Other 09-06-2022 Evaluation note* Encounter Date Diagnosis Assessment Notes Treatment Notes Treatment Clinical Notes Jul, Right hand pain (ICD-10 - M79.641) Jul, Primary osteoarthritis of right hand (ICD-10 - M19.041) Patient is progressing well from injections. May consider repeat injections in the future if needed. Continue topical and/or oral NSAIDs as needed for pain/inflammation . Call with questions/concern s or return in pain. [facility] Other 08-05-2022 Evaluation note* Encounter Date Diagnosis [...] the office with any questions or concerns. [facility] Other 07-11-2022 Evaluation note* Encounter Date Diagnosis [...] area, fever, or have chills. TDAP updated [facility] Other 06-28-2022 Evaluation note* Encounter Date Diagnosis [...] a medrol dose pack or cortisone injection [facility] Other 08-02-2016 History general Narrative - Reported* Type Description Date Medical History acid reflux Surgical History shoulder surgery right 2009 Surgical History hysterectomy 2006 Surgical History Throat Surgery 06/30/16 Surgical History wrist surgery 2020 Hospitalization History See Above [facility] Other Evaluation noteNo assessment information available [facility] Work Phone: Evaluation note* Diagnosis Onset Date Resolution Status Dysuria acute [facility] Work Phone: Evaluation note* Diagnosis Onset Date Resolution Status Pain in right hand acute Primary osteoarthritis of right hand acute [facility] Work Phone: Chief Complaint and Reason for [...] July 04, 2024 End: July 04, 2024 Material Handling Crew Supervisor Relationship Specialty Start Date End Date Filiberto San MD [address] [place] [address] PCP - General Family Medicine 01/13/24 Filiberto San MD [address] [place] [address] PCP - Medical [employer] 11/29/12 11/28/99 Material Handling Crew Supervisor Relationship Specialty Start Date End Date Filiberto San MD [address] [place] [address] PCP - General Family Medicine 01/13/24 Filiberto San MD [address] [place] [address] PCP - Medical [place] [employer] 11/29/12 11/28/99 Material Handling Crew Supervisor Relationship Specialty Start Date End Date Filiberto San MD [address] [place] [address] PCP - General Family Medicine 01/13/24 Filiberto San MD [address] [place] [address] PCP - Medical [employer] [place] [employer] 11/29/12 11/28/99 Goals (unrecognized section and content) Goals may be documented in a n alternate section INFORMATION SOURCE (unrecogn ized section and content) DATE CREATED AUTHOR [facility]/08/2023 [facility] DATE CREATED AUTHOR AUTHOR'S ORGANIZ ATION 01/19/2024 [facility] DATE CREATED AUTHOR AUTHOR'S ORGANIZ ATION 04/08/2024 [facility] DATE CREATED AUTHOR AUTHOR'S ORGANIZ ATION 01/07/2025 [facility] FOR RECORDS PERTAINING TO PATIENTS [...] BE BASED ON THE PRIMARY CLINICAL RECORDS. [employer] provides no warranty or guarantee of the accuracy or completeness of information in this document.
[2025-05-11 11:47] LABS: Alanine Aminotransferase 22 U/L (14-59); Aspartate Amino Transferase 18 U/L (15-37); Chol HDL Ratio 2.2; Cholesterol 154 mg/dL (<=200); HDL Cholesterol 69 mg/dL (40-60); Triglycerides 60 mg/dL (<=150)
== END 2025-05-11 09:40 | disposition home or self-care (01) ==
LOC: LAB 09:41
PROVIDERS: PCP Family Medicine; Visit Provider Internal Medicine Cardiovascular Disease
DX: E78.5 Hyperlipidemia, unspecified (principal)
CPT/HCPCS: 36415; 80061; 84450; 84460

== ENCOUNTER 2025-05-18 09:21 | Outpatient (OUT) | payer OTHER, SELFPAY ==
--- OUTSIDE RECORDS SUMMARY | 2025-05-18 09:23 | XMS_ITS | Encounter Summary ---
Author Organization [facility] Address [address] [place] [address] Care Team Providers Care Sales Order Administrator Name Role Phone Filiberto Bernard MD Primary Care Provider [phone] Filiberto Bernard MD Unavailable Encounter Details Date Type Department Care Team (Late st Contact Info) Description 09/27/2024 Clinisync Result Encounter [facility] External Department Unsolicited Filiberto Bernard MD [address] [place] [address] Social History Tobacco Use Types [...] often do you attend chur ch or baptist services? More than 4 times per year 03/30/2024 Do you belong to any clubs o r organizations such as hinduism groups, unions, fraternal or athletic groups, or [...] Recorded Patient Health Questionnaire-2 Score 0 03/13/2024 [facility] - Occupational [...] Visit [facility] [address] [place] [address] Filiberto Bernard MD [address] [place] [address] documented as of this encounter Procedures Procedure Name Priority Date/Time Associated Diagnosis Comments MM TOMOSYNTHESIS SCREENING BI 09/27/2024 4:38 PM EDT documented in this encounter Results * MM TOMOSYNTHESIS SCREENING BI (09/27/2024 4:38 PM EDT) Anatomical Region Laterality Modality Other 09/27/2024 4:38 PM EDT Narrative 09/27/2024 4:39 [place] [address] Mammography Report Signed Patient: KAROLINA DIAZ MR#: [id number] : 1960 Acct:[id number] Age/Sex: 64 / F ADM Date: 09/27/24 Loc: MAMMO Attending Dr: Filiberto Bernard M.D. Ordering Physician: Filiberto Bernard M.D. Results: Date of Service: 09/27/24 Follow Up: Procedure(s): MM tomosynthesis screening BI Accession Number(s): [id number] cc: Filiberto Bernard M.D. Patient Name: KAROLINA DIAZ MR#: [id number] : 1960 Exam Date: 09/27/2024 Ordering Doctor: [...] at age 82. LOCATION: [facility] BREAST COMPOSITION: The breasts are heterogeneously dense,which [...] Signed By: 09/27/24 1639 DD/ 1638 TD/TT: Director Consumer: Procedure Note Radiology, Radiologist, MD - 09/27/2024 [place] [address] Mammography Report Signed Patient: KAROLINA DIAZ AMR#: [id number] : 2Acct:[id number] Age/Sex: 64 / FADM Date: 09/27/24 Loc: MAMMO Attending Dr: Filiberto Bernard M.D. Ordering Physician: Filiberto Bernard M.D.Results: Date of Service: 09/27/24Follow Up: Procedure(s): MM tomosynthesis screening BI Accession Number(s): [id number] cc: Filiberto Bernard M.D. Patient Name: KAROLINA DIAZ MR#: [id number] : 1960 Exam Date: 09/27/2024 Ordering Doctor: DR Filiberto Bernard . RADIOLOGY REPORT PROCEDURE: MM TOMOSYNTHESIS SCREENING BI COMPARISON: MM TOMOSYNTHESIS SCREENING BI, 09/23/2023. MG MAMM [id number] REGINALD CAD, 09/22/2022. MG MAMM SCREEN 3D [...] at age 82. LOCATION: The [facility] BREAST COMPOSITION: The breasts are heterogeneously dense,which [...] Green M.D. Signed By:09/27/24 1639 DD/ TD/TT: Director Consumer: Filiberto Bernard MD [facility] Final Result documented in this encounter Visit Diagnoses Not on filedocumented in this encounter Care Teams Sales Order Administrator Relationship Specialty Start Date End Date Filiberto Bernard MD [address] [place] [address] PCP - General Family Medicine 01/13/24 Filiberto Bernard MD [address] [place] [address] PCP - Medical [place] [employer] 11/29/12 11/28/99 documented as of this encounter
--- OUTSIDE RECORDS SUMMARY | 2025-05-18 09:24 | XMS_ITS | Encounter Summary ---
Author Organization [facility] Address [address] [place] [address] Care Team Providers Care Ice Guard Tester Name Role Phone Filiberto Bernard MD Primary Care Provider [phone] Filiberto Bernard MD Unavailable Encounter Details Date Type Department Care Team (Late st Contact Info) Description 05/04/2024 Orders Only [facility] [address] [place] [address] Filiberto Bernard MD [address] [facility] [place] [address] Social History Tobacco Use Types Packs/Day Years [...] often do you attend chur ch or denominational services? More than 4 times per year 03/30/2024 Do you belong to any clubs o r organizations such as rastafari groups, unions, fraternal or athletic groups, or [...] Recorded Patient Health Questionnaire-2 Score 0 03/13/2024 [facility] - Occupational Stress Questionnaire Answer Date [...] Visit [facility] [address] [place] [address] Filiberto Bernard MD [address] [place] [address] documented as of this encounter Procedures Procedure [...] on filedocumented in this encounter Care Teams Ice Guard Tester Relationship Specialty Start Date End Date Filiberto Bernard MD [address] [place] [address] PCP - General Family Medicine 01/13/24 Filiberto Bernard MD [address] [place] [address] PCP - Medical [place] [employer] 11/29/12 11/28/99 documented as of this encounter
--- OUTSIDE RECORDS SUMMARY | 2025-05-18 09:24 | XMS_ITS | Clinical Summary ---
Author Organization [facility] Address [address] [place] [address] Care Team Providers Care Shoe Planner Name Role Phone Filiberto Bernard MD Primary Care Provider [phone] Allergies Active Allergy Reactions Criticality Noted Date [...] this topic Insurance [employer] Care Teams Shoe Planner Relationship Specialty Start Date End Date Filiberto Bernard MD [address] [place] [address] PCP - General Family Medicine 05/03/24
--- OUTSIDE RECORDS SUMMARY | 2025-05-18 09:24 | XMS_ITS | Encounter Summary ---
Author Organization [facility] Address [address] [place] [address] Care Team Providers Care Lead Qa Analyst Name Role Phone Filiberto Bernard MD Primary Care Provider [phone] Filiberto Bernard MD Unavailable Encounter Details Date [...] often do you attend chur ch or worship services? More than 4 times per year 03/30/2024 Do you belong to any clubs o r organizations such as roman catholic groups, unions, [...] Patient Health Questionnaire-2 Score 0 03/13/2024 [facility] - Occupational Stress Questionnaire Answer [...] place to sleep or slept in a long term (including now)? No 03/30/2024 Comments Unknown Sex [...] Visit [facility] [address] [place] [address] Filiberto Bernard MD [address] [place] [address] documented as of this encounter Procedures Procedure Name Priority Date/Time Associated Diagnosis Comments XR ELBOW 3+ VIEWS LEFT 12/18/2024 11:14 PM EST documented in this encounter Results * XR elbow 3+ views left (12/18/2024 11:14 PM EST) Anatomical Region Laterality Modality Upper Extremities, Elbow Left Radiogr aphic Imaging 12/18/2024 11:1 4 PM EST Narrative 12/18/2024 11:16 PM EST The [place] [id number] XRay Report Signed Patient: KAROLINA DIAZ MR#: [id number] : 1960 Acct:[id number] Age/Sex: 64 / F ADM Date: 12/18/24 Loc: EC Attending Dr: Odin Liang M.D. Ordering Physician: Odin Liang M.D. Date of Service: 12/18/24 Procedure(s): XR elbow LT min 3V Accession Number(s): [id number] cc: Odin Liang M.D.; Filiberto Bernard M.D. The [address] [id number] Patient Name: KAROLINA DIAZ MRN: [id number] date: 1960 Sex: F Assigned Patient Location: Current Patient Location: Accession/Order Number: [id number] Exam Date: 12/18/2024 11:07 Report Date: 12/18/2024 [...] M.D. Signed By: 12/18/242315 DD/ 13 TD/TT: Cancer Researcher: Procedure Note Radiology, Radiologist, MD - 12/18/2024 [place] [address] XRay Report Signed Patient: KAROLINA DIAZ AMR#: [id number] : 1960cct:[id number] Age/Sex: 64 / FADM Date: 12/18/24 Loc: EC Attending Dr: Odin Liang M.D. Ordering Physician: Odin Liang M.D. Date of Service: 12/18/24 Procedure(s): XR elbow LT min 3V Accession Number(s): [id number] cc: Odin Liang M.D.; Filiberto Bernard M.D. The [address] [id number] Patient Name: KAROLINA DIAZ MRN: [id number] date: 1960 Sex: F Assigned Patient Location: Current Patient Location: Accession/Order Number: [id number] Exam Date: 12/18/2024 11:07 Report Date: 12/18/2024 [...] Conti M.D. Signed By:12/18/242315 DD/ 13 TD/TT: Cancer Researcher: us Generic External Data Provider IMG XR PROCEDURES Final Result documented in this encounter Visit Diagnoses Not on filedocumented in this encounter Care Teams Lead Qa Analyst Relationship Specialty Start Date End Date Filiberto Bernard MD [address] [place] [address] PCP - General Family Medicine 01/13/24 Filiberto Bernard MD [address] [place] [address] PCP - Medical [place] [employer] 11/29/12 11/28/99 documented as of this encounter
--- OUTSIDE RECORDS SUMMARY | 2025-05-18 09:24 | XMS_ITS | Clinical Summary ---
Author Organization [facility] Address [address] [place] [address] Care Team Providers Care Salesperson Books Name Role Phone Filiberto Bernard MD Primary Care Provider [phone] Filiberto Bernard MD Unavailable Allergies Active Allergy [...] Encounters Date Type Department Care Team Description 05/11/2025 Clinisync Result Encounter [facility] External Department Unsolicited [...] often do you attend chur ch or baptism services? More than 4 times per year 03/30/2024 Do you belong to any clubs o r organizations such as yazdanism groups, unions, fraternal or athletic groups, or [...] Recorded Patient Health Questionnaire-2 Score 0 03/13/2024 [facility] - Occupational Stress Questionnaire Answer Date Recorded [...] Office Visit [facility] [address] [place] [address] Filiberto Bernard MD [address] [place] [address] Health Maintenance Due Date Last Done Comments CT Colonography 1962 FIT-DNA 1962 FIT 1962 FOBT 1962 Sigmoidoscopy 1962 Pap Smear 1983 Cervical Cancer Screening 1992 HPV/Cotest 1992 Mammogram 09/27/2025 09/27/2024, 09/23/2023, 09/29 Colonoscopy 03/05/2033 03/05/2023 Colorectal Cancer Screening 03/05/2033 Influenza Vaccine Completed 09/08/2024, , 10/10/2022, Additional history exists Procedures Procedure Name Priority Date/Time Associated Diagnosis Comments ALL LIPID PROFILE (FASTING) Routine 05/11/2025 9:54 AM EDT [facility] ALT Routine 05/11/2025 9:54 AM EDT [facility] AST Routine 05/11/2025 9:54 AM EDT MM TOMOSYNTHESIS SCREENING BI 09/27/2024 4:38 PM EDT from Last 3 Months or Most Recently Relevant to Health Maintenance Results * [facility] AST (05/11/2025 9:54 AM EDT) ASPARTATE AMINO TRANSFERASE 18 15 - 37 U/L TB 05/11/2025 9:54 AM EDT 05/11/2025 9:54 AM EDT Narrative [facility] - 05/11/2025 11:48 AM EDT Generic External Data Provider [facility] F inal Result Performing Organization Address [facility] Co de Phone Number [facility] * [facility] ALT (05/11/2025 9:54 AM EDT) ALANINE AMINOTRANSFERASE 22 14 - 59 U/L TB 05/11/2025 9:54 AM EDT 05/11/2025 9:54 AM EDT Narrative [facility]IN[facility] - 05/11/2025 11:48 AM EDT Generic External Data Provider CLIN[facility]NC F inal Result Performing Organization Address [facility] Co de Phone Number [facility] * (ABNORMAL) ALL LIPID PROFILE (FASTING) (05/11/2025 9:54 AM EDT) TRIGLYCERIDES 60 <=150 mg/dL TBH CHOLESTEROL 154 <=200 mg/dL TB HDL CHOLESTEROL 69(H) 40 - 60 mg/dL TB Comment: > or =60 mg/dl - LOW CARDIOVASCULAR RISK <40 mg/dl - HIGH CARDIOVASCULAR RISK LDL CHOLESTEROL CALCULATED 73.0 mg/dL TB Comment: <100 mg/dl OPTIMAL 100-129 mg/dl NEAR OR ABOVE OPTIMAL 130-159 mg/dl BORDERLINE HIGH 160-189 mg/dl HIGH >190 mg/dl VERY HIGH VLDL CHOLESTEROL 12.0 mg/dL TBH CHOL HDL RATIO 2.2 TBH Comment: 3.3 - 4.4 LOW RISK 4.4 - 7.1 AVERAGE RISK 7.1 - 11.0 MODERATE RISK >11.0 HIGH RISK 05/11/2025 9:54 AM EDT 05/11/2025 9:54 AM EDT Narrative [facility] - 05/11/2025 11:48 AM EDT us Generic External Data Provider CLINRUBENNC F inal Result STEPHENIE TB * MM TOMOSYNTHESIS SCREENING BI (09/27/2024 4:38 PM EDT) Anatomical Region Laterality Modality Other 09/27/2024 4:38 PM EDT Narrative 09/27/2024 4:39 [place] [address] Mammography Report Signed Patient: KAROLINA MOCK MR#: [id number] : 1960 Acct:[id number] Age/Sex: 64 / F ADM Date: 09/27/24 Loc: MAMMO Attending Dr: Filiberto Bernard M.D. Ordering Physician: Filiberto Bernard M.D. Results: Date of Service: 09/27/24 Follow Up: Procedure(s): MM tomosynthesis screening BI Accession Number(s): [id number] cc: Filiberto Bernard M.D. Patient Name: KAROLINA MOCK MR#: [id number] : 1960 Exam Date: 09/27/2024 Ordering Doctor: [...] node cancer at age 82. LOCATION: The [facility] BREAST COMPOSITION: The breasts are heterogeneously dense,which [...] Signed By: 09/27/24 1639 DD/ 1638 TD/TT: Lumber Estimator: Procedure Note Radiology, Radiologist, MD - 09/27/2024 [place] [address] Mammography Report Signed Patient: KAROLINA MOCK AMR#: [id number] : 1960cct:[id number] Age/Sex: 64 / FADM Date: 09/27/24 Loc: MAMMO Attending Dr: Filiberto Bernard M.D. Ordering Physician: Filiberto Bernard M.D.Results: Date of Service: 09/27/24Follow Up: Procedure(s): MM tomosynthesis screening BI Accession Number(s): [id number] cc: Filiberto Bernard M.D. Patient Name: KAROLINA MOCK MR#: [id number] : 1960 Exam Date: 09/27/2024 Ordering Doctor: DR Filiberto Stern RADIOLOGY REPORT PROCEDURE: MM TOMOSYNTHESIS SCREENING BI COMPARISON: MM TOMOSYNTHESIS SCREENING BI, 09/23/2023. MG MAMM [id number] REGINALD CAD, 09/22/2022. MG MAMM SCREEN 3D REGINALD CAD, 09/09/2021. MAMMO REGINALD SCREEN, 01/12/2003. INDICATIONS: Screening Calculator Name NCI Breast Cancer Risk Assessment Tool 5 Year Breast Cancer Risk 1.20% Lifetime Breast Cancer Risk 5.70% Personal Breast Cancer No Personal Ovarian Cancer No Treatments None Family Cancers Mother with ovarian cancer at age 46;Grandmother-maternal with lymph node cancer at age 80. LOCATION: The [facility] BREAST COMPOSITION: The breasts are heterogeneously dense,which [...] Green M.D. Signed By:09/27/24 1639 DD/ TD/TT: Lumber Estimator: Filiberto Bernard MD [facility] Final Result from Last 3 Months or Most Recently Relevant to Health Maintenance Insurance [employer] Care Teams Salesperson Books Relationship Specialty Start Date End Date Filiberto Bernard MD [address] [place] [address] PCP - General Family Medicine 01/13/24 Filiberto Bernard MD [address] [place] [address] PCP - Medical [place] [employer] 11/29/12 11/28/99
--- OUTSIDE RECORDS SUMMARY | 2025-05-18 09:24 | XMS_ITS | Encounter Summary ---
Author Organization [facility] Address [address] [place] [address] Care Team Providers Care Claims Account Specialist Name Role Phone Chirag San MD Primary Care Provider [phone] Chirag San MD Unavailable Encounter Details Date Type Department Care Team (Late st Contact Info) Description 04/26/2024 Clinisync Result Encounter [facility] External Department Unsolicited Chirag San MD [address] [place] [address] Social History Tobacco Use Types [...] any clubs o r organizations such as samaritan groups, unions, fraternal or athletic groups, or [...] Recorded Patient Health Questionnaire-2 Score 0 03/13/2024 [facility] of Occupat ional Health - Occupational Stress [...] to sleep or slept in a senior care (including now)? No 03/30/2024 Comments Unknown Sex [...] Visit [facility] [address] [place] [address] Chirag San MD [address] [place] [address] documented as of this encounter Procedures Procedure Name Priority Date/Time Associated Diagnosis Comments NM CEM PERF SPECT REST STR 04/26/2024 2:28 PM EDT documented in this encounter Results * NM CEM PERF SPECT REST STR (04/26/2024 2:28 PM EDT) Anatomical Region Laterality Modality Other 04/26/2024 2:28 PM EDT Narrative 04/26/2024 2:29 [place] [address] Nuclear Medicine Report Signed Patient: KAROLINA DIAZ MR#: [id number] : 1960 Acct:[id number] Age/Sex: 64 / F ADM Date: 04/26/24 Loc: NM Attending Dr: Chirag San M.D. Ordering Physician: Chirag San M.D. Date of Service: 04/26/24 Procedure(s): NM cem perf SPECT rest str Accession Number(s): [id number] cc: Chirag San M.D. Patient Name: KAROLINA DIAZ MR#: [id number] : 1960 Exam Date: 04/26/2024 Ordering Doctor: [...] Signed By: 04/26/24 1429 DD/ 1428 TD/TT: Metal Control Coordinator: Procedure Note Radiology, Radiologist, - 04/26/2024 [place] [address] Nuclear Medicine Report Signed Patient: KAROLINA DIAZ AMR#: [id number] : 1960cct:[id number] Age/Sex: 64 / FADM Date: 04/26/24 Loc: NM Attending Dr: Chirag San M.D. Ordering Physician: Chirag San M.D. Date of Service: 04/26/24 Procedure(s): NM cem perf SPECT rest str Accession Number(s): [id number] cc: Chirag San M.D. Patient Name: KAROLINA DIAZ MR#: [id number] : 1960 Exam Date: 04/26/2024 Ordering Doctor: [...] M.D. Signed By:04/26/24 1429 DD/ 1428 TD/TT: Metal Control Coordinator: Chirag San MD [facility] Final Result documented in this encounter Visit Diagnoses Not on filedocumented in this encounter Care Teams Claims Account Specialist Relationship Specialty Start Date End Date Chirag San MD [address] [place] [address] PCP - General Family Medicine 01/13/24 Chirag San MD [address] [place] [address] PCP - Medical [place] [employer] 11/29/12 11/28/99 documented as of this encounter
--- OUTSIDE RECORDS SUMMARY | 2025-05-18 09:24 | XMS_ITS | Encounter Summary ---
Author Organization [facility] Address [address] [place] [address] Care Team Providers Care System Dispatcher Name Role Phone Filiberto Bernard MD Primary Care Provider [phone] Filiberto Bernard MD Unavailable Encounter Details Date Type Department Care Team (Late st Contact Info) Description 04/27/2024 Orders Only [facility] [address] [place] [address] Filiberto Bernard MD [address] [place] [address] Social History Tobacco Use Types Packs/Day Years [...] often do you attend chur ch or methodist services? More than 4 times per year 03/30/2024 Do you belong to any clubs o r organizations such as caodaism groups, unions, fraternal or athletic groups, or [...] Recorded Patient Health Questionnaire-2 Score 0 03/13/2024 [facility] - [facility]ational Stress Questionnaire Answer Date [...] Visit [facility] [address] [address] Filiberto Bernard MD [address] [place] [address] documented as of this encounter Procedures Procedure [...] on filedocumented in this encounter Care Teams System Dispatcher Relationship Specialty Start Date End Date Filiberto Bernard MD [address] [place] [address] PCP - General Family Medicine 01/13/24 Filiberto Bernard MD [address] [place] [address] PCP - Medical [place] [employer] 11/29/12 11/28/99 documented as of this encounter
--- OUTSIDE RECORDS SUMMARY | 2025-05-18 09:24 | XMS_ITS | Clinical Summary ---
Author Organization [facility] Address [address] [place] [address] Care Team Providers Care Executive Vice President Business Development Name Role Phone KofiRemy DO Primary Care [...] 5:56 PM 11/11/2012 3:04 PM Care Teams Executive Vice President Business Development Relationship Specialty Start Date End Date Remy Kirby DO PCP - General Family Medicine 09/19/12
--- OUTSIDE RECORDS SUMMARY | 2025-05-18 09:24 | XMS_ITS | Encounter Summary ---
Author Organization [facility] Address [address] [place] [address] Care Team Providers Care Linux Kernel Developer Name Role Phone Chirag San MD Primary Care Provider [phone] Chirag San MD Unavailable Encounter Details Date Type Department Care Team (Late st Contact Info) Description 04/26/2024 Clinisync Result Encounter [facility] External Department Unsolicited Chirag San MD [address] [place] [address] Social History Tobacco Use Types [...] often do you attend chur ch or church services? More than 4 times per year 03/30/2024 Do you belong to any clubs o r organizations such as hoahaoism groups, unions, fraternal or athletic groups, or [...] Recorded Patient Health Questionnaire-2 Score 0 03/13/2024 [facility] - Occupational [...] Visit [facility] [address] [place] [address] Chirag San MD [address] [place] [address] documented as of this encounter Procedures Procedure Name Priority Date/Time Associated Diagnosis Comments CA HOLTER MONITOR 2-7 DAYS 04/26/2024 3:04 PM EDT documented in this encounter Results * CA HOLTER MONITOR 2-7 DAYS (04/26/2024 3:04 PM EDT) Anatomical Region Laterality Modality Other 04/26/2024 3:04 PM EDT Narrative 04/27/2024 6:56 [place] [address] Cardiology Report Signed Patient: KAROLINA DIAZ MR#: [id number] : 1960 Acct:[id number] Age/Sex: 64 / F ADM Date: 04/12/24 Loc: CARD Attending Dr: Chirag San M.D. Ordering Physician: Chirag San M.D. Date of Service: 04/12/24 Procedure(s): CA holter montior 2-7 days Accession Number(s): [id number] cc: Chirag San M.D. [facility] Date: 2024-04-26 Pat Name: KAROLINA DIAZ Department: Room: - Gender: Female [employer] Customer Service: : 1960 Requested By: CHIRAG SAN Order Number: [id number] Reading MD: DAYRON JONES Interpretive Statements Predominant [...] 04/27/24 0656 04/27/24 0656 DD/ 1504 TD/TT: Electrical Engineering Teacher: Procedure Note Radiology, Radiologist, MD - 04/27/2024 [place] [address] Cardiology Report Signed Patient: KAROLINA DIAZ AMR#: [id number] : 2Acct:[id number] Age/Sex: 64 / FADM Date: 04/12/24 Loc: CARD Attending Dr: Chirag San M.D. Ordering Physician: Chirag San M.D. Date of Service: 04/12/24 Procedure(s): CA holter montior 2-7 days Accession Number(s): [id number] cc: Chirag San M.D. [facility] Test Date: 2024-04-26 Pat Name: KAROLINA DIAZ Department: Room: - Gender: Female [employer] Customer Service: : 1960 Requested By: CHIRAG SAN Order Number: [id number] Reading MD: DAYRON JONES Interpretive Statements Predominant [...] By:04/27/24 0656 04/27/24 0656 DD/ 1504 TD/TT: Electrical Engineering Teacher: Chirag San MD [facility] Final Result documented in this encounter Visit Diagnoses Not on filedocumented in this encounter Care Teams Linux Kernel Developer Relationship Specialty Start Date End Date Chirag San MD [address] [place] [address] PCP - General Family Medicine 01/13/24 Chirag San MD [address] [place] [address] PCP - Medical [place] [employer] 11/29/12 11/28/99 documented as of this encounter
--- OUTSIDE RECORDS SUMMARY | 2025-05-18 09:24 | XMS_ITS | Encounter Summary ---
Author Organization [facility] Address [address] [place] [address] Care Team Providers Care Exhibition Carver Name Role Phone Filiberto Bernard MD Primary Care Provider [phone] Filiberto Bernard MD Unavailable Encounter Details Date Type Department Care Team (Late st Contact Info) Description 05/11/2025 Clinisync Result Encounter [facility] External [...] often do you attend chur ch or jewish services? More than 4 times per year [...] Patient Health Questionnaire-2 Score 0 03/13/2024 [facility] - [facility]ational Stress Questionnaire Answer Date [...] place to sleep or slept in a retirement (including now)? No 03/30/2024 Comments Unknown Sex [...] EDT Office Visit [facility] [address] [place] [address] Filiberto Bernard MD [address] [place] [address] documented as of this encounter Procedures Procedure Name Priority Date/Time Associated Diagnosis Comments [facility] AST Routine 05/11/2025 9:54 AM EDT [facility] ALT Routine 05/11/2025 9:54 AM EDT ALL LIPID PROFILE (FASTING) Routine 05/11/2025 9:54 AM EDT documented in this encounter Results * (ABNORMAL) ALL LIPID PROFILE (FASTING) (05/11/2025 [...] mg/dl VERY HIGH VLDL CHOLESTEROL 12.0 mg/dL TB CHOL HDL RATIO 2.2 TB Comment: 3.3 - 4.4 LOW RISK 4.4 - 7.1 AVERAGE RISK 7.1 - 11.0 MODERATE RISK >11.0 HIGH RISK 05/11/2025 9:54 AM EDT 05/11/2025 9:54 AM EDT Narrative [facility] - 05/11/2025 11:48 AM EDT us Generic External Data Provider [facility] F inal Result Performing Organization Address [facility] de Phone Number [facility] * [facility] ALT (05/11/2025 9:54 AM EDT) ALANINE AMINOTRANSFERASE 22 14 - 59 U/L [facility] 05/11/2025 9:54 AM EDT 05/11/2025 9:54 AM EDT Narrative [facility] - 05/11/2025 11:48 AM EDT Generic External Data Provider [facility] F inal Result Performing Organization Address [facility] Phone Number [facility] * [facility] AST (05/11/2025 9:54 AM EDT) ASPARTATE AMINO TRANSFERASE 18 15 - 37 U/L [facility] 05/11/2025 9:54 AM EDT 05/11/2025 9:54 AM EDT Narrative [facility] - 05/11/2025 11:48 AM EDT Generic External Data Provider [facility] F inal Result Performing Organization Address [facility] de Phone Number [facility] TB documented in this encounter Visit Diagnoses Not on filedocumented in this encounter Care Teams Exhibition Carver Relationship Specialty Start Date End Date Filiberto Bernard MD [address] [place] [address] PCP - General Family Medicine 01/13/24 Filiberto Bernard MD [address] [place] [address] PCP - Medical [place] [employer] 11/29/12 11/28/99 documented as of this encounter
--- OUTSIDE RECORDS SUMMARY | 2025-05-18 09:24 | XMS_ITS | Patient Health Record ---
Author Organization [facility] Address [address] [place] [address] Care Team Providers Care Diesel Power Mechanic Name Role Phone Filiberto Bernard MD Primary [...] Date MMO [employer] [address] [place] [address] [phone] NCOTOFS Karolina Mock Self - patient is [...]
--- OUTSIDE RECORDS SUMMARY | 2025-05-18 09:24 | XMS_ITS | Encounter Summary ---
Author Organization [facility] Address [address] [place] [address] Care Team Providers Care Ob/Gyn Nurse Name Role Phone Filiberto Bernard MD Primary Care Provider [phone] Filiberto Bernard MD Unavailable Encounter Details Date Type Department Care Team (Late st Contact Info) Description 12/04/2024 Orders Only [facility] [address] [place] [address] Didier Vu MD [address] [place] [address] Social History Tobacco Use Types Packs/Day Years [...] any clubs o r organizations such as mormon groups, unions, fraternal or athletic groups, or [...] Recorded Patient Health Questionnaire-2 Score 0 03/13/2024 [facility] - Occupational Stress Questionnaire Answer Date [...] place to sleep or slept in a usp (including now)? No 03/30/2024 Comments Unknown Sex [...] Office Visit [facility] [address] [place] [address] Filiberto Bernard MD [address] [place] [address] documented as of this encounter Procedures Procedure [...] on filedocumented in this encounter Care Teams Ob/Gyn Nurse Relationship Specialty Start Date End Date Filiberto Bernard MD [address] [place] [address] PCP - General Family Medicine 01/13/24 Filiberto Bernard MD [address] [place] [address] PCP - Medical [place] [employer] 11/29/12 11/28/99 documented as of this encounter
--- OUTSIDE RECORDS SUMMARY | 2025-05-18 09:24 | XMS_ITS | Referral Summary ---
Author Organization [facility] Address [address] [address] Care Team Providers Care Chief Safety Officer Name Role Phone Filiberto Bernard MD Primary Care Provider [phone] Allergies Active Allergy Reactions Criticality Noted Date [...] on file Insurance [employer] Care Teams Chief Safety Officer Relationship Specialty Start Date End Date Filiberto Bernard MD [address] [place] [address] PCP - General Family Medicine 05/03/24
--- OUTSIDE RECORDS SUMMARY | 2025-05-18 09:24 | XMS_ITS | Patient Health Record ---
Author Organization [facility] Address [address] [place] [address] Care Team Providers Care Well Logging Captain Name Role Phone Odin Juarez Unavailable [phone] JeffreyGeena lorenzole Unavailable [phone] Allergies Allergen (clinical drug ingredient) Drug/Non Drug Allergy documented on EMR Reaction Allergy Type Onset Date Status sulfamethoxazole / trimethoprim Bactrim Unknown Drug Allergy Active Results Component Value Reference Range Notes [facility]- ELBOW 3 VIEW LEFT [address]8789 Reviewed date:12/19/2024 03:35:47 PM Interpretation: Performing Lab: Notes/Report: [facility]- ELBOW 3 VIEW LEFT [address]644 Reviewed date:02/15/2025 01:20:10 PM Interpretation: Performing Lab: Notes/Report: Reason For [...] Problem Status W/U Status Risk Notes Problem 55108257 Nondisplaced fracture of head of left radius, subsequent encounter for closed fracture with routine healing (S52.125D) Active confirmed Problem 70377048 Closed nondisplaced fracture of head of left radius, initial encounter (S52.125A) Active confirmed Vital Signs Height 5'7 in 2025 Weight 158 lbs 2025 BMI 24.74 2025 Encounters Encounter Location Date Provider Diagnosis [facility] [address] [facility] [place] [address] [place] [address] 12/11/2024 Odin Juarez Closed nondisplaced fracture of head of left radius, initial encounter S52.125A [facility] [address] [facility] [place] [address] [place] [address] 12/18/2024 Odin Juarez Nondisplaced fracture of head of left radius, subsequent encounter for closed fracture with routine healing S52.125D [facility] [address] [facility] [place] [address] [place] [address] 2025 Odin Juarez Nondisplaced fracture of head of left radius, subsequent encounter for closed fracture with routine healing S52.125D [facility] [address] [facility] [place] [address] [place] [address] 02/12/2025 Lakshmi [place] Nondisplaced fracture of head of left radius, [...] Order Date [facility]- EL[facility]OW 3 VIEW LEFT [address] 02/12/2025 Insurance Providers Payer Name Payer Address Payer Phone Subscriber Number Group Number Insured Name Patient Relationship to Insured Coverage Start Date Coverage End Date [facility] [address] [place] [phone] [id number] IGNACIO DIAZ Self - patient is the insured Medical (General) History Medical History History ICD Code Drug Allergies Surgical History Surgery Date(Month/Year) wrist 2020
--- OUTSIDE RECORDS SUMMARY | 2025-05-18 09:24 | XMS_ITS | Encounter Summary ---
Author Organization [facility] Address [address] [place] [address] Care Team Providers Care Test Driller Name Role Phone Filiberto Bernard MD Primary Care Provider [phone] Filiberto Bernard MD Unavailable Encounter Details Date [...] often do you attend chur ch or yazdanism services? More than 4 times per year 03/30/2024 Do you belong to any clubs o r organizations such as baptism groups, unions, fraternal or athletic groups, or [...] 0 03/13/2024 [facility] - Occupational Stress Questionnaire Answer Date Recorded [...] No 03/30/2024 Housing Stability Vital Sign Answer [place] e Recorded In the last 12 months, [...] place to sleep or slept in a mcc (including now)? No 03/30/2024 Comments Unknown Sex [...] Visit [facility] [address] [place] [address] Filiberto Bernard MD [address] [place] [address] documented as of this encounter Procedures Procedure Name Priority Date/Time Associated Diagnosis Comments CA ECHO DOPPLER COMPLETE 05/15/2024 4:40 PM EDT documented in this encounter Results * CA ECHO DOPPLER COMPLETE (05/15/2024 4:40 PM EDT) Anatomical Region Laterality Modality Other 05/15/2024 4:40 PM EDT Narrative 05/15/2024 4:42 [place] [address] Cardiology Report Signed Patient: KAROLINA DIAZ MR#: [id number] : 1960 Acct:[id number] Age/Sex: 64 / F ADM Date: 05/12/24 Loc: CARD Attending Dr: Deysi Barron M.D. Ordering Physician: Deysi Barron M.D. Date of Service: 05/12/24 Procedure(s): CA echo doppler complete Accession Number(s): [id number] cc: Deysi Barron M.D.; Filiberto Bernard M.D. Patient Name: KAROLINA DIAZ MR#: [id number] : 1960 Exam Date: 05/12/2024 Ordering Doctor: [...] Area (VTI): 4.08 cm2, 4.08 cm2 Deceleration Gillespie: 0.47 m/s2 Pressure Half-Time: 1.81 s Peak [...] Signed By: 05/15/24 1642 DD/ 1640 TD/TT: Uniform Cap Operator: Procedure Note Radiology, Radiologist, MD - 05/15/2024 [facility] [place] [id number] Cardiology Report Signed Patient: KAROLINA DIAZ [facility]#: [id number] : 2Acct:[id number] Age/Sex: 64 / FADM Date: 05/12/24 Loc: CARD Attending Dr: Deysi Barron M.D. Ordering Physician: Deysi Barron M.D. Date of Service: 05/12/24 Procedure(s): CA echo doppler complete Accession Number(s): [id number] cc: Deysi Barron M.D.; Filiberto Bernard M.D. Patient Name: KAROLINA DIAZ MR#: [id number] : 1960 Exam Date: 05/12/2024 Ordering Doctor: [...] Area (VTI): 4.08 cm2, 4.08 cm2 Deceleration Gillespie: 0.47 m/s2 Pressure Half-Time: 1.81 s Peak [...] DAO Signed By:05/15/24 1642 DD/ 1640 TD/TT: Uniform Cap Operator: us Generic External Data Provider [facility] Final Result documented in this encounter Visit Diagnoses Not on filedocumented in this encounter Care Teams Test Driller Relationship Specialty Start Date End Date Filiberto Bernard MD [address] [place] [address] PCP - General Family Medicine 01/13/24 Filiberto Bernard MD [address] [place] [address] PCP - Medical [place] [employer] 11/29/12 11/28/99 documented as of this encounter
--- NOTE | 2025-05-18 09:30 | CA_ITS ---
Patient Name: IGNACIO DIAZ MR#: [id number] : 1960 Exam Date: 05/18/2025 Ordering Doctor: DR. DEYSI SMITH M.D. ECHOCARDIOGRAM REPORT PROCEDURE: CA ECHO DOPPLER COMPLETE INDICATIONS: Aortic root dilatation COMPARISON: None. DESCRIPTION: COMPLETE ECHOCARDIOGRAM Real-time transthoracic echocardiography with 2D, M-mode, spectral and color flow Doppler performed. QUALITY: Technical quality was good. LEFT VENTRICLE: Normal chamber size. Proximal septal hypertrophy (sigmoid septum). Normal systolic function. Estimated left ventricular ejection fraction is 55-60%. LV EF: Normal left ventricular ejection fraction, (>55%). DIASTOLIC: Diastolic function is indeterminate. ATRIAL SEPTUM: Visually appears intact. LEFT ATRIUM: Normal chamber size. RIGHT ATRIUM: Normal chamber size. RIGHT VENTRICLE: Normal chamber size. Normal right ventricular systolic function. TRICUSPID VALVE: Normal mobility and thickness. No stenosis with trivial regurgitation. Doppler studies reveal mildly (35-45) elevated right sided pressures. RVSP 37 mmHg MITRAL VALVE: Normal mobility and thickness. No evidence of mitral valve stenosis. There is no mitral annular calcification. AORTIC VALVE: Normal trileaflet appearance. No visible sclerosis. Normal leaflet mobility. No evidence of aortic valve stenosis. Mild aortic regurgitation. AORTIC ROOT: Normal diameter and appearance, measuring 3.6 cm. Ascending aorta is normal in size, measuring 3.1 cm. PULMONIC VALVE: Normal thickness and mobility. No stenosis. Mild regurgitation. PERICARDIUM: No evidence of pericardial effusion. IVC: Collapses with inspiration. PLEURA: CONCLUSION: 1. Normal left ventricular size and systolic function. Estimated LVEF is 55 to 60%. 2. Normal right ventricular size and systolic function. 3. Mild aortic valve regurgitation. 4. Mildly elevated right-sided pressures. 5. Normal-sized aortic root and ascending aorta. Adult Echocardiography Procedure Report Left Ventricle LVEDD (3.7 - 5.6 cm): 4.39 cm LVESD (2.2 - 4.0 cm): 2.41 cm LVIVS thickness (0.6 - 1.2 cm): 1.22 cm LVPW thickness (0.5 - 1.0 cm): 0.93 cm e': 0.05 m/s E - e': 8.82 LVOT Max Gradient: 2.60 mm[Hg] LVOT Area (cm2): 0.81 m/s Peak Velocity (LVOT): 0.81 m/s Mean Velocity (LVOT): 0.46 m/s LVOT Diameter 2.12 cm Left Atrium LA Volume Index (2D A2C): 33.85 ml/m2 Left Atrium Systolic Dimension: 3.40 cm Mitral Valve MV E to A Ratio: 0.85 Mitral Valve A-Wave Peak Velocity: 0.55 m/s Mitral Valve E-Wave Peak Velocity: 0.46 m/s Right Ventricle Aorta AO Root Diam: 3.58 cm Aortic Valve AoV Area (Peak Mk): 3.13 cm2, 3.13 cm2 AoV Area (VTI): 3.08 cm2, 3.08 cm2 Peak Velocity(Antegrade Flow): 0.91 m/s Peak Gradient(Antegrade Flow): 3.32 mm[Hg] Mean Velocity(Antegrade Flow): 0.59 m/s Mean Gradient(Antegrade Flow): 1.61 mm[Hg] Velocity Time Integral: 20.79 cm Tricuspid Valve Peak Velocity (Regurgitant Flow): 2.05 m/s, 2.93 m/s Pulmonic Valve Peak Gradient: 2.07 mm[Hg], 2.02 mm[Hg] Right Atrium Right Atrium Systolic Pressure: 43.46 ml, 43.46 ml Dictated by: Tanmay Dao M.D. on 05/18/2025 at 18:35 Approved by: Tanmay Dao M.D. on 05/18/2025 at 18:39
--- OUTSIDE RECORDS SUMMARY | 2025-05-18 09:42 | XMS_ITS | CCD ---
Author Organization [facility] ion Partnership [facility] Care Team Providers Care Rayon Winder Name Role Phone Nayana Huitron Unavailable MD [...] JASWINDER, DR FILIBERTO Tellez Primary Care Unavailable [place], DR GIBRAN Beyer Consulting Unavailable JASWINDER, DR [...] sources) Sulfamethoxazole / Trimethoprim Drug Allergy Unknown [employer] Other (1 source) Sulfamethoxazole / Trimethoprim Drug Allergy 11-03-20 19 [facility] Repository (4 sources) Sulfamethoxazole; Translations: [sulfamethoxazole] Drug Allergy 01-13-[address] [facility] (4 sources) Trimethoprim; Translations: [trimethoprim] Drug Allergy 01-13-[address] [facility] (6 sources) Sulfonamides (Antibiotic) Propensity to adverse reactions 03-13-20 [facility] (1 source) Sulfamethoxazole / Trimethoprim; Translations: [SULFAMETHOXAZOLE-T RIMETHOPRIM] Drug Allergy 09-29-20 [facility] Repository (1 source) Sulfonamides (Antibiotic); Translations: [SULFA (SULFONAMIDE ANTIBIOTICS)] Propensity to adverse reactions to drug (disorder) 01-13-20 [facility] Repository Medications Current Medications Medication Drug [...] Days Active cholecalciferol 0.025 mg oral tablet (20 sources) Vitamin D Start: 10-09-2024 take 1 [...] omeprazole 40 mg delayed release oral capsule (16 sources) Proton Pump Inhibitor Start: 09-11-2024 omeprazole [...] Onset: 01-05-2025 Episodic Disorders of lipid metabolism (8 sources) Dyslipidemia; Translations: [Hyperlipidemia, unspecified] Onset: 03-13-2024 03-13-2024 Chronic Esophageal disorders (10 sources) Gastro-esophageal reflux disease without esophagitis; Translations: [Gastroesophageal reflux disease] Onset: 03-08-2023 01-13-2024 Chronic Genitourinary symptoms and ill-defined conditions (6 sources) Dysuria; Translations: [Dysuria] Onset: 01-13-2024 01-13-2024 Episodic Heart valve disorders (2 sources) Rheumatic disorders of both mitral and aortic valves; Translations: [Rheumatic disorders of both mitral and aortic valves] Onset: 07-17-2024 Chronic Nutritional deficiencies (6 sources) Vitamin D deficiency; Translations: [Vitamin D deficiency, unspecified] Onset: 03-13-2024 03-13-2024 Chronic Osteoarthritis (20 sources) Osteoarthritis of joint of right hand; Translations: [Primary osteoarthritis, right hand] Onset: 05-26-2022 Resolved: 07-03-2022 Chronic Other acquired deformities (6 sources) Equinus contracture of the ankle; Translations: [Contracture, left ankle] Onset: 03-13-2024 03-13-2024 Chronic Other aftercare (1 source) 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; Translations: [OTH LONGTERM CURRENT [...] Problem Date Documented Date Episodic/Chronic Cardiac dysrhythmias (8 sources) Palpitations; Translations: [Palpitations] Onset: 04-06-2024 04-06-2024 Episodic Fracture of upper limb (6 sources) Closed Colles' fracture; Translations: [Colles' fracture of right radius, initial encounter for closed fracture] Onset: 03-13-2024 Resolved: 03-13-2024 03-13-2024 Episodic Nonspecific chest pain (10 sources) Precordial pain; Translations: [Precordial pain] Onset: 04-06-2024 04-06-2024 Episodic Open wounds of extremities (1 source) Laceration without foreign body, unspecified lower leg, initial encounter Onset: 06-08-2022 Resolved: 06-08-2022 Episodic Other connective tissue disease (6 sources) Pain of left heel; Translations: [Pain [...] HEMATPOETC] Onset: 09-29-2022 Episodic Residual codes; unclassified (6 sources) Persistent insomnia; Translations: [Insomnia, unspecified] Onset: 03-13-2024 03-13-2024 Episodic Spondylosis; intervertebral disc disorders; other back problems (6 sources) Acute thoracic back pain; Translations: [Pain in thoracic spine] Onset: 03-13-2024 03-13-2024 Episodic Unclassified (1 source) Other ventricular tachycardia; Translations: [Other ventricular tachycardia] Onset: 05-03-2024 Results Test Name Value Interpretation Reference Range Facility ALL LIPID PROFILE (FASTING)o n 05-11-2025 CHOL HDL RATIO 2.2 [facility] Comment on above: 3.3 - 4.4 LOW RISK 4.4 - 7.1 AVERAGE RISK 7.1 - 11.0 MODERATE RISK >11.0 HIGH RISK Cholesterol [Mass/Vol] 154 mg/dL NINF - 200 mg/dL [facility] Cholesterol in HDL [Mass/Vol] 69 mg/dL High 40 - 60 mg/dL [facility] Comment on above: > or =60 mg/dl - LOW CARDIOVASCULAR RISK <40 mg/dl - HIGH CARDIOVASCULAR RISK Interpretation and review of laboratory results Abnormal [facility] Magnesium [Mass/Vol] 73 mg/dL [facility] Comment on above: <100 mg/dl OPTIMAL 100-129 mg/dl NEAR OR ABOVE OPTIMAL 130-159 mg/dl BORDERLINE HIGH 160-189 mg/dl HIGH >190 mg/dl VERY HIGH Magnesium [Mass/Vol] 12 mg/dL [facility] Triglyceride [Mass/Vol] 60 mg/dL NINF - 150 mg/dL [facility] 05-11-2025 ALT [Catalytic activity/Vol] 22 U/L 14 - 59 U/L [facility] Shandra 05-11-2025 AST [Catalytic activity/Vol] 18 U/L 15 - 37 U/L [facility] No Panel Informationon 05-11 [facility] Healthcar e XR Elbow - left 3 Viewson [facility] [address] [place] [address] XRay Report Signed Patient: IGNACIO MOCK MR#: [id number] : 1960 Acct:[id number] Age/Sex: 65 / F ADM Date: 02/12/25 Loc: Attending Dr: Odin Liang M.D. Ordering Physician: Odin Liang M.D. Date of Service: 02/12/25 Procedure(s): XR elbow LT min 3V Accession Number(s): [id number] cc: Odin Liang M.D.; Filiberto San M.D. The [place] [address] Patient Name: IGNACIO MOCK MRN: [facility]:[id number] date: 1960 Sex: F Assigned Patient Location: Current Patient Location: Accession/Order Number: [id number] Exam Date: 02/12/2025 10:11 Report Date: 02/12/2025 [...] NECK. Impression dictated by: Ankit James Jr., DJarredOJarred02/12/2025 10:12 AM Dictation Location: [place] [address] Electronically authenticated by: [id number] Y Date: 02/12/2025 10:12 Dictated By: Ankit James M.D. Signed By: 02/12/25 1015 DD/ 1012 TD/TT: Runway Model: [facility] Radiology, Radiologist, - 02/12/2025 The [place] [id number] XRay Report Signed Patient: IGNACIO MOCK MR#: [id number] : 1960 Acct:[id number] Age/Sex: 65 / F ADM Date: 02/12/25 Loc: EC Attending Dr: Odin Liang M.D. Ordering Physician: Odin Liang M.D. Date of Service: 02/12/25 Procedure(s): XR elbow LT min 3V Accession Number(s): [id number] cc: Odin Liang M.D.; Filiberto San M.D. [place] [id number] Patient Name: IGNACIO MOCK MRN: [facility]:[id number] date: 1960 Sex: F Assigned Patient Location: Current Patient Location: Accession/Order Number: [id number] Exam Date: 02/12/2025 10:11 Report Date: 02/12/2025 [...] James Jr., D.O.02/12/2025 10:12 AM Dictation Location: [place] [address] Electronically authenticated by: [id number] Y Date: 02/12/2025 10:12 Dictated By: Ankit James M.D. Signed By: 02/12/25 1015 DD/ 1012 TD/TT: Runway [facility] Radiology Study observation (narrative) [facility] XR Elbow - left 3 ViewsOrder ed By: Radiologist Radiology on 02-12-2025 [facility] [employer] Work Phone: XR Elbow - left [address] [place] [address] XRay Report Signed Patient: IGNACIO MOCK MR#: [id number] : 1960 Acct:[id number] Age/Sex: 65 / F ADM Date: 01/15/25 Loc: EC Attending Dr: Odin Liang M.D. Ordering Physician: Odin Liang M.D. Date of Service: 01/15/25 Procedure(s): XR elbow LT min 3V Accession Number(s): [id number] cc: Odin Liang M.D.; Filiberto San M.D. The [place] [id number] Patient Name: IGNACIO MOCK MRN: [facility]:[id number] date: 1960 Sex: F Assigned Patient Location: Current Patient Location: Accession/Order Number: [id number] Exam Date: 2025 08:43 Report Date: 2025 [...] Signed By: 01/15/25 1633 DD/ 1630 TD/TT: Runway Model: [facility] Radiology, Radiologist, MD - [address] [address] XRay Report Signed Patient: IGNACIO MOCK MR#: [id number] : 1960 Acct:[id number] Age/Sex: 65 / F ADM Date: 01/15/25 Loc: EC Attending Dr: Odin Liang M.D. Ordering Physician: Odin Liang M.D. Date of Service: 01/15/25 Procedure(s): XR elbow LT min 3V Accession Number(s): [id number] cc: Odin Liang M.D.; Filiberto San M.D. [place] [id number] Patient Name: IGNACIO MOCK MRN: [id number] date: 1960 Sex: F Assigned Patient Location: Current Patient Location: Accession/Order Number: [id number] Exam Date: 2025 08:43 Report Date: 2025 [...] Signed By: 01/15/25 1633 DD/ 1630 TD/TT: Runway Model: [facility] [employer] Radiology Study observation (narrative) [facility] [employer] XR Elbow - left 3 ViewsOrder ed By: Radiologist Radiology on 2025 [facility] [employer] Work Phone: Office Visiton 01-05-2025 Follow-up visit [id number] Ignacio Mock 1960 F Date Provider Department Center 01/05/2025 [id number] BARRON [facility] Family History Problem Relation Age of Onset Heart attack Father Heart failure Father Heart failure Maternal Grandfather Family Status - Relation Status Age at Father Maternal Grandfather Level of Service:53165 [place] OFFICE/OUTPATIENT NEW MODERATE MDM 45 MINUTES Reason for Visit and Comments: Chest Pain [] - Says chest pain is occurring much less often that it was before. Valve Disorder [3372] Hyperlipidemia [182] - Had lipid in Sep 2024, and again last week. Shortness of Breath [] - Only with stairs Normal [facility] ALL LIPID PROFILE (FASTING)o n 12-29-2024 CHOL HDL RATIO 2.5 [facility] Comment on above: 3.3 - 4.4 LOW RISK 4.4 - 7.1 AVERAGE RISK 7.1 - 11.0 MODERATE RISK >11.0 HIGH RISK Cholesterol [Mass/Vol] 146 mg/dL NINF - 200 mg/dL [facility] Cholesterol in HDL [Mass/Vol] 58 mg/dL 40 - 60 mg/dL [facility] Comment on above: > or =60 mg/dl - LOW CARDIOVASCULAR RISK <40 mg/dl - HIGH CARDIOVASCULAR RISK Magnesium [Mass/Vol] 76.8 mg/dL [facility] Comment on above: <100 mg/dl OPTIMAL 100-129 mg/dl NEAR OR ABOVE OPTIMAL 130-159 mg/dl BORDERLINE HIGH 160-189 mg/dl HIGH >190 mg/dl VERY HIGH Magnesium [Mass/Vol] 11.2 mg/dL [facility] Triglyceride [Mass/Vol] 56 mg/dL NINF - 150 mg/dL [facility] 12-29-2024 ALT [Catalytic activity/Vol] 21 U/L 14 - 59 U/L [facility] Sh[facility] 12-29-2024 AST [Catalytic activity/Vol] 16 U/L 15 - 37 U/L [facility] No Panel Informationon 12-29 [facility] Healthcar e 36on 11-02-2024 36 Regarding lab [...] agreeable to start atorvastatin. RX sent to [facility]. She will have labs prior to her follow up with Dr. Barron in Dec 2024. Lab orders printed, faxed to [facility], and also sent to patient in the mail. She verbalized understanding. Normal [facility] ALL LIPID PROFILE (FASTING)o n 10-20-2024 CHOL HDL RATIO 3.1 [facility] Comment on above: 3.3 - 4.4 LOW RISK 4.4 - 7.1 AVERAGE RISK 7.1 - 11.0 MODERATE RISK >11.0 HIGH RISK Cholesterol [Mass/Vol] 213 mg/dL High NINF - 200 [facility] Cholesterol in HDL [Mass/Vol] 69 mg/dL High 40 - 60 mg/dL [facility] Comment on above: > or =60 mg/dl - LOW CARDIOVASCULAR RISK <40 mg/dl - HIGH CARDIOVASCULAR RISK Interpretation and review of laboratory results Abnormal [facility] Magnesium [Mass/Vol] 135 mg/dL [facility] Comment on above: <100 mg/dl OPTIMAL 100-129 mg/dl NEAR OR ABOVE OPTIMAL 130-159 mg/dl BORDERLINE HIGH 160-189 mg/dl HIGH >190 mg/dl VERY HIGH Magnesium [Mass/Vol] 9 mg/dL [facility] Triglyceride [Mass/Vol] 45 mg/dL NINF - 150 mg/dL [facility] Healthcar e 36on 08-02-2024 36 Regarding lab result s for 07/17/24 From: Deysi Barron MD Sent: 08/01/2024 4:58 PM EDT To: Carisa Cash MA Subject: RE: Scan Those labs are normal. But we need to check magnesium level please Pt was informed and will stop down today to have the magnesium level drawn. Order walked down to help desk support. Normal [facility] ALL MAGNESIUMon 08-02-2024 Magnesium [Mass/Vol] 2.1 mg/dL 1.8 - 2 .4 mg/dL [facility] Office Visiton 07-17-2024 Follow-up visit [id number] Ignacio Mock 1960 F Date Provider Department Center 07/17/2024 [id number] BARRON [facility] Family History Problem Relation Age of Onset Heart attack Father Heart failure Father Heart failure Maternal Grandfather Family Status - Relation Status Age at Father Maternal Grandfather Level of Service:55655 [place] OFFICE/OUTPATIENT ESTABLISHED MOD MDM 30 MIN Reason for Visit and Comments: Shortness of Breath [] Palpitations [] Hyperlipidemia [182] Chest Pain [[id number]] [facility] 36on 05-24-2024 36 Pt informed [facility] 36 Regarding echo performed on 05/12/2024: MD Carisa Healy MA Please notify the patient that her echo is overall good, heart function is good, she had mild valvular leak which is not significant and we will follow over the years. Continue current management Dr. Barron [facility] 36on 05-10-[address] Barron regarding patient's labs: Her LDL cholesterol is high and I think she needs to be on treatment but I need to know first what the date of this blood test before I recommend any treatment Thank you I spoke with the patient and she said those labs were drawn on 04/07/2024. [facility] Office Visiton 05-03-2024 Follow-up visit [id number] Ignacio Mock 1960 F Date Provider Department Center 05/03/2024 [id number] RODRIGUEZ Family History Problem Relation Age of Onset Heart attack Father Heart failure Father Heart failure Maternal Grandfather Family Status - Relation Status Age at Father Maternal Grandfather Level of Service:72777 [place] OFFICE/OUTPATIENT NEW MODERATE MDM 45 MINUTES [facility] Chlamydia/GC/Trich NAAon Chlamydia Trachomotis, FROILAN Negative Normal Negative [facility] Comment on above: Performed By: #### G CCHLAMTRI #### [facility] , #### CUU #### [facility] [address] [place] [address] [place] Neisseria Gonorrhoeae, FROILAN Negative Normal Negative [facility] Comment on above: Performed By: #### G CCHLAMTRI #### [facility] , #### CUU #### [facility] [address] [place] [address] [place] Trichomonas FROILAN Negative Normal Negative [facility] Comment on above: Result Comment: Perf ormed at: =G - [facility] [place] [address] [place] [id number] [employer] Reports Developer: Meena Mccabe MD, Phone: [phone] PERFORMED BY: [facility] [address] [place] [address] PATHOLOGIST MANAGER CORPORATE SANTHOSH STAFFORD M.D. Performed By: #### G CCHLAMTRI #### [facility] , #### CUU #### [facility] [address] Urine Cultureon 01-13-2024 Bacteria identified Cx Nom (U) ORGANISM: Escherichia coli (O:ESCCOL) [place] Count 50,000 Aerobic JUVENTINO Charge (NMIC56) ---- [...] RESISTANT TO ALL B-LACTAM DRUGS. PERFORMED BY: [place] [address] PATHOLOGIST MANAGER CORPORATE SANTHOSH STAFFORD M.D. [facility] Comment on above: Performed By: #### G CCHLAMTRI #### [facility] , #### CUU #### [address] MG MAMM SCREEN 3D REGINALD CADon 09-22-2022 MG MAMM SCREEN 3D REGINALD CAD Patient: IGNACIO MOCK Exam Date: 09/22/2022 : 1960 Gender:F Ordering : DR FILIBERTO SAN . Admission #: [id number] Family : Order #: [id number] CLICK HERE TO VIEW EXAM RADIOLOGY REPORT [...] node cancer at age 82. LOCATION: [facility] BREAST COMPOSITION: Heterogeneously dense,which may obscure [...] Lemus MD on 09/23/2022 at 08:00 Normal [facility] Vital Signs Date Time Vital Sign Value Performing Clinician Facility 07-04-2024 09:20-0400 Body height 167.64 cm [facility] 07-04-2024 09:20-0400 Body mass index (BMI) [Ratio] 25.3 kg/m2 [facility] 07-04-2024 09:20-0400 Body weight 71.21 kg [facility] 01-13-2024 14:40-0500 Body height 170.18 cm [facility] 01-13-2024 14:40-0500 Body mass index (BMI) [Ratio] 26.9 kg/m2 [facility] 01-13-2024 14:40-0500 Body temperature 98.4 [degF] [facility] 01-13-2024 14:40-0500 Body weight 78.01 kg [facility] 01-13-2024 14:40-0500 Diastolic blood pressure 73 mm[Hg] [facility] 01-13-2024 14:40-0500 Heart rate 87 /min [facility] 01-13-2024 14:40-0500 Respiratory rate 18 /min [facility] 01-13-2024 14:40-0500 SaO2% (BldA) [Mass fraction] 97 % [facility] 01-13-2024 14:40-0500 Systolic blood pressure 125 mm[Hg] [facility] 09-16-2022 15:50-0400 Body height 170.18 cm Kusum Palencia Other [employer] [facility] [employer] Other 09-16-2022 15:50-0400 Body mass index (BMI) [Ratio] 24.9 kg/m2 Kus[facility] Slime Other [employer] Other 09-16-2022 15:50-0400 Body temperature 98.8 [degF] Kus[facility] Slime Other [employer] Other 09-16-2022 15:50-0400 Body weight 72.12 kg Kusum Palencia Other [employer] Other 09-16-2022 15:50-0400 Diastolic blood pressure 87 mm[Hg] Kusum Palencia Other [employer] Other 09-16-2022 15:50-0400 Respiratory rate 18 /min Kusum Palencia Other [employer] Other 09-16-2022 15:50-0400 SaO2% (BldA) [Mass fraction] 99 % Kusum Palencia Other [employer] Other 09-16-2022 15:50-0400 Systolic blood pressure 127 mm[Hg] Kus[facility] Palencia Other [employer] Other 07-03-2022 09:00-0400 Body height 170.18 cm Nayana Huitron Other [employer] Other 06-08-2022 17:25-0400 Body height 170.18 cm Caprice Jude Other [employer] Other 06-08-2022 17:25-0400 Body mass index (BMI) [Ratio] 24.9 kg/m2 Caprice Jude Other [employer] Other 06-08-2022 17:25-0400 Body temperature 99 [degF] Caprice Roque Other [employer] Other 06-08-2022 17:25-0400 Body weight 72.12 kg Caprice Roque Other [employer] Other 06-08-2022 17:25-0400 Diastolic blood pressure 62 mm[Hg] Caprice Roque Other [employer] Other 06-08-2022 17:25-0400 Respiratory rate 16 /min Caprice Roque Other [employer] Other 06-08-2022 17:25-0400 SaO2% (BldA) [Mass fraction] 100 % Caprice Roque Other [employer] Other 06-08-2022 17:25-0400 Systolic blood pressure 121 mm[Hg] Caprice Roque Other [employer] Other Encounters Encounter Date Encounter Type Care Provider Facility Start: 05-11-2025 End: 05-11-2025 [facility] Result Encounter Generic External Data Provider [facility] External Department Unsolicited Start: 05-11-2025 End: 05-11-2025 [facility] Result Encounter Generic External Data Provider [...] External Department Unsolicited Start: 01-05-2025 End: 01-05-2025 [facility] Start: 12-29-2024 End: 12-29-2024 [facility] Result [...] Department Unsolicited Start: 07-17-2024 End: 07-17-2024 ambulatory [facility] Start: 07-04-2024 End: 07-04-2024 ambulatory [facility] Work Phone: Start: 07-04-2024 End: 07-04-2024 Patient encounter procedure [facility] Work Phone: Start: 05-03-2024 End: 05-03-2024 ambulatory [facility] Start: 04-06-2024 End: 04-06-2024 ambulatory FILIBERTO NADERER Not Available Start: 03-13-2024 End: 03-13-2024 ambulatory FILIBERTO NADERER Not Available Start: 01-13-2024 End: 01-13-2024 Departed Referred CARE AIDE Kena Parekh Work Phone: [facility] [place] Work Phone: Start: 01-13-2024 End: 01-13-2024 ambulatory Kena Parekh [facility] Work Phone: Start: 01-13-2024 End: 01-13-2024 Patient encounter procedure [facility] [place] Work Phone: Start: 10-12-2023 End: 10-12-2023 ambulatory Nayana Huitron Other [employer] Other Start: 10-12-2023 Office outpatient visit 15 minutes Nayana Huitron [facility] Start: 03-05-2023 End: 03-05-2023 ambulatory CARIDAD JIMENEZ . Facility: Start: 12-30-2022 End: 12-30-2022 ambulatory Nayana Huitron Other [employer] Other Start: 12-30-2022 Office outpatient visit 15 minutes Nayanapuneet Huitron [facility] Start: 09-22-2022 End: 09-23-[address] FILIBERTO SAN Facility: Start: 09-16-2022 End: 09-16-2022 ambulatory Kusum Palencia Other [employer] Other Start: 09-16-2022 Office outpatient visit 15 minutes Kusum Slime [facility] Start: 08-04-2022 End: 08-04-2022 ambulatory Nayanapuneet Huitron Other [employer] Other Start: 08-04-2022 Office outpatient visit 15 minutes Nayana Calvsaundra [facility] Start: 07-03-2022 End: 07-03-2022 ambulatory Nayana Huitron Other [employer] Other Start: 07-03-2022 Office outpatient visit 15 minutes Nayana Huitron [facility] Start: 06-08-2022 (URG) Urgent Care Visit Caprice Jude [facility] Start: 06-08-2022 End: 06-08-2022 ambulatory Caprice Jude Other [employer] Other Start: 05-26-2022 End: 05-26-2022 ambulatory Nayanapuneet Huitron Other [employer] Other Start: 05-26-2022 Office outpatient ne w 30 minutes Nayanapuneet Huitron [facility] Start: 05-26-2022 End: 05-26-2022 Patient encounter procedure MD Nayana Huitron Work Phone: [facility] Procedures Date Procedure Procedure Detail Performing Clinician Start: 05-11-2025 ALL LIPID PROFILE (FASTING) Generic External Data Provider Start: 05-11-2025 [facility] ALT Generic Ex ternal Data Provider Start: 05-11-2025 [facility] AST Generic Ex ternal Data Provider Start: 02-12-2025 Radex elbow complete minimum 3 [...] Screening for malign ant neoplasm of colon [facility] Start: 09-27-2025 Screening for malign ant neoplasm of breast Mammogram [facility] Start: 06-18-2025 End: 06-18-2025 Patient encounter procedure 06/18/2025 9:45 AM EDT Office Visit [facility] [address] [place] [id number] Filiberto San MD [address] [place] [id number] [facility] Start: 09-23-2024 Screening for malign ant neoplasm of breast Mammogram [facility] Start: 07-30-2024 Influenza vaccination Influenza Vacc ine (#1) [facility] Start: 01-14-2024 Bacteria identified in Urine by Culture [facility] Start: 01-14-2024 [facility] Start: 01-13-2024 Bacteria identified in Urine by Culture [facility] Start: 1992 Screening for malign ant neoplasm of cervix [facility] Start: 1983 Screening for malign ant neoplasm of cervix Pap Smear [facility] Start: 1960 Screening for malign ant neoplasm of colon [facility] Chlamydia trachomati s DNA [Presence] in Unspecified specimen by FROILAN with probe detection [facility] Neisseria gonorrhoea e DNA [Presence] in Unspecified specimen by FROILAN with probe detection [facility] Trichomonas vaginali s DNA [Presence] in Unspecified specimen by FROILAN with probe detection [facility] Immunizations Immunization Date Immunization Notes Care Provider Fa cility 09-30-2023 influenza virus vaccine, unspecified formulation Generic Provider [facility] 06-08-2022 tetanus toxoid, reduced diphtheria toxoid, and acellular pertussis vaccine, adsorbed Caprice Roque Other [facility] Payers Date Payer Category Payer Self-pay [id number] 2023 Private Health Insurance [employer] [id number] 2023 Unknown [employer] [id number] 2023-Present [address] [place] [address] [id number] 1960 Unknown [id number] 593 1962 Unknown [id number] 593 1962 Unknown [id number]. 1259 1962 Unknown [id number]. 1259 1959 Unknown [id number] Unknown [id number] 531 Social History Date Type Detail Facility Start: 03-13-2024 End: 03-30-2024 Sex Assigned At [facility] Start: 1960 Sex Assigned At Female [facility] Start: 01-13-2024 End: 03-13-2024 Tobacco smoking status NHIS Never smoked tobacco (finding) [facility] Start: 03-13-2024 Tobacco use and exposure Smokeless tobacco non-user [facility] Start: 03-13-2024 End: 03-30-2024 History of Social function [facility] Do you belong to any clubs or organizations such as anglican groups, unions, fraternal or athletic groups, or [...] Not at all [facility] (I/We) worried jessa er (my/our) food would run out before (I/we) got money to buy more. Never true [facility] Start: 03-13-2024 Gender identity Identifies as female gender (finding) [facility] Start: 03-13-2024 Sexual orientation Heterosexual (finding) [facility] Clinical Notes 06-30-2016 to 01-05-2025 Note Date & Type Note Facility 01-05-2025 Note [facility] Note Reason for cardiology [...] stents and CABG, her paternal grandfather had [place]. Cardiology ROS: All symptoms were reviewed, they [...] in inferior an (more content not included)... [facility] 07-17-2024 Note [facility] Note Reason for cardiology [...] stents and CABG, her paternal grandfather had [place]. Cardiology ROS: All symptoms were reviewed, they [...] No reversible isc (more content not included)... [facility] 05-03-2024 Note [facility] Note Reason for cardiology consult: New patient here to establish care. Ref from Dr. Filiberto San for chest pain. stress test performed last week at [facility]. Chief Complaint: Chest pain HPI: Ignacio [...] stents and CABG, her paternal grandfather had [place]. Cardiology ROS: All symptoms were reviewed, they [...] 107 PVC Patient (more content not included)... [facility] 10-12-2023 Evaluation note Encounter Date Diagnosis Assessment Notes Sep, Right hand pain (ICD-10 - M79.641) Sep, Primary osteoarthritis of right hand (ICD-10 - M19.041) Right ring and small PIP joints injected with cortisone, patient tolerated well [employer] Other 02-01-2023 Evaluation note* Encounter Date [...] and tingle for hours after this injection. [employer] [facility] Other 10-19-2022 Evaluation note* Encounter Date [...] (midd le ear effusion) material was printed [employer] Other 09-06-2022 Evaluation note* Encounter Date [...] with questions/concern s or return in pain. [employer] Other 08-05-2022 Evaluation note* Encounter Date [...] the office with any questions or concerns. [employer] Other 07-11-2022 Evaluation note* Encounter Date [...] area, fever, or have chills. TDAP updated [employer] Other 06-28-2022 Evaluation note* Encounter Date [...] a medrol dose pack or cortisone injection [employer] Other 08-02-2016 History general Narrative - Reported* Type Description Date Medical History acid reflux Surgical History shoulder surgery right 2009 Surgical History hysterectomy 2006 Surgical History Throat Surgery 06/30/16 Surgical History wrist surgery 2020 Hospitalization History See Above [employer] Other Evaluation noteNo assessment information available [facility] Work Phone: Evaluation note* Diagnosis Onset Date Resolution Status Dysuria acute [facility] Work Phone: Evaluation note* Diagnosis Onset Date Resolution Status Pain in right hand acute Primary osteoarthritis of right hand acute [facility] Work Phone: Chief Complaint and Reason [...] July 04, 2024 End: July 04, 2024 Rayon Winder Relationship Specialty Start Date End Date Filiberto San MD [address] [place] [address] PCP - General Family Medicine 01/13/24 Filiberto San MD [address] [place] [address] PCP - Medical [employer] 11/29/12 11/28/99 Rayon Winder Relationship Specialty Start Date End Date Filiberto San MD [address] [place] [phone] PCP - General Family Medicine 01/13/24 Filiberto San MD [address] [place] [phone] PCP - Medical [employer] 11/29/12 11/28/99 Rayon Winder Relationship Specialty Start Date End Date Filiberto San MD [address] [place] [phone] PCP - General Family Medicine 01/13/24 Filiberto San MD [address] [place] [phone] PCP - Medical [employer] 11/29/12 11/28/99 Rayon Winder Relationship Specialty Start Date End Date Filiberto San MD [address] [place] [phone] PCP - General Family Medicine 01/13/24 Filiberto San MD [address] [place] [phone] PCP - Medical [employer] 11/29/12 11/28/99 Goals (unrecognized section and content) Goals may be documented in a n alternate section INFORMATION SOURCE (unrecogn ized section and content) DATE CREATED AUTHOR 03/08/2023 [facility] DATE CREATED AUTHOR AUTHOR'S ORGANIZ ATION 01/19/2024 [facility] DATE CREATED AUTHOR AUTHOR'S ORGANIZ ATION 04/08/2024 [facility] DATE CREATED AUTHOR AUTHOR'S ORGANIZ ATION 01/07/2025 [facility] FOR RECORDS PERTAINING TO PATIENTS [...] BE BASED ON THE PRIMARY CLINICAL RECORDS. [facility] provides no warranty or guarantee of the accuracy or completeness of information in this document.
== END 2025-05-18 09:22 | disposition home or self-care (01) ==
PROVIDERS: PCP Family Medicine; Visit Provider Internal Medicine Cardiovascular Disease
DX: I77.810 Thoracic aortic ectasia (principal)
CPT/HCPCS: 93306

== ENCOUNTER 2025-08-21 13:27 | Outpatient (OUT) | payer OTHER, SELFPAY ==
--- OUTSIDE RECORDS SUMMARY | 2025-08-21 13:32 | XMS_ITS | CCD ---
Author Organization [facility] Care Team Providers Care Global Marketing Manager Name Role Phone Nayana Huitron Unavailable MD [...] JASWINDER, DR FILIBERTO Tellez Primary Care Unavailable SUPERIOR, DR GIBRAN Beyer Consulting Unavailable JASWINDER, DR FILIBERTO Tellez Consulting Unavailable MAGUE Parekh Attending Provider Kena Parekh Attending Unavailable Kena Parekh Admitting Unavailable Filiberto San MD Primary Care Provider Filiberto San MD Unavailable FILIBERTO SAN Attending Unavailable DEYSI BARRON Attending Unavailable DEYSI BARRON Attending Unavailable DEYSI BARRON Attending Unavailable FILIBERTO SAN Primary Care Physician Velasquez GARNICA Attending Unavailable FILIBERTO SAN Referring Unavailable Allergies Allergy Classification Reported Allergen(s) Allergy Type Date of Onset Reaction(s) Facility (7 sources) Sulfamethoxazole / Trimethoprim Drug Allergy Unknown [employer] Other (1 source) Sulfamethoxazole / Trimethoprim Drug Allergy 11-03-20 19 [facility] Repository (4 sources) Sulfamethoxazole; Translations: [sulfamethoxazole] Drug Allergy 01-13-20 [facility] (4 sources) Trimethoprim; Translations: [trimethoprim] Drug Allergy 01-13-20 [facility] (10 sources) Sulfonamides (Antibiotic) Propensity to adverse reactions 03-13-20 [facility] (1 source) Sulfamethoxazole / Trimethoprim; Translations: [SULFAMETHOXAZOLE-T RIMETHOPRIM] Drug Allergy 09-29-20 [facility] Repository (1 source) Sulfonamides (Antibiotic); Translations: [SULFA (SULFONAMIDE ANTIBIOTICS)] Propensity to adverse reactions to drug (disorder) 01-13-20 [facility] Repository (2 sources) Sulfonamide; Translations: [sulfa drugs] Drug allergy Weal (disorder) [facility] Pamela Medications Current Medications Medication Drug Class(es) Dates Sig (Normalized) Sig (Original) acetaminophen 325 mg oral tablet (3 sources) take 1 tablet by mouth every four hours Tylenol 325 MG 1 tablet as needed Orally every 4 hrs Active atorvastatin 20 mg oral tablet (1 source) HMG-CoA Reductase Inhibitor Start: 07-31-2025 take 1 tablet by mouth once daily atorvastatin 20 mg Tab 20 mg = 1 tab(s), Oral, Daily, Refills(s) 0 Start Date: 07/31/25 Status: Ordered Repeat number: 1 cefdinir 300 mg oral capsule (1 source) [...] omeprazole 40 mg delayed release oral capsule (20 sources) Proton Pump Inhibitor Start: 07-04-2025 take 1 capsule by mouth once daily omeprazole 40 mg Cap-DR 40 mg = 1 cap(s), Oral, Daily, Refills(s) 0 Start Date: 07/04/25 Status: Ordered Repeat number: 1 Start: 06-12-2025 omeprazole (Pr iLOSEC) [address] capsule Indications: Gastroesophageal reflux disease without esophagitis TAKE 1 CAPSULE DAILY 90 capsule 3 06/12/2025 Active Start: 09-11-2024 omeprazole (Pr iLOSEC) [address] capsule Indications: Gastroesophageal reflux [...] a day for 5 day(s) Aug, Active Vitamin D3 1000 intl units (25 mcg) Tab (1 source) Start: 07-04-2025 take 1 tablet by mouth once daily Vitamin D3 1000 intl units (25 mcg) Tab 25 mcg = 1 tab(s), Oral, Daily, Refills(s) 0 Start Date: 07/04/25 Status: Ordered Repeat number: 1 Completed/Discontinued Medications Medication Drug Class(es) Dates Sig [...] Translations: [Thoracic aortic ectasia] Onset: 01-05-2025 Chronic Cardiac dysrhythmias (1 source) Ventricular tachycardia Onset: 05-03-2024 07-04-2025 Chronic Disorders of lipid metabolism (15 sources) Dyslipidemia; Translations: [Hyperlipidemia, unspecified] Onset: 03-13-2024 03-13-2024 Chronic Esophageal disorders (15 sources) Gastro-esophageal reflux disease without esophagitis; Translations: [Gastroesophageal reflux disease] Onset: 03-08-2023 01-13-2024 Chronic Genitourinary symptoms and ill-defined conditions (6 sources) Dysuria; Translations: [Dysuria] Onset: 01-13-2024 01-13-2024 Episodic Heart valve disorders (4 sources) Nonrheumatic aortic (valve) insufficiency; Translations: [Aortic valve disorders] Onset: 07-17-2024 06-28-2025 Chronic Nutritional deficiencies (11 sources) Vitamin D deficiency; Translations: [Vitamin D deficiency, unspecified] Onset: 03-13-2024 03-13-2024 Chronic Osteoarthritis (20 sources) Osteoarthritis of joint of right hand; Translations: [Primary osteoarthritis, right hand] Onset: 05-26-2022 Resolved: 07-03-2022 Chronic Other acquired deformities (10 sources) Equinus contracture of the ankle; Translations: [Contracture, left ankle] Onset: 03-13-2024 03-13-2024 Chronic Other aftercare (1 source) Other nursing home (current) drug therapy; Translations: [[employer] CURRENT DRUG THERAPY] Onset: 03-08-2023 Episodic Other and unspecified benign neoplasm (6 sources) Lipoma of right lower limb; Translations: [Benign lipomatous neoplasm of skin and subcutaneous tissue of right leg] Onset: 06-28-2025 06-28-2025 Episodic Other and unspecified benign neoplasm (1 source) Benign lipomatous neoplasm of skin and subcutaneous tissue of right leg; Translations: [Benign lipomatous neoplasm of skin and/or subcutaneous tissue of right lower limb] Onset: 07-31-2025 Episodic Other and unspecified benign neoplasm (1 source) Lipoma of thigh 07-31-2025 Episodic Other connective tissue disease (6 sources) Pain in right hand; Translations: [Pain in limb] Onset: 05-26-2022 Resolved: 07-03-2022 Episodic Other connective tissue disease (1 source) Hand pain; Translations: [Pain in right hand] 07-03-2024 Episodic Other nutritional; endocrine; and metabolic disorders (1 source) Overweight 07-31-2025 Episodic Other nutritional; endocrine; and metabolic disorders (1 source) Overweight in adulthood with body mass index of 25 or more but less than 30 07-31-2025 Episodic Other skin disorders (4 sources) Actinic keratosis; Translations: [Actinic keratosis] Onset: 06-28-2025 06-28-2025 Episodic Otitis media and related conditions (1 source) Unspecified nonsuppurative otitis media, right ear Episodic Residual codes; unclassified (1 source) Acquired absence of both cervix and uterus; Translations: [ACQUIRED ABSENCE BOTH CERVIX AND UTERUS] Onset: 03-08-2023 Episodic Unclassified (1 source) Other ventricular tachycardia; Translations: [Other ventricular tachycardia] Onset: 05-03-2024 Unclassified (1 source) Mild aortic valve regurgitation Onset: 07-17-2024 07-04-2025 Past or Other Problems Problem Classification Problem Date Documented Date Episodic/Chronic Cardiac dysrhythmias (12 sources) Palpitations; Translations: [Palpitations] Onset: 04-06-2024 04-06-2024 Episodic Conditions associated with dizziness or vertigo (2 sources) Dizziness and giddiness; Translations: [Dizziness and giddiness] Onset: 01-05-2025 Episodic Fracture of upper limb (10 sources) Closed Colles' fracture; Translations: [Colles' fracture of right radius, initial encounter for closed fracture] Onset: 03-13-2024 Resolved: 03-13-2024 03-13-2024 Episodic Nonspecific chest pain (14 sources) Precordial pain; Translations: [Precordial pain] Onset: 04-06-2024 04-06-2024 Episodic Open wounds of extremities (1 source) Laceration without foreign body, unspecified lower leg, initial encounter Onset: 06-08-2022 Resolved: 06-08-2022 Episodic Other connective tissue disease (10 sources) Pain of left heel; Translations: [Pain [...] HEMATPOETC] Onset: 09-29-2022 Episodic Residual codes; unclassified (10 sources) Persistent insomnia; Translations: [Insomnia, unspecified] Onset: 03-13-2024 03-13-2024 Episodic Spondylosis; intervertebral disc disorders; other back problems (10 sources) Acute thoracic back pain; Translations: [Pain in thoracic spine] Onset: 03-13-2024 Resolved: 06-28-2025 03-13-2024 Episodic Unclassified (1 source) Other ventricular tachycardia; Translations: [Other ventricular tachycardia] Onset: 07-17-2024 Results Test Name Value Interpretation Reference Range Facility Ambulatory Visit Summaryon 0 07-31-2025 Ambulatory Visit Summary Ambulatory Visit Summary IGNACOI MOCK :1960 Visit Date:07/31/2025 Ambulatory Visit Instructions Your Care Team Attending Physician - DANIKA RODGERS, Velasquez Mitchell Primary Care Physician - JASWINDER RODGERS, FILIBERTO Referring Physician - FILIBERTO SAN MD This Is Your Medications List Contact prescribing physician if questions or concerns atorvastatin (atorvastatin 20 mg Tab) cholecalciferol (Vitamin D3 1000 intl units (25 mcg) Tab) omeprazole (omeprazole 40 mg Cap-DR) Procedures Performed Colonoscopy (03/05/2023), Bone spur of right shoulder, Closed fracture of right wrist, Dilation of esophagus, Dilation of esophagus, Dilation of esophagus, Dilation of esophagus, Dilation of esophagus, Excision of lipoma, Excision of lipoma, Heller operation, esophagomyotomy, VH - Vaginal hysterectomy. Discharge Vitals Heart Rate (Peripheral) 72 Respiratory Rate 16 Blood Pressure 116/74 Height 170 cm Height 67 in Weight 72.3 kg Weight 159.394 lb BMI 25.02 Medications What How Much When Instructions Unchanged atorvastatin (atorvastatin 20 mg Tab) 1 Tablets By Mouth Every day Contact prescribing physician if questions or concerns Unchanged cholecalciferol (Vitamin D3 1000 intl units (25 mcg) Tab) 1 Tablets By Mouth Every day Contact prescribing physician if questions or concerns Unchanged omeprazole (omeprazole 40 mg Cap-DR) 1 Capsules By Mouth Every day Contact prescribing physician if questions or concerns Allergies sulfa drugs (Hives) Problems Ongoing - Any problem that you are currently receiving treatment for. BMI 25.0-25.9,adult Dyslipidemia Gastroesophageal reflux disease Mild aortic valve regurgitation Overweight Ventricular tachycardia Vitamin D deficiency Patient Survey You may receive a survey via text or e-mail asking about your office visit. Please share your experience with us by completing your survey. We appreciate your feedback and thank you for choosing us for your care. Patient Portal You may access all of your results and other medical record information on our secure patient portal. If you are not signed up for this yet, please contact [employer] at [phone] to get signed up today. Language Information Language assistance services are available as needed. Normal [facility] Office Visiton 07-05-2025 Follow-up visit [id number] Ignacio Mock 1960 F Date Provider Department Center 07/05/2025 [id number] BARRON [facility] Family History Problem Relation Age of Onset Cancer Mother Heart attack Father Heart failure Father Heart failure Maternal Grandfather Family Status - Relation Status Age at Mother Father Maternal Grandfather Level of Service:85405 [place] OFFICE/OUTPATIENT ESTABLISHED LOW MDM 20 MIN Reason for Visit and Comments: 6 month follow up [Other] Echo [Other] Hyperlipidemia [182] Hypertension [444895] Palpitations [489677] Valve Disorder [3372] Normal [facility] 36on 05-31-2025 36 MD Purnima Healy MA Inform patient that she aortic regurgitation is mild and stable Spoke to patient to advise her of Dr. Barron's findings. Patient verbalized understand. Normal [facility] CA ECHO DOPPLER COMPLETEon 0 05-18-2025 [facility] [address] [place] [address] Cardiology Report Signed Patient: IGNACIO MOCK MR#: [id number] : 1960 Acct:[id number] Age/Sex: 65 / F ADM Date: 05/18/25 Loc: CARD Attending Dr: Deysi Barron M.D. Ordering Physician: Deysi Barron M.D. Date of Service: 05/18/25 Procedure(s): CA echo doppler complete Accession Number(s): [id number] cc: Deysi Barron M.D.; Filiberto San M.D. Patient Name: IGNACIO MOCK MR#: [id number] : 1960 Exam Date: 05/18/2025 Ordering Doctor: DR. DEYSI BARRON M.D. ECHOCARDIOGRAM REPORT PROCEDURE: CA ECHO DOPPLER COMPLETE INDICATIONS: Aortic root dilatation COMPARISON: None. DESCRIPTION: COMPLETE ECHOCARDIOGRAM Real-time transthoracic echocardiography with 2D, M-mode, spectral and color flow Doppler performed. QUALITY: Technical quality was good. LEFT VENTRICLE: Normal chamber size. Proximal septal hypertrophy (sigmoid septum). Normal systolic function. Estimated left ventricular ejection fraction is 55-60%. LV EF: Normal left ventricular ejection fraction, (>55%). DIASTOLIC: Diastolic function is indeterminate. ATRIAL SEPTUM: Visually appears intact. LEFT ATRIUM: Normal chamber size. RIGHT ATRIUM: Normal chamber size. RIGHT VENTRICLE: Normal chamber size. Normal right ventricular systolic function. TRICUSPID VALVE: Normal mobility and thickness. No stenosis with trivial regurgitation. Doppler studies reveal mildly (35-45) elevated right sided pressures. RVSP 37 mmHg MITRAL VALVE: Normal mobility and thickness. No evidence of mitral valve stenosis. There is no mitral annular calcification. AORTIC VALVE: Normal trileaflet appearance. No visible sclerosis. Normal leaflet mobility. No evidence of aortic valve stenosis. Mild aortic regurgitation. AORTIC ROOT: Normal diameter and appearance, measuring 3.6 cm. Ascending aorta is normal in size, measuring 3.1 cm. PULMONIC VALVE: Normal thickness and mobility. No stenosis. Mild regurgitation. PERICARDIUM: No evidence of pericardial effusion. IVC: Collapses with inspiration. PLEURA: CONCLUSION: 1. Normal left ventricular size and systolic function. Estimated LVEF is 55 to 60%. 2. Normal right ventricular size and systolic function. 3. Mild aortic valve regurgitation. 4. Mildly elevated right-sided pressures. 5. Normal-sized aortic root and ascending aorta. Adult Echocardiography Procedure Report Left Ventricle LVEDD (3.7 - 5.6 cm): 4.39 cm LVESD (2.2 - 4.0 cm): 2.41 cm LVIVS thickness (0.6 - 1.2 cm): 1.22 cm LVPW thickness (0.5 - 1.0 cm): 0.93 cm e': 0.05 m/s E - e': 8.82 LVOT Max Gradient: 2.60 mm[Hg] LVOT Area (cm2): 0.81 m/s Peak Velocity (LVOT): 0.81 m/s Mean Velocity (LVOT): 0.46 m/s LVOT Diameter 2.12 cm Left Atrium LA Volume Index (2D A2C): 33.85 ml/m2 Left Atrium Systolic Dimension: 3.40 cm Mitral Valve MV E to A Ratio: 0.85 Mitral Valve A-Wave Peak Velocity: 0.55 m/s Mitral Valve E-Wave Peak Velocity: 0.46 m/s Right Ventricle Aorta AO Root Diam: 3.58 cm Aortic Valve AoV Area (Peak Mk): 3.13 cm2, 3.13 cm2 AoV Area (VTI): 3.08 cm2, 3.08 cm2 Peak Velocity(Antegrade Flow): 0.91 m/s Peak Gradient(Antegrade Flow): 3.32 mm[Hg] Mean Velocity(Antegrade Flow): 0.59 m/s Mean Gradient(Antegrade Flow): 1.61 mm[Hg] Velocity Time Integral: 20.79 cm Tricuspid Valve Peak Velocity (Regurgitant Flow): 2.05 m/s, 2.93 m/s Pulmonic Valve Peak Gradient: 2.07 mm[Hg], 2.02 mm[Hg] Right Atrium Right Atrium Systolic Pressure: 43.46 ml, 43.46 ml Dictated by: Christian Branham M.D. on 05/18/2025 at 18:35 Approved by: Christian Branham M.D. on 05/18/2025 at 18:39 Dictated By: CHRISTIAN BRANHAM Signed By: 06 (more content not included)... [facility] Radiology, Radiologist, MD - 05/18/2025 [place] [address] Cardiology Report Signed Patient: IGNACIO MOCK MR#: [id number] : 1960 Acct:[id number] Age/Sex: 65 / F ADM Date: 05/18/25 Loc: CARD Attending Dr: Deysi Barron M.D. Ordering Physician: Deysi Barron M.D. Date of Service: 05/18/25 Procedure(s): CA echo doppler complete Accession Number(s): [id number] cc: Deysi Barron M.D.; Filiberto San M.D. Patient Name: IGNACIO MOCK MR#: [id number] : 1960 Exam Date: 05/18/2025 Ordering Doctor: DR. DEYSI BARRON M.D. ECHOCARDIOGRAM REPORT PROCEDURE: CA ECHO DOPPLER COMPLETE INDICATIONS: Aortic root dilatation COMPARISON: None. DESCRIPTION: COMPLETE ECHOCARDIOGRAM Real-time transthoracic echocardiography with 2D, M-mode, spectral and color flow Doppler performed. QUALITY: Technical quality was good. LEFT VENTRICLE: Normal chamber size. Proximal septal hypertrophy (sigmoid septum). Normal systolic function. Estimated left ventricular ejection fraction is 55-60%. LV EF: Normal left ventricular ejection fraction, (>55%). DIASTOLIC: Diastolic function is indeterminate. ATRIAL SEPTUM: Visually appears intact. LEFT ATRIUM: Normal chamber size. RIGHT ATRIUM: Normal chamber size. RIGHT VENTRICLE: Normal chamber size. Normal right ventricular systolic function. TRICUSPID VALVE: Normal mobility and thickness. No stenosis with trivial regurgitation. Doppler studies reveal mildly (35-45) elevated right sided pressures. RVSP 37 mmHg MITRAL VALVE: Normal mobility and thickness. No evidence of mitral valve stenosis. There is no mitral annular calcification. AORTIC VALVE: Normal trileaflet appearance. No visible sclerosis. Normal leaflet mobility. No evidence of aortic valve stenosis. Mild aortic regurgitation. AORTIC ROOT: Normal diameter and appearance, measuring 3.6 cm. Ascending aorta is normal in size, measuring 3.1 cm. PULMONIC VALVE: Normal thickness and mobility. No stenosis. Mild regurgitation. PERICARDIUM: No evidence of pericardial effusion. IVC: Collapses with inspiration. PLEURA: CONCLUSION: 1. Normal left ventricular size and systolic function. Estimated LVEF is 55 to 60%. 2. Normal right ventricular size and systolic function. 3. Mild aortic valve regurgitation. 4. Mildly elevated right-sided pressures. 5. Normal-sized aortic root and ascending aorta. Adult Echocardiography Procedure Report Left Ventricle LVEDD (3.7 - 5.6 cm): 4.39 cm LVESD (2.2 - 4.0 cm): 2.41 cm LVIVS thickness (0.6 - 1.2 cm): 1.22 cm LVPW thickness (0.5 - 1.0 cm): 0.93 cm e': 0.05 m/s E - e': 8.82 LVOT Max Gradient: 2.60 mm[Hg] LVOT Area (cm2): 0.81 m/s Peak Velocity (LVOT): 0.81 m/s Mean Velocity (LVOT): 0.46 m/s LVOT Diameter 2.12 cm Left Atrium LA Volume Index (2D A2C): 33.85 ml/m2 Left Atrium Systolic Dimension: 3.40 cm Mitral Valve MV E to A Ratio: 0.85 Mitral Valve A-Wave Peak Velocity: 0.55 m/s Mitral Valve E-Wave Peak Velocity: 0.46 m/s Right Ventricle Aorta AO Root Diam: 3.58 cm Aortic Valve AoV Area (Peak Mk): 3.13 cm2, 3.13 cm2 AoV Area (VTI): 3.08 cm2, 3.08 cm2 Peak Velocity(Antegrade Flow): 0.91 m/s Peak Gradient(Antegrade Flow): 3.32 mm[Hg] Mean Velocity(Antegrade Flow): 0.59 m/s Mean Gradient(Antegrade Flow): 1.61 mm[Hg] Velocity Time Integral: 20.79 cm Tricuspid Valve Peak Velocity (Regurgitant Flow): 2.05 m/s, 2.93 m/s Pulmonic Valve Peak Gradient: 2.07 mm[Hg], 2.02 mm[Hg] Right Atrium Right Atrium Systolic Pressure: 43.46 ml, 43.46 ml Dictated by: Christian Branham M.D. on 05/18/2025 at 18:35 Approved by: Christian Branham M.D. on 05/18/2025 at 18:39 Dictated By: CHRISTIAN BRANHAM Signed By: 05/18/25 588 DD/ 38 TD/TT: Ruby Developer: [facility] Radiology Study observation (narrative) [facility] CA ECHO DOPPLER COMPLETEOrde red By: Radiologist Radiology on 05-18-2025 [facility] [employer] Work Phone: ALL LIPID PROFILE (FASTING)o n 05-11-2025 CHOL HDL RATIO 2.2 [facility] hcare Comment on above: 3.3 - 4.4 LOW RISK 4.4 - 7.1 AVERAGE RISK 7.1 - 11.0 MODERATE RISK >11.0 HIGH RISK Cholesterol [Mass/Vol] 154 mg/dL NINF - 200 mg/dL [facility] Cholesterol in HDL [Mass/Vol] 69 mg/dL High 40 - 60 mg/dL [facility] Comment on above: > or =60 mg/dl - LOW CARDIOVASCULAR RISK <40 mg/dl - HIGH CARDIOVASCULAR RISK Interpretation and review of laboratory results Abnormal [facility] Magnesium [Mass/Vol] 73 mg/dL [facility] Comment on above: <100 mg/dl OPTIMAL 100-129 mg/dl NEAR OR ABOVE OPTIMAL 130-159 mg/dl BORDERLINE HIGH 160-189 mg/dl HIGH >190 mg/dl VERY HIGH Magnesium [Mass/Vol] 12 mg/dL [facility] Triglyceride [Mass/Vol] 60 mg/dL NINF - 150 mg/dL [facility] On[facility] 05-11-2025 ALT [Catalytic activity/Vol] 22 U/L 14 - 59 U/L [facility] Shandra 05-11-2025 AST [Catalytic activity/Vol] 18 U/L 15 - 37 U/L [facility] No Panel Informationon 05-11 [facility] [employer] XR Elbow - left [address] [place] [address] XRay Report Signed Patient: IGNACIO MOCK MR#: [id number] : 1960 Acct:[id number] Age/Sex: 65 / F ADM Date: 02/12/25 Loc: EC Attending Dr: Odin Liang M.D. Ordering Physician: Odin Liang M.D. Date of Service: 02/12/25 Procedure(s): XR elbow LT min 3V Accession Number(s): [id number] cc: Odin Liang M.D.; Filiberto San M.D. The [place] [id number] Patient Name: IGNACIO MOCK MRN: [facility]:[id number] date: 1960 Sex: F Assigned Patient Location: Current Patient Location: Accession/Order Number: [id number] Exam Date: 02/12/2025 10:11 Report Date: 02/12/2025 [...] James Jr., D.O.02/12/2025 10:12 AM Dictation Location: [place] [address] Electronically authenticated by: [id number] Y Date: 02/12/2025 10:12 Dictated By: Ankit James M.D. Signed By: 02/12/25 1015 DD/ 1012 TD/TT: Ruby Developer: [facility] Radiology, Radiologist, - 02/12/2025 [place] [address] XRay Report Signed Patient: IGNACIO MOCK MR#: [id number] : 1960 Acct:[id number] Age/Sex: 65 / F ADM Date: 02/12/25 Loc: Attending Dr: Odin Liang M.D. Ordering Physician: Odin Liang M.D. Date of Service: 02/12/25 Procedure(s): XR elbow LT min 3V Accession Number(s): [id number] cc: Odin Liang M.D.; Filiberto San M.D. The [address] [address] Patient Name: IGNACIO MOCK MRN: [facility]:[id number] date: 1960 Sex: F Assigned Patient Location: Current Patient Location: Accession/Order Number: [id number] Exam Date: 02/12/2025 10:11 Report Date: 02/12/2025 [...] NECK. Impression dictated by: Ankit James Jr., D.OJarred02/12/2025 10:12 AM Dictation Location: [place] [address] Electronically authenticated by: [id number] Y Date: 02/12/2025 10:12 Dictated By: Ankit James M.D. Signed By: 02/12/25 1015 DD/ 1012 TD/TT: Ruby Developer: [facility] [email or web address] Radiology Study observation (narrative) [facility] XR Elbow - left 3 ViewsOrder ed By: Radiologist Radiology on 02-12-2025 [facility] [employer] Work Phone: XR Elbow - left [address] [place] [address] XRay Report Signed Patient: IGNACIO MOCK MR#: [id number] : 1960 Acct:[id number] Age/Sex: 65 / F ADM Date: 01/15/25 Loc: Attending Dr: Odin Liang M.D. Ordering Physician: Odin Liang M.D. Date of Service: 01/15/25 Procedure(s): XR elbow LT min 3V Accession Number(s): [id number] cc: Odin Liang M.D.; Filiberto San M.D. The [place] [id number] Patient Name: IGNACIO MOCK MRN: [facility]:[id number] date: 1960 Sex: F Assigned Patient Location: Current Patient Location: Accession/Order Number: [id number] Exam Date: 2025 08:43 Report Date: 2025 [...] Signed By: 01/15/25 1633 DD/ 1630 TD/TT: Ruby Developer: [facility] Radiology, Radiologist, MD - [address] [place] [address] XRay Report Signed Patient: IGNACIO MOCK MR#: [id number] : 1960 Acct:[id number] Age/Sex: 65 / F ADM Date: 01/15/25 Loc: EC Attending Dr: Odin Liang M.D. Ordering Physician: Odin Liang M.D. Date of Service: 01/15/25 Procedure(s): XR elbow LT min 3V Accession Number(s): [id number] cc: Odin Liang M.D.; Filiberto San M.D. The [place] [address] Patient Name: IGNACIO MOCK MRN: [facility]:[id number] date: 1960 Sex: F Assigned Patient Location: Current Patient Location: Accession/Order Number: [id number] Exam Date: 2025 08:43 Report Date: 2025 [...] Signed By: 01/15/25 1633 DD/ 1630 TD/TT: Ruby Developer: [facility] [email or web address] Radiology Study observation (narrative) [facility] XR Elbow - left 3 ViewsOrder ed By: Radiologist Radiology on 2025 [facility] [employer] Work Phone: Office Visiton 01-05-2025 Follow-up visit [id number] Ignacio Mock 1960 F Date Provider Department Center 01/05/2025 [id number] BARRON [facility] Family History Problem Relation Age of Onset Heart attack Father Heart failure Father Heart failure Maternal Grandfather Family Status - Relation Status Age at Father Maternal Grandfather Level of Service:91426 [place] OFFICE/OUTPATIENT NEW MODERATE MDM 45 MINUTES Reason for Visit and Comments: Chest Pain [802180] - Says chest pain is occurring much less often that it was before. Valve Disorder [3372] Hyperlipidemia [182] - Had lipid in Sep 2024, and again last week. Shortness of Breath [] - Only with stairs Normal [facility] ALL LIPID PROFILE (FASTING)o n 12-29-2024 CHOL HDL RATIO 2.5 [facility] Comment on above: 3.3 - 4.4 LOW RISK 4.4 - 7.1 AVERAGE RISK 7.1 - 11.0 MODERATE RISK >11.0 HIGH RISK Cholesterol [Mass/Vol] 146 mg/dL NINF - 200 mg/dL [facility] Cholesterol in HDL [Mass/Vol] 58 mg/dL 40 - 60 mg/dL [facility] Comment on above: > or =60 mg/dl - LOW CARDIOVASCULAR RISK <40 mg/dl - HIGH CARDIOVASCULAR RISK Magnesium [Mass/Vol] 76.8 mg/dL [facility] Comment on above: <100 mg/dl OPTIMAL 100-129 mg/dl NEAR OR ABOVE OPTIMAL 130-159 mg/dl BORDERLINE HIGH 160-189 mg/dl HIGH >190 mg/dl VERY HIGH Magnesium [Mass/Vol] 11.2 mg/dL [facility] Triglyceride [Mass/Vol] 56 mg/dL NINF - 150 mg/dL [facility] Onur 12-29-2024 ALT [Catalytic activity/Vol] 21 U/L 14 - 59 U/L [facility] Shandra 12-29-2024 AST [Catalytic activity/Vol] 16 U/L 15 - 37 U/L [facility] No Panel Informationon 12-29 [facility]24 36 Regarding lab result [...] agreeable to start atorvastatin. RX sent to [facility]. She will have labs prior to her follow up with Dr. Barron in Dec 2024. Lab orders printed, faxed to [facility], and also sent to patient in the mail. She verbalized understanding. Normal [facility] ALL LIPID PROFILE (FASTING)o n 10-20-2024 CHOL HDL RATIO 3.1 [facility] Comment on above: 3.3 - 4.4 LOW RISK 4.4 - 7.1 AVERAGE RISK 7.1 - 11.0 MODERATE RISK >11.0 HIGH RISK Cholesterol [Mass/Vol] 213 mg/dL High NINF - 200 mg/dL [facility] Cholesterol in HDL [Mass/Vol] 69 mg/dL High 40 - 60 mg/dL [facility] Comment on above: > or =60 mg/dl - LOW CARDIOVASCULAR RISK <40 mg/dl - HIGH CARDIOVASCULAR RISK Interpretation and review of laboratory results Abnormal [facility] Magnesium [Mass/Vol] 135 mg/dL [facility] Comment on above: <100 mg/dl OPTIMAL 100-129 mg/dl NEAR OR ABOVE OPTIMAL 130-159 mg/dl BORDERLINE HIGH 160-189 mg/dl HIGH >190 mg/dl VERY HIGH Magnesium [Mass/Vol] 9 mg/dL [facility] Triglyceride [Mass/Vol] 45 mg/dL NINF - 150 mg/dL [facility] 08-02-2024 36 Regarding lab result s for 07/17/24 From: Deysi Barron MD Sent: 08/01/2024 4:58 PM EDT To: Carisa Cash MA Subject: RE: Scan Those labs are normal. But we need to check magnesium level please Pt was informed and will stop down today to have the magnesium level drawn. Order walked down to front office specialist. Normal [facility] ALL MAGNESIUMon 08-02-2024 Magnesium [Mass/Vol] 2.1 mg/dL 1.8 - 2 .4 mg/dL [facility] 07-17-2024 Follow-up visit [id number] Ignacio Mock 1960 F Date Provider Department Center 07/17/2024 [id number] BARRON Family History Problem Relation Age of Onset Heart attack Father Heart failure Father Heart failure Maternal Grandfather Family Status - Relation Status Age at Father Maternal Grandfather Level of Service:76323 [place] OFFICE/OUTPATIENT ESTABLISHED MOD MDM 30 MIN Reason for Visit and Comments: Shortness of Breath [845027] Palpitations [895068] Hyperlipidemia [182] Chest Pain [039984] Normal [facility] Chlamydia/GC/Trich NAAon Chlamydia Trachomotis, FROILAN Negative Normal Negative [facility] Comment on above: Performed By: #### G CCHLAMTRI #### [facility] , #### CUU #### [facility] [address] [place] [address] Neisseria Gonorrhoeae, FROILAN Negative Normal Negative [facility] Comment on above: Performed By: #### G CCHLAMTRI #### [facility] , #### CUU #### [facility] [address] [place] [address] Trichomonas FROILAN Negative Normal Negative [facility] Comment on above: Result Comment: Perf ormed at: =G - [facility] [address] [id number] Laborer/Key Man: Meena Mccabe MD, Phone: [phone] PERFORMED BY: [place] [address] PATHOLOGIST HARVEST CONTRACTOR SANTHOSH STAFFORD M.D. Performed By: #### G CCHLAMTRI #### [facility] , #### CUU #### [address] Urine Cultureon 01-13-2024 Bacteria identified Cx Nom (U) ORGANISM: Escherichia coli (O:ESCCOL) [place]den Count 50,000 Aerobic JUVENTINO Charge (NMIC56) ---- [...] RESISTANT TO ALL B-LACTAM DRUGS. PERFORMED BY: [place] [address] PATHOLOGIST HARVEST CONTRACTOR SANTHOSH STAFFORD M.D. [facility] Comment on above: Performed By: #### G CCHLAMTRI #### [facility] , #### CUU #### [address] MG MAMM SCREEN 3D REGINALD CADon 09-22-2022 MG MAMM SCREEN 3D REGINALD CAD Patient: IGNACIO MOCK Exam Date: 09/22/2022 : 1960 Gender:F Ordering : DR FILIBERTO SAN . Admission #: [id number] Family : Order #: [id number] CLICK HERE TO VIEW EXAM RADIOLOGY REPORT [...] node cancer at age 82. LOCATION: The [facility] BREAST COMPOSITION: Heterogeneously dense,which may obscure [...] Lemus MD on 09/23/2022 at 08:00 Normal [facility] Vital Signs Date Time Vital Sign Value Performing Clinician Facility 06-28-2025 14:13-0400 Body height 170.2 cm Filiberto San MD Work Phone: [facility] 06-28-2025 14:13-0400 Body mass index (BMI) [Ratio] 24.59 kg/m2 Filiberto San MD Work Phone: [facility] 06-28-2025 14:13-0400 Body temperature 97.81 [degF] Filiberto San MD Work Phone: [facility] 06-28-2025 14:13-0400 Body weight 71.22 kg Filiberto San MD Work Phone: [facility] 06-28-2025 14:13-0400 Diastolic blood pressure 64 mm[Hg] Filiberto San MD Work Phone: [facility] 06-28-2025 14:13-0400 Heart rate 64 /min Filiberto San MD Work Phone: [facility] 06-28-2025 14:13-0400 Respiratory rate 20 /min Filiberto San MD Work Phone: [facility] 06-28-2025 14:13-0400 SaO2% (BldA) [Mass fraction] 97 % Filiberto San MD Work Phone: [facility] 06-28-2025 14:13-0400 Systolic blood pressure 112 mm[Hg] Filiberto San MD Work Phone: [facility] 07-04-2024 09:20-0400 Body height 167.64 cm [facility] 07-04-2024 09:20-0400 Body mass index (BMI) [Ratio] 25.3 kg/m2 [facility] 07-04-2024 09:20-0400 Body weight 71.21 kg [facility] 01-13-2024 14:40-0500 Body height 170.18 cm [facility] 01-13-2024 14:40-0500 Body mass index (BMI) [Ratio] 26.9 kg/m2 [facility] 01-13-2024 14:40-0500 Body temperature 98.4 [degF] [facility] 01-13-2024 14:40-0500 Body weight 78.01 kg [facility] 01-13-2024 14:40-0500 Diastolic blood pressure 73 mm[Hg] [facility] 01-13-2024 14:40-0500 Heart rate 87 /min [facility] 01-13-2024 14:40-0500 Respiratory rate 18 /min [facility] 01-13-2024 14:40-0500 SaO2% (BldA) [Mass fraction] 97 % [facility] 01-13-2024 14:40-0500 Systolic blood pressure 125 mm[Hg] [facility] 09-16-2022 15:50-0400 Body height 170.18 cm Kusum Rolandmond Other [employer] Other 09-16-2022 15:50-0400 Body mass index (BMI) [Ratio] 24.9 kg/m2 Kusum Rolandmond Other [employer] Other 09-16-2022 15:50-0400 Body temperature 98.8 [degF] Kusum Rolandmond Other [employer] Other 09-16-2022 15:50-0400 Body weight 72.12 kg Kusum Rolandmond Other [employer] Other 09-16-2022 15:50-0400 Diastolic blood pressure 87 mm[Hg] Kusum Rolandmond Other [employer] Other 09-16-2022 15:50-0400 Respiratory rate 18 /min Kusum Rolandmond Other [employer] Other 09-16-2022 15:50-0400 SaO2% (BldA) [Mass fraction] 99 % Kusum Palencia Other [employer] Other 09-16-2022 15:50-0400 Systolic blood pressure 127 mm[Hg] Kusum Palencia Other [employer] Other 07-03-2022 09:00-0400 Body height 170.18 cm Nayanapuneet Huitron Other [employer] Other 06-08-2022 17:25-0400 Body height 170.18 cm Caprice Roque Other [employer] Other 06-08-2022 17:25-0400 Body mass index (BMI) [Ratio] 24.9 kg/m2 Caprice Roque Other [employer] Other 06-08-2022 17:25-0400 Body temperature 99 [degF] Caprice Roque Other [employer] Other 06-08-2022 17:25-0400 Body weight 72.12 kg Caprice Roque Other [employer] Other 06-08-2022 17:25-0400 Diastolic blood pressure 62 mm[Hg] Caprice Roque Other [employer] Other 06-08-2022 17:25-0400 Respiratory rate 16 /min Caprice Roque Other [employer] Other 06-08-2022 17:25-0400 SaO2% (BldA) [Mass fraction] 100 % Caprice Roque Other [employer] Other 06-08-2022 17:25-0400 Systolic blood pressure 121 mm[Hg] Caprice Roque Other [employer] Other Encounters Encounter Date Encounter Type Care Provider Facility Start: 07-31-2025 End: 07-31-2025 ambulatory Velasquez GARNICA Facility:[facility] Start: 07-31-2025 End: 07-31-2025 Patient encounter procedure Velasquez GARNICA [facility] General Surgery Painter Start: 07-05-2025 End: 07-05-2025 ambulatory [facility] Start: 07-02-2025 ambulatory Velasquez GARNICA Facility:[facility] Start: 06-28-2025 End: 06-28-2025 Bamboo flowsheet Filiberto San MD Work Phone: [facility] Start: 06-28-2025 End: 06-28-2025 Bamboo flowsheet Filiberto San MD Work Phone: [facility] Start: 06-28-2025 End: 06-28-2025 Office outpatient visit 15 minutes Filiberto San MD Work Phone: [facility] Comment on above: Actinic keratosis (P rimary Dx); Lipoma of right lower extremity Start: 06-28-2025 End: 06-28-2025 ambulatory FILIBERTO SAN Not Available Start: 05-18-2025 End: 05-18-2025 Clinisync Result Encounter Generic External Data Provider [facility] External Department Unsolicited Start: 05-18-2025 End: 05-18-2025 Clinisync Result Encounter Generic External Data Provider [...] External Department Unsolicited Start: 01-05-2025 End: 01-05-2025 [facility] Start: 12-29-2024 End: 12-29-2024 Clinisync [...] External Department Unsolicited Start: 07-17-2024 End: 07-17-2024 [facility] Start: 07-04-2024 End: 07-04-2024 ambulatory [facility] Work Phone: Start: 07-04-2024 End: 07-04-2024 Patient encounter procedure [facility] Work Phone: Start: 01-13-2024 End: 01-13-2024 [employer] Kena Parekh Work Phone: [facility] Work Phone: Start: 01-13-2024 End: 01-13-2024 ambulatory Kena Parekh [facility] Work Phone: Start: 01-13-2024 End: 01-13-2024 Patient encounter procedure [facility] Work Phone: Start: 10-12-2023 End: 10-12-2023 ambulatory Nayana Calvey Other [employer] Other Start: 10-12-2023 Office outpatient visit 15 minutes Nayana Calvey [facility] Start: 03-05-2023 End: 03-05-2023 ambulatory CARIDAD JIMENEZ . Facility: Start: 12-30-2022 End: 12-30-2022 ambulatory Nayana Calvey Other [employer] Other Start: 12-30-2022 Office outpatient visit 15 minutes Nayana Calvey [facility] Start: 09-22-2022 End: 09-23-[address] FILIBERTO SAN Facility: Start: 09-16-2022 End: 09-16-2022 ambulatory Kusum Palencia Other [employer] Other Start: 09-16-2022 Office outpatient visit 15 minutes Kusum Palencia [facility] Start: 08-04-2022 End: 08-04-2022 ambulatory Nayana Calvey Other [employer] Other Start: 08-04-2022 Office outpatient visit 15 minutes Nayana Calvey [facility] Start: 07-03-2022 End: 07-03-2022 ambulatory Nayana Calvey Other [employer] Other Start: 07-03-2022 Office outpatient visit 15 minutes Nayana Calvey [facility] Start: 06-08-2022 (URG) Urgent Care Visit Caprice Roque [facility] Start: 06-08-2022 End: 06-08-2022 ambulatory Caprice Roque Other [employer] Other Start: 05-26-2022 End: 05-26-2022 ambulatory Nayana Huitron Other [employer] Other Start: 05-26-2022 Office outpatient ne w 30 minutes Nayana Huitron [facility] Start: 05-26-2022 End: 05-26-2022 Patient encounter procedure MD Nayana Huitron Work Phone: [facility] Procedures Date Procedure Procedure Detail Performing Clinician Start: 05-18-2025 CA ECHO DOPPLER COMPLETE Generic External Data Provider Start: 05-11-2025 ALL LIPID PROFILE (FASTING) Generic [...] 09-23-2023 Mammography Generic Pr ovider Start: 03-05-2023 End: 03-05-2023 Colonoscopy Generic Provider Start: 05-26-2022 Plain X-ray of right hand MD Nayana Huitron Work Phone: Bone spur of right shoulder Velasquez GARNICA Cardiomyotomy Velasquez GARNICA Closed fracture of r ight wrist (disorder) Velasquez GARNICA Dilation of esophagus Reid krishnamurthy NILL Excision of lipoma Velasquez LEVIN Vaginal hysterectomy Velasquez GARNICA Plan of Treatment Date Care Activity Detail Author Start: 03-05-2033 Screening for malign ant neoplasm of colon [facility] Start: 09-27-2025 Screening for malign ant neoplasm of breast Mammogram [facility] Start: 07-30-2025 Influenza vaccination Influenz a Vaccine (#1) [facility] Start: 06-28-2025 End: 06-28-2025 Patient encounter procedure 06/28/2025 2:00 PM EDT Office Visit [facility] [address] [place] [id number] Filiberto San MD [address] [place] [phone] Arrived [facility] Comment on above: Arrived Start: 06-18-2025 End: 06-18-2025 Patient encounter procedure 06/18/2025 9:45 AM EDT Office Visit [facility] [address] [place] [address] Filiberto San MD [address] [place] [phone] [facility] Start: 09-23-2024 Screening for malign ant neoplasm of breast Mammogram [facility] Start: 07-30-2024 Influenza vaccination Influenz a Vaccine (#1) [facility] Start: 01-14-2024 Bacteria identified in Urine by Culture [facility] Start: 01-14-2024 [facility] Start: 01-13-2024 Bacteria identified in Urine by Culture [facility] Start: 1992 Screening for malign ant neoplasm of cervix [facility] Start: 1983 Screening for malign ant neoplasm of cervix Pap Smear [facility] Start: 1960 Screening for malign ant neoplasm of colon [facility] Chlamydia trachomati s DNA [Presence] in Unspecified specimen by FROILAN with probe detection [facility] Neisseria gonorrhoea e DNA [Presence] in Unspecified specimen by FROILAN with probe detection [facility] Trichomonas vaginali s DNA [Presence] in Unspecified specimen by FROILAN with probe detection [facility] Immunizations Immunization Date Immunization Notes Care Provider Fa [facility] 09-08-2024 influenza virus vaccine, unspecified formulation Filiberto San MD Work Phone: [facility] 09-30-2023 influenza virus vaccine, unspecified formulation Generic Provider [facility] 11-25-2022 SARS-CoV-2 (COVID-19 ) [id number] Velasquez GARNICA [facility] 06-08-2022 tetanus toxoid, reduced diphtheria toxoid, and acellular pertussis vaccine, adsorbed Caprice Roque Other [facility] 10-28-2021 SARS-CoV-2 (COVID-19 ) mRNA BNT-162b2 vax Velasquez GARNICA [facility] 03-14-2021 SARS-CoV-2 (COVID-19 ) mRNA BNT-162b2 vax Velasquez ROJASL [facility] 02-21-2021 SARS-CoV-2 (COVID-19 ) mRNA BNT-162b2 vax Velasquez ROJASL [facility] Payers Date Payer Category Payer Self-pay [id number] 2023 Private Health Insurance [id number] 2023 Unknown [employer] [id number] 2023-Present [address] [place] [address] [id number] 1960 Unknown [id number] 1960 Unknown [id number] 1960 Unknown [id number] 1960 Unknown [id number] 1959 Unknown [id number] Unknown [id number] Social History Date Type Detail Facility Start: 03-30-2024 End: 06-21-2025 Sex Assigned At [facility] Start: 1960 Sex Assigned At Female [facility] Start: 01-13-2024 End: 07-31-2025 Tobacco smoking status NHIS Never smoked tobacco (finding) [facility] Start: 03-13-2024 Tobacco use and exposure Smokeless tobacco non-user [facility] Start: 03-30-2024 End: 06-21-2025 History of Social function [facility] Do you belong to any clubs or organizations such as denominational groups, unions, fraternal or athletic groups, or [...] 03-13-2024 Sexual orientation Heterosexual (finding) [facility] How often do you nee d to have someone help you when you read instructions, pamphlets, or other written material from your doctor or pharmacy [SILS] Never [facility] How many standard dr inks containing alcohol do you have on a typical day? 3 or 4 [facility] Sexual Orientation [facility] General Surgery Swagsy Sex Female (finding) [facility] Clinical Notes 06-30-2016 to 07-31-2025 Filiberto San MD - 06/28/2025 2:52 PM EDTMfroilan San MD - 06/28/2025 2:51 PM EDMichelle San MD - 06/28/2025 2:00 PM EDT Note Date & Type Note Facility 07-31-2025 Note General Surgery Offi ce/Clinic Note Chief Complaint consultation for lipoma HPI Staff 65 year old female presents on consultation from Dr. San for lipoma. Patient reports noting mass to right upper thigh approximately 6 months ago. Verbalized this has been increasing in size. Reports intermittent tenderness. No imaging completed. History of Present Illness 65 yo female with h/o GERD, referred for lipoma RLE; 6 month h/o enlarging subcutaneous mass right upper thigh, now tender; had left thigh and right leg lipoma removed in past; no skin changes or injury to area; no asa or NSAID use; no tobacco use. Review of Systems PHQ Score Initial Depression Screen Score: 0 SCORE ROS - Provider Constitutional: no fever, no sweats, no weight loss. Eyes: no glasses, no blurred vision, no visual loss. ENMT: no dentures, no hoarseness, no swallowing difficulties, no hearing loss, no ear infection(s), no nose bleeds. Cardiovascular: normal blood pressure, no chest pain, regular heartbeat, no heart murmur. Respiratory: no shortness of breath, no cough, no asthma, no wheezing. Gastrointestinal: no nausea, no vomiting, no diarrhea, no constipation, no blood in stool, no change in bowel habits, no abdominal pain, no hepatitis. Genitourinary: no kidney stones, no urine infection, no dysuria. Musculoskeletal: no pain, no weakness. Skin: no changing moles, no rash, no skin lumps. Neurologic: no seizures, no epilepsy, no headache. Psychiatric: no emotional or psychiatric problem. Heme/Lymph: no bleeding problems, no anemia, no blood clots, no transfusions. Allergy/Immunologic: no swollen lymph nodes/glands, no IV drug abuse. Other: Additional ROS info: Except as noted in the above Review of Systems and in the History of Present Illness, all other systems have been reviewed and are negative or noncontributory. Physical Exam Vitals & Measurements HR: 72(Peripheral) RR: 16 BP: 116/74 HT: 170 cm HT: 67 in WT: 72.3 kg WT: 159.394 lb BMI: 25.02 Respiratory: lungs CTA, respirations non labored. Cardiovascular: regular rate and rhythm, no murmur, no pedal edema or varicosities. Musculoskeletal: normal gait, digits and nails without infection, nodes, cyanosis, clubbing. Skin: no rashes, no lesions, no ulcers, right upper medial thigh with 2 cm oval subcutaneous nodule, soft, tender, no overlying skin changes. Psychiatric/Neuro: oriented to time, place, person, judgement normal, affect appropriate for age, insight intact, no focal deficits. Tests: , review of old records completed , Discussed surgical options, risks, and possible complications with patient. Assessment/Plan 1. Lipoma of right thigh (D17.23: Benign lipomatous neoplasm of skin and subcutaneous tissue of right leg) plan excisional biopsy under local anesthesia at [facility] for definitive diagnosis and treatment. Follow-up No qualifying data available Problem List/Past Medical History Ongoing BMI 25.0-25.9,adult Dyslipidemia Gastroesophageal reflux disease Lipoma of right thigh Mild aortic valve regurgitation Overweight Ventricular tachycardia Vitamin D deficiency Historical No qualifying data Procedure/Surgical History Colonoscopy (03/05/2023), Bone spur of right shoulder, Closed fracture of right wrist, Dilation of esophagus, Dilation of esophagus, Dilation of esophagus, Dilation of esophagus, Dilation of esophagus, Excision of lipoma, Excision of lipoma, Heller operation, esophagomyotomy, VH - Vaginal hysterectomy. Medications atorvastatin 20 mg Tab, 20 mg= 1 tab(s), Oral, Daily omeprazole 40 mg Cap-DR, 40 mg= 1 cap(s), Oral, Daily Vitamin D3 1000 intl units (25 mcg) Tab, 25 mcg= 1 tab(s), Oral, Daily Allergies sulfa drugs (Hives) Social History Alcohol Current. Beer. 1-2 times per month., 07/26/2025 Substance Abuse Never., 07/26/2025 Tobacco Never (less than 100 in lifetime) Tobacco Use:. Never Smokeless Tobacco Use:., 07/31/2025 Family History Heart disease: Father and Brother. Uterine cancer: Brother. Immunizations Vaccine Date Status influenza virus vaccine, inactivated 09/08/2024 Recorded SARS-CoV-2 (COVID-19) [id number] 11/25/2022 Recorded SARS-CoV-2 (COVID-19) mRNA BNT-162b2 vax 10/28/2021 Recorded SARS-CoV-2 (COVID-19) mRNA BNT-162b2 vax 03/14/2021 Recorded SARS-CoV-2 (COVID-19) mRNA BNT-162b2 vax 02/21/[address] [facility] Comment on above: Result Comment: Elec tronically Signed By: DANIKA RODGERS, Velasquez Yoon\Date and Time Signed: 07/31/25 14:57 EDT 07-05-2025 Note Painter Office Cardiology Clinic Note Reason for cardiology visit: follow-up HPI: 07/05/2025 Patient is here today for follow-up visit. She denies any further dizziness episodes. She reports rare brief occasions of palpitations. She denies any chest pain or shortness of breath at rest or with exertion. She denies orthopnea or paroxysmal nocturnal dyspnea or legs edema She reports that she walks a lot and she has increased her water intake. She denies any caffeine or alcohol 01/05/2025 The patient is here today for [...] legs edema. 05/03/2024 Ignacio Mock is a 65 y.o. female without past medical history. She [...] stents and CABG, her paternal grandfather had HI. Cardiology ROS: All symptoms were reviewed, they [...] History Problem Relation Name Age of Onset Cancer Mother Heart attack Father Heart failure Father Heart [...] Rfl: Last Recorded Vitals Visit Vitals BP 115/73 (BP Location: Right arm, Patient Position: Sitting) Pulse 66 Ht 1.702 m (5' 7 ) Wt 72.6 kg (160 lb) SpO2 99% BMI 25.06 kg/m??? Smoking Status Never BSA 1.85 m??? [...] edema. No rash/skin discoloration present. NEURO: strength/sensation equa (more content not included)... [facility] 06-28-2025 History of Present illness Narrative Associated Problem(s): Lipoma of right lower extremity Lesion appears to be lipoma. C/o pain and refer to surgeon. Associated Problem(s): Actinic keratosis Lesion appears to be AK. Discussed premalignant nature of lesion and recommended cryo. Used liquid nitrogen to perform 3 freeze thaw cycles and patient tolerated well. Warned will form blister and likely will take multiple treatments. If develop new or worsening symptoms call. Images from the original note were not included. Subjective Patient ID: IGNACIO Mock is a 65 y.o. female who presents for Follow-up (Lump on leg/Patch on forehead). C/o patch on forehead and lump on right upper thigh. Spot on forehead rough and raised for almost 1 year. Will develop white scale and come off but hasn't healed. No pain or burning. Not bother patient and not itchy. Not tried OTC cream or lotion. C/o lump on right upper thigh for about 6 months. Initially smaller and nontender. Over past few weeks increased in size and now tender to touch. Very uncomfortable and wants removed. History of lipoma removed from left thigh in 2013 and feels similar. Review of Systems Respiratory: Negative for cough, shortness of breath and wheezing. Cardiovascular: Negative for chest pain and palpitations. Gastrointestinal: Negative for abdominal pain, diarrhea, nausea and vomiting. Genitourinary: Negative for dysuria. Objective Physical Exam Constitutional: General: She is not in acute distress. Appearance: Normal appearance. HENT: Head: Normocephalic. Right Ear: Tympanic membrane normal. Left Ear: Tympanic membrane normal. Eyes: Extraocular Movements: Extraocular movements intact. Pupils: Pupils are equal, round, and reactive to light. Cardiovascular: Rate and Rhythm: Normal rate and regular rhythm. Heart sounds: No murmur heard. No friction rub. No gallop. Pulmonary: Effort: Pulmonary effort is normal. Breath sounds: Normal breath sounds. No wheezing, rhonchi or rales. Abdominal: General: Bowel sounds are normal. There is no distension. Palpations: Abdomen is soft. Tenderness: There is no abdominal tenderness. There is no guarding or rebound. Musculoskeletal: Cervical back: Neck supple. Right lower leg: No edema. Left lower leg: No edema. Neurological: Mental Status: She is alert. Assessment/Plan Problem List Items Addressed This Visit Actinic keratosis - Primary Lesion appears to be AK. Discussed premalignant nature of lesion and recommended cryo. Used liquid nitrogen to perform 3 freeze thaw cycles and patient tolerated well. Warned will form blister and likely will take multiple treatments. If develop new or worsening symptoms call. Lipoma of right lower extremity Lesion appears to be lipoma. C/o pain and refer to surgeon. Relevant Orders Ambulatory referral to General Surgery documented in this encounter [facility] 01-05-2025 Note [facility]iology [facility] Note Reason [...] stents and CABG, her paternal grandfather had HI. Cardiology ROS: All symptoms were reviewed, they [...] in inferior an (more content not included)... [facility] 07-17-2024 Note [facility] Cardiology Clinic Note Reason for cardiology [...] stents and CABG, her paternal grandfather had HI. Cardiology ROS: All symptoms were reviewed, they [...] No reversible isc (more content not included)... [facility] 10-12-2023 Evaluation note Encounter Date Diagnosis Assessment Notes Sep, Right hand pain (ICD-10 - M79.641) Sep, Primary osteoarthritis of right hand (ICD-10 - M19.041) Right ring and small PIP joints injected with cortisone, patient tolerated well [facility] Other 02-01-2023 Evaluation note* Encounter Date [...] and tingle for hours after this injection. [facility] Other 10-19-2022 Evaluation note* Encounter Date [...] (midd le ear effusion) material was printed [employer] Other 09-06-2022 Evaluation note* Encounter Date [...] with questions/concern s or return in pain. [facility] Other 08-05-2022 Evaluation note* Encounter Date [...] the office with any questions or concerns. [facility] Other 07-11-2022 Evaluation note* Encounter Date [...] area, fever, or have chills. TDAP updated [employer] [facility] Other 06-28-2022 Evaluation note* Encounter Date [...] a medrol dose pack or cortisone injection [facility] Other 08-02-2016 History general Narrative - Reported* Type Description Date Medical History acid reflux Surgical History shoulder surgery right 2009 Surgical History hysterectomy 2006 Surgical History Throat Surgery 06/30/16 Surgical History wrist surgery 2020 Hospitalization History See Above [employer] Other Evaluation + Plan note No data available for this section [facility] General Surgery Pamela Evaluation noteNo assessment information available [facility] Work Phone: Evaluation note* Diagnosis Onset Date Resolution Status Dysuria acute [facility] Work Phone: Evaluation note* Diagnosis Onset Date Resolution Status Pain in right hand acute Primary osteoarthritis of right hand acute [facility] Work Phone: Evaluation note* Diagnosis Precordial pain- Primary Palpitation Palpitations Actinic keratosis- Primary Lipoma of right lower extremity [facility] No data available for this section [facility] General Surgery Painter Progress note No data available for this section [facility] Surgery Painter Chief Complaint and Reason for Visit Chief [...] FOR VISIT (unrecogniz ed section and content) Reason Comments Follow-up Lump on legPatch on forehead Care Teams (unrecognized sec tion and content) [...] July 04, 2024 End: July 04, 2024 Global Marketing Manager Relationship Specialty Start Date End Date Filiberto San MD [address] [place] [phone] PCP - General Family Medicine 01/13/24 Filiberto San MD [address] [place] [phone] PCP - Medical [employer] 11/29/12 11/28/99 Global Marketing Manager Relationship Specialty Start Date End Date Filiberto San MD [address] [place] [address] PCP - General Family Medicine 01/13/24 Filiberto San MD [address] [place] [address] PCP - Medical [employer] 11/29/12 11/28/99 Global Marketing Manager Relationship Specialty Start Date End Date Filiberto San MD [address] [place] [phone] PCP - General Family Medicine 01/13/24 Filiberto San MD [address] [place] [address] PCP - Medical [employer] 11/29/12 11/28/99 Global Marketing Manager Relationship Specialty Start Date End Date Filiberto San MD [address] [place] [address] PCP - General Family Medicine 01/13/24 Filiberto San MD [address] [place] [phone] PCP - Medical [employer] 11/29/12 11/28/99 Global Marketing Manager Relationship Specialty Start Date End Date Filiberto San MD [address] [place] [phone] PCP - General Family Medicine 01/13/24 Filiberto San MD [address] [place] [phone] PCP - Medical [employer] 11/29/12 11/28/99 Global Marketing Manager Relationship Specialty Start Date End Date Filiberto San MD [address] [place] [phone] PCP - General Family Medicine 01/13/24 Filiberto San MD [address] [place] [phone] PCP - Medical [employer] 11/29/12 11/28/99 Goals (unrecognized section and content) Goals may be documented in a n alternate section INFORMATION SOURCE (unrecogn ized section and content) DATE CREATED AUTHOR 03/08/2023 [facility] DATE CREATED AUTHOR AUTHOR'S ORGANIZ ATION 01/19/2024 [facility] DATE CREATED AUTHOR AUTHOR'S ORGANIZ ATION 06/30/2025 [facility] DATE CREATED AUTHOR AUTHOR'S ORGANIZ ATION 07/11/2025 [facility] DATE CREATED AUTHOR AUTHOR'S ORGANIZ ATION 08/01/2025 [facility] FOR RECORDS PERTAINING TO PATIENTS [...] BE BASED ON THE PRIMARY CLINICAL RECORDS. [employer] [facility]. provides no warranty or guarantee of the accuracy or completeness of information in this document.
== END 2025-08-21 13:28 | disposition home or self-care (01) ==
LOC: PST 13:27
PROVIDERS: PCP Family Medicine; Visit Provider Surgery
DX: Z01.818 Encounter for other preprocedural examination (principal); D17.23 Benign lipomatous neoplasm of skin and subcutaneous tissue of right leg; R20.9 Unspecified disturbances of skin sensation

== ENCOUNTER 2025-09-05 09:04 | Day surgery (SDC) | payer OTHER, SELFPAY ==
--- NOTE | 2025-09-05 | OP_ITS ---
OPERATION DATE: 09/05/2025 PREOPERATIVE DIAGNOSIS: Painful lipoma of the right upper medial thigh. POSTOPERATIVE DIAGNOSIS: Painful lipoma of the right upper medial thigh. PROCEDURE: Excisional biopsy lipoma right upper medial thigh, total length of the lipoma 2 cm. SURGEON: Velasquez Fernandez M.D. ANESTHESIA: Local with 0.5% Marcaine plain, total of 4 mL. ESTIMATED BLOOD LOSS: Less than 3 mL. INDICATIONS AND CONSENT: Patient is a 65-year-old female with history of enlarging, painful, subcutaneous lipoma of the right upper medial thigh. Indications, risks, benefits, alternatives of proceeding with excisional biopsy under local anesthesia were explained extensively to the patient, including the risks of bleeding, infection, scarring, pain, recurrence, need for further surgery. All of her questions were answered. Informed consent was obtained. PROCEDURE: Patient brought to the operating room/procedure room, placed in the supine position. The area was prepped and draped in the usual sterile fashion. It was anesthetized with 0.5% Marcaine plain, total of 4 mL. Incision was made over the long axis of the lesion, in the area of the skin crease, carried down through subcutaneous tissue using blunt and sharp dissection. An oval, 2 cm long lipoma was identified and freed up and sent off to pathology. The subcutaneous tissue was re-approximated with interrupted 3-0 Monocryl suture. The skin was then closed with interrupted 4-0 subcuticular Monocryl sutures with good hemostasis. Skin glue was applied as well as a sterile dressing. Sponge and needle counts were correct x3 per nursing personnel. Patient tolerated procedure well, was sent back to recovery area and discharged to home in good condition. CC: Filiberto Bernard M.D. SAURABH
--- OUTSIDE RECORDS SUMMARY | 2025-09-05 09:09 | XMS_ITS | CCD ---
Author Organization [facility] Care Team Providers Care [place] Driver Name Role Phone Nayana Huitron Unavailable MD [...] JASWINDER, DR FILIBERTO Tellez Primary Care Unavailable [place], DR GIBRAN Beyer Consulting Unavailable JASWINDER, DR FILIBERTO Tellez Consulting Unavailable MAGUE Parekh Attending Provider [phone] Kena Parekh Attending Unavailable Kena Parekh Admitting Unavailable Filiberto San MD Primary Care Provider [phone] Filiberto San MD Unavailable FILIBERTO SAN Attending Unavailable DEYSI BARRON Attending Unavailable DEYSI BARRON Attending Unavailable DEYSI BARRON Attending Unavailable FILIBERTO SAN Primary Care Physician [phone] Velasquez GARNICA Attending Unavailable FILIBERTO SAN Referring Unavailable Allergies Allergy Classification Reported Allergen(s) Allergy Type Date of Onset Reaction(s) Facility (7 sources) Sulfamethoxazole / Trimethoprim Drug Allergy Unknown [facility] Other (1 source) Sulfamethoxazole / Trimethoprim Drug Allergy 11-03-20 19 [facility] Repository (4 sources) Sulfamethoxazole; Translations: [sulfamethoxazole] Drug Allergy 01-13-20 [facility] (4 sources) Trimethoprim; Translations: [trimethoprim] Drug Allergy 01-13-20 [facility] (10 sources) Sulfonamides (Antibiotic) Propensity to adverse reactions 03-13-20 [facility] (1 source) Sulfamethoxazole / Trimethoprim; Translations: [SULFAMETHOXAZOLE-T RIMETHOPRIM] Drug Allergy 09-29-20 [facility] Repository (1 source) Sulfonamides (Antibiotic); Translations: [SULFA (SULFONAMIDE ANTIBIOTICS)] Propensity to adverse reactions to drug (disorder) 01-13-20 [facility] Repository (2 sources) Sulfonamide; Translations: [sulfa drugs] Drug allergy Weal (disorder) [facility] General Surgery Pamela Medications Current Medications [...] 03-13-2024 Chronic Other aftercare (1 source) Other group home (current) drug therapy; Translations: [OTH 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 Language Information Language assistance services are available as needed. Normal [facility] Office Visiton 07-05-2025 Follow-up visit [id number] Ignacio Mock 1960 F Date Provider Department Center 07/05/2025 [id number] BARRON [facility] Family History Problem Relation Age of Onset Cancer Mother Heart attack Father Heart failure Father Heart failure Maternal Grandfather Family Status - Relation Status Age at Mother Father Maternal Grandfather Level of Service:24144 SD OFFICE/OUTPATIENT ESTABLISHED LOW MDM 20 MIN Reason for Visit and Comments: 6 month follow up [Other] Echo [Other] Hyperlipidemia [182] Hypertension [764854] Palpitations [466855] Valve Disorder [3372] Normal [facility] 36on 05-31-2025 36 MD Purnima Healy MA Inform patient that she aortic regurgitation is mild and stable Spoke to patient to advise her of Dr. Barron's findings. Patient verbalized understand. Normal [facility] CA ECHO DOPPLER COMPLETEon 0 05-18-2025 [facility] [address] [place] [address] Cardiology Report Signed Patient: IGNACIO MOCK MR#: [id number] : 1960 Acct:[id number] Age/Sex: 65 / F ADM Date: 05/18/25 Loc: CARD Attending Dr: Deysi Barron M.D. Ordering Physician: Deysi Barron M.D. Date of Service: 05/18/25 Procedure(s): CA echo doppler complete Accession Number(s): [id number] cc: Deysi Barron M.D.; Filiberto San M.D. Patient Name: IGNACIO MOCK MR#: [id number] : 1960 Exam Date: 05/18/2025 Ordering Doctor: [...] Signed By: 06 (more content not included)... [facility] Radiology, Radiologist, MD - 05/18/2025 [place] [address] Cardiology Report Signed Patient: IGNACIO MOCK MR#: [id number] : 1960 Acct:[id number] Age/Sex: 65 / F ADM Date: 05/18/25 Loc: CARD Attending Dr: Deysi Barron M.D. Ordering Physician: Deysi Barron M.D. Date of Service: 05/18/25 Procedure(s): CA echo doppler complete Accession Number(s): [id number] cc: Deysi Barron M.D.; Filiberto San M.D. Patient Name: IGNACIO MOCK MR#: [id number] : 1960 Exam Date: 05/18/2025 Ordering Doctor: [...] Dictated By: CHRISTIAN BRANHAM Signed By: 05/18/25 108 DD/ 38 TD/TT: Evs Tech: [facility] Radiology Study observation (narrative) [facility] CA ECHO DOPPLER COMPLETEOrde red By: Radiologist Radiology on 05-18-2025 [facility] [employer] Work Phone: ALL LIPID PROFILE (FASTING)o n 05-11-2025 CHOL HDL RATIO 2.2 [facility] hcare Comment on above: 3.3 - 4.4 LOW RISK 4.4 - 7.1 AVERAGE RISK 7.1 - 11.0 MODERATE RISK >11.0 HIGH RISK Cholesterol [Mass/Vol] 154 mg/dL NINF - 200 mg/dL [facility] Cholesterol in HDL [Mass/Vol] 69 mg/dL High 40 - 60 mg/dL [facility] Comment on above: > or =60 mg/dl - LOW CARDIOVASCULAR RISK <40 mg/dl - HIGH CARDIOVASCULAR RISK Interpretation and review of laboratory results Abnormal [facility] Magnesium [Mass/Vol] 73 mg/dL [facility] Comment on above: <100 mg/dl OPTIMAL 100-129 mg/dl NEAR OR ABOVE OPTIMAL 130-159 mg/dl BORDERLINE HIGH 160-189 mg/dl HIGH >190 mg/dl VERY HIGH Magnesium [Mass/Vol] 12 mg/dL [facility] Triglyceride [Mass/Vol] 60 mg/dL NINF - 150 mg/dL [facility] On[facility] 05-11-2025 ALT [Catalytic activity/Vol] 22 U/L 14 - 59 U/L [facility] Shandra 05-11-2025 AST [Catalytic activity/Vol] 18 U/L 15 - 37 U/L [facility] No Panel Informationon 05-11 [facility] [employer] XR Elbow - left [address] [place] [address] XRay Report Signed Patient: IGNACIO MOCK MR#: [id number] : 1960 Acct:[id number] Age/Sex: 65 / F ADM Date: 02/12/25 Loc: EC Attending Dr: Odin Liang M.D. Ordering Physician: Odin Liang M.D. Date of Service: 02/12/25 Procedure(s): XR elbow LT min 3V Accession Number(s): [id number] cc: Odin Liang M.D.; Filiberto San M.D. The [place] [id number] Patient Name: IGNACIO MOCK MRN: [facility]:[id number] date: 1960 Sex: F Assigned Patient Location: Current Patient Location: Accession/Order Number: [id number] Exam Date: 02/12/2025 10:11 Report Date: 02/12/2025 [...] D.O.02/12/2025 10:12 AM Dictation Location: [place] [address] Electronically authenticated by: [id number] Y Date: 02/12/2025 10:12 Dictated By: Ankit James M.D. Signed By: 02/12/25 1015 DD/ 1012 TD/TT: Evs Tech: [facility] Radiology, Radiologist, - 02/12/2025 [place] [address] XRay Report Signed Patient: IGNACIO MOCK MR#: [id number] : 1960 Acct:[id number] Age/Sex: 65 / F ADM Date: 02/12/25 Loc: Attending Dr: Odin Liang M.D. Ordering Physician: Odin Liang M.D. Date of Service: 02/12/25 Procedure(s): XR elbow LT min 3V Accession Number(s): [id number] cc: Odin Liang M.D.; Filiberto San M.D. The [address] [address] Patient Name: IGNACIO MOCK MRN: [facility]:[id number] date: 1960 Sex: F Assigned Patient Location: Current Patient Location: Accession/Order Number: [id number] Exam Date: 02/12/2025 10:11 Report Date: 02/12/2025 [...] James Jr., D.OJarred02/12/2025 10:12 AM Dictation Location: [place] [address] Electronically authenticated by: [id number] Y Date: 02/12/2025 10:12 Dictated By: Ankit James M.D. Signed By: 02/12/25 1015 DD/ 1012 TD/TT: Evs Tech: [facility] [employer] Radiology Study observation (narrative) [facility] XR Elbow - left 3 ViewsOrder ed By: Radiologist Radiology on 02-12-2025 [facility] [employer] Work Phone: XR Elbow - left [address] [place] [address] XRay Report Signed Patient: IGNACIO MCOK MR#: [id number] : 1960 Acct:[id number] Age/Sex: 65 / F ADM Date: 01/15/25 Loc: Attending Dr: Odin Liang M.D. Ordering Physician: Odin Liang M.D. Date of Service: 01/15/25 Procedure(s): XR elbow LT min 3V Accession Number(s): [id number] cc: Odin Liang M.D.; Filiberto San M.D. The [place] [id number] Patient Name: IGNACIO MOCK MRN: [facility]:[id number] date: 1960 Sex: F Assigned Patient Location: Current Patient Location: Accession/Order Number: [id number] Exam Date: 2025 08:43 Report Date: 2025 [...] Signed By: 01/15/25 1633 DD/ 1630 TD/TT: Evs Tech: [facility] Radiology, Radiologist, MD - [address] [place] [address] XRay Report Signed Patient: IGNACIO MOCK MR#: [id number] : 1960 Acct:[id number] Age/Sex: 65 / F ADM Date: 01/15/25 Loc: EC Attending Dr: Odin Liang M.D. Ordering Physician: Odin Liang M.D. Date of Service: 01/15/25 Procedure(s): XR elbow LT min 3V Accession Number(s): [id number] cc: Odin Liang M.D.; Filiberto San M.D. The [place] [address] Patient Name: IGNACIO MOCK MRN: [facility]:[id number] date: 1960 Sex: F Assigned Patient Location: Current Patient Location: Accession/Order Number: [id number] Exam Date: 2025 08:43 Report Date: 2025 [...] Signed By: 01/15/25 1633 DD/ 1630 TD/TT: Evs Tech: [facility] [employer] Radiology Study observation (narrative) [facility] XR Elbow - left 3 ViewsOrder ed By: Radiologist Radiology on 2025 [facility] [employer] Work Phone: Office Visiton 01-05-2025 Follow-up visit [id number] Ignacio Mock 1960 F Date Provider Department Center 01/05/2025 [id number] BARRON [facility] Family History Problem Relation Age of Onset Heart attack Father Heart failure Father Heart failure Maternal Grandfather Family Status - Relation Status Age at Father Maternal Grandfather Level of Service:03441 SD OFFICE/OUTPATIENT NEW MODERATE MDM 45 MINUTES Reason for Visit and Comments: Chest Pain [442053] - Says chest pain is occurring much less often that it was before. Valve Disorder [3372] Hyperlipidemia [182] - Had lipid in Sep 2024, and again last week. Shortness of Breath [] - Only with stairs Normal [facility] ALL LIPID PROFILE (FASTING)o n 12-29-2024 CHOL HDL RATIO 2.5 [facility] Comment on above: 3.3 - 4.4 LOW RISK 4.4 - 7.1 AVERAGE RISK 7.1 - 11.0 MODERATE RISK >11.0 HIGH RISK Cholesterol [Mass/Vol] 146 mg/dL NINF - 200 mg/dL [facility] Cholesterol in HDL [Mass/Vol] 58 mg/dL 40 - 60 mg/dL [facility] Comment on above: > or =60 mg/dl - LOW CARDIOVASCULAR RISK <40 mg/dl - HIGH CARDIOVASCULAR RISK Magnesium [Mass/Vol] 76.8 mg/dL [facility] Comment on above: <100 mg/dl OPTIMAL 100-129 mg/dl NEAR OR ABOVE OPTIMAL 130-159 mg/dl BORDERLINE HIGH 160-189 mg/dl HIGH >190 mg/dl VERY HIGH Magnesium [Mass/Vol] 11.2 mg/dL [facility] Triglyceride [Mass/Vol] 56 mg/dL NINF - 150 mg/dL [facility] On[facility] 12-29-2024 ALT [Catalytic activity/Vol] 21 U/L 14 - 59 U/L [facility] Shandra 12-29-2024 AST [Catalytic activity/Vol] 16 U/L 15 - 37 U/L [facility] No Panel [facility] 12-[facility]24 36 Regarding lab [...] agreeable to start atorvastatin. RX sent to [facility]. She will have labs prior to her follow up with Dr. Barron in Dec 2024. Lab orders printed, faxed to [facility], and also sent to patient in the mail. She verbalized understanding. Normal [facility] ALL LIPID PROFILE (FASTING)o n 10-20-2024 CHOL HDL RATIO 3.1 [facility] Comment on above: 3.3 - 4.4 LOW RISK 4.4 - 7.1 AVERAGE RISK 7.1 - 11.0 MODERATE RISK >11.0 HIGH RISK Cholesterol [Mass/Vol] 213 mg/dL High NINF - 200 mg/dL [facility] Cholesterol in HDL [Mass/Vol] 69 mg/dL High 40 - 60 mg/dL [facility] Comment on above: > or =60 mg/dl - LOW CARDIOVASCULAR RISK <40 mg/dl - HIGH CARDIOVASCULAR RISK Interpretation and review of laboratory results Abnormal [facility] Magnesium [Mass/Vol] 135 mg/dL [facility] Comment on above: <100 mg/dl OPTIMAL 100-129 mg/dl NEAR OR ABOVE OPTIMAL 130-159 mg/dl BORDERLINE HIGH 160-189 mg/dl HIGH >190 mg/dl VERY HIGH Magnesium [Mass/Vol] 9 mg/dL [facility] Triglyceride [Mass/Vol] 45 mg/dL NINF - 150 mg/dL [facility] 36on 08-02-2024 36 Regarding lab result s for 07/17/24 From: Deysi Barron MD Sent: 08/01/2024 4:58 PM EDT To: Carisa Cash MA Subject: RE: Scan Those labs are normal. But we need to check magnesium level please Pt was informed and will stop down today to have the magnesium level drawn. 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 Normal [facility] ALL MAGNESIUMon 08-02-2024 Magnesium [Mass/Vol] 2.1 mg/dL 1.8 - 2 .4 mg/dL [facility] Office Visiton 07-17-2024 Follow-up visit [id number] Ignacio Mock 1960 F Date Provider Department Center 07/17/2024 [id number] BARRON Family History Problem Relation Age of Onset Heart attack Father Heart failure Father Heart failure Maternal Grandfather Family Status - Relation Status Age at Father Maternal Grandfather Level of Service:92406 SD OFFICE/OUTPATIENT ESTABLISHED MOD MDM 30 MIN Reason for Visit and Comments: Shortness of Breath [089875] Palpitations [965125] Hyperlipidemia [182] Chest Pain [428108] Normal [facility] Chlamydia/GC/Trich NAAon Chlamydia Trachomotis, FROILAN Negative Normal Negative [facility] Comment on above: Performed By: #### G CCHLAMTRI #### [facility] , #### CUU #### [facility] [address] [place] [address] Neisseria Gonorrhoeae, FROILAN Negative Normal Negative [facility] Comment on above: Performed By: #### G CCHLAMTRI #### [facility] , #### CUU #### [facility] [address] [place] [address] Trichomonas FROILAN Negative Normal Negative [facility] Comment on above: Result Comment: Perf ormed at: =G - [facility] [address] [id number] Rn Or Lpn: Meena Mccabe MD, Phone: [phone] PERFORMED BY: [place] [address] PATHOLOGIST WORKFORCE MANAGEMENT ANALYST SANTHOSH STAFFORD M.D. Performed By: #### G CCHLAMTRI #### [facility] , #### CUU #### [address] Urine Cultureon 01-13-2024 Bacteria identified Cx Nom (U) ORGANISM: Escherichia coli (O:ESCCOL) [place] Count 50,000 Aerobic JUVENTINO Charge (NMIC56) ---- [...] RESISTANT TO ALL B-LACTAM DRUGS. PERFORMED BY: [place] [address] PATHOLOGIST WORKFORCE MANAGEMENT ANALYST SANTHOSH STAFFORD M.D. [facility] Comment on above: Performed By: #### G CCHLAMTRI #### [facility] , #### CUU #### [address] MG MAMM SCREEN 3D REGINALD CADon 09-22-2022 MG MAMM SCREEN 3D REGINALD CAD Patient: IGNACIO MOCK Exam Date: 09/22/2022 : 1960 Gender:F Ordering : DR FILIBERTO SAN . Admission #: [id number] Family : Order #: [id number] CLICK HERE TO VIEW EXAM RADIOLOGY REPORT [...] node cancer at age 82. LOCATION: [facility] BREAST COMPOSITION: Heterogeneously dense,which may [...] Lemus MD on 09/23/2022 at 08:00 Normal [facility] Vital Signs Date Time Vital Sign Value Performing Clinician Facility 06-28-2025 14:13-0400 Body height 170.2 cm Filiberto San MD Work Phone: [facility] 06-28-2025 14:13-0400 Body mass index (BMI) [Ratio] 24.59 kg/m2 Filiberto San MD Work Phone: [facility] 06-28-2025 14:13-0400 Body temperature 97.81 [degF] Filiberto San MD Work Phone: [facility] 06-28-2025 14:13-0400 Body weight 71.22 kg Filiberto San MD Work Phone: [facility] 06-28-2025 14:13-0400 Diastolic blood pressure 64 mm[Hg] Filiberto San MD Work Phone: [facility] 06-28-2025 14:13-0400 Heart rate 64 /min Filiberto San MD Work Phone: [facility] 06-28-2025 14:13-0400 Respiratory rate 20 /min Filiberto San MD Work Phone: [facility] 06-28-2025 14:13-0400 SaO2% (BldA) [Mass fraction] 97 % Filiberto San MD Work Phone: [facility] 06-28-2025 14:13-0400 Systolic blood pressure 112 mm[Hg] Filiberto San MD Work Phone: [facility] 07-04-2024 09:20-0400 Body height 167.64 cm [facility] 07-04-2024 09:20-0400 Body mass index (BMI) [Ratio] 25.3 kg/m2 [facility] 07-04-2024 09:20-0400 Body weight 71.21 kg [facility] 01-13-2024 14:40-0500 Body height 170.18 cm [facility] 01-13-2024 14:40-0500 Body mass index (BMI) [Ratio] 26.9 kg/m2 [facility] 01-13-2024 14:40-0500 Body temperature 98.4 [degF] [facility] 01-13-2024 14:40-0500 Body weight 78.01 kg [facility] 01-13-2024 14:40-0500 Diastolic blood pressure 73 mm[Hg] [facility] 01-13-2024 14:40-0500 Heart rate 87 /min [facility] 01-13-2024 14:40-0500 Respiratory rate 18 /min [facility] 01-13-2024 14:40-0500 SaO2% (BldA) [Mass fraction] 97 % [facility] 01-13-2024 14:40-0500 Systolic blood pressure 125 mm[Hg] [facility] 09-16-2022 15:50-0400 Body height 170.18 cm Kusum Rolandmond Other [facility] [facility] Other 09-16-2022 15:50-0400 Body mass index (BMI) [Ratio] 24.9 kg/m2 Kusum Rolandmond Other [facility] [facility] Other 09-16-2022 15:50-0400 Body temperature 98.8 [degF] Kusum Rolandmond Other [employer] [facility] Other 09-16-2022 15:50-0400 Body weight 72.12 kg Kusum Rolandmond Other [employer] Other 09-16-2022 15:50-0400 Diastolic blood pressure 87 mm[Hg] Kusum Rolandmond Other [employer] [facility] Other 09-16-2022 15:50-0400 Respiratory rate 18 /min Kusum Rolandmond Other [employer] [facility] Other 09-16-2022 15:50-0400 SaO2% (BldA) [Mass fraction] 99 % Kusum Palencia Other [employer] [facility] Other 09-16-2022 15:50-0400 Systolic blood pressure 127 mm[Hg] Kusum Palencia Other [facility] Other 07-03-2022 09:00-0400 Body height 170.18 cm Nayanapuneet Huitron Other [employer] [facility] [facility] Other 06-08-2022 17:25-0400 Body height 170.18 cm Caprice Roque Other [employer] [facility] [facility] Other 06-08-2022 17:25-0400 Body mass index (BMI) [Ratio] 24.9 kg/m2 Caprice Roque Other [facility] [facility] Other 06-08-2022 17:25-0400 Body temperature 99 [degF] Caprice Roque Other [employer] [facility] Other 06-08-2022 17:25-0400 Body weight 72.12 kg Caprice Roque Other [employer] [facility] Other 06-08-2022 17:25-0400 Diastolic blood pressure 62 mm[Hg] Caprice Roque Other [employer] [facility] Other 06-08-2022 17:25-0400 Respiratory rate 16 /min Caprice Roque Other [facility] [facility] Other 06-08-2022 17:25-0400 SaO2% (BldA) [Mass fraction] 100 % Caprice Roque Other [employer] [facility] Other 06-08-2022 17:25-0400 Systolic blood pressure 121 mm[Hg] Caprice Roque Other [employer] [facility] Other Encounters Encounter Date Encounter Type Care Provider Facility Start: 07-31-2025 End: 07-31-2025 ambulatory Velasquez GARNICA Facility:[facility] Start: 07-31-2025 End: 07-31-2025 Patient encounter procedure Velasquez GARNICA [facility] General Surgery Pamela Start: 07-05-2025 End: 07-05-2025 ambulatory [facility] Start: 07-02-2025 ambulatory Velasquez GARNICA Facility:[facility] [...] External Department Unsolicited Start: 01-05-2025 End: 01-05-2025 [facility] Start: 12-29-2024 End: 12-29-2024 [facility] Result [...] External Department Unsolicited Start: 07-17-2024 End: 07-17-2024 [facility] Start: 07-04-2024 End: 07-04-2024 ambulatory [facility] Work Phone: Start: 07-04-2024 End: 07-04-2024 Patient encounter procedure [facility] Work Phone: Start: 01-13-2024 End: 01-13-2024 Departed Referred [employer] ANALYST Kena Parekh Work Phone: [facility] Work Phone: Start: 01-13-2024 End: 01-13-2024 ambulatory Kena Parekh [facility] Work Phone: Start: 01-13-2024 End: 01-13-2024 Patient encounter procedure [facility] Work Phone: Start: 10-12-2023 End: 10-12-2023 ambulatory Nayana Calvey Other [facility] Other Start: 10-12-2023 Office outpatient visit 15 minutes Nayana Calvey [facility] Start: 03-05-2023 End: 03-05-2023 ambulatory CARIDAD JIMENEZ . Facility: Start: 12-30-2022 End: 12-30-2022 ambulatory Nayana Calvey Other [facility] Other Start: 12-30-2022 Office outpatient visit 15 minutes Nayana Calvey [facility] Start: 09-22-2022 End: 09-23-[address] FILIBERTO SAN Facility: Start: 09-16-2022 End: 09-16-2022 ambulatory Kusum Palencia Other [facility] Other Start: 09-16-2022 Office outpatient visit 15 minutes Kusum Palencia [facility] Start: 08-04-2022 End: 08-04-2022 ambulatory Nayana Calvey Other [facility] Other Start: 08-04-2022 Office outpatient visit 15 minutes Nayana Calvey [facility] Start: 07-03-2022 End: 07-03-2022 ambulatory Nayana Calvey Other [facility] Other Start: 07-03-2022 Office outpatient visit 15 minutes Nayana Calvey [facility] Start: 06-08-2022 (URG) Urgent Care Visit Caprice Roque [facility] Start: 06-08-2022 End: 06-08-2022 ambulatory Caprice Roque Other [facility] Other Start: 05-26-2022 End: 05-26-2022 ambulatory Nayaan Huitron Other [facility] Other Start: 05-26-2022 Office outpatient ne w 30 minutes Nayana Huitron [facility] Start: 05-26-2022 End: 05-26-2022 Patient encounter procedure MD Nayana Huitron Work Phone: [facility] Procedures Date Procedure Procedure Detail Performing [...] Screening for malign ant neoplasm of colon [facility] Start: 09-27-2025 Screening for malign ant neoplasm of breast Mammogram [facility] Start: 07-30-2025 Influenza vaccination Influenz a Vaccine (#1) [facility] Start: 06-28-2025 End: 06-28-2025 Patient encounter procedure 06/28/2025 2:00 PM EDT Office Visit [facility] [address] [place] [id number] Filiberto Sna MD [address] [place] [phone] Arrived [facility] Comment on above: Arrived Start: 06-18-2025 End: 06-18-2025 Patient encounter procedure 06/18/2025 9:45 AM EDT Office Visit [facility] [address] [place] [address] Filiberto San MD [address] [place] [phone] [facility] Start: 09-23-2024 Screening for malign ant neoplasm of breast Mammogram [facility] Start: 07-30-2024 Influenza vaccination Influenz a Vaccine (#1) [facility] Start: 01-14-2024 Bacteria identified in Urine by Culture [facility] Start: 01-14-2024 [facility] Start: 01-13-2024 Bacteria identified in Urine by Culture [facility] Start: 1992 Screening for malign ant neoplasm of cervix [facility] Start: 1983 Screening for malign ant neoplasm of cervix Pap Smear [facility] Start: 1960 Screening for malign ant neoplasm of colon [facility] Chlamydia trachomati s DNA [Presence] in Unspecified specimen by FROILAN with probe detection [facility] Neisseria gonorrhoea e DNA [Presence] in Unspecified specimen by FROILAN with probe detection [facility] Trichomonas vaginali s DNA [Presence] in Unspecified specimen by FROILAN with probe detection [facility] Immunizations Immunization Date Immunization Notes Care Provider Fa [facility] 09-08-2024 influenza virus vaccine, unspecified formulation Filiberto San MD Work Phone: [facility] 09-30-2023 influenza virus vaccine, unspecified formulation Generic Provider [facility] 11-25-2022 SARS-CoV-2 (COVID-19 ) mRNAMUL.ORD![id number] Velasquez GARNICA [facility] 06-08-2022 tetanus toxoid, reduced diphtheria toxoid, and acellular pertussis vaccine, adsorbed Caprice Roque Other [facility] 10-28-2021 SARS-CoV-2 (COVID-19 ) mRNA BNT-162b2 vax Velasquez GARNICA [facility] 03-14-2021 SARS-CoV-2 (COVID-19 ) mRNA BNT-162b2 vax Velasquez ROJASL [facility] 02-21-2021 SARS-CoV-2 (COVID-19 ) mRNA BNT-162b2 vax Velasquez ROJASL [facility] Payers Date Payer Category Payer Self-pay [id number] 2023 Private Health Insurance [id number] 2023 Unknown [employer] [id number] 2023-Present [address] [place] [address] [id number] 1962 Unknown [id number] 1962 Unknown [id number] 1962 Unknown [id number] 1962 Unknown [id number] 27 1959 Unknown [id number] Unknown [id number] 31 Social History Date Type Detail Facility Start: 03-30-2024 End: 06-21-2025 Sex Assigned At [facility] Start: 1960 Sex Assigned At Female [facility] Start: 01-13-2024 End: 07-31-2025 Tobacco smoking status NHIS Never smoked tobacco (finding) [facility] Start: 03-13-2024 Tobacco use and exposure Smokeless tobacco non-user [facility] Start: 03-30-2024 End: 06-21-2025 History of Social function [facility] Do you belong to any clubs or organizations such as protestant groups, unions, fraternal or athletic groups, or [...] 3 or 4 [facility] Sexual Orientation [facility]track Sex Female (finding) [facility] Clinical Notes 06-30-2016 to 07-31-2025 Filiberto [...] plan excisional biopsy under local anesthesia at [facility] for definitive diagnosis and treatment. Follow-up No [...] virus vaccine, inactivated 09/08/2024 Recorded SARS-CoV-2 (COVID-19) mRNAMUL.ORD![id number] 11/25/2022 Recorded SARS-CoV-2 (COVID-19) mRNA BNT-162b2 vax 10/28/2021 Recorded SARS-CoV-2 (COVID-19) mRNA BNT-162b2 vax 03/14/2021 Recorded SARS-CoV-2 (COVID-19) mRNA BNT-162b2 vax 02/21/2021 Recorded [facility] Comment on above: Result Comment: Elec tronically Signed By: DANIKA RODGERS, Velasquez Yoon\Date and Time Signed: 07/31/25 14:57 EDT 07-05-2025 Note [facility] Note Reason for cardiology [...] stents and CABG, her paternal grandfather had NE. Cardiology ROS: All symptoms were reviewed, they [...] NEURO: strength/sensation equa (more content not included)... [facility] 06-28-2025 History of Present illness Narrative [...] to General Surgery documented in this encounter [facility] 01-05-2025 Note [facility] Note Reason for cardiology [...] stents and CABG, her paternal grandfather had NE. Cardiology ROS: All symptoms were reviewed, they [...] in inferior an (more content not included)... [facility] 07-17-2024 Note [facility] Note Reason for cardiology [...] stents and CABG, her paternal grandfather had NE. Cardiology ROS: All symptoms were reviewed, they [...] No reversible isc (more content not included)... [facility] 10-12-2023 Evaluation note Encounter Date Diagnosis Assessment Notes Sep, Right hand pain (ICD-10 - M79.641) Sep, Primary osteoarthritis of right hand (ICD-10 - M19.041) Right ring and small PIP joints injected with cortisone, patient tolerated well [facility] Other 02-01-2023 Evaluation note* Encounter Date Diagnosis [...] and tingle for hours after this injection. [facility] Other 10-19-2022 Evaluation note* Encounter Date Diagnosis [...] (midd le ear effusion) material was printed [facility] Other 09-06-2022 Evaluation note* Encounter Date Diagnosis Assessment Notes Treatment Notes Treatment Clinical Notes Jul, Right hand pain (ICD-10 - M79.641) Jul, Primary osteoarthritis of right hand (ICD-10 - M19.041) Patient is progressing well from injections. May consider repeat injections in the future if needed. Continue topical and/or oral NSAIDs as needed for pain/inflammation . Call with questions/concern s or return in pain. [facility] Other 08-05-2022 Evaluation note* Encounter Date Diagnosis [...] the office with any questions or concerns. [facility] Other 07-11-2022 Evaluation note* Encounter Date Diagnosis [...] area, fever, or have chills. TDAP updated [facility] Other 06-28-2022 Evaluation note* Encounter Date Diagnosis [...] a medrol dose pack or cortisone injection [facility] Other 08-02-2016 History general Narrative - Reported* Type Description Date Medical History acid reflux Surgical History shoulder surgery right 2009 Surgical History hysterectomy 2006 Surgical History Throat Surgery 06/30/16 Surgical History wrist surgery 2020 Hospitalization History See Above [facility] Other Evaluation + Plan note No data available for this section [facility] General Surgery [facility] Evaluation noteNo assessment information available [facility] Work Phone: Evaluation note* Diagnosis Onset Date Resolution Status Dysuria acute [facility] Work Phone: Evaluation note* Diagnosis Onset Date Resolution Status Pain in right hand acute Primary osteoarthritis of right hand acute [facility] Work Phone: Evaluation note* Diagnosis Precordial pain- Primary Palpitation Palpitations Actinic keratosis- Primary Lipoma of right lower extremity [facility] No data available for this section [facility] General Surgery [place] Progress note No data available for this section [facility] [place] Chief Complaint and Reason for Visit Chief [...] July 04, 2024 End: July 04, 2024 River Driver Relationship Specialty Start Date End Date Filiberto San MD [address] [place] [address] PCP - General Family Medicine 01/13/24 Filiberto San MD [address] [place] [address] PCP - Medical [employer] 11/29/12 11/28/99 River Driver Relationship Specialty Start Date End Date Filiberto San MD [address] [place] [address] PCP - General Family Medicine 01/13/24 Filiberto San MD [address] [place] [address] PCP - Medical [employer] 11/29/12 11/28/99 River Driver Relationship Specialty Start Date End Date Filiberto San MD [address] [place] [address] PCP - General Family Medicine 01/13/24 Filiberto San MD [address] [place] [address] PCP - Medical [employer] 11/29/12 11/28/99 River Driver Relationship Specialty Start Date End Date Filiberto San MD [address] [place] [address] PCP - General Family Medicine 01/13/24 Filiberto San MD [address] [place] [address] PCP - Medical [employer] 11/29/12 11/28/99 River Driver Relationship Specialty Start Date End Date Filiberto San MD [address] [place] [address] PCP - General Family Medicine 01/13/24 Filiberto San MD [address] [place] [address] PCP - Medical [employer] 11/29/12 11/28/99 River Driver Relationship Specialty Start Date End Date Filiberto San MD [address] [place] [address] PCP - General Family Medicine 01/13/24 Filiberto San MD [address] [place] [address] PCP - Medical [employer] 11/29/12 11/28/99 Goals (unrecognized section and content) Goals may be documented in a n alternate section INFORMATION SOURCE (unrecogn ized section and content) DATE CREATED AUTHOR 03/08/2023 [facility] DATE CREATED AUTHOR AUTHOR'S ORGANIZ ATION 01/19/2024 [facility] DATE CREATED AUTHOR AUTHOR'S ORGANIZ ATION 06/30/2025 [facility] DATE CREATED AUTHOR AUTHOR'S ORGANIZ ATION 07/11/2025 [facility] DATE CREATED AUTHOR AUTHOR'S ORGANIZ ATION 08/01/2025 [facility] FOR RECORDS PERTAINING TO PATIENTS [...] BE BASED ON THE PRIMARY CLINICAL RECORDS. [facility]. provides no warranty or guarantee of the accuracy or completeness of information in this document.
[2025-09-05] MEDS: BUPIVACAINE HCL 0.5% PF 50 MG/10 ML VIAL INJ (10:09)
[2025-09-05 10:14] VITALS: BP 139/72; PULSE 78; O2SAT 98
== END 2025-09-05 10:29 | disposition home or self-care (01) ==
LOC: SURGOUT 09:04
PROVIDERS: PCP Family Medicine; Visit Provider Surgery
PROC: (CPT 27327; principal; 2025-09-05 09:45)
DX: D17.23 Benign lipomatous neoplasm of skin and subcutaneous tissue of right leg (principal); M79.651 Pain in right thigh
CPT/HCPCS: 27327; 88304; J0665

== ENCOUNTER 2025-09-28 14:24 | Outpatient (OUT) | payer OTHER, SELFPAY ==
--- OUTSIDE RECORDS SUMMARY | 2025-09-28 14:27 | XMS_ITS | Clinical Summary ---
Author Organization [facility] Address [address] [place] [address] Care Team Providers Care Roller Mill Tender Name Role Phone Filiberto Bernard MD Primary Care Provider [phone] Allergies Active AllergyReactionsCriticalityNoted DateCommentsSulfa (Sulfonamide Antibiotics)Hives01/13/2024Sulfamethoxazole-FzsepbtwufshFaiii62/01/2012 Medications MedicationSigDispense QuantityRefillsLast FilledStart DateEnd DateStatus cholecalciferol (Vitamin D-3) 25 MCG (1000 units) tablet Take 1,000 Units by mouth in the morning.Active omeprazole (PriLOSEC) [address] capsule in the morning.01/13/2024ctive atorvastatin (Lipitor) 20 mg tablet Indications:Hyperlipidemia, unspecified hyperlipidemia typeTake 1 tablet (20 mg) by mouth at bedtime. 90 tablet ctive Active Problems ProblemNoted DateDiagnosed UcbgBztjvckxu39/07/2025Nonrheumatic aortic valve unvqiznoulocw22/07/2025ortic root yxyyofrghi61/07/2025Mitral valve insufficiency and aortic valve xduleeldmgufg33/19/3828Evesvxq02/05/2024Other chest pain05/03/2024bnormal EKG005/03/2024yspnea on bszvvefb34/05/2024 Nonsustained ventricular debmsacntfg90/05/4290Fojlihpdekmx77/09/2024 Overview (05/03/2024): Last Assessment & Plan: Frequent symptoms and check Holter. Precordial pain04/06/2024 Overview (05/03/2024): Last Assessment & Plan: Recent pain and concerning of cardiac ischemia. Check treadmill cardiolyte stress test. If pain worsens or persists go to ER. Acute right-sided thoracic back pain03/13/2024 Overview (05/03/2024): Last Assessment & Plan: Recent pain but no injury and likely muscular. Treat with prednisone and use robaxin PRN. Use heat PRN. If no improvement will refer for PT. Bawtzyuwificcq92/15/2024Equinus contracture of left ankle03/13/2024 Gastroesophageal reflux disease without gygxvknndgc2024Pain of left heel 4Persistent zxdtmlat49/15/2024Primary osteoarthritis of right hand 03/13/2024Vitamin D buqhlebcbc13/15/2024Cricopharyngeal spasm05/08/2016 Oropharyngeal hqopybloa66/10/2016Skin lesion of right leg10/06/2012 Encounters DateTypeDepartmentCare TjfpFrjjwkkffqe47/07/2025 2:40 PM EDTOffice Visit [facility] [address] [place] [address] Brice Barron MD Dizziness (Primary Dx); Other chest pain; Abnormal EKG; Palpitations; Dyspnea on exertion; Mitral valve insufficiency and aortic valve insufficiency; Pure hypercholesterolemiafrom Last 3 Months Family History Medical HistoryRelationNameCommentsHeart attackFatherHeart failureFatherHeart failureMaternal GrandfatherCancerMotherRelationNameStatusCommentsFatherDeceased Maternal GrandfatherMotherDeceased Social History Tobacco UseTypesPacks/DayYears UsedDateSmoking Tobacco: NeverSmokeless Tobacco: Never Tobacco Cessation:Counseling Given: Not Answered Alcohol UseStandard Drinks/WeekCommentsYes0 (1 standard drink = 0.6 oz pure alcohol)Once every 1 to 2 weeks, usually 4-5 [facility] Safety & EnvironmentAnswer Date RecordedFear of Current or Ex-PartnerNot on file04/28/2024Emotionally AbusedNot on file04/28/2024hysically AbusedNot on file04/28/2024Sexually Abused Not on file04/28/2024hysically or Sexually AbusedNot on file04/28/2024 CommentsUnknownSex and Gender InformationValueDate RecordedSex Assigned at Kbqubz5207/03/2025 3:53 PM EDTLegal BqfQliysz14/31/2024 11:12 AM EDTGender EtrqrctnAcfwsx89/05/2025 3:53 PM EDTSexual OrientationHeterosexual or Straight 07/03/2025 3:53 PM EDT Last Filed Vital Signs Vital SignReadingTime TakenCommentsBlood Ggrioasz713/7307/05/2025 3:00 PM EDT Qfaxj674507/05/2025 3:00 PM EDTTemperature--Respiratory Rate--Oxygen Wsfrrzpflz91% 07/05/2025 3:00 PM EDTInhaled Oxygen Concentration--Deckhb23.6 kg (160 lb) 07/05/2025 3:00 PM RIDHvqcbp276.2 cm (5' 7 )07/05/2025 3:00 PM EDTBody Mass Index25.0607/05/2025 3:00 PM EDT Plan of Treatment Health MaintenanceDue DateLast DoneCommentsCT Wcffobcsidnf1962Colonoscopy 2Colorectal Cancer Lmbiagkyd1962FIT-DNA1962FIT1962 FOBT1960 8190Ldczgzoqkgeny1962Depression Voosykrut37/17/1974Pneumococcal Vaccine: Pediatrics (0 to 5 Years) and At-Risk Patients (6 to 64 Years) (1 of 2 - PCV)1981Pap Smear1983Cervical Cancer Znqzxnjja66/17/1992HPV/Cotest 1992Zoster Vaccines (1 of 2)01/15/20128929Dfepjormt05/10/COVID- 19 Vaccine ( season)/, 09/30/2023, 11/25/2022, Additional history existsInfluenza Vaccine (#1)/09/2024, 09/30/2023, 10/10/2022, Additional history existsAdult Dowjbvc40/09/2022HIB VaccinesAged OutNo longer eligible based on patient's age to complete this topic HPV VaccinesAged OutNo longer eligible based on patient's age to complete this topicIPV VaccinesAged OutNo longer eligible based on patient's age to complete this topicMeningococcal B VaccineAged OutNo longer eligible based on patient's age to complete this topicMeningococcal VaccineAged OutNo longer eligible based on patient's age to complete this topicRotavirus VaccinesAged OutNo longer eligible based on patient's age to complete this topic Insurance Care Teams Team MemberRelationshipSpecialtyStart DateEnd Date Filiberto Bernard MD [address] [place] [address] PCP - GeneralFamily Medicine05/03/24
--- OUTSIDE RECORDS SUMMARY | 2025-09-28 14:27 | XMS_ITS | Encounter Summary ---
Author Organization [facility] Address [address] [place] [address] Care Team Providers Care Vending Machine Assembler Name Role Phone Chirag San MD Primary Care Provider [phone] Chirag San MD Unavailable Encounter Details DateTypeDepartmentCare Team (Latest Contact Info)Jbjhcbvafks22/29/2024Clinisync Result Encounter [facility] External Department Unsolicited Chirag San MD [address] [place] [address] Social History Tobacco UseTypesPacks/DayYears UsedDateSmoking Tobacco: NeverSmokeless Tobacco: [id number] Health LiteracyAnswerDate RecordedHow often do you need to have someone help you when you read instructions, pamphlets, or other written material from your doctor or pharmacy?Never06/21/2025Humiliation, Afraid, Rape, and Kick questionnaireAnswerDate RecordedWithin the last year, have you been afraid of your partner or ex-partner?No06/21/2025Within the last year, have you been humiliated or emotionally abused in other ways by your partner or ex-partner?No06/21/2025Within the last year, have you been kicked, hit, slapped, or otherwise physically hurt by your partner or ex-partner?No06/21/2025Within the last year, have you been raped or forced to have any kind of sexual activity by your partner or ex-partner?No06/21/2025Social Connection and Isolation Panel AnswerDate RecordedIn a typical week, how many times do you talk on the phone with family, friends, or neighbors?More than three times a week06/21/2025How often do you get together with friends or relatives?Twice a week06/21/2025How often do you attend baptist or taoism services?More than 4 times per year 06/21/2025Do you belong to any clubs or organizations such as baptist groups, unions, fraternal or athletic groups, or school groups?No06/21/2025How often do you attend meetings of the clubs or organizations you belong to?Never06/21/2025 Are you , , , , never , or living with a partner?Tpmxbhd6906/21/2025UDIT-CAnswerDate RecordedQ1: How often do you have a drink containing alcohol?Monthly or less06/21/2025Q2: How many drinks containing alcohol do you have on a typical day when you are drinking?3 or Q3: How often do you have six or more drinks on one occasion?Less than monthly 06/21/2025Overall Financial Resource Strain (CARDIA)AnswerDate RecordedHow hard is it for you to pay for the very basics like food, housing, medical care, and heating?Not hard at all06/21/2025PHQ-2AnswerDate RecordedPatient Health Questionnaire-2 Fmfhg225Fin[facility] [place] of Occupational Health - Occupational Stress QuestionnaireAnswerDate RecordedDo you feel stress - tense, restless, nervous, or anxious, or unable to sleep at night because yourmind is troubled all the time - these days?Not at all06/21/2025Exercise Vital SignAnswer Date RecordedOn average, how many days per week do you engage in moderate to strenuous exercise (like a brisk walk)?4 days06/21/2025On average, how many minutes do you engage in exercise at this level?20 min06/21/2025Hunger Vital SignAnswerDate RecordedWithin the past 12 months, you worried that your food would run out before you got the money to buymore.Never true06/21/2025Within the past 12 months, the food you bought just didn't last and you didn't have money to get more.Never true06/21/2025PRAPARE - TransportationAnswerDate RecordedIn the past 12 months, has lack of transportation kept you from medical appointments or from getting medications?No06/21/2025In the past 12 months, has lack of transportation kept you from meetings, work, or from getting things needed for daily living?No06/21/2025Housing Stability Vital SignAnswerDate RecordedIn the last 12 months, was there a time when you were not able to pay the mortgage or rent on time?No03/30/2024In the last 12 months, how many places have you lived?In the last 12 months, was there a time when you did not have a steady place to sleep or slept in [facility] (including now)?No 03/30/2024Housing Stability Vital SignAnswerDate RecordedIn the last 12 months, was there a time when you were not able to pay the mortgage or rent on time?No 06/21/2025In the past 12 months, how many times have you moved where you were living?t any time in the past 12 months, were you homeless or living in a custodial (including now)?No06/21/2025CommentsUnknownSex and Gender InformationValueDate RecordedSex Assigned at VlksmMglhgu91/15/2024 9:44 AM EDT Legal KdnKahxbq48/15/2023 10:15 PM EDTGender FffxgmuuJeldhp79/15/2024 9:44 AM EDTSexual XibwllsaalkXellknuj19/15/2024 9:44 AM EDTdocumented as of this encounter Functional Status * AUDIT-C ScoreAnswerDate of EfovygqlnwYbhiqk010/24/2025 9:17 AM EDTMychkishan, Generic * Q1: How often do you have a drink containing alcohol?AnswerDate of Assessment AuthorMonthly or less06/21/2025 9:17 AM EDKam Generic * Q2: How many drinks containing alcohol do you have on a typical day when you are drinking?AnswerDate of AssessmentAuthor3 or 9:17 AM EDT Damien Walters * Q3: How often do you have six or more drinks on one occasion?AnswerDate of AssessmentAuthorLess than lkthdcw3606/21/2025 9:17 AM Damien Bland documented as of this encounter Plan of Treatment Not on file documented as of this encounter Procedures Procedure NamePriorityDate/TimeAssociated DiagnosisCommentsCA HOLTER MONITOR 2-7 DAYS04/26/2024 3:04 PM EDT documented in this encounter Results * CA HOLTER MONITOR 2-7 DAYS (04/26/2024 3:04 PM EDT)Anatomical RegionLaterality ModalityOtherSpecimen (Source)Anatomical Location / LateralityCollection Method / VolumeCollection TimeReceived Time04/26/2024 3:04 PM EDT Narrative 04/27/2024 6:56 AM EDT [facility] ?[address] ? [place] [address] ? Cardiology Report ? Signed ? Patient: KAROLINA MOCK ?MR#: [id number] ?? : 1960 ?Acct:[id number] ?? Age/Sex: 64 / F ?ADM Date: 04/12/24 ?? Loc: CARD ? Attending Dr: Chirag San M.D. ? Ordering Physician: Chirag San M.D. ?? Date of Service: 04/12/24 ?? Procedure(s): [facility] 2-7 days ?? Accession Number(s): [id number] ? cc: Chirag San M.D. ?[facility] ? Test Date: ?2024-04-26 ?? Pat Name: ? KAROLINA MOCK ?Department: ? Room: ? - ?? Gender: ? Female ? Curriculum Assistant: ? : ?1960 ? Requested By: CHIRAG SAN ?? Order Number: [id number] ?Reading MD: ?? DAYRON ??BALL ? Interpretive Statements ?? Predominant rhythm is sinus with average rate of 71 bpm ?? Tachycardia ?? - max rate of 140 bpm (PSVT) ?? - 8 episodes of PSVT w/ longest duration of 8 beats ?? - longest episode of 42min 48sec with rates between 111-127 bpm ?? Bradycardia ?? - min rate of 44 bpm ?? - longest episode of 59min 26sec with rates between 49-55 bpm ?? Ventricular ectopy ?? - 107 total, <1% - 107 PVC ?? Patient triggered events: 1 ?? - associated with chest pain ?? - associated with NSR ? Impression: ?? - Predominant rhythm is sinus with average rate of 71 bpm ?? - Fastest rate of 140 bpm (PSVT) and slowest rate of 44 bpm ?? - 107 PVC ?? - 8 episodes of PSVT w/ longest duration of 8 beats ?? - There are episodes where the QRS widens into a BBB pattern. During slower ?? rates a P wave can be easily seen prior to each QRS, however when the rate is ?? faster it appears to resemble NSVT ?? - No atrial fibrillation ?? - No pauses or blocks ? Electronically Signed On 04-27-2024 6:55:41 EDT by DAYRON ??BALL ? Dictated By: ?Dayron Jones D.O. ? Signed By: ?04/27/24 0656 ?04/27/24 0656 ? DD/ 1504 ? TD/TT: ? Concrete Pile Driver Operator: Procedure Note Radiology, Radiologist, MD - 04/27/2024 [place] [address] Cardiology Report Signed Patient: KAROLINA MOCK AMR#: [id number] : 2Acct:[id number] Age/Sex: 64 / FADM Date: 04/12/24 Loc: CARD Attending Dr: Chirag San M.D. Ordering Physician: Chirag San M.D. Date of Service: 04/12/24 Procedure(s): CA holter montior 2-7 days Accession Number(s): [id number] cc: Chirag San M.D. [facility] Test Date: 2024-04-26 Pat Name: KAROLINA MOCK Department: Room: - Gender: Female Curriculum Assistant: : 1960 Requested By: CHIRAG SAN Order Number: [id number] Reading MD: DAYRON JONES Interpretive Statements Predominant [...] By:04/27/24 0656 04/27/24 0656 DD/ 1504 TD/TT: Concrete Pile Driver Operator: Authorizing ProviderResult TypeResult StatusMarc Marco Antonio MDCLINISYNC IMAGING Final Result documented in this encounter Visit Diagnoses Not on filedocumented in this encounter Care Teams Team MemberRelationshipSpecialtyStart DateEnd Date Chirag San MD PCP - GeneralFamily Medicine01/13/24 Chirag San MD [address] [place] [address] PCP - Medical [employer]11/29/1311documented as of this encounter
--- OUTSIDE RECORDS SUMMARY | 2025-09-28 14:27 | XMS_ITS | Clinical Summary ---
Author Organization [facility] Address [address] [place] [address] Care Team Providers Care Top Edge Beveler Name Role Phone Filiberto Bernard MD Primary Care Provider [phone] Filiberto Bernard MD Unavailable Allergies Active AllergyReactionsCriticalityNoted DateCommentsSulfa AntibioticsHives 03/13/2024 Medications MedicationSigDispense QuantityRefillsLast FilledStart DateEnd DateStatus cholecalciferol (Vitamin D-3) 50 MCG (2000 UT) tablet 1 (one) time each day at the same timeActive cholecalciferol (Vitamin D3) 25 MCG (1000 UT) tablet Indications:Vitamin D deficiencyTAKE 1 TABLET BY MOUTH EVERY DAY 90 tablet 4Active omeprazole (PriLOSEC) [address] capsule Indications:Gastroesophageal reflux disease without esophagitisTAKE 1 CAPSULE DAILY 90 capsule 5Active Active Problems ProblemNoted DateDiagnosed DateMild aortic xmurzqwiooirn17/31/2025Actinic udbdjwkka39/31/2025 Assessment & Plan (06/28/2025 2:51 PM EDT): Lesion appears to be AK. Discussed premalignant nature of lesion and recommended cryo. Used liquidnitrogen to perform 3 freeze thaw cycles and patient tolerated well. Warned will form blister and likely will take multiple treatments. If develop new or worsening symptoms call. Lipoma of right lower toxxlrgfp34/31/2025 Assessment & Plan (06/28/2025 2:52 PM EDT): Lesion appears to be lipoma. C/o pain and refer to surgeon. Nlcrumxsevo83/09/2024 Assessment & Plan (04/06/2024 3:13 PM EDT): Frequent symptoms and check Holter. Precordial pain04/06/2024 Assessment & Plan (04/06/2024 3:13 PM EDT): Recent pain and concerning of cardiac ischemia. Check treadmill cardiolyte stress test. If pain worsens or persists go to ER. Ualvsllptmdz33/15/2024Equinus contracture of left ankle03/13/2024 Gastroesophageal reflux disease without yrkkticmkpc55/15/2024ersistent insomnia 4Pain of left heel03/13/2024Vitamin D pwxfnylczp69/15/2024rimary osteoarthritis of right hand03/13/2024 Resolved Problems ProblemNoted DateDiagnosed DateResolved DateClosed Colles' fracture of right swezte574Acute right-sided thoracic back pain03/13/2024 06/28/2025 Assessment & Plan (03/13/2024 11:19 AM EDT): Recent pain but no injury and likely muscular. Treat with prednisone and use robaxin PRN. Use heat PRN. If no improvement will refer for PT. Encounters DateTypeDepartmentCare IespYhuyyegrbmm44/31/2025 2:00 PM EDTOffice Visit [facility] [address] [place] [address] Filiberto Bernard MD Actinic keratosis (Primary Dx); Lipoma of right lower relgbhpqv65/31/2025Bamboo flowsheet [facility] [address] [place] [phone] Filiberto Bernard MD from Last 3 Months Social History Tobacco UseTypesPacks/DayYears UsedDateSmoking Tobacco: NeverSmokeless Tobacco: Never Tobacco Cessation:Counseling Given: Not Answered [id number] Health LiteracyAnswerDate RecordedHow often do you need to have someone help you when you read instructions, pamphlets, or other written material from your doctor or pharmacy?Never06/21/2025Humiliation, Afraid, Rape, and Kick questionnaireAnswerDate RecordedWithin the last year, have you been afraid of your partner or ex-partner?No06/21/2025Within the last year, have you been humiliated or emotionally abused in other ways by your partner or ex-partner?No 06/21/2025Within the last year, have you been kicked, hit, slapped, or otherwise physically hurt by your partner or ex-partner?No06/21/2025Within the last year, have you been raped or forced to have any kind of sexual activity by your part ner or ex-partner?No06/21/2025Social Connection and Isolation PanelAnswerDate RecordedIn a typical week, how many times do you talk on the phone with family, friends, or neighbors?More than three times a week06/21/2025How often do you get together with friends or relatives?Twice a week06/21/2025How often do you attend yazdanism or muslim services?More than 4 times per year06/21/2025Do you belong to any clubs or organizations such as yazdanism groups, unions, fraternal or athletic groups, or school groups?No06/21/2025How often do you attend meetings of the clubs or organizations you belong to?Never06/21/2025re you , , , , never , or living with a partner? 06/21/2025UDIT-CAnswerDate RecordedQ1: How often do you have a drink containing alcohol?Monthly or less06/21/2025Q2: How many drinks containing alcohol do you have on a typical day when you are drinking?3 or Q3: How often do you have six or more drinks on one occasion?Less than lnedfsa4006/21/2025Overall Financial Resource Strain (CARDIA)AnswerDate RecordedHow hard is it for you to pay for the very basics like food, housing, medical care, and heating?Not hard at all06/21/2025PHQ-2AnswerDate RecordedPatient Health Questionnaire-2 Score0 03/13/2024[facility] [place] [facility] - Occupational Stress QuestionnaireAnswerDate RecordedDo you feel stress - tense, restless, nervous, or anxious, or unable to sleep at night because yourmind is troubled all the time - these days?Not at all06/21/2025Exercise Vital SignAnswerDate RecordedOn average, how many days per week do you engage in moderate to strenuous exercise (like a brisk walk)?4 days06/21/2025On average, how many minutes do you engage in exercise at this level?20 min06/21/2025Hunger Vital SignAnswerDate Recorded Within the past 12 months, you worried that your food would run out before you got the money to buymore.Never true06/21/2025Within the past 12 months, the food you bought just didn't last and you didn't have money to get more.Never true 06/21/2025PRAPARE - TransportationAnswerDate RecordedIn the past 12 months, has lack of transportation kept you from medical appointments or from getting medications?No06/21/2025In the past 12 months, has lack of transportation kept you from meetings, work, or from getting things needed for daily living?No 06/21/2025Housing Stability Vital SignAnswerDate RecordedIn the last 12 months, was there a time when you were not able to pay the mortgage or rent on time?No 03/30/2024In the last 12 months, how many places have you lived?In the last 12 months, was there a time when you did not have a steady place to sleep or slept in ashelter (including now)?No03/30/2024Housing Stability Vital SignAnswerDate RecordedIn the last 12 months, was there a time when you were not able to pay the mortgage or rent on time?No06/21/2025In the past 12 months, how many times have you moved where you were living?t any time in the past 12 months, were you homeless or living in a custodial (including now)?No 06/21/2025CommentsUnknownSex and Gender InformationValueDate RecordedSex Assigned at GqofkCiebdc26/15/2024 9:44 AM EDTLegal JqwXhlkcp19/15/2023 10:15 PM EDTGender LugptgqhItbtvc37/15/2024 9:44 AM EDTSexual OrientationStraight 03/13/2024 9:44 AM EDT Last Filed Vital Signs Vital SignReadingTime TakenCommentsBlood Xwdtzzpc076/6407 2:13 PM EDT Lsvth608806/28/2025 2:13 PM YISKcgwnetozhc67.6 ??C (97.8 ??F)06/28/2025 2:13 PM EDTRespiratory Awgk199606/28/2025 2:13 PM EDTOxygen Rcmcwvbfoy34%06/28/2025 2:13 PM EDTInhaled Oxygen Concentration--Vjakoz29.2 kg (157 lb)06/28/2025 2:13 PM EDT Wqhdhx711.2 cm (5' 7 )06/28/2025 2:13 PM EDTBody Mass Index24.59006/28/2025 2:13 PM EDT Plan of Treatment Health MaintenanceDue DateLast DoneCommentsCT Pdsgbcuxjuij1960FIT-DNA 1960FIT1960FOBT1960 4484Quyfehcmcywjs1962MMR Vaccines (1 of 1 - Standard series)1963DTaP/Tdap/Td Vaccines (1 - Tdap)1969 Pneumococcal Vaccine: Pediatrics (0 to 5 Years) and At-Risk Patients (6 to 64 Years) (1 of 2 - PCV)1981Pap Smear1983Cervical Cancer Screening 1992HPV/Dsicmq3101/15/1992COVID-19 Vaccine ( season)2025 09/18/2024, 09/30/2023, 10/28/2021, Additional history existsInfluenza Vaccine (#1), 09/30/2023, 10/10/2022, Additional history exists Wlxtevovt09, 09/23/2023, 10/08/20141981Eeixqxhunrj46/07/2033 03/05/2023, 03/05/2023olorectal Cancer Ibocgiqtj08/07/2033HIB VaccinesAged Out No longer eligible based on patient's age to complete this topicHPV VaccinesAged OutNo longer eligible based on patient's age to complete this topicHepatitis A VaccinesAged OutNo longer eligible based on patient's age to complete this topic Hepatitis B VaccinesAged OutNo longer eligible based on patient's age to complete this topicIPV VaccinesAged OutNo longer eligible based on patient's age to complete this topicMeningococcal B VaccineAged OutNo longer eligible based on patient's age to complete this topicMeningococcal VaccineAged OutNo longer eligible based on patient's age to complete this topicRotavirus VaccinesAged Out No longer eligible based on patient's age to complete this topic Procedures Procedure NamePriorityDate/TimeAssociated DiagnosisCommentsMM TOMOSYNTHESIS SCREENING BI09/27/2024 4:38 PM EDT from Last 3 Months or Most Recently Relevant to Health Maintenance Results * MM TOMOSYNTHESIS SCREENING BI (09/27/2024 4:38 PM EDT)Anatomical Region LateralityModalityOtherSpecimen (Source)Anatomical Location / Laterality Collection Method / VolumeCollection TimeReceived Time09/27/2024 4:38 PM EDT Narrative 09/27/2024 4:39 PM EDT [facility] ?[address] ? [place] [id number] ? Mammography Report ? Signed ? Patient: KAROLINA DIAZ A ?MR#: [id number] ?? : 1960 ?Acct:[id number] ?? Age/Sex: 64 / F ?ADM Date: 10/30/24 ?? Loc: MAMMO ? Attending Dr: Filiberto Bernard M.D. ? Ordering Physician: Filiberto Bernard M.D. ?Results: ? Date of Service: 09/27/24 ?Follow Up: ? Procedure(s): MM tomosynthesis screening BI ?? Accession Number(s): [id number] ? cc: Filiberto Bernard M.D. ? Patient Name: ? KAROLINA DIAZ ? MR#: [id number] ? : 1960 ? Exam Date: 09/27/2024 ?? Ordering Doctor: DR Filiberto Bernard . ? RADIOLOGY REPORT ? PROCEDURE: ? MM TOMOSYNTHESIS SCREENING BI ? COMPARISON: ? MM TOMOSYNTHESIS SCREENING BI, 09/23/2023. ??MG MAMM SCREEN 3D ?? REGINALD CAD, 09/22/2022. ??MG MAMM SCREEN 3D REGINALD CAD, 09/09/2021. ??MAMMO REGINALD ?? SCREEN, 01/12/2003. ? INDICATIONS: ? Screening ? Calculator Name ? NCI Breast Cancer Risk Assessment Tool ?? 5 Year Breast Cancer Risk ? 1.20% ?? Lifetime Breast Cancer Risk ? 5.70% ?? Personal Breast Cancer ?No ?? Personal Ovarian Cancer ? No ?? Treatments ? None ?? Family Cancers ? Mother with ovarian cancer at age 46; Grandmother-maternal ?? with lymph node cancer at age 80. ? LOCATION: ? [facility] ? BREAST COMPOSITION: ? The breasts are heterogeneously dense,which may ?? obscure small masses. ? FINDINGS: ? DIAGNOSTIC CATEGORY 2--BENIGN FINDING: ? RIGHT BREAST: ??No significant suspicious finding. ??No significant change has ?? occurred. ? LEFT BREAST: ??No significant suspicious finding. ??Scattered benign-appearing ?? calcifications are present. ??No significant change has occurred.. ??No ?? significant change has occurred. ??No significant change has occurred. ??No ?? significant change has occurred. ??No significant change has occurred. ? RECOMMENDATIONS: ? ROUTINE MAMMOGRAM AND CLINICAL EVALUATION IN 12 MONTHS. ? PLEASE NOTE: ??A NORMAL MAMMOGRAM DOES NOT EXCLUDE THE POSSIBILITY OF BREAST ?? CANCER. ??A CLINICALLY SUSPICIOUS PALPABLE LUMP SHOULD BE BIOPSIED. ? Dictated by: Odin Green M.D. on 09/27/2024 at 16:35 ? Approved by: Odin Green M.D. on 09/27/2024 at 16:38 ? Dictated By: ?Odin Green M.D. ? Signed By: ?09/27/24 1029 ? DD/ 1638 ? TD/TT: ? Alcoholic Counselor: Procedure Note Radiology, Radiologist, MD - 09/27/2024 [place] [address] Mammography Report Signed Patient: KAROLINA DIAZ AMR#: [id number] : 1960cct:[id number] Age/Sex: 64 / FADM Date: 09/27/24 Loc: MAMMO Attending Dr: Filiberto Bernard M.D. Ordering Physician: Filiberto Bernard M.D.Results: Date of Service: 09/27/24Follow Up: Procedure(s): MM tomosynthesis screening BI Accession Number(s): [id number] cc: Filiberto Bernard M.D. Patient Name: KAROLINA DIAZ MR#: [id number] : 1960 Exam Date: 09/27/2024 Ordering Doctor: DR Filiberto Bernard . RADIOLOGY REPORT PROCEDURE: MM TOMOSYNTHESIS SCREENING BI COMPARISON: MM TOMOSYNTHESIS SCREENING BI, 09/23/2023. MG MAMM KKRHWD6R REGINALD CAD, 09/22/2022. MG MAMM SCREEN 3D REGINALD CAD, 09/09/2021. MAMMO REGINALD SCREEN, 01/12/2003. INDICATIONS: Screening Calculator Name NCI Breast Cancer Risk Assessment Tool 5 Year Breast Cancer Risk 1.20% Lifetime Breast Cancer Risk 5.70% Personal Breast Cancer No Personal Ovarian Cancer No Treatments None Family Cancers Mother with ovarian cancer at age 46;Grandmother-maternal with lymph node cancer at age 80. LOCATION: [facility] BREAST COMPOSITION: The breasts [...] Odin Green M.D. Signed By:09/27/24 1639 DD/ 37 TD/TT: Alcoholic Counselor: Authorizing ProviderResult TypeResult StatusMarc Naderer MDCLINISYNC IMAGING Final Result from Last 3 Months or Most Recently Relevant to Health Maintenance Insurance Care Teams Team MemberRelationshipSpecialtyStart DateEnd Date Filiberto Bernard MD [facility] Filiberto Bernard MD [address] [place] [address] PCP - Medical [facility]11/29/1311
--- OUTSIDE RECORDS SUMMARY | 2025-09-28 14:27 | XMS_ITS | Clinical Summary ---
Author Organization [employer] Address [id number] [address] [place] [address] Care Team Providers Care Pad Assembler Name Role Phone Remy Kirby Primary Care Provider [phone] Allergies Active AllergyReactionsCriticalityNoted DateComments Sulfamethoxazole-Omgkfhingmqi97/20/2016Latex, Natural Vkorkd9904/17/2016 Medications MedicationSigDispense QuantityRefillsLast FilledStart DateEnd DateStatus NEXIUM 40 mg capsule Take 40 mg by mouth once daily.Active esomeprazole (NexIUM) 40 mg capsule Indications:Esophageal refluxTake 1 capsule (40 mg total) by mouth every morning before breakfast. 90 capsule Active Additional Information Patient not taking.Reported on 09/26/2018 omeprazole (PriLOSEC) 40 mg capsule Take 40 mg by mouth daily.Active zolpidem (AMBIEN) 5 mg tablet Take 5 mg by mouth as needed for sleep.Active meloxicam (MOBIC) 15 mg tablet Take 15 mg by mouth daily as needed.Active Active Problems ProblemNoted DateDiagnosed DateCricopharyngeal spasm05/08/2016Oropharyngeal dzlvwmyxj22/10/2016 Family History Medical HistoryRelationNameCommentsHeart diseaseFatherAsthmaMotherRelationName StatusCommentsFatherMother Social History Tobacco UseTypesPacks/DayYears UsedDateSmoking Tobacco: NeverSmokeless Tobacco: NeverAlcohol UseStandard Drinks/WeekCommentsYes0 (1 standard drink = 0.6 oz pure alcohol)ChildcareAnswerDate AshtytcyXggjivirmRkwheoq51/12/2019EmploymentAnswer Date ComdwiwxEnstzxcffbJaipgay55/12/2019Purpose - LifeAnswerDate RecordedPurpose and direction in dtsgDvipphu25/11/2021CommentsUnknownSex and Gender InformationValueDate RecordedSex Assigned at BirthNot on fileLegal SexFemale 07/04/2015 11:23 AM EDTGender IdentityNot on fileSexual OrientationNot on file Last Filed Vital Signs Vital SignReadingTime TakenCommentsBlood Yipqlxau108/7810 3:33 PM EDT Pulse--Oddzxzmmcyl38.1 ??C (98.7 ??F)07/13/2016 1:24 PM EDTRespiratory Rate-- Oxygen Saturation--Inhaled Oxygen Concentration--Wmaadx67.7 kg (158 lb) 09/26/2018 3:33 PM RFRZevlei803.2 cm (5' 7 )09/26/2018 3:33 PM EDTBody Mass Index24.7509/26/2018 3:33 PM EDT Plan of Treatment Health MaintenanceDue DateLast DoneCommentsDepression Ludtanpvt14/17/1974Tobacco Uhcrhawjl66/17/1974Adult BMI Qncmlsrrw46/17/1980DTaP,Tdap and Td Vaccines (1 - Tdap)1981Pap Smear1983Zoster (Shingles) Vaccine (1 of 2)2012 Influenza Kdykxww2207/30/2025 Medical Devices Not on file Insurance Care Teams Team MemberRelationshipSpecialtyStart DateEnd Date Remy Kirby DO [address] [place] [address] [facility]03/20/13
--- OUTSIDE RECORDS SUMMARY | 2025-09-28 14:27 | XMS_ITS | Encounter Summary ---
Author Organization [facility] Address [address] [place] [address] Care Team Providers Care Beam Dyer Recessed Vat Name Role Phone Chirag San MD Primary Care Provider [phone] Chirag San MD Unavailable Encounter Details DateTypeDepartmentCare Team (Latest Contact Info)Djoxfolhxhs59/29/2024Clinisync Result Encounter [facility] External Department Unsolicited Chirag San MD [address] [place] [address] Social History Tobacco UseTypesPacks/DayYears UsedDateSmoking Tobacco: NeverSmokeless Tobacco: [id number] Health LiteracyAnswerDate RecordedHow often do you need [...] relatives?Twice a week06/21/2025How often do you attend latter day or druze services?More than 4 times per year 06/21/2025Do you belong to any clubs or organizations such as latter day groups, unions, fraternal or athletic groups, or school groups?No06/21/2025How often do you attend meetings of the clubs or organizations you belong to?Never06/21/2025 Are you , , , , never , or living with a partner?Gsbnrxf7106/21/2025UDIT-CAnswerDate RecordedQ1: How often do you have a [...] heating?Not hard at all06/21/2025PHQ-2AnswerDate RecordedPatient Health Questionnaire-2 [place]zqa789[place] [facility] [place] of Occupational Health - Occupational Stress QuestionnaireAnswerDate [...] steady place to sleep or slept in [facility] (including now)?No 03/30/2024Housing Stability Vital SignAnswerDate RecordedIn the last 12 months, was there a time when you were not able to pay the mortgage or rent on time?No 06/21/2025In the past 12 months, how many times have you moved where you were living?t any time in the past 12 months, were you homeless or living in a long term (including now)?No06/21/2025CommentsUnknownSex and Gender InformationValueDate RecordedSex Assigned at AucoxGvtuhd55/15/2024 9:44 AM EDT Legal WcyMweodt2023 10:15 PM EDTGender TvpyilznFlxmsk49/15/2024 9:44 AM EDTSexual NkibobzdmnnQdndkiqc33/15/2024 9:44 AM EDTdocumented as of this encounter Functional Status * AUDIT-C ScoreAnswerDate of UemveorvjtUsnqta340/24/2025 9:17 AM EDTMychkishan, Generic * Q1: How often do you have a drink containing alcohol?AnswerDate of Assessment AuthorMonthly or less06/21/2025 9:17 AM Damien Bland * Q2: How many drinks containing alcohol do you have on a typical day when you are drinking?AnswerDate of AssessmentAuthor3 or 9:17 AM EDT Damien Walters * Q3: How often do you have six or more drinks on one occasion?AnswerDate of AssessmentAuthorLess than dqizfxt2106/21/2025 9:17 AM Damien Bland documented as of this encounter Plan of Treatment Not on file documented as of this encounter Procedures Procedure NamePriorityDate/TimeAssociated DiagnosisCommentsNM CEM PERF SPECT REST STR04/26/2024 2:28 PM EDT documented in this encounter Results * NM CEM PERF SPECT REST STR (04/26/2024 2:28 PM EDT)Anatomical RegionLaterality ModalityOtherSpecimen (Source)Anatomical Location / LateralityCollection Method / VolumeCollection TimeReceived Time04/26/2024 2:28 PM EDT Narrative 04/26/2024 2:29 PM EDT [facility] ?[address] ? [place] [address] ?Nuclear Medicine Report ? Signed ? Patient: KAROLINA MOCK ?MR#: [id number] ?? : 1960 ?Acct:[id number] ?? Age/Sex: 64 / F ?ADM Date: 04/26/24 ?? Loc: NM ? Attending Dr: Chirag San M.D. ? Ordering Physician: Chirag San M.D. ?? Date of Service: 04/26/24 ?? Procedure(s): NM cem perf SPECT rest ?? str ?? Accession Number(s): [id number] ? cc: Chirag San M.D. ? Patient Name: ? KAROLINA MOCK ? MR#: [id number] ? : 1960 ? Exam Date: 04/26/2024 ?? Ordering Doctor: DR CHIRAG SAN . ? RADIOLOGY REPORT ? PROCEDURE: ? NM CEM PERF SPECT REST ?? STR ? COMPARISON: ? None. ? INDICATIONS: ? PRECORDIAL PAIN ? TECHNIQUE: ? Exam Description: ? Stress/Rest one day protocol gated SPECT ?? Rest Imaging: ?10.2 mCi Tc-99m Cardiolite IV on 04/26/2024 ?? Stress Imaging ? 31.5 mCi Tc-99m Cardiolite IV on 04/26/2024 ?? Exercise Protocol: ? Edward ? Heart Rate (bpm): ? Rest: 63 ? Max: 144 ?PMHR: 91 ?? Blood Pressure: ? Rest: 118/76 ?Max: 178/82 ?? Exercise Time: ? Minutes: 9 ?Seconds: 28 ?? Stage Reached: ? Stage: 4 ?Mets 11.6 ?? Symptoms: ? Rest and peak stress ECG findings were non-diagnostic and the exercise portion ?? of the study was Non-diagnostic per attending physician Dr. Tristan due to ?? Inferolateral ST-segment downsloping changed to upsloping during exercise. For ?? more details please see separate cardiac stress test report. ?? FINDINGS: ? QUALITY OF STUDY: ? Excellent. ?? PERFUSION DEFECT: ? None. ?LOCATION: ? N/A ?SIZE: ? N/A. ?SEVERITY: ?N/A. ?TYPE: ?N/A. ?? WALL MOTION: ? Normal. ?? LV SIZE: ? Normal. 72 mL. ?? TID / TCD: ? None; ??0.8 ?? LVEF: ? Normal. Calculated EF 80%. ? SUMMARY: ? Myocardial perfusion imaging study is NORMAL. ? CONCLUSION: ? 1. No perfusion abnormality. ??No reversible ischemia ?? 2. Nondiagnostic exercise test secondary to EKG changes ? Dictated by: Charles Lemus MD on 04/26/2024 at 14:23 ? Approved by: Charles Lemus MD on 04/26/2024 at 14:28 ? Dictated By: ?Charles Lemus M.D. ? Signed By: ?04/26/241428 ? DD/ 27 ? TD/TT: ? Power Equipment Mechanics Instructor: Procedure Note Radiology, Radiologist, - 04/26/2024 [place] [address] Nuclear Medicine Report Signed Patient: KAROLINA MOCK AMR#: [id number] : 1960cct:[id number] Age/Sex: 64 / FADM Date: 04/26/24 Loc: NM Attending Dr: Chirag San M.D. Ordering Physician: Chirag San M.D. Date of Service: 04/26/24 Procedure(s): NM cem perf SPECT rest str Accession Number(s): [id number] cc: Chirag San M.D. Patient Name: KAROLINA MOCK MR#: [id number] : 1960 Exam Date: 04/26/2024 Ordering Doctor: [...] M.D. Signed By:04/26/24 1429 DD/ 1428 TD/TT: Power Equipment Mechanics Instructor: Authorizing ProviderResult TypeResult StatusMarc Naderer MDCLINISYNC IMAGING Final Result documented in this encounter Visit Diagnoses Not on filedocumented in this encounter Care Teams Team MemberRelationshipSpecialtyStart DateEnd Date Chirag San MD PCP - GeneralFamily Medicine01/13/24 Chirag San MD [address] [place] [address] PCP - Medical [place] [employer]11/29/1311documented as of this encounter
--- OUTSIDE RECORDS SUMMARY | 2025-09-28 14:27 | XMS_ITS | Encounter Summary ---
Author Organization [facility] Address [address] [place] [address] Care Team Providers Care Amusement Ride Operator Name Role Phone Filiberto Bernard MD Primary Care Provider [phone] Filiberto Bernard MD Unavailable Encounter Details DateTypeDepartmentCare Team (Latest Contact Info)Pmuqzcpraic24/30/2024Clinisync Result Encounter [facility] External Department Unsolicited Filiberto Bernard MD [address] [place] [address] Social History Tobacco UseTypesPacks/DayYears UsedDateSmoking Tobacco: NeverSmokeless Tobacco: [id number] Health LiteracyAnswerDate RecordedHow often do you need [...] relatives?Twice a week06/21/2025How often do you attend congregational or religion services?More than 4 times per year 06/21/2025Do you belong to any clubs or organizations such as congregational groups, unions, fraternal or athletic groups, or school groups?No06/21/2025How often do you attend meetings of the clubs or organizations you belong to?Never06/21/2025 Are you , , , , never , or living with a partner?Ydwmsvz4006/21/2025UDIT-CAnswerDate RecordedQ1: How often do you have a [...] heating?Not hard at all06/21/2025PHQ-2AnswerDate RecordedPatient Health Questionnaire-2 Azdxg717Fincentral valley medical center [place] of Occupational Health - Occupational Stress QuestionnaireAnswerDate [...] steady place to sleep or slept in [facility] (including now)?No 03/30/2024Housing Stability Vital SignAnswerDate RecordedIn the last 12 months, was there a time when you were not able to pay the mortgage or rent on time?No 06/21/2025In the past 12 months, how many times have you moved where you were living?t any time in the past 12 months, were you homeless or living in a fdc (including now)?No06/21/2025CommentsUnknownSex and Gender InformationValueDate RecordedSex Assigned at BkwokWfbgmk66/15/2024 9:44 AM EDT Legal BoiOzenjd02/15/2023 10:15 PM EDTGender UpbljprkUrqbqu00/15/2024 9:44 AM EDTSexual ZyiwgjaizeuWyungcok38/15/2024 9:44 AM EDTdocumented as of this encounter Functional Status * AUDIT-C ScoreAnswerDate of VqqrcznnsyUuvpbv905/24/2025 9:17 AM EDTMychkishan, Generic * Q1: How [...] drinks on one occasion?AnswerDate of AssessmentAuthorLess than kejcvfg7906/21/2025 9:17 AM Damien Bland documented as of this encounter Plan of Treatment Not on file documented as of this encounter Procedures Procedure NamePriorityDate/TimeAssociated DiagnosisCommentsMM TOMOSYNTHESIS SCREENING BI09/27/2024 4:38 PM EDT documented in this encounter Results * MM TOMOSYNTHESIS SCREENING BI (09/27/2024 4:38 PM EDT)Anatomical Region LateralityModalityOtherSpecimen (Source)Anatomical Location / Laterality Collection Method / VolumeCollection TimeReceived Time09/27/2024 4:38 PM EDT Narrative 09/27/2024 4:39 PM EDT [facility] ?[address] ? [place] [address] ? Mammography Report ? Signed ? Patient: KAROLINA MOCK ?MR#: [id number] ?? : 1960 ?Acct:[id number] ?? Age/Sex: 64 / F ?ADM Date: 09/27/24 ?? Loc: MAMMO ? Attending Dr: Filiberto Bernard M.D. ? Ordering Physician: Filiberto Bernard M.D. ?Results: ? Date of Service: 09/27/24 ?Follow Up: ? Procedure(s): MM tomosynthesis screening BI ?? Accession Number(s): [id number] ? cc: Filiberto Bernard M.D. ? Patient Name: ? KAROLINA MOCK ? MR#: [id number] ? : 1960 ? Exam Date: 09/27/2024 [...] at age 82. ? LOCATION: ? [facility] ? BREAST COMPOSITION: ? The breasts [...] By: ?Odin Green M.D. ? Signed By: ?10/30/24 1639 ? DD/ 1638 ? TD/TT: ? Telemarketing Fundraiser: Procedure Note Radiology, Radiologist, MD - 09/27/2024 [place] [address] Mammography Report Signed Patient: KAROLINA MOCK AMR#: [id number] : 1960cct:[id number] Age/Sex: 64 / FADM Date: 09/27/24 Loc: MAMMO Attending Dr: Filiberto Bernard M.D. Ordering Physician: Filiberto Bernard M.D.Results: Date of Service: 09/27/24Follow Up: Procedure(s): MM tomosynthesis screening BI Accession Number(s): [id number] cc: Filiberto Bernard M.D. Patient Name: KAROLINA MOCK MR#: [id number] : 1960 Exam Date: 09/27/2024 Ordering Doctor: DR Filiberto Bernard . RADIOLOGY REPORT PROCEDURE: MM TOMOSYNTHESIS SCREENING BI COMPARISON: MM TOMOSYNTHESIS SCREENING BI, 09/23/2023. MG MAMM EZQNNQ2D REGINALD CAD, 09/22/2022. MG MAMM SCREEN 3D REGINALD CAD, 09/09/2021. MAMMO REGINALD SCREEN, 01/12/2003. INDICATIONS: Screening Calculator Name NCI Breast Cancer Risk Assessment Tool 5 Year Breast Cancer Risk 1.20% Lifetime Breast Cancer Risk 5.70% Personal Breast Cancer No Personal Ovarian Cancer No Treatments None Family Cancers Mother with ovarian cancer at age 46;Grandmother-maternal with lymph node cancer at age 80. LOCATION: [facility] BREAST COMPOSITION: The breasts are heterogeneously [...] Green M.D. Signed By:09/27/24 1639 DD/ TD/TT: Telemarketing Fundraiser: Authorizing ProviderResult TypeResult StatusMarc Marco Antonio MDCLINISYNC IMAGING Final Result documented in this encounter Visit Diagnoses Not on filedocumented in this encounter Care Teams Team MemberRelationshipSpecialtyStart DateEnd Date Filiberto Bernard MD PCP - GeneralFamily Medicine01/13/24 Filiberto Bernard MD [address] [place] [address] PCP - Medical [employer] [employer]11/29/1311documented as of this encounter
--- OUTSIDE RECORDS SUMMARY | 2025-09-28 14:27 | XMS_ITS | Encounter Summary ---
Author Organization [facility] Address [address] [place] [address] Care Team Providers Care Medical Accountant Name Role Phone Filiberto Bernard MD Primary Care Provider [phone] Filiberto Bernard MD Unavailable Encounter Details DateTypeDepartmentCare Team (Latest Contact Info)Kndhjaytnhr42/17/2024Clinisync Result Encounter [facility] External Department Unsolicited Provider, Generic External Data Social History Tobacco UseTypesPacks/DayYears UsedDateSmoking Tobacco: NeverSmokeless Tobacco: [id number] Health LiteracyAnswerDate RecordedHow often do you need [...] relatives?Twice a week06/21/2025How often do you attend holiness or scientology services?More than 4 times per year 06/21/2025Do you belong to any clubs or organizations such as holiness groups, unions, fraElasticDot or athletic groups, or school groups?No06/21/2025How often do you attend meetings of the clubs or organizations you belong to?Never06/21/2025 Are you , , , , never , or living with a partner?Rbnlvzq9006/21/2025UDIT-CAnswerDate RecordedQ1: How often do you have a [...] heating?Not hard at all06/21/2025PHQ-2AnswerDate RecordedPatient Health Questionnaire-2 Oouay223Finj[facility] [place] of Occupational Health - Occupational Stress QuestionnaireAnswerDate [...] steady place to sleep or slept in [place] (including now)?No 03/30/2024Housing Stability Vital SignAnswerDate RecordedIn the last 12 months, was there a time when you were not able to pay the mortgage or rent on time?No 06/21/2025In the past 12 months, how many times have you moved where you were living?t any time in the past 12 months, were you homeless or living in a fci (including now)?No06/21/2025CommentsUnknownSex and Gender InformationValueDate RecordedSex Assigned at PwwygSytybj08/15/2024 9:44 AM EDT Legal OszHjmlov57/15/2023 10:15 PM EDTGender JqawpizmVbxglb75/15/2024 9:44 AM EDTSexual LdcfibmgqhdInudcfaa35/15/2024 9:44 AM EDTdocumented as of this encounter Functional Status * AUDIT-C ScoreAnswerDate of DcsnvvicqiAaqhnh530/24/2025 9:17 AM Baldo, Generic * Q1: How often do you have a drink containing alcohol?AnswerDate of Assessment AuthorMonthly or less06/21/2025 9:17 AM Baldo, Generic * Q2: How many drinks containing alcohol do you have on a typical day when you are drinking?AnswerDate of AssessmentAuthor3 or 407/ 9:17 AM EDT Heenahart, Generic * Q3: How often do you have six or more drinks on one occasion?AnswerDate of AssessmentAuthorLess than denzhvl9606/21/2025 9:17 AM EDTMychart, Generic documented as of this encounter Plan of Treatment Not on file documented as of this encounter Procedures Procedure NamePriorityDate/TimeAssociated DiagnosisCommentsCA ECHO DOPPLER QJLTYCSG52/17/2024 4:40 PM EDT documented in this encounter Results * CA ECHO DOPPLER COMPLETE (05/15/2024 4:40 PM EDT)Anatomical RegionLaterality ModalityOtherSpecimen (Source)Anatomical Location / LateralityCollection Method / VolumeCollection TimeReceived Time05/15/2024 4:40 PM EDT Narrative 05/15/2024 4:42 PM EDT [facility] ?[address] ? [place] [address] ? Cardiology Report ? Signed ? Patient: FRANKART,KAROLINA A ?MR#: [id number] ?? : 1960 ?Acct:[id number] ?? Age/Sex: 64 / F ?ADM Date: 05/12/24 ?? Loc: CARD ? Attending Dr: Deysi Barron M.D. ? Ordering Physician: Deysi Barron M.D. ?? Date of Service: 05/12/24 ?? Procedure(s): CA echo doppler complete ?? Accession Number(s): [id number] ? cc: Deysi Barron M.D.; Filiberto Bernard M.D. ? Patient Name: ? KAROLINA MOCK ? MR#: [id number] ? : 1960 ? Exam Date: 05/12/2024 ?? Ordering Doctor: DEYSI BARRON ? ECHOCARDIOGRAM REPORT ? PROCEDURE: ? CA ECHO DOPPLER COMPLETE ? INDICATIONS: ? Abnormal EKG, Chest pain ? COMPARISON: ? None. ? DESCRIPTION: ? COMPLETE ECHOCARDIOGRAM Real-time transthoracic ?? echocardiography with 2D, M-mode, spectral and color flow Doppler performed. ? QUALITY: ? Technical quality was good. ? LEFT VENTRICLE: ? Normal chamber size. Normal left ventricular wall ?? thickness. Global left ventricular systolic function is normal. ?? LV EF: ? Estimated left ventricular ejection fraction is 55-60%. ?? DIASTOLIC: ? Normal diastolic function. ?? ATRIAL SEPTUM: ? LEFT ATRIUM: ? Normal chamber size. ?? RIGHT ATRIUM: ? Mild dilatation. ?? RIGHT VENTRICLE: ? Mild chamber dilatation. Normal right ventricular ?? systolic function. ? TRICUSPID VALVE: ? Normal mobility and thickness. No stenosis with trivial ?? regurgitation. No evidence of pulmonary hypertension. RVSP 27 mmHg ? MITRAL VALVE: ? Normal mobility and thickness. ?? No evidence of mitral valve ?? stenosis. ??There is no mitral annular calcification. Mild mitral ?? regurgitation. ? AORTIC VALVE: ? Normal trileaflet appearance. No visible sclerosis. ??Normal ?? leaflet mobility. ??No evidence of aortic valve stenosis. Mild aortic ?? regurgitation. ? AORTIC ROOT: ? Mildly dilated, measuring 3.7 cm. ??The ascending aorta is ?? normal diameter [3.2 cm] and appearance. ??The aortic arch measures 3.2 cm. ? PULMONIC VALVE: ? Normal thickness and mobility. No stenosis. Trivial ?? regurgitation. ? PERICARDIUM: ? No evidence of pericardial effusion. ? IVC: ? Collapses with inspirations. Normal size. ? PLEURA: ? CONCLUSION: ? 1. Normal left ventricular size and systolic function. ??LVEF is 55 to 60%. ?? 2. Mildly dilated right ventricle with normal systolic function. ?? 3. Mild aortic and mitral regurgitation. ?? 4. Mildly dilated aortic root. ?? 5. Normal right-sided pressures. ? Adult Echocardiography Procedure Report ?? Left Ventricle ?? LVEDD (3.7 - 5.6 cm): ? 4.75 cm ?? LVESD (2.2 - 4.0 cm): ? 3.05 cm ?? LVIVS thickness (0.6 - 1.2 cm): ? 0.94 cm ?? LVPW thickness (0.5 - 1.0 cm): ? 1.00 cm ?? e': ? 0.10 m/s ?? E - e': ? 6.77 ?? LVOT Max Gradient: ? 4.89 mm[Hg] ?? LVOT Area (cm2): ? 1.11 m/s ?? Peak Velocity (LVOT): ? 1.11 m/s ?? Mean Velocity (LVOT): ? 0.67 m/s ?? LVOT Diameter ? 2.23 cm ?? Left Ventricular Ejection Fraction: ? 55-60 % ?? Left Atrium ?? LA Volume Index (2D A2C): ? 22.19 ml/m2 ?? Left Atrium Systolic Dimension: ? 2.74 cm ?? Mitral Valve ?? MV E to A Ratio: ? 1.19 ?? Mitral Valve A-Wave Peak Velocity: ? 0.56 m/s ?? Mitral Valve E-Wave Peak Velocity: ? 0.67 m/s ?? Right Ventricle ?? RV Internal Diastolic Dimension: ? 3.00 cm ?? Aorta ?? AO Root Diam: ? 3.67 cm ?? Ascending Ao Diam: ? 3.18 cm ?? Aortic Valve ?? AoV Area (Peak Mk): ? 4.56 cm2, 4.56 cm2 ?? AoV Area (VTI): ? 4.08 cm2, 4.08 cm2 ?? Deceleration [place]: ? 0.47 m/s2 ?? Pressure Half-Time: ? 1.81 s ?? Peak Velocity(Antegrade Flow): ? 0.94 m/s ?? Peak Gradient(Antegrade Flow): ? 3.56 mm[Hg] ?? Mean Velocity(Antegrade Flow): ? 0.66 m/s ?? Mean Gradient(Antegrade Flow): ? 1.99 mm[Hg] ?? Velocity Time Integral: ? 23.56 cm ?? Tricuspid Valve ?? Peak Velocity (Regurgitant Flow): ? 2.06 m/s, 2.18 m/s, 2.46 m/s ?? Pulmonic Valve ?? Mean Gradient: ? 1.26 mm[Hg] ?? Mean Velocity: ? 0.53 m/s ?? Peak Velocity: ? 0.74 m/s, 0.67 m/s ?? Peak Gradient: ? 1.78 mm[Hg], 2.18 mm[Hg] ?? Right Atrium ?? Right Atrium Systolic Pressure: ? 38.60 ml, 38.60 ml ? Dictated by: Christian Dao M.D. on 05/15/2024 at 16:36 ? Approved by: Christian Dao M.D. on 05/15/2024 at 16:40 ? Dictated By: ?CHRISTIAN DAO ? Signed By: ?05/15/242 ? DD/ 1640 ? TD/TT: ? Chief Environmental Commitment Officer: Procedure Note Radiology, RadiologistMD - 05/15/2024 [place] [address] Cardiology Report Signed Patient: KAROLINA MOCK AMR#: [id number] : 1960cct:[id number] Age/Sex: 64 / FADM Date: 05/12/24 Loc: CARD Attending Dr: Deysi Barron M.D. Ordering Physician: Deysi Barron M.D. Date of Service: 05/12/24 Procedure(s): CA echo doppler complete Accession Number(s): [id number] cc: Deysi Barron M.D.; Filiberto Bernard M.D. Patient Name: KAROLINA MOCK MR#: [id number] : 1960 Exam Date: 05/12/2024 Ordering Doctor: [...] Area (VTI): 4.08 cm2, 4.08 cm2 Deceleration [place]: 0.47 m/s2 Pressure Half-Time: 1.81 s Peak [...] DAO Signed By:05/15/24 1642 DD/ 1640 TD/TT: Chief Environmental Commitment Officer: Authorizing ProviderResult TypeResult StatusGeneric External Data Provider CLINISYNC IMAGINGFinal Result documented in this encounter Visit Diagnoses Not on filedocumented in this encounter Care Teams Team MemberRelationshipSpecialtyStart DateEnd Date Filiberto Bernard MD PCP - GeneralFamily Medicine01/13/24 Filiberto Bernard MD [address] [place] [address] PCP - Medical [place] [employer]11/29/1311documented as of this encounter
--- OUTSIDE RECORDS SUMMARY | 2025-09-28 14:27 | XMS_ITS | Encounter Summary ---
Author Organization [facility] Address [address] [place] [address] Care Team Providers Care Plsql Developer Name Role Phone Filiberto Bernard MD Primary Care Provider [phone] Filiberto Bernard MD Unavailable Encounter Details DateTypeDepartmentCare Team (Latest Contact Info)Aqdczkolhcf12/20/2025linisync Result Encounter [facility] External Department Unsolicited Provider, Generic External Data Social History Tobacco UseTypesPacks/DayYears UsedDateSmoking Tobacco: NeverSmokeless Tobacco: [id number] Health LiteracyAnswerDate RecordedHow often do you need [...] relatives?Twice a week06/21/2025How often do you attend denominational or islam services?More than 4 times per year 06/21/2025Do you belong to any clubs or organizations such as denominational groups, unions, fraPhizzle or athletic groups, or school groups?No06/21/2025How often do you attend meetings of the clubs or organizations you belong to?Never06/21/2025 Are you , , , , never , or living with a partner?Mpsqzbo6506/21/2025UDIT-CAnswerDate RecordedQ1: How often do you have a [...] heating?Not hard at all06/21/2025PHQ-2AnswerDate RecordedPatient Health Questionnaire-2 [facility]xoq072[facility] [place] [facility] - Occupational Stress QuestionnaireAnswerDate [...] steady place to sleep or slept in flatoniaelter (including now)?No 03/30/2024Housing Stability Vital SignAnswerDate RecordedIn the last 12 months, was there a time when you were not able to pay the mortgage or rent on time?No 06/21/2025In the past 12 months, how many times have you moved where you were living?t any time in the past 12 months, were you homeless or living in a skilled nursing (including now)?No06/21/2025CommentsUnknownSex and Gender InformationValueDate RecordedSex Assigned at TsvuoDwnmid13/15/2024 9:44 AM EDT Legal IfxVckang59/15/2023 10:15 PM EDTGender SdvnvbseVttsyz96/15/2024 9:44 AM EDTSexual RgfnqgvrvmpCyftnyzf69/15/2024 9:44 AM EDTdocumented as of this encounter Functional Status * AUDIT-C ScoreAnswerDate of JmvkjabmxkBgztxe426/24/2025 9:17 AM Baldo, Generic * Q1: How often do you have a drink containing alcohol?AnswerDate of Assessment AuthorMonthly or less06/21/2025 9:17 AM Baldo, Generic * Q2: How many drinks containing alcohol do you have on a typical day when you are drinking?AnswerDate of AssessmentAuthor3 or 407/ 9:17 AM Damien Portillo * Q3: How often do you have six or more drinks on one occasion?AnswerDate of AssessmentAuthorLess than rubheyh8906/21/2025 9:17 AM Damien Bland documented as of this encounter Plan of Treatment Not on file documented as of this encounter Procedures Procedure NamePriorityDate/TimeAssociated DiagnosisCommentsXR ELBOW 3+ VIEWS LEFT12/18/2024 11:14 PM EST documented in this encounter Results * XR elbow 3+ views left (12/18/2024 11:14 PM EST)Anatomical RegionLaterality ModalityUpper Extremities, ElbowLeftRadiographic ImagingSpecimen (Source) Anatomical Location / LateralityCollection Method / VolumeCollection Time Received Time12/18/2024 11:14 PM EST Narrative 12/18/2024 11:16 PM EST [facility] ?[address] ? [place] [address] ?XRay Report ? Signed ? Patient: FRANKART,KAROLINA A ?MR#: [id number] ?? : 1960 ?Acct:[id number] ?? Age/Sex: 64 / F ?ADM Date: 12/18/24 ?? Loc: EC ? Attending Dr: Odin Liang M.D. ? Ordering Physician: Odin Liang M.D. ?? Date of Service: 12/18/24 ?? Procedure(s): XR elbow LT min 3V ?? Accession Number(s): [id number] ? cc: Odin Liang M.D.; Filiberto Bernard M.D. ? [facility] ? [address] ? [place] [address] ? Patient Name: ?? KAROLINA MOCK ? MRN: [id number] ? date: 1960 ?Sex: F ?? Assigned Patient Location: EC ?? Current Patient Location: EC ?? Accession/Order Number: [id number] ?? Exam Date: 12/18/2024 ??11:07 ?Report Date: 12/18/2024 ??23:14 ? At the request of: ?? ODIN LIANG ? Procedure: ??XR elbow LT min 3V ? EXAM: XR elbow LT min 3V ? HISTORY: LEFT ELBOW PAIN ? COMPARISON: None. ? FINDINGS/IMPRESSION: ? 1. There is an elbow joint effusion.. ?? 2. Suspected nondisplaced fracture of the proximal aspect of the radius. ?? 3. Normal alignment of the elbow. ? Electronically authenticated by: NICHOLAS ??SHAY ?? Date: 12/18/2024 ??23:14 ? Dictated By: ?Nicholas Conti M.D. ? Signed By: ?12/18/246 ? DD/ 13 ? TD/TT: ? Financial Analysis Manager: Procedure Note Radiology, Radiologist, - 12/18/2024 [facility] [place] [id number] XRay Report Signed Patient: KAROLINA MOCK AMR#: [id number] : 1960cct:[id number] Age/Sex: 64 / FADM Date: 12/18/24 Loc: EC Attending Dr: Odin Liang M.D. Ordering Physician: Odin Liang M.D. Date of Service: 12/18/24 Procedure(s): XR elbow LT min 3V Accession Number(s): [id number] cc: Odin Liang M.D.; Filiberto Bernard M.D. The [place] [id number] Patient Name: KAROLINA MOCK MRN: [id number] date: 1960 Sex: F Assigned Patient Location: Current Patient Location: Accession/Order Number: [id number] Exam Date: 12/18/2024 11:07 Report Date: 12/18/2024 [...] Conti M.D. Signed By:12/18/242315 DD/ 13 TD/TT: Financial Analysis Manager: Authorizing ProviderResult TypeResult StatusGeneric External Data ProviderIMG XR PROCEDURESFinal Result documented in this encounter Visit Diagnoses Not on filedocumented in this encounter Care Teams Team MemberRelationshipSpecialtyStart DateEnd Date Filiberto Bernard MD PCP - GeneralFamily Medicine01/13/24 Filiberto Bernard MD [address] [place] [address] PCP - Medical [place] [employer]11/29/1311documented as of this encounter
--- OUTSIDE RECORDS SUMMARY | 2025-09-28 14:27 | XMS_ITS | Patient Health Record ---
Author Organization [facility] Address [address] [place] [address] Care Team Providers Care Vp Name Role Phone Odin Juarez Unavailable [phone] JeffreyGeena lorenzole Unavailable Allergies Allergen (clinical drug ingredient) Drug/Non Drug Allergy documented on EMR Reaction Allergy Type Onset Date Status sulfamethoxazole / trimethoprim Bactrim Unknown Drug Allergy Active Results Component Value Reference Range Notes SCC- ELBOW 3 VIEW LEFT [id number] Reviewed date:02/15/2025 01:20:10 PM Interpretation: Performing Lab: Notes/Report: SCC- ELBOW 3 VIEW LEFT [id number] Reviewed date:12/19/2024 03:35:47 PM Interpretation: Performing Lab: Notes/Report: Reason For Referral No Information Medications Medication SIG (Take, Route, Frequency, Duration) Notes Start Date End Date Status Vitamin D3 ActivePriLOSECActive Social History Tobacco Use: Social History Observation Description Date Details (start date - stop date) Never Smoker NA - NA AUDIT-C (Standard) Question Answer Notes Did you have a drink containing alcohol in the p ast year? Yes How often did you have six or more drinks on one occasion in the past year?Never (0 point)How many drinks did you have on a typical day when you were drinking in the past year?1 or 2 drinks (0 point)How often did you have a drink containing alcohol in the past year?Monthly or less (1 point)Mdhwfc6EbuoraduyhqobqFzykvljd Tobacco Control (Standard) Question Answer Notes Tobacco use: Nonsmoker Problems Problem Type SNOMED Code ICD Code Onset Dates Problem Status W/U Status Risk Notes Problem [id number] Nondisplaced fra cture of head of left radius, subsequent encounter for closed fracture with routine healing (S52.125D) EkkcbuzoohpypylGsbstgc87985739Pntwgy nondisplaced fracture of head of left radius, initial encounter (S52.125A)Activeconfirmed Vital Signs Height 5'7 in 2025 Lxxjzv293 lbs2025BMI24.7401/15/2025 Encounters Encounter Location Date Provider Diagnosis [facility] Office [address] [place] [address] 12/11/2024 Odin Juarez Closed nondisplaced fracture of head of left radius, initial encounter S52.125A [facility] Office [address] [place] [address] 12/18/2024 Odin Juarez Nondisplaced fracture of head of left radius, subsequent encounter for closed fracture with routine healing S52.125D [facility] [address] [place] [address] 2025 Odin Juarez Nondisplaced fracture of head of left radius, subsequent encounter for closed fracture with routine healing S52.125D [facility] [address] [place] [address] 02/12/2025 Lakshmi galvinWhiteland Nondisplaced fracture of head of left radius, subsequent encounter for closed fracture with routine healing S52.125D Assessments Encounter Date Diagnosis (ICD Code) Assessment Notes Treatment Notes Treatment Clinical Notes Section Notes 12/11/2024 Closed nondisplaced fracture of head of left radius, initial encounter (ICD-10 - S52.125A) 12/18/2024Nondisplaced fracture of head of left radius, subsequent encounter for closed fracture with routinehealing (ICD-10 - S52.125D)2025Nondisplaced fracture of head of left radius, subsequent encounter for closed fracture with routinehealing (ICD-10 - S52.125D)02/12/2025Nondisplaced fracture of head of left radius, subsequent encounter for closed fracture with routinehealing (ICD- 10 - S52.125D)12/11/2024Other For left radial head fracture we will continue with the posterior splint. She will follow-up in 1 week to remove the splint and repeat x-rays. At that time we will use a sling and have her start to work on restoring motion. Import medication 12/18/2024Other Tear splint was removed today in clinic. She will wear a sling. She will work on restoring motion. She will not do any lifting. She will follow-up in 4 weeks to repeat x-rays of her elbow and reassess her progress. Import medication 2025Other Patient is doing well. She would like to return to work next Wednesday. She will need the work note tosay no restrictions but her boss is agreed that she will be given assistance for any heavy lifting.She will follow-up in 1 month to repeat a likely final set of x-rays and reassess her progress. Import medication 02/12/2025OtherPatient is now a little over 2 months [...] Order Date SCC- ELBOW 3 VIEW LEFT [id number] 02/12/2025 Insurance Providers Payer Name Payer Address Payer Phone Subscriber Number Group Number Insured Name Patient Relationship to Insured Coverage Start Date Coverage End Date [employer] [address] [place] [address] [id number] Carina DIAZ - patient is the insured Medical (General) History Medical History History ICD Code Drug Allergies Surgical History Surgery Date(Month/Year) wrist 2020
--- OUTSIDE RECORDS SUMMARY | 2025-09-28 14:27 | XMS_ITS | Patient Health Record ---
Author Organization [facility] [place] Address [address] [place] [address] Care Team Providers Care Regional Forester Name Role Phone Filiberto Bernard MD Primary Care Provider Unavailab le Allergies Allergen (clinical drug ingredient) Drug/Non Drug Allergy documented on EMR Reaction Allergy Type Onset Date Status sulfamethoxazole / trimethoprim Bactrim Unknown Drug Allergy Active Reason For Referral No Information Medications Medication SIG (Take, Route, Frequency, Duration) Notes Start Date End Date Status traZODone HCl ActiveOmeprazoleActivePEG-3350/Electrolytes 236 GMas directed Orally 8 oz every 10-15 mins; Duration: 1 daysdrink 8 oz every 10-15 mins until the jug is completely gone.02/23/2023ctiveVitamin DActive Social History Tobacco Use: Social History Observation [...] Date MMO [employer] [address] [place] [address] [id number] NCOTOFS Karolina Mock Self - patient is the insured Medical (General) History Medical History History ICD Code Colon cancer screening Z12.11 Closed Colles fracture of right radius, initial encounter S52.531A Plantar fasciitis of left foot M72.2 Acid reflux K21.9 Surgical History Surgery Date(Month/Year) HYSTERECTOMY TOTAL 07/07/05 shoulder surgery 02/27/09 throat surgery 06/30/16 Hospitalization History Reason Date(Month/Year) see above
--- OUTSIDE RECORDS SUMMARY | 2025-09-28 14:28 | XMS_ITS | CCD ---
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 Name Role Phone Nayana Huitron Unavailable MD Nayana Huitron Attending Provider [phone] NON STAFF Primary Care Provider UnavailCaprice Syed Unavailable Kusum Palencia Unavailable TAMCARIDAD MCINTOSH Admitting Unavailable CARIDAD TREJO Attending Unavailable JASWINDER, DR FILIBERTO Tellez Primary Care Unavailable SOTO HINOJOSA Consulting Unavailable NICHELLE IIDAVIE Consulting Unavailable CARIDAD TREJO Consulting Unavailable JASWINDER, DR FILIBERTO Tellez Admitting Unavailable JASWINDER, DR FILIBERTO Tellez Attending Unavailable JASWINDER, DR FILIBERTO Tellez Primary Care Unavailable MOBILE, DR GIBRAN Beyer Consulting Unavailable JASWINDER, DR FILIBERTO Tellez Consulting Unavailable MAGUE Parekh Attending Provider Filiberto San MD Primary Care Provider Filiberto San MD Unavailable FILIBERTO SAN Attending Unavailable DEYSI BARRON Attending Unavailable DEYSI BARRON Attending Unavailable DEYSI BARRON Attending Unavailable FILIBERTO SNA Primary Care Physician Velasquez Fernandez MD Attending Provider Velasquez Fernandez Attending Unavailable Velasquez Fernandez Admitting Unavailable FILIBERTO SAN Referring Unavailable Velasquez FERNANDEZ Attending Unavailable Velasquez FERNANDEZ Attending Unavailable Velasquez FERNANDEZ Attending Unavailable Filiberto San MD Primary Care Provider [phone] Filiberto San MD Unavailable Allergies Allergy ClassificationReported Allergen(s)Allergy TypeDate of OnsetReaction(s) Facility (7 sources)Sulfamethoxazole / TrimethoprimDrug AllergyUnknowSaint [facility] Hospital [facility] Other (1 source)Sulfamethoxazole / TrimethoprimDrug Btijwla25-35-1235Swv [facility] Repository (5 sources)Sulfamethoxazole; Translations: [sulfamethoxazole]Drug Allergy 99-33-5617NawscZtudckgkrKn[facility] (5 sources)Trimethoprim; Translations: [trimethoprim]Drug Zopbugs47-74-0541QcrwgA[facility] (15 sources)Sulfonamides (Antibiotic)Propensity to adverse tienljnye07-15-9841 [facility] (1 source)Sulfamethoxazole / Trimethoprim; Translations: [SULFAMETHOXAZOLE-TRIMETHOPRIM]Drug Lcgzvjb90-08-3647IyayjvtwgmGreen [facility] Rep[facility] (1 source)Sulfonamides (Antibiotic); Translations: [SULFA (SULFONAMIDE ANTIBIOTICS)]Propensity to adverse reactions to drug (disorder)01-13-2024 [facility] Repository (3 sources)Sulfonamide; Translations: [sulfa drugs]Drug allergyWeal (disorder) [facility] [place] Medications Current Medications MedicationDrug Class(es)DatesSig (Normalized)Sig (Original)acetaminophen 325 mg oral tablet (3 sources)take 1 tablet by mouth every four hoursTylenol 325 MG 1 tablet as needed Orally every 4 hrs Activeatorvastatin 20 mg oral tablet (3 sources)HMG-CoA Reductase InhibitorStart: 73-39-3102mfuk 1 tablet by mouth once dailyatorvastatin 20 mg Tab 20 mg = 1 tab(s), Oral, Daily, Refills(s) 0 Start Date: 07/31/25 Status: Ordered Repeat number: 1cefdinir 300 mg oral capsule (1 source)Cephalosporin Antibacterialtake 1 capsule by mouth twice dailyCefdinir 300 MG TAKE 1 CAPSULE BY MOUTH TWICE A DAY Oral for 10 Days Active cholecalciferol 0.025 mg oral tablet (20 sources)Vitamin DStart: 32-07-9870knev 1 tablet by mouth once daily cholecalciferol (Vitamin D3) 25 MCG (1000 UT) tablet Indications: Vitamin D deficiency TAKE 1 TABLET BY MOUTH EVERY DAY 90 tablet 5 10/09/2024 Active cholecalciferol (Vitamin D-3) 50 MCG (2000 UT) tablet 1 (one) time each day at the same time Activenaproxen 500 mg oral tablet (1 source)Nonsteroidal Anti-inflammatory DrugStart: 51-99-0068hoho 1 tablet by mouth twice daily as needed for painomeprazole 40 mg delayed release oral capsule (20 sources)Proton Pump InhibitorStart: 75-05-1189ttig 1 capsule by mouth once dailyomeprazole 40 mg Cap-DR 40 mg = 1 cap(s), Oral, Daily, Refills(s) 0 Start Date: 07/04/25 Status: Ordered Repeat number: 1Start: 26-01-3912gmqismwdtx (PriLOSEC) [address] capsule Indications: Gastroesophageal reflux disease without esophagitis TAKE 1 CAPSULE DAILY 90 capsule 3 06/12/2025 ActiveOmeprazole 40 MG Oral for 90 Days ActivepredniSONE 20 mg oral tablet (3 sources)Start: 86-91-4693neqe 1 tablet by mouth every twelve hourspredniSONE 20 MG 1 tablet Orally 2 times a day for 5 day(s) Aug, ActiveVitamin D3 1000 intl units (25 mcg) Tab (2 sources)Start: 29-68-9095yojb 1 tablet by mouth once dailyVitamin D3 1000 intl units (25 mcg) Tab 25 mcg = 1 tab(s), Oral, Daily, Refills(s) 0 Start Date: 07/04/25 Status: Ordered Repeat number: 1 Completed/Discontinued Medications MedicationDrug Class(es)DatesSig (Normalized)Sig (Original)phenazopyridine hydrochloride 200 mg oral tablet (4 sources)Start: 01-13-2024 End: 26-82-5789xhvb 1 tablet by mouth three times dailyPhenazopyridine (Pyridium) 200 mg tablet Discontinued 200 MG PO Three times daily 6 January 13, 2024 1:00am July 04, 2024 9:21amtriamcinolone acetonide 40 mg/ml injectable suspension (14 sources)CorticosteroidStart: 86-25-8664Wapkdga-40 Sep, 20 mgStart: 81-21-4227Fnusaqj-40 Jun, 10 mg Problems Active Problems Problem ClassificationProblemDateDocumented DateEpisodic/ChronicAortic; peripheral; and visceral artery aneurysms (2 sources)Thoracic aortic ectasia; Translations: [Thoracic aortic ectasia] Onset: 15-67-3951XinxzltQsnlkqz dysrhythmias (2 sources)Ventricular tachycardiaOnset: 077873-99-2525QvpnfbjFfspbqbcl of lipid metabolism (20 sources)Dyslipidemia; Translations: [Hyperlipidemia, unspecified]Onset: 489494-88-8014OdnsgclQmyfyzvjjk disorders (20 sources)Gastro-esophageal reflux disease without esophagitis; Translations: [Gastroesophageal reflux disease]Onset: 206835-86-6870PryjtdpHcmpsntyzbxas symptoms and ill-defined conditions (6 sources)Dysuria; Translations: [Dysuria]06-72-7798HhmpegxbYjjot valve disorders (9 sources)Nonrheumatic aortic (valve) insufficiency; Translations: [Aortic valve disorders]Onset: 602976-29-9595HcltycwYdpgppacdgo deficiencies (17 sources)Vitamin D deficiency; Translations: [Vitamin D deficiency, unspecified]Onset: 645436-03-7530NdzlvnlMxjfhtytptgwxc (20 sources)Osteoarthritis of joint of right hand; Translations: [Primary osteoarthritis, right hand]Onset: 05-26-2022 Resolved: 12-56-1176TzvhqrcLtncs acquired deformities (15 sources)Equinus contracture of the ankle; Translations: [Contracture, left ankle]Onset: 664823-06-3509TaqtinxCpapm aftercare (1 source)Other correction (current) drug therapy; Translations: [OTH EVENTS MANAGER CURRENT DRUG THERAPY]Onset: 03-19-7560IpenpgjsLfmfw and unspecified benign neoplasm (2 sources)Benign lipomatous neoplasm of skin and subcutaneous tissue of right leg; Translations: [Benign lipomatous neoplasm of skin and/or subcutaneous tissue of right lower limb]Onset: 29-57-0179NkuffbvkFnzvi and unspecified benign neoplasm (2 sources)Lipoma of -91-5159RswkstpcUgnyu connective tissue disease (6 sources)Pain in right hand; Translations: [Pain in limb]Onset: 05-26-2022 Resolved: 77-83-1331QospjcbiJbocn connective tissue disease (1 source)Hand pain; Translations: [Pain in right hand]56-13-4765WcnpmdqfKrvmo connective tissue disease (1 source)Pain in right hand; Translations: [Pain in right hand]07-03-2024 EpisodicOther connective tissue disease (1 source)Tendinitis of right elbow; Translations: [Other enthesopathies, not elsewhere classified]64-45-8498PoaeuovcCozvh nutritional; endocrine; and metabolic disorders (2 sources)Puoctyturo13-36-0202HhsowiiyUfguq nutritional; endocrine; and metabolic disorders (2 sources)Overweight in adulthood with body mass index of 25 or more but less than 3453-26-9069JurgvngzImpbtu media and related conditions (1 source)Unspecified nonsuppurative otitis media, right earEpisodicResidual codes; unclassified (1 source)Acquired absence of both cervix and uterus; Translations: [ACQUIRED ABSENCE BOTH CERVIX AND UTERUS]Onset: 26-60-2407PoqixiczEhydsedncxpz (1 source)Other ventricular tachycardia; Translations: [Other ventricular tachycardia]Onset: 32-12-0451Dugpwevqksxu (2 sources)Mild aortic valve regurgitationOnset: 513194-30-5491 Past or Other Problems Problem ClassificationProblemDateDocumented DateEpisodic/ChronicCardiac dysrhythmias (17 sources)Palpitations; Translations: [Palpitations]Onset: 04-06-2024 19-58-8569KgtujegkIymywapugt associated with dizziness or vertigo (2 sources)Dizziness and giddiness; Translations: [Dizziness and giddiness] Onset: 99-59-6347ZdhsmlpzPzoodxts of upper limb (15 sources)Closed Colles' fracture; Translations: [Colles' fracture of right radius, initial encounter for closed fracture]Onset: 03-13-2024 Resolved: 271020-67-5430QpctdurpZjzxyjudukj chest pain (19 sources)Precordial pain; Translations: [Precordial pain]Onset: 04-06-2024 11-58-3690QdvmnclmAuar wounds of extremities (1 source)Laceration without foreign body, unspecified lower leg, initial encounterOnset: 06-08-2022 Resolved: 32-23-6849RydssezsQavqt and unspecified benign neoplasm (11 sources)Lipoma of right lower limb; Translations: [Benign lipomatous neoplasm of skin and subcutaneous tissue of right leg]Onset: 06-28-2025 55-62-7986WyhchiyuKoujf connective tissue disease (15 sources)Pain of left heel; Translations: [Pain in left foot]Onset: 164406-45-2559XlnplzbtZewgh lower respiratory disease (2 sources)Other forms of dyspnea; Translations: [Other forms of dyspnea]Onset: 49-88-0391OqkcaoshXwwqz screening for suspected conditions (not mental disorders or infectious disease) (10 sources)Encounter for screening for malignant neoplasm of colon; Translations: [Encounter for screening mammogram for malignant neoplasm of breast]Onset: 62-69-5720VjghxgheUmctl skin disorders (9 sources)Actinic keratosis; Translations: [Actinic keratosis]Onset: 06-28-2025 89-27-1865KqtzzpovXekuitla codes; unclassified (1 source)Family history of malignant neoplasm of ovary; Translations: [FAM HX MALIGNANT NEOPLASM OVARY]Onset: 23-94-6540SkklfvcoNmowpyia codes; unclassified (1 source)Family history of other malignant neoplasms of lymphoid, hematopoietic and related tissues; Translations: [FAM HX OTH MAL JUAN LYMPH HEMATPOETC]Onset: 45-06-4043WdgqekzlIcfftest codes; unclassified (15 sources)Persistent insomnia; Translations: [Insomnia, unspecified]Onset: 673625-48-9875SnosnynpWiggvugzjcw; intervertebral disc disorders; other back problems (15 sources)Acute thoracic back pain; Translations: [Pain in thoracic spine] Onset: 03-13-2024 Resolved: 457665-44-2494HvvuyvadTwqlhgveeadp (1 source)Other ventricular tachycardia; Translations: [Other ventricular tachycardia]Onset: 07-17-2024 Results Test NameValueInterpretationReference RangeFacilityAmbulatory Visit Summaryon 84-68-5143Fkawkfxobc Visit SummaryAmbulatory Visit Summary KAROLINA MOCK :1960 Visit Date:09/18/2025 Ambulatory Visit Instructions Your Diagnosis Lipoma of right thigh Your Care Team Attending Physician - DANIKA RODGERS, Velasquez Mitchell Primary Care Physician - FILIBERTO SAN MD This Is Your Medications List Contact prescribing physician if questions or concerns atorvastatin (atorvastatin 20 mg Tab) cholecalciferol (Vitamin D3 1000 intl units (25 mcg) Tab) omeprazole (omeprazole 40 mg Cap-DR) Procedures Performed Excision of lipoma (09/05/2025), Colonoscopy (03/05/2023), Bone spur of right shoulder, Closed fracture of right wrist, Dilation of esophagus, Dilation of esophagus, Dilation of esophagus, Dilation of esophagus, Dilation of esophagus, Excision of lipoma, Excision of lipoma, Heller operation, esophagomyotomy, VH - Vaginal hysterectomy. Medications What How Much When Instructions Unchanged [...] for. BMI 25.0-25.9,adult Dyslipidemia Gastroesophageal reflux disease Lipoma [...] signed up for this yet, please contact Scali at [phone] to get signed up today. Language Information Language assistance services are available as needed. [facility] Office/Clinic Noteon 73-78-9999Rcpmhgt Surgery Office/Clinic NoteGeneral Surgery Office/Clinic Note Chief Complaint post operative follow up HPI Staff 13 day post operative follow up post excisional biopsy right thigh lipoma. Denies discomfort, bleeding or drainage. History of Present Illness almost 2 weeks s/p excisional biopsy right upper anterior thigh lipoma; denies pain or drainage; minimal bruising initially, now resolved. pathology consistent with a benign lipoma. Review of Systems PHQ Score Initial Depression Screen Score: 0 SCORE ROS - Provider Constitutional: no fever, no sweats, no weight loss. Eyes: no glasses, no blurred vision, no visual loss. ENMT: no dentures, no hoarseness, no swallowing difficulties, no hearing loss, no ear infection(s),no nose bleeds. Cardiovascular: normal blood pressure, no [...] and are negative or noncontributory. Physical Exam skin: incision without erythema or drainage, no ecchymosis. Assessment/Plan 1. Lipoma of right thigh (D17.23: Benign lipomatous neoplasm of skin and subcutaneous tissue of right leg) healing well; call with problems/questions. Follow-up No qualifying data available Problem List/Past Medical History Ongoing BMI 25.0-25.9,adult Dyslipidemia Gastroesophageal reflux disease Lipoma of right thigh Mild aortic valve regurgitation Overweight Ventricular tachycardia Vitamin D deficiency Historical No qualifying data Procedure/Surgical History Excision of lipoma (09/05/2025), Colonoscopy (03/05/2023), Bone spur of right shoulder, [...] lifetime) Tobacco Use:. Never Smokeless Tobacco Use:., 09/18/2025 Family History Heart disease: Father and Brother. Uterine cancer: Brother. Immunizations Vaccine Date Status influenza virus vaccine, inactivated 09/08/2024 Recorded SARS-CoV-2 (COVID-19) mRNAMUL.ORD![id number] 11/25/2022 Recorded SARS-CoV-2 (COVID-19) mRNA BNT-162b2 vax 10/28/2021 Recorded SARS-CoV-2 (COVID-19) mRNA BNT-162b2 vax 03/14/2021 Recorded SARS-CoV-2 (COVID-19) mRNA BNT-162b2 vax 02/21/2021 RecordedNoMary Rutan HospitalComment on above:Result Comment: Electronically Signed By: DANIKA ROGDERS, Velasquez Yoon\Date and Time Signed: 09/18/25 14:23 Lilli 09-05-2025L Specimen: [id number] Received: 09/05/25 Status: NILESH Bear Num: [id number] Spec Type: Surgical Subm Dr: Velasquez Fernandez MD FACS Tissues: A Lipoma (LIPOMA RIGHT THIGH) Procedures: JULIETA, Gross/Micro L3 Age/ Patient Sex Location Account Attending Physician Karolina Mock 65/F LABELL [id number] Velasquez Fernandez MD FACS SPEC NUM: [id number] RECD: 09/05/25 STATUS: NILESH BEAR NUM: [id number] LEXX: 09/05/[address] [facility] [address]: Velasquez Fernandez MD FACS ENTERED: 09/05/[address] [facility] [address]: Pmaela,Gretel SPEC TYPE: Surgical DEPT: [facility] ENTERED BY: [id number] RECV BY: [id number] ORDERED: HE, Gross/Micro L3 ORDERED: HE, Gross/Micro L3 Pathological Diagnosis Right thigh, lipoma, excision: - Lipoma Clinical Information Lipoma right thigh Gross Description Received in formalin labeled with the patient's name, date of , and lipoma right thigh is an ovoid portion of encapsulated adipose tissue, 1.7 x 1 x 1 cm. The capsular surface is townsend-pink, membranous, smooth and glistening; the capsular surface is inked black. The specimen is trisected to reveal yellow-hurtado, glistening, and uniform cut surfaces. The specimen is entirely submitted in a single cassette. (1, julieta, BS90- 440 A) JG Microscopic Description Microscopic examination is performed. CPT Codes 06571 Specimen: [id number] Received: 09/05/25 Status: NILESH Gutierrezcristi Num: [id number] Spec Type: Surgical Subm Dr: Velasquez Fernandez MD FACS Tissues: A Lipoma (LIPOMA RIGHT THIGH) Procedures: Jolly RENDON/García L3 Patient: Karolina Mock [id number] (Continued) Signed (signature on file) Bruce Lorenzo MD 09/06/25 1258Normal [facility] Physician GroupAmbulatory Visit Summaryon 95-94-9968Rbrtjvucux Visit SummaryAmbulatory Visit Summary KAROLINA MOCK DOB:1960 Visit Date:07/31/2025 Ambulatory Visit Instructions Your Care [...] signed up for this yet, please contact Scali at [phone] to get signed up today. Language Information Language assistance services are available as needed. [facility] CenterOffice Visiton 25-29-7562Kvdstv- up [id number] Karolina Mock Geoff 1960 F Date Provider Department Center 07/05/2025 89314-ANNRVVDEYSI BARRON [facility] Family History Problem Relation Age of Onset Cancer Mother Heart attack Father Heart failure Father Heart failure Maternal Grandfather Family Status - Relation Status Age at Mother Father Maternal Grandfather Level of Service:66776 [place] OFFICE/OUTPATIENT ESTABLISHED LOW MDM 20 MIN Reason for Visit and Comments: 6 month follow up [Other] Echo [Other] Hyperlipidemia [182] Hypertension [272291] Palpitations [039535] Valve Disorder [3372][facility]36on MD Purnima Healy MA Inform patient that she aortic regurgitation is mild and stable Spoke to patient to advise her of Dr. Barron's findings. Patient verbalized understand.[facility] CenterCA ECHO DOPPLER COMPLETEon 01-35-5456PqlAnthony, [place] [address] Cardiology Report Signed Patient: KAROLINA MOCK MR#: [id number] : 1960 Acct:[id number] Age/Sex: 65 / F ADM Date: 05/18/25 Loc: CARD Attending Dr: Deysi Barron M.D. Ordering Physician: Deysi Barron M.D. Date of Service: 05/18/25 Procedure(s): CA echo doppler complete Accession Number(s): [id number] cc: Deysi Barron M.D.; Filiberto San M.D. Patient Name: KAROLINA MOCK MR#: [id number] : 1960 Exam Date: 05/18/2025 Ordering Doctor: [...] 18:39 Dictated By: CHRISTIAN BRANHAM Signed By: (more content not included)...TBHRadiology, Radiologist, MD - 05/18/2025 [place] [address] Cardiology Report Signed Patient: KAROLINA MOCK MR#: [id number] : 1960 Acct:[id number] Age/Sex: 65 / F ADM Date: 05/18/25 Loc: CARD Attending Dr: Deysi Barron M.D. Ordering Physician: Deysi Barron M.D. Date of Service: 05/18/25 Procedure(s): CA echo doppler complete Accession Number(s): [id number] cc: Deysi Barron M.D.; Filiberto San M.D. Patient Name: KAROLINA MOCK MR#: [id number] : 1960 Exam Date: 05/18/2025 Ordering Doctor: [...] 18:39 Dictated By: CHRISTIAN BRANHAM Signed By: 05/18/251839 DD/ 38 TD/TT: Director Design: [facility] HospitalRadiology Study observation (narrative)[facility] ECHO DOPPLER COMPLETEOrdered By: Radiologist Radiology on 72-00-7691YHTQLakeland Regional Hospital Work Phone: aLL LIPID PROFILE (FASTING)on 95-96-5164UQWJ HDL RATIO 2.2NOMS HealthcareComment on above:3.3 - 4.4 LOW RISK 4.4 - 7.1 AVERAGE RISK 7.1 - 11.0 MODERATE RISK >11.0 HIGH RISK Cholesterol [Mass/Vol]154 mg/dLNINF - 200 mg/dLLakeland Regional HospitalCholesterol in HDL [Mass/Vol]69 mg/cZHfyu41 - 60 mg/dLNOAZ HealthcareComment on above:> or =60 mg/dl - LOW CARDIOVASCULAR RISK <40 mg/dl - HIGH CARDIOVASCULAR RISK Interpretation and review of laboratory resultsAbnormalNOHCA Midwest DivisionMagnesium [Mass/Vol]73 mg/dLNOAZ HealthcareComment on above:<100 mg/dl OPTIMAL 100-129 mg/dl NEAR OR ABOVE OPTIMAL 130-159 mg/dl BORDERLINE HIGH 160-189 mg/dl HIGH >190 mg/dl VERY HIGH Magnesium [Mass/Vol]12 mg/dLLakeland Regional HospitalTriglyceride [Mass/Vol]60 mg/dLNINF - 150 mg/dLNOMS HealthcareCCF Onur 05-11-8075SCQ [Catalytic activity/Vol]22 U/L 14 - 59 U/LNOMS HealthcareCCF Shandra 21-82-6486TFP [Catalytic activity/Vol]18 U/L 15 - 37 U/LNOMS HealthcareNo Panel Informationon 40-85-3168YYHYBNSXMIMRV HealthcareXR Elbow - left 3 View[address] 86-73-9446GzfAnthony, [place] [address] XRay Report Signed Patient: KAROLINA MOCK MR#: [id number] : 1960 Acct:[id number] Age/Sex: 65 / F ADM Date: 02/12/25 Loc: EC Attending Dr: Barbie Liang M.D. Ordering Physician: Barbie Liang M.D. Date of Service: 02/12/25 Procedure(s): XR elbow LT min 3V Accession Number(s): [id number] cc: Barbie Liang M.D.; Filiberto San M.D. [place] [id number] Patient Name: KAROLINA MOCK MRN: [id number] date: 1960 Sex: F Assigned Patient Location: Current Patient Location: Accession/Order Number: [id number] Exam Date: 02/12/2025 10:11 Report Date: 02/12/2025 [...] James Jr., D.O.02/12/2025 10:12 AM Dictation Location: [place] [address] Electronically authenticated by: [id number] Y Date: 02/12/2025 10:12 Dictated By: Ankit James M.D. Signed By: 02/12/25 1015 DD/ 11 TD/TT: Director Design:MAUHRadiologtoni, Radiologist, - 02/12/2025 [place] [address] XRay Report Signed Patient: KAROLINA MOCK MR#: [id number] : 1960 Acct:[id number] Age/Sex: 65 / F ADM Date: 02/12/25 Loc: EC Attending Dr: Barbie Liang M.D. Ordering Physician: Barbie Liang M.D. Date of Service: 02/12/25 Procedure(s): XR elbow LT min 3V Accession Number(s): [id number] cc: Barbie Liang M.D.; Filiberto San M.D. The [place] [id number] Patient Name: KAROLINA MOCK MRN: [id number] date: 1960 Sex: F Assigned Patient Location: Current Patient Location: Accession/Order Number: [id number] Exam Date: 02/12/2025 10:11 Report Date: 02/12/2025 [...] James Jr., D.O.02/12/2025 10:12 AM Dictation Location: [place] [address] Electronically authenticated by: [id number] Y Date: 02/12/2025 10:12 Dictated By: Ankit James M.D. Signed By: 02/12/25 1015 DD/ 1012 TD/TT: Director Design: ASHER HealthcareRadiology Study observation (narrative)NOM HealthcareXR Elbow - left 3 ViewsOrdered By: Radiologist Radiology on 80-93-1759OGAS Healthcare Work Phone: XR Elbow - left 3 View[place] 03-23-4137Pvo[place], [place] [address] XRay Report Signed Patient: KAROLINA MOCK MR#: [id number] : 1960 Acct:[id number] Age/Sex: 65 / F ADM Date: 01/15/25 Loc: EC Attending Dr: Barbie Liang M.D. Ordering Physician: Barbie Liang M.D. Date of Service: 01/15/25 Procedure(s): XR elbow LT min 3V Accession Number(s): [id number] cc: Barbie Liang M.D.; Filiberto San M.D. [place] [id number] Patient Name: KAROLINA MOCK MRN: [id number] date: 1960 Sex: F Assigned Patient Location: Current Patient Location: Accession/Order Number: [id number] Exam Date: 2025 08:43 Report Date: 2025 16:30 At the request of: BARBIE LIANG Procedure: XR elbow LT min 3V [...] Signed By: 01/15/25 163 DD/ 1630 TD/TT: Director Design:Siddhartha Teague, - [address] [address] XRay Report Signed Patient: KAROLINA MOCK MR#: [id number] : 1960 Acct:[id number] Age/Sex: 65 / F ADM Date: 01/15/25 Loc: EC Attending Dr: Barbie Liang M.D. Ordering Physician: Barbie Liang M.D. Date of Service: 01/15/25 Procedure(s): XR elbow LT min 3V Accession Number(s): [id number] cc: Barbie Liang M.D.; Filiberto San M.D. The [address] [address] Patient Name: KAROLINA MOCK MRN: [facility]:[id number] date: 1960 Sex: F Assigned Patient Location: Current Patient Location: Accession/Order Number: [id number] Exam Date: 2025 08:43 Report Date: 2025 16:30 At the request of: BARBIE LIANG Procedure: XR elbow LT min 3V [...] Dictated By: Davie Wen M.D. Signed By: 01/15/251632 DD/ 163 TD/TT: Director Design: A[facility] HealthcareRadiology Study observation (narrative)NOMS HealthcareXR Elbow - left 3 ViewsOrdered By: Radiologist Radiology on 90-09-8353[facility] Work Phone: Office Visiton 78-39-7514Zezvoa-up [id number] Karolina Mock 1960 F Date Provider Department Center 01/05/2025 32250-SKEPSIEDYSI BARRON [facility] Family History Problem Relation Age of Onset Heart attack Father Heart failure Father Heart failure Maternal Grandfather Family Status - Relation Status Age at Father Maternal Grandfather Level of Service:38706 [place] OFFICE/OUTPATIENT NEW MODERATE MDM 45 MINUTES Reason for Visit and Comments: Chest Pain [785877] - Says chest pain is occurring much less often that it was before. Valve Disorder [3372] Hyperlipidemia [182] - Had lipid in Sep 2024, and again last week. Shortness of Breath [] - Only with stairsNormalUniversity of Methodist HospitalALL LIPID PROFILE (FASTING)on 09-04-6741OUMG HDL RATIO2.5NOMS HealthcareComment on above:3.3 - 4.4 LOW RISK 4.4 - 7.1 AVERAGE RISK 7.1 - 11.0 MODERATE RISK >11.0 HIGH RISK Cholesterol [Mass/Vol]146 mg/dLNINF - 200 mg/dLNOMS HealthcareCholesterol in HDL [Mass/Vol]58 mg/dL40 - 60 mg/dLNOMS HealthcareComment on above:> or =60 mg/dl - LOW CARDIOVASCULAR RISK <40 mg/dl - HIGH CARDIOVASCULAR RISK Magnesium [Mass/Vol]76.8 mg/dLNOMS HealthcareComment on above:<100 mg/dl OPTIMAL 100-129 mg/dl NEAR OR ABOVE OPTIMAL 130-159 mg/dl BORDERLINE HIGH 160-189 mg/dl HIGH >190 mg/dl VERY HIGH Magnesium [Mass/Vol]11.2 mg/dLNOMS HealthcareTriglyceride [Mass/Vol]56 mg/dLNINF - 150 mg/dLNOMS HealthcareCCF Onur 13-84-3608RUU [Catalytic activity/Vol]21 U/L14 - 59 U/LNOMS HealthcareCCF Shandra 88-56-1735TFX [Catalytic activity/Vol]16 U/L15 - 37 U/LNOMS HealthcareNo Panel Informationon 41-90-2899XCOZNXJBWUQDC HealthcareXR Elbow - left 3 Viewson 01-59-3387Uld [place] [id number] XRay Report Signed Patient: KAROLINA MOCK MR#: [id number] : 1960 Acct:[id number] Age/Sex: 64 / F ADM Date: 12/18/24 Loc: EC Attending Dr: Barbie Liang M.D. Ordering Physician: Barbie Liang M.D. Date of Service: 12/18/24 Procedure(s): XR elbow LT min 3V Accession Number(s): [id number] cc: Barbie Liang M.D.; Filiberto San M.D. The [place] [address] Patient Name: KAROLINA MOCK MRN: [facility]:[id number] date: 1960 Sex: F Assigned Patient Location: Current Patient Location: Accession/Order Number: [id number] Exam Date: 12/18/2024 11:07 Report Date: 12/18/2024 23:14 At the request of: BARBIE LIANG Procedure: XR elbow LT min 3V EXAM: XR elbow LT min 3V HISTORY: LEFT ELBOW PAIN COMPARISON: None. FINDINGS/IMPRESSION: 1. There is an elbow joint effusion.. 2. Suspected nondisplaced fracture of the proximal aspect of the radius. 3. Normal alignment of the elbow. Electronically authenticated by: NICHOLAS DAY Date: 12/18/2024 23:14 Dictated By: Nicholas Day M.D. Signed By: 12/18/242315 DD/ TD/TT: Director Design:TBHRadiology, Radiologist, MD - 12/18/2024 The [place] [id number] XRay Report Signed Patient: KAROLINA MOCK MR#: [id number] : 1960 Acct:[id number] Age/Sex: 64 / F ADM Date: 12/18/24 Loc: EC Attending Dr: Barbie Liang M.D. Ordering Physician: Barbie Liang M.D. Date of Service: 12/18/24 Procedure(s): XR elbow LT min 3V Accession Number(s): [id number] cc: Barbie Liang M.D.; Filiberto San M.D. [place] [address] Patient Name: KAROLINA MOCK MRN: [facility]:[id number] date: 1960 Sex: F Assigned Patient Location: Current Patient Location: Accession/Order Number: [id number] Exam Date: 12/18/2024 11:07 Report Date: 12/18/2024 23:14 At the request of: BARBIE LIANG Procedure: XR elbow LT min 3V EXAM: XR elbow LT min 3V HISTORY: LEFT ELBOW PAIN COMPARISON: None. FINDINGS/IMPRESSION: 1. There is an elbow joint effusion.. 2. Suspected nondisplaced fracture of the proximal aspect of the radius. 3. Normal alignment of the elbow. Electronically authenticated by: NICHOLAS DAY Date: 12/18/2024 23:14 Dictated By: Nicholas Day M.D. Signed By: 12/18/242315 DD/ 13 TD/TT: Director Design: ASHER HealthcareRadiology Study observation (narrative)[facility] HealthcareXR Elbow - left 3 ViewsOrdered By: Radiologist Radiology on 07-87-4999ILUF Healthcare Work Phone: [phone] 76-88-091672Ebnajtims lab results from 10/20/2024: MD Carisa Healy MA Please [...] Dec 2024. Lab orders printed, faxed to [facility], and also sent to patient in the mail. She verbalized understanding.[facility] CenterALL LIPID PROFILE (FASTING)on 75-18-3449QSGE HDL RATIO3.1NOMS HealthcareComment on above: 3.3 - 4.4 LOW RISK 4.4 - 7.1 AVERAGE RISK 7.1 - 11.0 MODERATE RISK >11.0 HIGH RISK Cholesterol [Mass/Vol]213 mg/dLHighNINF - 200 mg/dLNOAZ HealthcareCholesterol in HDL [Mass/Vol]69 mg/rXCmgs79 - 60 mg/dLNOMS HealthcareComment on above:> or =60 mg/dl - LOW CARDIOVASCULAR RISK <40 mg/dl - HIGH CARDIOVASCULAR RISK Interpretation and review of laboratory resultsAbnormalNOAZ HealthcareMagnesium [Mass/Vol]135 mg/dLNOAZ HealthcareComment on above:<100 mg/dl OPTIMAL 100-129 mg/dl NEAR OR ABOVE OPTIMAL 130-159 mg/dl BORDERLINE HIGH 160-189 mg/dl HIGH >190 mg/dl VERY HIGH Magnesium [Mass/Vol]9 mg/dLNOAZ HealthcareTriglyceride [Mass/Vol]45 mg/dLNINF - 150 mg/dLNOAZ HealthcareCLINISYNCNOU MEDICAL [facility] [facility] HealthcareMM TOMOSYNTHESIS SCREENING BIon 73-47-3240DquAnthony, [place] [address] Mammography Report Signed Patient: KAROLINA MOCK MR#: [id number] : 1960 Acct:[id number] Age/Sex: 64 / F ADM Date: 09/27/24 Loc: MAMMO Attending Dr: Fliiberto San M.D. Ordering Physician: Filiberto San M.D. Results: Date of Service: 09/27/24 Follow Up: Procedure(s): MM tomosynthesis screening BI Accession Number(s): [id number] cc: Filiberto San M.D. Patient Name: KAROLINA MOCK MR#: [id number] : 1960 Exam Date: 09/27/2024 Ordering Doctor: [...] at age 82. LOCATION: [facility] BREAST COMPOSITION: The breasts are heterogeneously [...] By: 09/27/24 1639 DD/ 1638 TD/TT: Director Design:TBHRadiology, Radiologist, - 09/27/2024 [place] [address] Mammography Report Signed Patient: KAROLINA MOCK MR#: [id number] : 1960 Acct:[id number] Age/Sex: 64 / F ADM Date: 09/27/24 Loc: MAMMO Attending Dr: Filiberto San M.D. Ordering Physician: Filiberto San M.D. Results: Date of Service: 09/27/24 Follow Up: Procedure(s): MM tomosynthesis screening BI Accession Number(s): [id number] cc: Filiberto San M.D. Patient Name: KAROLINA MOCK MR#: [id number] : 1960 Exam Date: 09/27/2024 Ordering Doctor: DR Filiberto San . RADIOLOGY REPORT PROCEDURE: MM TOMOSYNTHESIS SCREENING [...] at age 82. LOCATION: [facility] BREAST COMPOSITION: The breasts are heterogeneously [...] By: 09/27/24 1639 DD/ 1638 TD/TT: Director Design: [facility] INCURABLESMadelin HealthcareRadiology Study observation (narrative)[facility] TOMOSYNTHESIS SCREENING BIOrdered By: Radiologist Radiology on 02-66-3413PLIL [employer] Work Phone: [phone] 24-14-165753Drrkefnym lab results for 07/17/24 From: Deysi Barron MD Sent: 08/01/2024 4:58 PM EDT To: Carisa Cash MA Subject: RE: Scan Those labs are normal. But we need to check magnesium level please Pt was informed and will stop down today to have the magnesium level drawn. Order walked down to desktop technician.[facility] CenterALL MAGNESIUMon 48-12-1336Yhslkeqxi [Mass/Vol]2.1 mg/dL1.8 - 2.4 mg/dLNOMS HealthcareCLINISYNCNOMS HealthcareOffice Visiton 49-42-8687Ihhsji-up visit [id number] Karolina Mock 1960 F Date Provider Department Center 07/17/2024 67618-NIZLCMDEYSI BARRON [facility] Family History Problem Relation Age of Onset Heart attack Father Heart failure Father Heart failure Maternal Grandfather Family Status - Relation Status Age at Father Maternal Grandfather Level of Service:94198 [place] OFFICE/OUTPATIENT ESTABLISHED MOD MDM 30 MIN Reason for Visit and Comments: Shortness of Breath [808181] Palpitations [145734] Hyperlipidemia [182] Chest Pain [089109][facility] CenterCA ECHO DOPPLER COMPLETEon 88-73-2829JiaAnthony, [place] [address] Cardiology Report Signed Patient: KAROLINA MOCK MR#: [id number] : 1960 Acct:[id number] Age/Sex: 64 / F ADM Date: 05/12/24 Loc: CARD Attending Dr: Deysi Barron M.D. Ordering Physician: Deysi Barron M.D. Date of Service: 05/12/24 Procedure(s): CA echo doppler complete Accession Number(s): [id number] cc: Deysi Barron M.D.; Filiberto San M.D. Patient Name: KAROLINA MOCK MR#: [id number] : 1960 Exam Date: 05/12/2024 Ordering Doctor: [...] Area (VTI): 4.08 cm2, 4.08 cm2 Deceleration [place]: 0.47 m/s2 Pressure Half-Time: 1.81 s Peak [...] 38.60 ml, 38.60 ml Dictated by: Christian Branham M.D. on 05/15/2024 at 16:36 (more content not included)...TBHRadiology, Radiologist, MD - 05/15/2024 [place] [address] Cardiology Report Signed Patient: KAROLINA MOCK MR#: [id number] : 1960 Acct:[id number] Age/Sex: 64 / F ADM Date: 05/12/24 Loc: CARD Attending Dr: Deysi Barron M.D. Ordering Physician: Deysi Barorn M.D. Date of Service: 05/12/24 Procedure(s): CA echo doppler complete Accession Number(s): [id number] cc: Deysi Barron M.D.; Filiberto San M.D. Patient Name: KAROLINA MOCK MR#: [id number] : 1960 Exam Date: 05/12/2024 Ordering Doctor: [...] Area (VTI): 4.08 cm2, 4.08 cm2 Deceleration [place]: 0.47 m/s2 Pressure Half-Time: 1.81 s Peak [...] 38.60 ml, 38.60 ml Dictated by: Christian Branham M.D. on 05/15/2024 at 16:36 Approved by: Christian Branham M.D. on 05/15/2024 at 16:40 Dictated By: CHRISTIAN BRANHAM Signed By: 05/15/24 1642 DD/ 1640 TD/TT: Director Design: [facility] HealthcareRadiology Study observation (narrative)[facility] HospitalCA ECHO DOPPLER COMPLETEOrdered By: Radiologist Radiology on 72-49-0636ZOSN Healthcare Work Phone: ca HOLTER MONITOR 2-7 DAYSon 25-81-0363[address] [address] Cardiology Report Signed Patient: KAROLINA MOCK MR#: [id number] : 1960 Acct:[id number] Age/Sex: 64 / F ADM Date: 04/12/24 Loc: CARD Attending Dr: Filiberto San M.D. Ordering Physician: Filiberto San M.D. Date of Service: 04/12/24 Procedure(s): CA holter montior 2-7 days Accession Number(s): [id number] cc: Filiberto San M.D. 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 Signed By: 04/27/24 0656 04/27/24 0656 DD/ 1504 TD/TT: Director Design:TBHRadiology, Radiologist, - 04/27/2024 [place] [address] Cardiology Report Signed Patient: KAROLINA MOCK MR#: [id number] : 1960 Acct:[id number] Age/Sex: 64 / F ADM Date: 04/12/24 Loc: CARD Attending Dr: Filiberto San M.D. Ordering Physician: Filiberto San M.D. Date of Service: 04/12/24 Procedure(s): CA holter montior 2-7 days Accession Number(s): [id number] cc: Filiberto San M.D. 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 Signed By: 04/27/24 0656 04/27/24 0656 DD/ 1504 TD/TT: Director Design: ASHER Jeff HOLTER MONITOR 2-7 DAYSOrdered By: Radiologist Radiology on 35-86-0521XZHH [employer] Work Phone: ca HOLTER MONITOR 2-7 DAYSon 12-25-8013Ynobrxivu Study observation (narrative)ASHER Hernandez CEM PERF SPECT REST STRon 04-26-[address] [address] Nuclear Medicine Report Signed Patient: KAROLINA MOCK#: [id number] : 1960 Acct:[id number] Age/Sex: 64 / F ADM Date: 04/26/24 Loc: NM Attending Dr: Filiberto San M.D. Ordering Physician: Filiberto San M.D. Date of Service: 04/26/24 Procedure(s): NM cem perf SPECT rest str Accession Number(s): [id number] cc: Filiberto San M.D. Patient Name: KAROLINA MOCK MR#: [id number] : 1960 Exam Date: 04/26/2024 Ordering Doctor: DR FILIBERTO Stern RADIOLOGY REPORT PROCEDURE: NM CEM PERF [...] Gibran Lemus MD on 04/26/2024 at 14:28 Dictated By: Gibran Lemus M.D. Signed By: 04/26/24 1429 DD/ 1428 TD/TT: Director Design:TBHRadiology, Radiologist, - 04/26/2024 [place] [address] Nuclear Medicine Report Signed Patient: KAROLINA MOCK MR#: [id number] : 1960 Acct:[id number] Age/Sex: 64 / F ADM Date: 04/26/24 Loc: NM Attending Dr: Filiberto San M.D. Ordering Physician: Filiberto San M.D. Date of Service: 04/26/24 Procedure(s): NM cem perf SPECT rest str Accession Number(s): [id number] cc: Filiberto San M.D. Patient Name: KAROLINA MOCK MR#: [id number] : 1960 Exam Date: 04/26/2024 Ordering Doctor: DR FILIBERTO SAN . RADIOLOGY REPORT PROCEDURE: NM CEM [...] Gibran Lemus MD on 04/26/2024 at 14:28 Dictated By: Gibran Lemus M.D. Signed By: 04/26/24 1429 DD/ 1428 TD/TT: Director Design: [facility] HospitalRadiology Study observation (narrative)[facility] HospitalNM CEM PERF SPECT REST STROrdered By: Radiologist Radiology on 21-92-2855HBZOLakeland Regional Hospital Work Phone: mg MAMM SCREEN 3D REGINALD CADon 95-50-5950AL MAMM SCREEN 3D REGINALD CADPatient: KAROLINA MOCK Exam Date: 09/22/2022 : 1960 Gender:F Ordering : DR FILIBERTO SAN . Admission #: [id number] Family : Order #: [id number] CLICK HERE TO VIEW EXAM RADIOLOGY REPORT [...] at age 82. LOCATION: [facility] BREAST COMPOSITION: Heterogeneously dense,which may obscure [...] by: Gibran Lemus MD on 09/23/2022 at 08:00[facility] Vital Signs Date TimeVital SignValuePerforming SdvemdivbMqlfytva46-40-4788 14:13-0400Body .2 cmFiliberto San MD Work Phone: [facility] HospitalDkrlaseoog86-73-8945 14:13-0400Body mass index (BMI) [Ratio]24.59 kg/m2Filiberto San MD Work Phone: [facility] HospitalPxbmqjcosr82-41-7927 14:13-0400Body temperature 97.81 [degF]Filiberto San MD Work Phone: [facility] HospitalNdnnfxhmky87-87-5436 14:13-0400Body clwjax23.22 kgFiliberto San MD Work Phone: [facility] HospitalRmijekpxeg57-64-6334 14:13-0400Diastolic blood vwyjxcnt31 mm[Hg]Filiberto San MD Work Phone: [phone] [place], [place] [address]Fcmbttnvxx37-66-4534 14:13-0400Heart rate64 /min Filiberto San MD Work Phone: [facility] HospitalVkoldebfhf22-68-6841 14:13-0400Respiratory rate20 /minFiliberto San MD Work Phone: [facility] HospitalLjzizlscbb29-40-0520 14:13-6278LpF7% (BldA) [Mass fraction]97 %Filiberto San MD Work Phone: [facility] HospitalCkcxdmgbkv39-61-0407 14:13-0400Systolic blood axtmayrm731 mm[Hg]Filiberto San MD Work Phone: [phone] [place], [place] [address]Xnsegnadoo21-02-4045 09:20-0400Body ksonls107.64 [facility]08-06-2024 09:20-0400Body mass index (BMI) [Ratio]25.3 kg/z4IwvmissyqCrystal Clinic Orthopedic Center08-06-2024 09:20-0400Body udnujd37.21 kgCrystal Clinic [facility]opedic Center02-15-2024 14:40-0500Body height 170.18 cmCrystal Clinic [facility] Center02-15-2024 14:40-0500Body mass index (BMI) [Ratio]26.9 kg/g7CbahrgbabCrystal Clinic Orthopedic Center02-15-2024 14:40-0500 Body ixwuvadwbfv52.4 [degF][facility]02-15-2024 14:40-0500Body qojdkd78.01 kgCrystal Clinic [facility]opedic Center02-15-2024 14:40-0500Diastolic blood sqyqavbh56 mm[Hg][facility] 01-13-2024 14:40-0500Heart rate87 /[facility] 01-13-2024 14:40-0500Respiratory rate18 /[facility] 01-13-2024 14:40-8347XnP3% (BldA) [Mass fraction]97 %[facility]02-15-2024 14:40-0500Systolic blood jbjhpyyx602 mm[Hg][facility]10-19-2022 15:50-0400Body qsgejj282.18 Anton Palencia Other [employer] Other 10-19-2022 15:50-0400Body mass index (BMI) [Ratio]24.9 kg/k2VypvokKusum Palencia Other [facility] Other 10-19-2022 15:50-0400Body yeqgygchocv68.8 [degF]Kusum Rolandmond Other [facility] Other 10-19-2022 15:50-0400Body fkeozt75.12 kgKusum Palencia Other [facility] Other 10-19-2022 15:50-0400Diastolic blood nhjzgezb73 mm[Hg] Kusum Rolandmond Other [facility] Other 10-19-2022 15:50-0400Respiratory rate18 /minKusum Rolandmond Other [facility] Other 10-19-2022 15:50-0451ExE2% (BldA) [Mass fraction]99 % Kusum Palencia Other [facility] Other 10-19-2022 15:50-0400Systolic blood nrfzyuxk947 mm[Hg] Kusum Palencia Other [facility] Other 08-05-2022 09:00-0400Body ssduzd969.18 Clay Huitron Other [employer] Other 07-11-2022 17:25-0400Body cmfdif697.18 cmSheidi Roque Other [facility] Other 07-11-2022 17:25-0400Body mass index (BMI) [Ratio]24.9 kg/s7Jtsfxmtiyjeancarlos Roque Other [facility] Other 07-11-2022 17:25-0400Body ldhaclwvmxe25 [degF] Caprice Roque Other [employer] [facility] Other 07-11-2022 17:25-0400Body sxzuuc05.12 kgStjeancarlos Roque Other [facility] Other 07-11-2022 17:25-0400Diastolic blood xcwmgdup37 mm[Hg] Caprice Roque Other [employer] Other 07-11-2022 17:25-0400Respiratory rate16 /minSheidi Roque Other [employer] Other 07-11-2022 17:25-4912KpR3% (BldA) [Mass fraction]100 % Caprice Roque Other [facility] [employer] Other 168821-85-9489 17:25-0400Systolic blood mm[Hg] Caprice Roque Other [facility] [employer] Other Encounters Encounter DateEncounter TypeCare ProviderFacilityStart: 09-18-2025 End: 34-27-0795ickhvbyxzwAbrlpoj R NILLFacility: BellevueStart: 09-18-2025 End: 76-05-1720Wzofufm encounter procedureMichael R NILL [phone]-ZjewoMckitrick Hospital [facility] Surgery [place] Start: 09-05-2025 End: 18-82-3562tanobuyaocLfunqsb R NillC[facility] Work Phone: Start: 09-05-2025 End: 15-34-5615Ftjwpeqk ReferredMicyudi Fernandez MD FACS-LAB Path Spec Col[facility]er HospStart: 09-05-2025 End: 93-88-3780jaiibtluosUfkuczd R NILLFacility:CD:[id number]: 07-31-2025 End: 94-50-1071cnwumtswogVULH NADERERFacility:[facility] HospitalevueStart: 07-31-2025 End: 22-83-0788Fxhkuet encounter procedureMichael R NILL [phone]-ChhqsMckitrick Hospital General Surgery Pamela Start: 07-05-2025 End: 48-67-5796gqjzdwgeggYZUQFAvita Health System Galion Hospitaltart: 04-34-0799nxrudjgllxCIHP NADERERFacility: JaylanueStart: 06-28-2025 End: 33-41-1268Sjozbzmichael San MD Work Phone: noms CWM FMStart: 06-28-2025 End: 03-53-4845Bwckij flowsheetFiliberto San MD Work Phone: NOUN CWM FMStart: 06-28-2025 End: 45-94-3385Kdclwp outpatient visit 15 minutesFiliberto San MD Work Phone: noms CW FMComment on above:Actinic keratosis (Primary Dx); Lipoma of right lower extremityStart: 06-28-2025 End: 34-77-3538rslnzgcdfxXXKJ NADERERNot AvailableStart: 05-18-2025 End: 79-54-8437Yhglihqvk Result EncounterGeneric External Data ProviderNOMS External Department UnsolicitedStart: 05-18-2025 End: 48-22-3539Pntbiuvix Result EncounterGeneric External Data ProviderNOMS External Department UnsolicitedStart: 05-11-2025 End: 84-22-1250Uzarwyhic Result EncounterGeneric External Data ProviderNOMS External Department UnsolicitedStart: 05-11-2025 End: 58-92-7583Tbsgvikky Result EncounterGeneric External Data ProviderNOMS External Department UnsolicitedStart: 02-12-2025 End: 77-11-7870Zzyvnitdm Result EncounterGeneric External Data ProviderNOMS External Department UnsolicitedStart: 02-12-2025 End: 66-70-6165Eipozuixl Result EncounterGeneric External Data ProviderNOMS External Department UnsolicitedStart: 2025 End: 29-48-4057Sletvqofo Result EncounterGeneric External Data ProviderNOMS External Department UnsolicitedStart: 2025 End: 03-17-3427Wjmvjchbx Result EncounterGeneric External Data ProviderNOMS External Department UnsolicitedStart: 01-05-2025 End: 75-56-6236ltzfwcddbsDMEIEDetwiler Memorial Hospitaltart: 12-29-2024 End: 88-86-2163Jxhiotsqd Result EncounterGeneric External Data ProviderNOMS External Department UnsolicitedStart: 12-29-2024 End: 70-78-0418Twnladhjq Result EncounterGeneric External Data ProviderNOMS External Department UnsolicitedStart: 12-18-2024 End: 17-66-9705Xuqcirmls Result EncounterGeneric External Data ProviderNOMS External Department UnsolicitedStart: 12-18-2024 End: 54-06-4221Bkiszizxx Result EncounterGeneric External Data ProviderNOMS External Department UnsolicitedStart: 10-20-2024 End: 77-94-7122Odvxwaqbe Result EncounterGeneric External Data ProviderNOMS External Department UnsolicitedStart: 10-20-2024 End: 49-43-4616Zsjpsbzrr Result EncounterGeneric External Data ProviderNOMS External Department UnsolicitedStart: 09-27-2024 End: 45-46-2980Vuigcblhl Result EncounterFiliberto San MD Work Phone: noms External Department UnsolicitedStart: 09-27-2024 End: 97-90-8121Sumjjsncd Result EncounterFiliberto San MD Work Phone: noms External Department UnsolicitedStart: 08-02-2024 End: 05-07-3657Tnwweavge Result EncounterGeneric External Data ProviderNOMS External Department UnsolicitedStart: 08-02-2024 End: 18-93-0407Udyycdsys Result EncounterGeneric External Data ProviderNOMS External Department UnsolicitedStart: 07-17-2024 End: 27-92-3025qvdtkrurwfNRZWXThe Christ Hospitaltart: 07-04-2024 End: 40-88-5133qeanzxukjzJpwxkzbhaHolzer Medical Center – [facility] Work Phone: Start: 07-04-2024 End: 35-65-9115Xslpjns encounter [facility] Work Phone: Start: 05-15-2024 End: 46-92-8259Yghmjdwew Result EncounterGeneric External Data ProviderNOMS External Department UnsolicitedStart: 05-15-2024 End: 60-61-8039Srwexzmqo Result EncounterGeneric External Data ProviderNOMS External Department UnsolicitedStart: 04-26-2024 End: 76-63-9074Hbzztfevl Result EncounterMarstevie San MD Work Phone: noms External Department UnsolicitedStart: 04-26-2024 End: 21-43-0371Okntoorci Result EncounterMarstevie San MD Work Phone: noms External Department UnsolicitedStart: 01-13-2024 End: 70-74-2691Tydyqcxt ReferredAPRN Kena Parekh Work Phone: [facility] [place] Work Phone: Start: 01-13-2024 End: 44-17-0778cnlgwtgrztZuxfvviyc [facility] Work Phone: Start: 01-13-2024 End: 18-93-9426Zzgsodz encounter procedureQuorum Health [facility] [place] Work Phone: Start: 10-12-2023 End: 83-30-3183chrraagywyXipdnsu [place] Other [employer] Other Start: 45-39-9868Ownzjy outpatient visit 15 minutes Nayana Barber OrthopedicsStart: 03-05-2023 End: 20-03-2424njgsmybxblALIY BARBARA .Facility:B6Ikfiu: 12-30-2022 End: 66-02-9581acycdxxdoeNhnmaoh [place] Other [employer] Other Start: 62-98-3730Vfxajo outpatient visit 15 minutes Nayana SchultzsaundraAISHA [place] OrthopedicsStart: 09-22-2022 End: 06-50-3897iupslgolrwTJ FILIBERTO Tellez NADERERFacility:J7Drdnc: 09-16-2022 End: 09-25-2725krxwhxyibqRcpggy [place] Other [employer] Other Start: 27-45-7812Zrshre outpatient visit 15 minutes Kusum DyrafyFPG [facility] Care ClydeStart: 08-04-2022 End: 43-12-0465ifkyoloywoRsuvvuq [place] Other [employer] Other Start: 06-95-4238Tyzhyp outpatient visit 15 minutes Nayana TomyFPG Elisabeth OrthopedicsStart: 07-03-2022 End: 20-20-7342txnxpxxuokUpbhonr Calvsaundra Other [employer] Other Start: 74-32-3117Ikqtwa outpatient visit 15 minutes Nayana PostG Elisabeth OrthopedicsStart: 06-08-2022(URG) Urgent Care Visit Caprice CrowleydangFPG Urgent Care ClydeStart: 06-08-2022 End: 66-75-5090nzdelraeioLuhpwsfnf Breault Other [facility] [employer] Other Start: 05-26-2022 End: 04-19-7169eqjtbsjowkAuuqtlj [place] Other [facility] [employer] Other Start: 05-02-1601Cedvlc outpatient new 30 minutes Nayana Barber OrthopedicsStart: 05-26-2022 End: 38-83-1491Knsjvvx encounter procedureMD Nayana Huitron Work Phone: [facility] Procedures DateProcedureProcedure DetailPerforming ClinicianStart: 04-47-7291Ktemdvsr of lipomaMichael NILL Start: 30-16-4217UX ECHO DOPPLER COMPLETEGeneric External Data ProviderStart: 18-59-9471MGU LIPID PROFILE (FASTING)Generic External Data ProviderStart: 72-08-9139TJY ALTGeneric External Data Provider Start: 63-60-7204WPN ASTGeneric External Data ProviderStart: 17-56-7321Ddjac elbow complete minimum 3 viewsGeneric External Data ProviderStart: 2025 Radex elbow complete minimum 3 viewsGeneric External Data ProviderStart: 99-36-5014RPC LIPID PROFILE (FASTING)Generic External Data ProviderStart: 12-90-0096PWX ALTGeneric External Data ProviderStart: 40-90-7507NVD ASTGeneric External Data ProviderStart: 19-26-4823Qmhee elbow complete minimum 3 views Generic External Data ProviderStart: 26-09-8640FOY LIPID PROFILE (FASTING) Generic External Data ProviderStart: 98-79-2363CU TOMOSYNTHESIS SCREENING Karthik San MD Work Phone: Start: 67-48-9954ZxndtdhumjvMirzzqb ProviderStart: 90-89-1541SNI MAGNESIUMGeneric External Data ProviderStart: 49-05-6016NL ECHO DOPPLER COMPLETEGeneric External Data ProviderStart: 60-46-1945CX HOLTER MONITOR 2-7 DAYSFiliberto San MD Work Phone: Start: [id number] CEM PERF SPECT REST STRFiliberto San MD Work Phone: Start: [id number] ProviderStart: 03-05-2023 End: 42-26-5515FoyqmkuophgBcipyrx ProviderStart: 34-39-3529Fibjk X-ray of right handMD Nayana Schultzsaundra Work Phone: Bone spur of right shoulderMichael NILL CardiomyotomyMichael NILL Closed fracture of right wrist (disorder)Velasquez NILL Dilation of esophagusMichael NILL Excision of lipomaMichael NILL Vaginal hysterectomyMichael NILL Plan of Treatment DateCare ActivityDetailAuthorStart: 60-93-9791Iygiusfoa for malignant neoplasm of colonNOMS HealthcareStart: 63-69-0082Rwtgjztgu for malignant neoplasm of breastMammogramNOMS HealthcareStart: 86-45-1104WRGQJ-19 Vaccine ( season)COVID-19 Vaccine ( season)[facility] HealthcareStart: 07-30-2025 Influenza vaccinationInfluenza Vaccine (#1)NOM HealthcareStart: 06-28-2025 End: 96-09-3852Wujhjbp encounter hsspfeiny29/31/2025 2:00 PM EDT Office Visit [facility] [address] [place] [address] Filiberto San MD [address] [place] [address] [facility] FMComment on above:ArrivedStart: 06-18-2025 End: 67-82-8387Lawlexb encounter abmidghzn56/21/2025 9:45 AM EDT [facility] [address] [place] [address] Filiberto San MD [address] [place] [address] [facility] FMStart: 73-53-6497Opfkvispr for malignant neoplasm of breast MammogramNOMS HealthcareStart: 44-46-0534Ynuueivbs vaccinationInfluenza Vaccine (#1)[facility] HealthcareStart: 17-40-2355Casxbrzf identified in Urine by Culture [facility]: 69-09-4315PmyzchaofMcKitrick Hospitaltart: 36-39-5197Mvzxvjaa identified in Urine by CultureMcKitrick Hospitaltart: 32-63-5573Ulvmbneox for malignant neoplasm of cervixNOMS HealthcareStart: 88-39-6276Umkcmqxkj for malignant neoplasm of cervixPap Smear NOM HealthcareStart: 24-41-0754Rgfkgkgckwdp Vaccine: Pediatrics (0 to 5 Years) and At-Risk Patients (6 to 64 Years) (1 of 2 - PCV)Pneumococcal Vaccine: Pediatrics (0 to 5 Years) and At-Risk Patients (6 to 64 Years) (1 of 2 - PCV) [facility] HealthcareStart: 88-56-6224KCjV/Tdap/Td Vaccines (1 - Tdap)DTaP/Tdap/Td Vaccines (1 - Tdap)[facility] HealthcareStart: 20-87-4828YGX Vaccines (1 of 1 - Standard series)MMR Vaccines (1 of 1 - Standard series)[facility] HealthcareStart: 02-69-8822Wfjieshdy for malignant neoplasm of colonNOAZ HealthcareChlamydia trachomatis DNA [Presence] in Unspecified specimen by FROILAN with probe detection [facility] CenterNeisseria gonorrhoeae DNA [Presence] in Unspecified specimen by FROILAN with probe detectionCrystal Clinic Orthopedic CenterTrichomonas vaginalis DNA [Presence] in Unspecified specimen by FROILAN with probe detectionLee Health [facility] [place] Immunizations Immunization DateImmunizationNotesCare ZchwjyzzCxaetrvx12-42-5033agqdnhcbn virus vaccine, unspecified formulationFiliberto San MD Work Phone: [phone]-LbaygMain Campus Medical Center 70-99-7293jbtqdlkyo virus vaccine, unspecified formulationGeneeastern state hospital ProviderLakeland Regional HospitalFzffvjlfws51-27-7379PXDJ-RcY-5 (COVID-19) mRNAMUL.ORD![id number] NILL [phone]-FyaojMain Campus Medical Center 63-65-0202hnqlfsh toxoid, reduced diphtheria toxoid, and acellular pertussis vaccine, adsorbedStepkenia Roque Other [facility]11-30-2021SARS-CoV-2 (COVID-19) mRNA BNT-162b2 vaxMichael NILL [phone]-RrbceMain Campus Medical Center 43-91-8093YEBE-CoV-2 (COVID-19) mRNA BNT-162b2 vaxMichael NILL [phone]-BsvxqMain Campus Medical Center 12-89-6541KENS-CoV-2 (COVID-19) mRNA BNT-162b2 Gayle ROJASL [phone]-Uqsuw [facility] [place] Payers DatePayer CategoryPayerPolicy [id number]-hoi [id number] Health Insurance [id number] [employer] [id number] 2023-Present [address] [place] [id number] 2..840.1.167971.3.57[id number] 2.16.840.1.666487.3.57[id number] 2.16.840.1.523824.3.57[id number] 2.16.840.1.311330.3.57[id number] 2.16.840.1.907144.3.57[id number] 2.840.1.171898.3.5[id number] 2.16.840.1.256637.19 [id number] 2..840.1.609745.3.579.2.531 Social History DateTypeDetailFacilityStart: 03-30-2024 End: 94-87-6641Zrp Assigned At [facility] HealthcareStart: 40-96-3585Gvi Assigned At [facility]ertart: 01-13-2024 End: 58-86-8520Otvrjjp smoking status NHISNever smoked tobacco (finding) [facility]: 49-75-8087Wjtlwux use and exposure Smokeless tobacco non-userNOAZ HealthcareStart: 03-30-2024 End: 29-77-5998Rhkjbpl of Social functionNOMS HealthcareDo you belong to any clubs or organizations such as baptist groups, unions, fraHubble Telemedical or athletic bounce.io ups, or school groups?NoNOMS HealthcareAre you now , , , , never or living with a partner?WidowedNOMS HealthcareHow often to you have a drink containing alcohol?Monthly or lessNOMS HealthcareHow many standard drinks containing alcohol do you have on a typical day?1 or 2NOMS HealthcareHow often do you have 6 or more drinks on 1 occasion?Less than monthly N[facility]S HealthcareStart: 06-17-8391Dke hard is it for you to pay for the very basics like food, housing, medical care, and heatingNot hard at allLakeland Regional HospitalDo you feel stress - tense, restless, nervous, or anxious, or unable to sleep at night because yourmind is troubled all the time - these days [OSQ] Not at [facility] Healthcare(I/We) worried whether (my/our) food would run out before (I/we) got money to buy more.Never trueNOAZ HealthcareStart: 03-13-2024 Gender identityIdentifies as female gender (finding)[facility] HealthcareStart: 21-17-1166Zkjmyi orientationHeterosexual (finding)NOMS HealthcareHow often do you need to have someone help you when you read instructions, pamphlets, or other written material from your doctor or pharmacy [SILS][facility] How many standard drinks containing alcohol do you have on a typical day?3 or 4 NOMS HealthcareSexual OrientationMckitrick Hospital General Surgery [place] SexFemale (finding)[facility] Functional Status UqoyBstyosowxlFanupeFcjzxfll95-52-4943Ofvrg score [AUDIT-C]3 06/21/2025 9:17 AM EDT Mychart, GenericLakeland Regional HospitalQyifpktmoj07-63-0190Gjy often do you have a drink containing alcohol?Monthly or less 06/21/2025 9:17 AM EDT Mychart, Generic Monthly or lessNOMS Kobjjofjhm07-05-9318Hpu many standard drinks containing alcohol do you have on a typical day?3 or 4 06/21/2025 9:17 AM EDT Mychart, Generic 3 or 4NOHCA Midwest DivisionEyisbcasfa90-96-6195Qmm often do you have 6 or more drinks on 1 occasion?Less than monthly 06/21/2025 9:17 AM EDT Mychart, Generic Less than [facility] Clinical Notes 06-30-2016 to 07-31-2025 Note Date & CvwxMppwYlevmdko77-00-9905 NoteGeneral Surgery Office/Clinic Note Chief Complaint consultation for lipoma HPI [...] swallowing difficulties, no hearing loss, no ear infection(s),no nose bleeds. Cardiovascular: normal blood pressure, no [...] plan excisional biopsy under local anesthesia at [facility] for definitive diagnosis and treatment. Follow-up [...] virus vaccine, inactivated 09/08/2024 Recorded SARS-CoV-2 (COVID-19) mRNAMUL.ORD![id number] 11/25/2022 Recorded SARS-CoV-2 (COVID-19) mRNA BNT-162b2 vax 10/28/2021 Recorded SARS-CoV-2 (COVID-19) mRNA BNT-162b2 vax 03/14/2021 Recorded SARS-CoV-2 (COVID-19) mRNA BNT-162b2 vax 02/21/2021 RecordedKettering Health – Soin Medical CenterComment on above:Result Comment: Electronically Signed By: DANIKA RODGERS, Velasquez Yoon\Date and Time Signed: 07/31/25 14:57 HPR06-51-9223 [facility] Reason for cardiology [...] paroxysmal nocturnal dyspnea or legs edema. 05/03/2024 Karolina Mock is a 65 y.o. female without [...] stents and CABG, her paternal grandfather had [place]. Cardiology ROS: All symptoms were reviewed, they [...] present. NEURO: strength/sensation equa (more content not included)...[facility]07-31-2025 History of Present illness Narrative* Filiberto San MD - 06/28/2025 2:52 PM EDTAssociated Problem(s): Lipoma of right lower extremity Lesion appears to be lipoma. C/o pain and refer to surgeon. * Filiberto San MD - 06/28/2025 2:51 PM EDTAssociated Problem(s): Actinic keratosis Lesion appears to be AK. Discussed premalignant nature of lesion and recommended cryo. Used liquid nitrogen to perform 3 freeze thaw cycles and patient tolerated well. Warned will form blister and likely will take multiple treatments. If develop new or worsening symptoms call. * Filiberto San MD - 06/28/2025 2:00 PM EDT Images from the original note were not included. Subjective Patient ID: KAROLINA Mock is a 65 y.o. female who presents for Follow-up (Lump on leg/Patch on forehead). C/o patch on forehead and lump on right upper thigh. Spot on forehead rough and raised for almost 1year. Will develop white scale and come off [...] referral to General Surgery documented in this encounterLakeland Regional HospitalJjqmudeqeg15-22-0720 NoteB[facility] Note Reason for cardiology [...] paroxysmal nocturnal dyspnea or legs edema. 05/03/2024 Karolina Mock is a 64 y.o. female without [...] stents and CABG, her paternal grandfather had [place]. Cardiology ROS: All symptoms were reviewed, they [...] changes in inferior an (more content not included)...[facility]08-19-2024 [facility] Reason for cardiology [...] paroxysmal nocturnal dyspnea or legs edema. 05/03/2024 Karolina Mock is a 64 y.o. female without [...] stents and CABG, her paternal grandfather had [place]. Cardiology ROS: All symptoms were reviewed, they [...] isc (more content not included)... 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 We discussed that the wr ist/hand may feel numb and tingle for hours after this injection. [facility] 10-19-2022 Evaluation note* Encounter Date Diagnosis [...] as needed for aches pains or fevers Aug,therEar fluid (middle ear effusion) material was printed [facility] 09-06-2022 Evaluation note* Encounter Date Diagnosis Assessment Notes Treatment Notes Treatment Clinical Notes Jul, Right hand pain (ICD-10 - M79.64 1) Jul,rimary osteoarthritis of right hand (ICD-10 - M19.041)Patient is progressing well from injections. May consider repeat injections in the future if needed. Continue topical and/or oral NSAIDs as needed for pain/inflammation. Call with questions/concerns or return in pain. [facility] 08-05-2022 Evaluation note* Encounter Date Diagnosis Assessment Notes Treatment Notes Treatment Clinical Notes Jun, Right hand pain (ICD-10 - M79.64 1) Jun,rimary osteoarthritis of right hand (ICD-10 - M19.041)The pain appears to be from arthritis in the hand, specifically the PIP joints of the ring and small fingers. Patient was instructed on the use of lidocaine patches. Cortisone injections were performed into the right ring and small finger PIP joints after sterile prep. Patient tolerated well. She was instructed to contact the office with any questions or concerns. [facility] 07-11-2022 Evaluation note* Encounter Date Diagnosis Assessment Notes Treatment Notes Treatment Clinical Notes May, Laceration of hendrix (ICD-10 - S81 .819A) Keep wound area completely dry for at least 24 hours. Do not pick at scabbed area where Dermabond applied. Call office, follow up with primary care provider or seek emergency treatment if any signs or symptoms of infection occur including increased swelling, increased pain, drainage, redness to area, fever, or have chills. TDAP updated [facility] 06-28-2022 Evaluation note* Encounter Date Diagnosis Assessment Notes Treatment Notes Treatment Clinical Notes Apr, Right hand pain (ICD-10 - M79.64 1) Apr,rimary osteoarthritis of right hand (ICD-10 - M19.041)Xrays were reviewed with patient in detail. We discussed conservative and surgical option in detail. Patient would like to try topical and oral anti inflammatory medication. Additionally we will provide an order for formal therapy. If pain persists we consider a medrol dose pack or cortisone injection [facility] Other 08-02-2016 History general Narrative - Reported* Type Description Date Medical History acid reflux Surgical Historyshoulder surgery [id number] Namcfenulffemwfzxbz4974 Surgical HistoryThroat Surgery8/2/16Surgical Historywrist [id number] Hospitalization HistorySee Above [facility] Other Evaluation + Plan note No data available for this section [facility] Pamela Evaluation noteNo assessment information available [facility] Work Phone: Evaluation note* Diagnosis Onset Date Resolution Status Dysuria acute [facility] Work Phone: Evaluation note* Diagnosis Onset Date Resolution Status Pain in right hand acutePrimary osteoarthritis of right handacute [facility] Work Phone: Evaluation note* Diagnosis Precordial pain- Primary Palpitation Palpitations Actinic keratosis- Primary Lipoma of right lower extremity documented in this encounter [facility] HealthcareHospital Discharge instructions No data available for this section [facility] [place] Progress note No data available for this section [facility] [place] Reason for referral (narrative)No reason for referral information availableC[facility] Clinic [facility] Work Phone: Chief Complaint and Reason for Visit Chief Complaint M79.641 Chief Complaint poss uti Reason for Visit Dysuria Chief Complaint poss uti DysuriaReason for VisitDysuria Chief Complaint OP SP RT HAND PIAN R EQ INJECTION Reason for Visit Pain in right hand Primary osteoarthritis of right hand Chief Complaint Admit Date Unknown September 05, 2025 10 :15am Advance Directives Advance Directive Response Recorded Date/ Time Advance Directives No May 26 10:51am Advance Directive Response Recorded Date/ Time Advance Directives No May 26 9:51am Summary Purpose Family History Relationship Condition Age at Onset Recorded Date/T angela Not Specified Unknown Malignant neoplasmUnknownfatherHeart diseaseUnknownDeceasedUnknown Relationship Condition Age at Onset Recorded Date/T angela mother Unknown Malignant neoplasmUnknownfatherHeart diseaseUnknownDeceasedUnknown Additional Source Comments REASON FOR VISIT (unrecogniz ed section and content) ReasonCommentsFollow-upLump on legPatch on forehead Care Teams (unrecognized sec tion and content) Team Status: Inactive Member Role Status Dates Nayana Huitron MD Attending Provider Active NON STAFFPrimary Care ProviderActive Team Status: Active Member Role Status Dates NON STAFF Primary Care Provider Active Team Status: Inactive Member Role Status Dates NON STAFF Primary Care Provider Active Start: January 13, 2024 End: January 13Gilson Gee ProviderActiveStart: January 13, 2024 End: January 13, 2024 Team Status: Inactive Member Role Status Dates Kena Parekh APRN Attending Provider Active Start: January 13, 2024 End: January 13, 2024 Team Status: Active Member Role Status Dates Filiberto San MD Primary Care Provider Active Team Status: Inactive Member Role Status Dates Nayana Huitron MD Attending Provider Active Start: July 04, 2024 End: July 04, 2024[facility] Candace San Care ProviderActiveStart: July 04, 2024 End: July 04, 2024Team MemberRelationshipSpecialtyStart DateEnd Date Filiberto San MD [address] [place] [address] PCP - [facility]01/13/24 Filiberto San MD [address] [place] [address] PCP - [facility]11/29/1311Team MemberRelationshipSpecialty Start DateEnd Date Filiberto San MD [address] [place] [address] PCP - [facility]01/13/24 Filiberto San MD [address] [place] [address] PCP - [facility] [employer]11/29/1311Team MemberRelationshipSpecialty Start DateEnd Date Filiberto San MD [address] [place] [address] PCP - [facility]01/13/24 Filiberto San MD [address] [place] [address] PCP - [facility] [employer]11/29/1311Team MemberRelationshipSpecialty Start DateEnd Date Filiberto San MD [address] [place] [address] PCP - [facility]01/13/24 Filiberto San MD [address] [place] [address] PCP - [facility] [employer]11/29/1311Team MemberRelationshipSpecialty Start DateEnd Date Filiberto San MD [address] [place] [address] [facility] - [facility]01/13/24 Filiberto San MD [address] [place] [address] PCP - [facility] [employer]11/29/1311Team MemberRelationshipSpecialty Start DateEnd Date Filiberto San MD [address] [place] [address] [facility] - [facility]01/13/24 Filiberto San MD [address] [place] [address] [facility] - Medical [facility]11/29/1311 Team Status: Inactive Member Role Status Dates Velasquez Fernandez MD FACS Attending Provider Active Start: September 05, 2025 End: September 05, 2025Team MemberRelationshipSpecialtyStart DateEnd Date Filiberto San MD [facility] - [facility]01/13/24 Filiberto San MD [address] [place] [address] PCP - [facility] [employer]11/29/1311Team MemberRelationshipSpecialty Start DateEnd Date Filiberto San MD [facility]CP - [facility]01/13/24 Filiberto San MD [address] [place] [address] PCP - [facility] [employer]11/29/1311 Goals (unrecognized section and content) Goals may be documented in a n alternate section INFORMATION SOURCE (unrecogn ized section and content) DATE CREATED AUTHOR 03/08/2023 [facility] DATE CREATED AUTHOR AUTHOR'S ORGANIZ ATION 06/30/2025 [facility] DATE CREATED AUTHOR AUTHOR'S ORGANIZ ATION 07/11/2025 [facility] DATE CREATED AUTHOR AUTHOR'S ORGANIZ ATION 09/07/2025 [facility] DATE CREATED AUTHOR AUTHOR'S ORGANIZ ATION 09/20/2025 [facility] FOR RECORDS PERTAINING TO PATIENTS [...] BE BASED ON THE PRIMARY CLINICAL RECORDS. [employer] provides no warranty or guarantee of the accuracy or completeness of information in this document.
--- NOTE | 2025-09-28 14:50 | MM_ITS ---
Patient Name: IGNACIO DIAZ MR#: [id number] : 1960 Exam Date: 09/28/2025 Ordering Doctor: DR CHIRAG SAN . RADIOLOGY REPORT PROCEDURE: MM TOMOSYNTHESIS SCREENING BI COMPARISON: MM TOMOSYNTHESIS SCREENING BI, 09/27/2024. MM TOMOSYNTHESIS SCREENING BI, 09/23/2023. MG MAMM SCREEN 3D REGINALD CAD, 09/22/2022. MAMMO REGINALD SCREEN, 01/12/2003. INDICATIONS: Screening Calculator Name NCI Breast Cancer Risk Assessment Tool 5 Year Breast Cancer Risk 1.30% Lifetime Breast Cancer Risk 5.50% Personal Breast Cancer No Personal Ovarian Cancer No Treatments None Family Cancers Mother with ovarian cancer at age 46; Grandmother-maternal with lymph node cancer at age 80. LOCATION: [facility] BREAST COMPOSITION: The breasts are heterogeneously dense, which may obscure small masses. FINDINGS: RIGHT BREAST: No significant suspicious finding. LEFT BREAST: No significant suspicious finding. DIAGNOSTIC CATEGORY 1--NEGATIVE. RECOMMENDATIONS: ROUTINE MAMMOGRAM AND CLINICAL EVALUATION IN 12 MONTHS. Dictated by: Didier Abraham DO on 09/28/2025 at 15:49 Approved by: Didier Abraham DO on 09/28/2025 at 15:49
== END 2025-09-28 14:25 | disposition home or self-care (01) ==
LOC: MAMMO 14:24
PROVIDERS: PCP Family Medicine; Visit Provider Family Medicine
DX: Z12.31 Encounter for screening mammogram for malignant neoplasm of breast (principal); Z80.41 Family history of malignant neoplasm of ovary; Z80.8 Family history of malignant neoplasm of other organs or systems
CPT/HCPCS: 77063; 77067

== ENCOUNTER 2025-10-01 15:10 | Outpatient (OUT) | payer OTHER, SELFPAY ==
--- OUTSIDE RECORDS SUMMARY | 2025-09-18 22:59 | XMS_ITS | Continuity of Care Document ---
Author Organization [facility] Address [address] [place] [address] Care Team Providers Care Top Former Name Role Phone JASWINDER CHIRAG Primary Care Physician Encounter FT_AMBFIN [id number] Date(s): 09/18/25 - 09/18/25 [facility] [address], [place], [place] [address] Encounter Diagnosis Lipoma of right thigh(Discharge Diagnosis) - 09/18/25 Discharge Disposition: Home (Routine DC) Attending Physician: Velasquez GARNICA MD Encounter Type: Clinic Allergies, Adverse Reactions, Alerts SubstanceCriticalitySeverityReactionReaction SeverityStatussulfa drugsHives Active Immunizations Given and Recorded VaccineDateStatusRefusal Reasoninfluenza virus vaccine, wkqdfykntrs24/11/24 HxfmaqwgBKRG-KnF-3 (COVID-19) mRNAMUL.ORD![id number]-YyS-8 (COVID-19) mRNA BNT-162b2 vax11/30/76FkmbgsguBRXF-LbB-7 (COVID-19) mRNA BNT- 162b2 vax4/16/76HixwsdcbUXMX-JwQ-1 (COVID-19) mRNA BNT-162b2 vax3//Recorded Medications atorvastatin 20 mg Tab 20 mg = 1 tab(s), Oral, Daily, Refills(s) 0 Start Date: 07/31/25 Status: Ordered Repeat number: 1 omeprazole 40 mg Cap-DR 40 mg = 1 cap(s), Oral, Daily, Refills(s) 0 Start Date: 07/04/25 Status: Ordered Repeat number: 1 Vitamin D3 1000 intl units (25 mcg) Tab 25 mcg = 1 tab(s), Oral, Daily, Refills(s) 0 Start Date: 07/04/25 Status: Ordered Repeat number: 1 Problem List ConditionConfirmationCourseEffective DatesStatusHealth StatusInformant DyslipidemiaConfirmed03/13/24ActiveGastroesophageal reflux diseaseConfirmed 03/08/23ActiveLipoma of right thighConfirmedActiveMild aortic valve regurgitation Confirmed07/17/24ActiveOverweightConfirmedActiveBMI 25.0-25.9,adultConfirmed ActiveVentricular tachycardiaConfirmed05/03/24ActiveVitamin D deficiencyConfirmed 03/13/24Active Procedures ProcedureDateRelated DiagnosisBody SiteStatusExcision of fuqaqd08/8/25Completed Colonoscopy (procedure)03/05/23CompletedBone spur of right shoulderCompletedClosed fracture of right wristCompletedDilation of esophagusCompletedDilation of esophagusCompletedDilation of esophagusCompletedDilation of esophagusCompleted Dilation of esophagusCompletedExcision of lipomaCompletedExcision of lipoma CompletedHeller operation, esophagomyotomyCompletedVH - Vaginal hysterectomy Completed Social History Social History TypeResponseSmoking StatusNever (less than 100 in lifetime);Never entered on: 09/18/25Birth SexFemaleSex RepresentationFemale (finding) Patient Care team information Care Team Personnel Name: CHIRAG SAN MD Position: FT Physician Member Role: Primary Care Physician Address: [address] [place] [address] [employer]: Care Team Related Persons Name: LEANDER MARTINEZ Name: SILVINO DIAZ Name: GREG MADDOX Insurance Providers Guarantor name: Health Plan Information #: 1 Payer: [employer] Payer Identifier: [id number] Member Number: [id number] Group Number: [id number] Subscriber Identifier: [id number] Relationship to Subscriber: self Coverage Type: PRIVATE HEALTH INSURANCE Coverage Verification Date: 25 Telecom: [phone] Address: [facility] [address] [place] [address]
--- OUTSIDE RECORDS SUMMARY | 2025-10-01 05:20 | XMS_ITS | Continuity of Care Document ---
Author Organization [facility] Address [address] [place] [address] Phone Care Team Providers Care Assistant Golf Coach Name Role Phone Velasquez Fernandez MD Attending Provider Filiberto Bernard MD Primary Care Provider [phone] Filiberto Bernard MD Attending Provider [phone] Care Teams Patient Care Team Team Status: Active Member Role/Relationship Status Dates Filiberto Bernard MD Primary Care Provider Active Visit Care Team Team Status: Inactive Member Role/Relationship Status Dates Velasquez Fernandez MD [facility] Attending Provider Active Start: September 05, 2025 End: September 05, 2025 Patient Care Team Team Status: Inactive Member Role/Relationship Status Dates Filiberto Bernard MD Primary Care Provider Active S tart: October 01, 2025 End: October 01, 2025[facility] MELE Bernardttending ProviderActiveStart: October 01, 2025 End: October 01, 2025 Chief Complaint and Reason for Visit Chief Complaint Admit Date Unknown September 05, 2025 10 :15am right knee pain October 01, 2025 9 :23am Reason for Visit Admit Date Right knee pain October 01, 2025 9 :23am Allergies, Adverse Reactions, Alerts Allergen Type Severity Reaction Last Updated Verified Status sulfamethoxazole Allergy Unknown Hives October 01, 2025 9:41 am Yes Active trimethoprim Allergy Unknown Hives October 01, 2025 9:41am Y es Active Social History Smoking Status Status Start Date End Date Date of Observa tion Never smoked tobacco (finding) January 13, 2024 2:50pm Observation Status Observation Response Date of Response Legal Sex Female (finding) Sex Assigned At BirthFemaleFebruary 1959 Family History Relationship Condition Age at Onset Recorded Date/T angela mother Unknown Malignant neoplasmUnknownfatherHeart diseaseUnknownDeceasedUnknown Problems Active Problems Problem Diagnosis/Recorded Date Onset Date Stat us Primary insomnia October 01, 2025 10:04am Unknown Active Primary osteoarthritis of right hand January 13 2:49pm Unknown Active Mild aortic regurgitation October 01, 2025 10:04am U nknown Active Dyslipidemia October 01, 2025 10:04am Unknown A ctive GERD without esophagitis October 01, 2025 10:04am Un known Active Right knee pain October 01, 2025 10:16am Unknown Active Inactive/Resolved Problems Problem Diagnosis/Recorded Date Onset Date Stat us Pain in right hand July 03, 2024 12:59pm Unknown Resolved High cholesterol April 13, 2025 9:50am Unknown Re solved Dysuria January 13, 2024 2:52pm Unknown R esolved Acid reflux January 13, 2024 2:49pm Unknown R esolved Right elbow tendonitis May 16, 2025 1:54pm Unknown Resolved Medications Medication Status Dose Units Route Directions Qty Days Refills S tart Date Stop Date End Date Reason(s) Instructions Adherence Omeprazole 40 mg capsule,delayed release(DR/EC) Active 40 MG PO Daily January 13, 2024 12:00amComplies with drug therapyCholecalciferol (Vitamin D3) 25 mcg (1,000 unit) nynvkbWojbhlnlqvil25SUGMRWumzmCdkbqlta 2023 12:00amOctober 2024 10:15amPhenazopyridine (Pyridium) 200 mg tablet Lznrnfrfdgbz351DVGFPjjhb times svlsr616Nbtnfdga 2023 12:00amAugust 2023 8:21amNaproxen 500 mg plxomcTbegdt396WFOKGwuze daily as needed for enia0906 0June 2024 11:00pmComplies with drug therapyCholecalciferol (Vitamin D3) 50 mcg (2,000 unit) axqnekQbduqg09DLQBNZvnrkChntkzf 2024 11:00pmComplies with drug therapyAtorvastatin 20 mg mfcpqbXayrta94ZNZKPzw 2024 11:00pm Complies with drug therapy Immunizations Immunization Event Date Not Given Reason Dose Number Loan Broker Lot Number Reason(s) Given Vaccine Information Statement (VIS) Detail Administration Location Tetanus, Diphtheria, Pertussis (Tdap) June 08, 2022 Vital Signs Vital Reading Result Reference Range Collection Date/Time Height 67 [in_i] October 01, 2025 9:05qwMpcbwt13.66 kgOctober 01, 2025 9:40amBody Temperature 97.1 [degF]97.6-99.0October 01, 2025 9:40amHeart Rate74 /tzy36-900LyewvjhmOctober 01, 2025 9:40amRespiratory rate20 /fgw82-67CvjulpyyOctober 01, 2025 9:40amOxygen saturation by Pulse benhefyo46 %95-100October 01, 2025 9:40amBP Ckcoport017 mm[Hg]100-140October 01, 2025 9:40amBP Bposajsmb62 mm[Hg]60-100October 01, 2025 9:40amBMI (Body Mass Index)24.7 kg/w2JgirfwidOctober 01, 2025 9:40am Advance Directives Advance Directive Response Recorded Date/ Time Advance Directives No May 26 9:51am Insurance Providers Guarantor Karolina A Mookiepelham Address [address] [place] [id number] Info.Home Phone: Payer Group Member ID Coverage Type Subscriber Relationship to Subscriber Effective Date Expiration Date [facility] Id: [id number] A [place]ookie[place] Id: [id number] [address] [place] [phone] Home Phone: Email: [email or web address] Encounters Encounter Location(s) Arrival/Admit Date Discharge/Departure Date Discharge/Departure Disposition Provider(s) Departed Referred -[facility] September 05, 2025 10:15am September 05, 2025 10:16am Discharged to home care or self care (routine discharge) Velasquez Fernandez MD FACS Departed Physician/ Provider Office Visit -[facility] Family Medicine Happy October 01, 2025 9:23am October 01, 2025 10:16am Discharged to home care or self care (routine discharge) Filiberto Bernard MD Recent Diagnosis Onset Date Admit Date Right knee pain Unknown October 01 9:23am Assessments Diagnosis Onset Date Resolution Status Admit Date Right knee pain acuteNov2024 9:23am Plan of Treatment Future Tests Future scheduled test information is unavailable Pending Tests Test Name Ordered Date Scheduled Date XR knee RT 4V* October 01, 2025 10:15am Future Visits Future appointment information is unavailable Future Procedures Future procedure information is unavailable Future Medications Future medication information is unavailable Patient Instructions Patient instructions are unavailable
--- OUTSIDE RECORDS SUMMARY | 2025-10-01 15:16 | XMS_ITS | Patient Health Record ---
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
--- OUTSIDE RECORDS SUMMARY | 2025-10-01 15:16 | XMS_ITS | Encounter Summary ---
Author Organization [facility] Address [address] [place] [address] Care Team Providers Care Clinic Mgr Name Role Phone Filiberto Bernard MD Primary Care Provider [phone] Filiberto Bernard MD Unavailable Encounter Details DateTypeDepartmentCare Team (Latest Contact Info)Vxrtilsltwu07/30/2024Clinisync Result Encounter [facility] External Department Unsolicited Filiberto Bernard MD [address] [place] [address] Social History Tobacco UseTypesPacks/DayYears UsedDateSmoking Tobacco: NeverSmokeless Tobacco: [id number] Health LiteracyAnswerDate RecordedHow often do you need [...] relatives?Twice a week06/21/2025How often do you attend jew or evangelical services?More than 4 times per year 06/21/2025Do you belong to any clubs or organizations such as jew groups, unions, fraternal or athletic groups, or school groups?No06/21/2025How often do you attend meetings of the clubs or organizations you belong to?Never06/21/2025 Are you , , , , never , or living with a partner?Jkulzls1406/21/2025UDIT-CAnswerDate RecordedQ1: How often do you have a [...] heating?Not hard at all06/21/2025PHQ-2AnswerDate RecordedPatient Health Questionnaire-2 Slels584[facility] [place] of Occupational Health - Occupational Stress QuestionnaireAnswerDate [...] steady place to sleep or slept in [facility] (including now)?No 03/30/2024Housing Stability Vital SignAnswerDate RecordedIn the last 12 months, was there a time when you were not able to pay the mortgage or rent on time?No 06/21/2025In the past 12 months, how many times have you moved where you were living?t any time in the past 12 months, were you homeless or living in a detention (including now)?No06/21/2025CommentsUnknownSex and Gender InformationValueDate RecordedSex Assigned at PamzuVpdpzo68/15/2024 9:44 AM EDT Legal LxzZcdahg79/15/2023 10:15 PM EDTGender TvvycgarXwhnqn95/15/2024 9:44 AM EDTSexual RzggnvnjpmyZhorrhgj49/15/2024 9:44 AM EDTdocumented as of this encounter Functional Status * AUDIT-C ScoreAnswerDate of CrarmdzqdrKkwpdl441/24/2025 9:17 AM EDTMychkishan, Generic * Q1: How [...] drinks on one occasion?AnswerDate of AssessmentAuthorLess than pcmjgod3306/21/2025 9:17 AM Damien Bland documented as of [...] EDT Narrative 09/27/2024 4:39 PM EDT [facility] ?[address] ? [place] [address] ? Mammography Report ? Signed ? Patient: KAROLINA MOCK ?MR#: [id number] ?? : 1960 ?Acct:[id number] ?? Age/Sex: 64 / F ?ADM Date: 09/27/24 ?? Loc: MAMMO ? Attending Dr: Filiberto Bernard M.D. ? Ordering Physician: Filiberto Bernard M.D. ?Results: ? Date of Service: 09/27/24 ?Follow Up: ? Procedure(s): MM tomosynthesis screening BI ?? Accession Number(s): [id number] ? cc: Filiberto Bernard M.D. ? Patient Name: ? KAROLINA MOCK ? MR#: [id number] ? : 1960 ? Exam Date: 09/27/2024 [...] at age 82. ? LOCATION: ? [facility] ? BREAST COMPOSITION: ? The breasts are [...] 1639 ? DD/ 1638 ? TD/TT: ? Pressure Test Operator: Procedure Note Radiology, Radiologist, MD - 09/27/2024 [place] [address] Mammography Report Signed Patient: KAROLINA MOCK AMR#: [id number] : 1960cct:[id number] Age/Sex: 64 / FADM Date: 09/27/24 Loc: MAMMO Attending Dr: Filiberto Bernard M.D. Ordering Physician: Filiberto Bernard M.D.Results: Date of Service: 09/27/24Follow Up: Procedure(s): MM tomosynthesis screening BI Accession Number(s): [id number] cc: Filiberto Bernard M.D. Patient Name: KAROLINA MOCK MR#: [id number] : 1960 Exam Date: 09/27/2024 Ordering Doctor: DR Filiberto Bernard . RADIOLOGY REPORT PROCEDURE: MM TOMOSYNTHESIS SCREENING BI COMPARISON: MM TOMOSYNTHESIS SCREENING BI, 09/23/2023. MG MAMM NWUPOQ6P REGINALD CAD, 09/22/2022. MG MAMM SCREEN 3D REGINALD CAD, 09/09/2021. MAMMO REGINALD SCREEN, 01/12/2003. INDICATIONS: Screening Calculator Name NCI Breast Cancer Risk Assessment Tool 5 Year Breast Cancer Risk 1.20% Lifetime Breast Cancer Risk 5.70% Personal Breast Cancer No Personal Ovarian Cancer No Treatments None Family Cancers Mother with ovarian cancer at age 46;Grandmother-maternal with lymph node cancer at age 80. LOCATION: [facility] BREAST COMPOSITION: The breasts are heterogeneously dense,which [...] Green M.D. Signed By:09/27/24 1639 DD/ TD/TT: Pressure Test Operator: Authorizing ProviderResult TypeResult StatusMarc Marco Antonio MDCLINISYNC IMAGING Final Result documented in this encounter Visit Diagnoses Not on filedocumented in this encounter Care Teams Team MemberRelationshipSpecialtyStart DateEnd Date Filiberto Bernard MD PCP - GeneralFamily Medicine01/13/24 Filiberto Bernard MD [address] [place] [address] PCP - Medical [place] [employer]11/29/1311documented as of this encounter
--- OUTSIDE RECORDS SUMMARY | 2025-10-01 15:16 | XMS_ITS | Encounter Summary ---
Author Organization [facility] Address [address] [place] [address] Care Team Providers Care Transmission Builder Name Role Phone Chirag San MD Primary Care Provider [phone] Chirag San MD Unavailable Encounter Details DateTypeDepartmentCare Team (Latest Contact Info)Hchxvxajpxm18/29/2024Clinisync Result Encounter [facility] External Department Unsolicited Chirag San MD [address] [place] [address] Social History Tobacco UseTypesPacks/DayYears UsedDateSmoking Tobacco: NeverSmokeless Tobacco: [id number] Health LiteracyAnswerDate RecordedHow often do you need [...] relatives?Twice a week06/21/2025How often do you attend christian or druze services?More than 4 times per year 06/21/2025Do you belong to any clubs or organizations such as christian groups, unions, fraternal or athletic groups, or school groups?No06/21/2025How often do you attend meetings of the clubs or organizations you belong to?Never06/21/2025 Are you , , , , never , or living with a partner?Gbxpqjb0406/21/2025UDIT-CAnswerDate RecordedQ1: How often do you have a [...] heating?Not hard at all06/21/2025PHQ-2AnswerDate RecordedPatient Health Questionnaire-2 Qjxlx720Finhuntsman mental health institute [place] of Occupational Health - Occupational Stress QuestionnaireAnswerDate [...] steady place to sleep or slept in [facility] (including now)?No 03/30/2024Housing Stability Vital SignAnswerDate RecordedIn the last 12 months, was there a time when you were not able to pay the mortgage or rent on time?No 06/21/2025In the past 12 months, how many times have you moved where you were living?t any time in the past 12 months, were you homeless or living in a senior care (including now)?No06/21/2025CommentsUnknownSex and Gender InformationValueDate RecordedSex Assigned at NyjxxXutubq44/15/2024 9:44 AM EDT Legal FpmWbykpf29/15/2023 10:15 PM EDTGender QgvqplknVfaffe04/15/2024 9:44 AM EDTSexual ZozfnqajbznMdeonwko50/15/2024 9:44 AM EDTdocumented as of this encounter Functional Status * AUDIT-C ScoreAnswerDate of YpjcrhlpjtLvfxzt039/24/2025 9:17 AM EDTMychkishan, Generic * Q1: How [...] drinks on one occasion?AnswerDate of AssessmentAuthorLess than qnglvet6706/21/2025 9:17 AM Damien Bland documented as of [...] EDT Narrative 04/26/2024 2:29 PM EDT [facility] ?[address] ? [place] [address] ?Nuclear Medicine Report ? Signed ? Patient: KAROLINA MOCK ?MR#: [id number] ?? : 1960 ?Acct:[id number] ?? Age/Sex: 64 / F ?ADM Date: 04/26/24 ?? Loc: [place] ? Attending Dr: Chirag San M.D. ? Ordering Physician: Chirag San M.D. ?? Date of Service: 04/26/24 ?? Procedure(s): NM cem perf SPECT rest ?? str ?? Accession Number(s): [id number] ? cc: Chirag San M.D. ? Patient Name: ? KAROLINA MOCK ? MR#: [id number] ? : 1960 ? Exam Date: 04/26/2024 [...] ?04/26/241428 ? DD/ 27 ? TD/TT: ? Shot Polisher: Procedure Note Radiology, Radiologist, - 04/26/2024 [place] [address] Nuclear Medicine Report Signed Patient: KAROLINA MOCK AMR#: [id number] : 1960cct:[id number] Age/Sex: 64 / FADM Date: 04/26/24 Loc: [place] Attending Dr: Chirag San M.D. Ordering Physician: Chirag San M.D. Date of Service: 04/26/24 Procedure(s): NM cem perf SPECT rest str Accession Number(s): [id number] cc: Chirag San M.D. Patient Name: KAROLINA MOCK MR#: [id number] : 1960 Exam Date: 04/26/2024 Ordering Doctor: [...] M.D. Signed By:04/26/24 1429 DD/ 1428 TD/TT: Shot Polisher: Authorizing ProviderResult TypeResult StatusMarc Naderer MDCLINISYNC IMAGING Final Result documented in this encounter Visit Diagnoses Not on filedocumented in this encounter Care Teams Team MemberRelationshipSpecialtyStart DateEnd Date Chirag San MD PCP - GeneralFamily Medicine01/13/24 Chirag San MD [address] [place] [address] PCP - Medical [place] [employer]11/29/1311documented as of this encounter
--- OUTSIDE RECORDS SUMMARY | 2025-10-01 15:16 | XMS_ITS | Clinical Summary ---
Author Organization [facility] Address [address] [place] [address] Care Team Providers Care Clin Tech Name Role Phone Filiberto Bernard MD Primary Care Provider Allergies Active AllergyReactionsCriticalityNoted DateCommentsSulfa (Sulfonamide Antibiotics)Hives01/13/2024Sulfamethoxazole-PilzesabhrfvSnndn39/01/2012 Medications MedicationSigDispense QuantityRefillsLast FilledStart DateEnd DateStatus cholecalciferol (Vitamin D-3) 25 MCG (1000 units) tablet Take 1,000 Units by mouth in the morning.Active omeprazole (PriLOSEC) [address] capsule in the morning.01/13/2024ctive atorvastatin (Lipitor) 20 mg tablet Indications:Hyperlipidemia, unspecified hyperlipidemia typeTake 1 tablet (20 mg) by mouth at bedtime. 90 tablet ctive Active Problems ProblemNoted DateDiagnosed PkztAjqguksqx54/07/2025Nonrheumatic aortic valve pykqbkcpcgaif09/07/2025ortic root nbiboucmfk16/07/2025Mitral valve insufficiency and aortic valve zupaggtzgxmvf44/19/3761Itkohrg92/05/2024Other chest pain05/03/2024bnormal EKG005/03/2024yspnea on hopbjkzv20/05/2024 Nonsustained ventricular ydnreltuejw42/05/4758Uwtrhgyqgede05/09/2024 Overview (05/03/2024): Last Assessment & Plan: Frequent [...] If no improvement will refer for PT. Ahvsmadxsstujo62/15/2024Equinus contracture of left ankle03/13/2024 Gastroesophageal reflux disease without scptzwrdamm03/15/2024Pain of left heel 4Persistent acmpgvdj37/15/2024Primary osteoarthritis of right hand 03/13/2024Vitamin D /15/2024Cricopharyngeal spasm05/08/2016 Oropharyngeal rligrtwzv50/10/2016Skin lesion of right leg10/06/2012 Encounters DateTypeDepartmentCare KdapIqovzhkyuuy67/07/2025 2:40 PM EDTOffice Visit [facility] [place] [address] [place] [address] Brice Barron MD Dizziness (Primary [...] every 1 to 2 weeks, usually 4-5 [facility] Safety & EnvironmentAnswer Date RecordedFear of Current or Ex-PartnerNot on file04/28/2024Emotionally AbusedNot on file04/28/2024hysically AbusedNot on file04/28/2024Sexually Abused Not on file04/28/2024hysically or Sexually AbusedNot on file04/28/2024 CommentsUnknownSex and Gender InformationValueDate RecordedSex Assigned at Qqopac0407/03/2025 3:53 PM EDTLegal EehPbsuvj88/31/2024 11:12 AM EDTGender OdojdlbdGfehgf00/05/2025 3:53 PM EDTSexual OrientationHeterosexual or Straight 07/03/2025 3:53 PM EDT Last Filed Vital Signs Vital SignReadingTime TakenCommentsBlood Xregrgtp084/7307/05/2025 3:00 PM EDT Tnbyr544707/05/2025 3:00 PM EDTTemperature--Respiratory Rate--Oxygen Oskxvbfywh84% 07/05/2025 3:00 PM EDTInhaled Oxygen Concentration--Pelnat73.6 kg (160 lb) 07/05/2025 3:00 PM USBMpwweb263.2 cm (5' 7 )07/05/2025 3:00 PM EDTBody Mass Index25.0607/05/2025 3:00 PM EDT Plan of Treatment Health MaintenanceDue DateLast DoneCommentsCT Aachanluciim1962Colonoscopy 2Colorectal Cancer Getunutrr1962FIT-DNA1962FIT1960 FOBT1960 8968Btwdwybnorgcw1962Depression Vyfqhwiqo48/17/1974Pneumococcal Vaccine: Pediatrics (0 to 5 Years) and At-Risk Patients (6 to 64 Years) (1 of 2 - PCV)1981Pap Smear1983Cervical Cancer Xymsloaqi97/17/1992HPV/Cotest 1992Zoster Vaccines (1 of 2)01/15/20128593Mrjgwbzcy74/10/COVID- 19 Vaccine ( season)/, 09/30/2023, 11/25/2022, Additional history existsInfluenza Vaccine (#1)/09/2024, 09/30/2023, 10/10/2022, Additional history existsAdult Wkwydxq99/09/2022HIB VaccinesAged OutNo longer eligible based on patient's [...] Date Filiberto Bernard MD [address] [place] [address] PCP - GeneralFamily Medicine05/03/24
--- OUTSIDE RECORDS SUMMARY | 2025-10-01 15:16 | XMS_ITS | Encounter Summary ---
Author Organization [facility] Address [address] [place] [address] Care Team Providers Care Molding And Trim Installer Name Role Phone Chirag San MD Primary Care Provider [phone] Chirag San MD Unavailable Encounter Details DateTypeDepartmentCare Team (Latest Contact Info)Vtdpkxflkwa40/29/2024Clinisync Result Encounter [facility] External Department Unsolicited Chirag San MD [address] [place] [address] Social History Tobacco UseTypesPacks/DayYears UsedDateSmoking Tobacco: NeverSmokeless Tobacco: [id number] Health LiteracyAnswerDate RecordedHow often do you need [...] week06/21/2025How often do you attend yazdanism or oriental orthodox services?More than 4 times per year 06/21/2025Do you belong to any clubs or organizations such as yazdanism groups, unions, fraternal or athletic groups, or school groups?No06/21/2025How often do you attend meetings of the clubs or organizations you belong to?Never06/21/2025 Are you , , , , never , or living with a partner?Bmvmvgi7606/21/2025UDIT-CAnswerDate RecordedQ1: How often do you have a [...] heating?Not hard at all06/21/2025PHQ-2AnswerDate RecordedPatient Health Questionnaire-2 Yrvov717[facility] [place] of Occupational Health - Occupational Stress QuestionnaireAnswerDate [...] steady place to sleep or slept in [facility] (including now)?No 03/30/2024Housing Stability Vital SignAnswerDate RecordedIn the last 12 months, was there a time when you were not able to pay the mortgage or rent on time?No 06/21/2025In the past 12 months, how many times have you moved where you were living?t any time in the past 12 months, were you homeless or living in a half-way (including now)?No06/21/2025CommentsUnknownSex and Gender InformationValueDate RecordedSex Assigned at LdcqxPggrwq60/15/2024 9:44 AM EDT Legal JfwLiittr67/15/2023 10:15 PM EDTGender GtxigonlAaphod22/15/2024 9:44 AM EDTSexual OxlirrengapHeynmarw74/15/2024 9:44 AM EDTdocumented as of this encounter Functional Status * AUDIT-C ScoreAnswerDate of AkwcwscnysRuuods109/24/2025 9:17 AM EDTMychkishan, Generic * Q1: How [...] drinks on one occasion?AnswerDate of AssessmentAuthorLess than odwycuz1606/21/2025 9:17 AM Damien Bland documented as of [...] EDT Narrative 04/27/2024 6:56 AM EDT [facility] ?[address] ? [place] [address] ? Cardiology Report ? Signed ? Patient: KAROLINA MOCK ?MR#: [id number] ?? : 1960 ?Acct:[id number] ?? Age/Sex: 64 / F ?ADM Date: 04/12/24 ?? Loc: CARD ? Attending Dr: Chirag San M.D. ? Ordering Physician: Chirag San M.D. ?? Date of Service: 04/12/24 ?? Procedure(s): [facility] 2-7 days ?? Accession Number(s): [id number] ? cc: Chirag San M.D. ?[facility] ? Test Date: ?2024-04-26 ?? Pat Name: ? KAROLINA MOCK ?Department: ? Room: ? - ?? Gender: ? Female ? Internet Sales Director: ? : ?1960 ? Requested By: CHIRAG SAN ?? Order Number: [id number] ?Reading MD: ?? DAYRON ??BALL ? Interpretive [...] 0656 ? DD/ 1504 ? TD/TT: ? Legal Secretary Receptionist: Procedure Note Radiology, Radiologist, MD - 04/27/2024 [place] [address] Cardiology Report Signed Patient: KAROLINA MOCK AMR#: [id number] : 2Acct:[id number] Age/Sex: 64 / FADM Date: 04/12/24 Loc: CARD Attending Dr: Chirag San M.D. Ordering Physician: Chirag San M.D. Date of Service: 04/12/24 Procedure(s): [place] holter montior 2-7 days Accession Number(s): [id number] cc: Chirag San M.D. [facility] Test Date: 2024-04-26 Pat Name: KAROLINA MOCK Department: Room: - Gender: Female Internet Sales Director: : 1960 Requested By: CHIRAG SAN Order Number: [id number] Reading MD: DAYRON JONES Interpretive Statements Predominant [...] By:04/27/24 0656 04/27/24 0656 DD/ 1504 TD/TT: Legal Secretary Receptionist: Authorizing ProviderResult TypeResult StatusMarc Marco Antonio MDCLINISYNC IMAGING Final Result documented in this encounter Visit Diagnoses Not on filedocumented in this encounter Care Teams Team MemberRelationshipSpecialtyStart DateEnd Date Chirag San MD PCP - GeneralFamily Medicine01/13/24 Chirag San MD [address] [place] [address] PCP - Medical [place] [employer]11/29/1311documented as of this encounter
--- OUTSIDE RECORDS SUMMARY | 2025-10-01 15:16 | XMS_ITS | Clinical Summary ---
Author Organization [facility] Address [address] [place] [address] Care Team Providers Care Hydroponics Worker Name Role Phone Filiberto Bernard MD Primary Care Provider [phone] Filiberto Bernard MD Unavailable Allergies Active AllergyReactionsCriticalityNoted [...] 5Active Active Problems ProblemNoted DateDiagnosed DateMild aortic hgdeanpiufxnn43/31/2025Actinic mehcqpxah50/31/2025 Assessment & Plan (06/28/2025 2:51 PM EDT): Lesion appears to be AK. Discussed premalignant nature of lesion and recommended cryo. Used liquidnitrogen to perform 3 freeze thaw cycles and patient tolerated well. Warned will form blister and likely will take multiple treatments. If develop new or worsening symptoms call. Lipoma of right lower cvsoirsvb15/31/2025 Assessment & Plan (06/28/2025 2:52 PM EDT): Lesion appears to be lipoma. C/o pain and refer to surgeon. Rboiivwdclu54/09/2024 Assessment & Plan (04/06/2024 3:13 PM EDT): Frequent symptoms and check Holter. Precordial pain04/06/2024 Assessment & Plan (04/06/2024 3:13 PM EDT): Recent pain and concerning of cardiac ischemia. Check treadmill cardiolyte stress test. If pain worsens or persists go to ER. Mddlnufwexdp50/15/2024Equinus contracture of left ankle03/13/2024 Gastroesophageal reflux disease without aqdgndvruui84/15/2024ersistent insomnia 03/13/2024ain of left heel03/13/2024Vitamin D zjitlptjmm06/15/2024rimary osteoarthritis of right hand03/13/2024 Resolved Problems ProblemNoted DateDiagnosed DateResolved DateClosed Colles' fracture of right wxqrhf484Acute right-sided thoracic back pain03/13/2024 06/28/2025 Assessment & Plan (03/13/2024 11:19 AM EDT): Recent pain but no injury and likely muscular. Treat with prednisone and use robaxin PRN. Use heat PRN. If no improvement will refer for PT. Social History Tobacco UseTypesPacks/DayYears UsedDateSmoking Tobacco: NeverSmokeless [...] relatives?Twice a week06/21/2025How often do you attend jehovah's witness or muslim services?More than 4 times per year06/21/2025Do you belong to any clubs or organizations such as jehovah's witness groups, unions, fraternal or athletic groups, or [...] or more drinks on one occasion?Less than qefrryh1306/21/2025Overall Financial Resource Strain (CARDIA)AnswerDate RecordedHow hard is it for you to pay for the very basics like food, housing, medical care, and heating?Not hard at all06/21/2025PHQ-2AnswerDate RecordedPatient Health Questionnaire-2 Score0 03/13/2024[facility] [place] of Occupational Health - Occupational Stress QuestionnaireAnswerDate [...] place to sleep or slept in [facility] (including now)?No03/30/2024Housing Stability Vital SignAnswerDate RecordedIn the last 12 months, was there a time when you were not able to pay the mortgage or rent on time?No06/21/2025In the past 12 months, how many times have you moved where you were living?t any time in the past 12 months, were you homeless or living in a halfway (including now)?No 06/21/2025CommentsUnknownSex and Gender InformationValueDate RecordedSex Assigned at EdejaSuydzo25/15/2024 9:44 AM EDTLegal FscDxvzjc69/15/2023 10:15 PM EDTGender PdyzsxusFwufsk44/15/2024 9:44 AM EDTSexual OrientationStraight 03/13/2024 9:44 AM EDT Last Filed Vital Signs Vital SignReadingTime TakenCommentsBlood Pcrpgczd964/6407/ 2:13 PM EDT Ftfqg621506/28/2025 2:13 PM MTZMexthrilhjs05.6 ??C (97.8 ??F)06/28/2025 2:13 PM EDTRespiratory Atal4902 2:13 PM EDTOxygen Gybzewcuth62%06/28/2025 2:13 PM EDTInhaled Oxygen Concentration--Nmpcnq25.2 kg (157 lb)06/28/2025 2:13 PM EDT Qbkiug959.2 cm (5' 7 )06/28/2025 2:13 PM EDTBody Mass Index24.59006/28/2025 2:13 PM EDT Plan of Treatment Health MaintenanceDue DateLast DoneCommentsCT Zuuyhsihsnos1962FIT-DNA 1962FIT1960FOBT1960 9842Ovlwnzctkhrei1962neumococcal Vaccine: Pediatrics (0 to 5 Years) and At-Risk Patients (6 to 64 Years) (1 of 2 - PCV)1981Pap Smear1983Cervical Cancer Bbylyornc94/17/1992HPV/Cotest 1992COVID-19 Vaccine ( season), 09/30/2023, 10/28/2021, Additional history existsInfluenza Vaccine (#1)/09/2024, 09/30/2023, 10/10/2022, Additional history mfdqafPkvueeaga03, 09/23/2023, 10/08/20145895Kxhtjdxcwbm78/07/203304/05/2023, 03/05/2023olorectal Cancer Ncoqrhvib55/07/2033 Procedures Procedure NamePriorityDate/TimeAssociated DiagnosisCommentsMM TOMOSYNTHESIS SCREENING BI09/27/2024 4:38 PM EDT from Last 3 Months or Most Recently Relevant to Health Maintenance Results * MM TOMOSYNTHESIS SCREENING BI (09/27/2024 4:38 PM EDT)Anatomical Region LateralityModalityOtherSpecimen (Source)Anatomical Location / Laterality Collection Method / VolumeCollection TimeReceived Time09/27/2024 4:38 PM EDT Narrative 09/27/2024 4:39 PM EDT [facility] ?[address] ? [place] [address] ? Mammography Report ? Signed ? Patient: KAROLINA MOCK A ?MR#: [id number] ?? : 1960 ?Acct:[id number] ?? Age/Sex: 64 / F ?ADM Date: 09/27/24 ?? Loc: MAMMO ? Attending Dr: Filiberto Bernard M.D. ? Ordering Physician: Filiberto Bernard M.D. ?Results: ? Date of Service: 09/27/24 ?Follow Up: ? Procedure(s): MM tomosynthesis screening BI ?? Accession Number(s): [id number] ? cc: Filiberto Bernard M.D. ? Patient Name: ? KAROLINA EMILY ? MR#: [id number] ? : 1960 ? Exam Date: 09/27/2024 [...] at age 82. ? LOCATION: ? [facility] ? BREAST COMPOSITION: ? The breasts [...] ?Odin Green M.D. ? Signed By: ?09/27/24 1639 ? DD/ 1638 ? TD/TT: ? Organization Development Consultant: Procedure Note Radiology, Radiologist, MD - 09/27/2024 [place] [address] Mammography Report Signed Patient: KAROLINA MOCK AMR#: [id number] : 2Acct:[id number] Age/Sex: 64 / FADM Date: 09/27/24 Loc: MAMMO Attending Dr: Filiberto Bernard M.D. Ordering Physician: Filiberto Bernard M.D.Results: Date of Service: 09/27/24Follow Up: Procedure(s): MM tomosynthesis screening BI Accession Number(s): [id number] cc: Filiberto Bernard M.D. Patient Name: KAROLINA MOCK MR#: [id number] : 1960 Exam Date: 09/27/2024 Ordering Doctor: DR Filiberto Bernard . RADIOLOGY REPORT PROCEDURE: MM TOMOSYNTHESIS SCREENING BI COMPARISON: MM TOMOSYNTHESIS SCREENING BI, 09/23/2023. MG MAMM SCPMHT8X REGINALD CAD, 09/22/2022. MG MAMM SCREEN 3D [...] age 82. LOCATION: [facility] BREAST COMPOSITION: The breasts are heterogeneously [...] Odin Green M.D. Signed By:09/27/24 1639 DD/ 1638 TD/TT: Organization Development Consultant: Authorizing ProviderResult TypeResult StatusMarc Naderer MDCLINISYNC IMAGING Final Result from Last 3 Months or Most Recently Relevant to Health Maintenance Insurance Care Teams Team MemberRelationshipSpecialtyStart DateEnd Date Filiberto Bernard MD PCP - GeneralFamily Medicine01/13/24 Filiberto Bernard MD [address] [place] [address] PCP - Medical [place] [employer]11/29/1311
--- OUTSIDE RECORDS SUMMARY | 2025-10-01 15:16 | XMS_ITS | Encounter Summary ---
Author Organization [facility] Address [address] [place] [address] Care Team Providers Care Veteran Appeals Reviewer Name Role Phone Filiberto Bernard MD Primary Care Provider [phone] Filiberto Bernard MD Unavailable Encounter Details DateTypeDepartmentCare Team (Latest Contact Info)Zkzdozlgcih78/17/2024Clinisync Result Encounter [facility] External Department Unsolicited Provider, Generic External Data Social History Tobacco UseTypesPacks/DayYears UsedDateSmoking Tobacco: NeverSmokeless Tobacco: UnkknU2472 Health LiteracyAnswerDate RecordedHow often do you need [...] relatives?Twice a week06/21/2025How often do you attend worship or sikhism services?More than 4 times per year 06/21/2025Do you belong to any clubs or organizations such as worship groups, unions, fraMinggl or athletic groups, or school groups?No06/21/2025How often do you attend meetings of the clubs or organizations you belong to?Never06/21/2025 Are you , , , , never , or living with a partner?Pmyzbir9706/21/2025UDIT-CAnswerDate RecordedQ1: How often do you have a [...] heating?Not hard at all06/21/2025PHQ-2AnswerDate RecordedPatient Health Questionnaire-2 Mkjcp107F[facility] [place] of Occupational Health - Occupational Stress QuestionnaireAnswerDate [...] steady place to sleep or slept in [place] (including now)?No 03/30/2024Housing Stability Vital SignAnswerDate RecordedIn the last 12 months, was there a time when you were not able to pay the mortgage or rent on time?No 06/21/2025In the past 12 months, how many times have you moved where you were living?t any time in the past 12 months, were you homeless or living in a [place] [facility] [place] [facility] (including now)?No06/21/2025CommentsUnknownSex and Gender InformationValueDate RecordedSex Assigned at CgaxoRtfmif67/15/2024 9:44 AM EDT Legal UbnEdypzi69/15/2023 10:15 PM EDTGender OxifhtccWnwodv50/15/2024 9:44 AM EDTSexual ObatclmwrfuXbxiqwev55/15/2024 9:44 AM EDTdocumented as of this encounter Functional Status * AUDIT-C ScoreAnswerDate of IqshmlbamaHxlosw314/24/2025 9:17 AM Baldo, Generic * Q1: How [...] drinks on one occasion?AnswerDate of AssessmentAuthorLess than jpngfcf0806/21/2025 9:17 AM EDTMychart, Generic documented as of this encounter Plan of Treatment Not on file documented as of this encounter Procedures Procedure NamePriorityDate/TimeAssociated DiagnosisCommentsCA ECHO DOPPLER PGOXFZDP70/17/2024 4:40 PM EDT documented in this encounter Results * CA ECHO DOPPLER COMPLETE (05/15/2024 4:40 PM EDT)Anatomical RegionLaterality ModalityOtherSpecimen (Source)Anatomical Location / LateralityCollection Method / VolumeCollection TimeReceived Time05/15/2024 4:40 PM EDT Narrative 05/15/2024 4:42 PM EDT [facility] ?[address] ? [place] [address] ? Cardiology Report ? Signed ? Patient: FRANKART,KAROLINA A ?MR#: [id number] ?? : 1960 ?Acct:[id number] ?? Age/Sex: 64 / F ?ADM Date: 05/12/24 ?? Loc: CARD ? Attending Dr: Deysi Barron M.D. ? Ordering Physician: Deysi Barron M.D. ?? Date of Service: 05/12/24 ?? Procedure(s): CA echo doppler complete ?? Accession Number(s): [id number] ? cc: Deysi Barron M.D.; Filiberto Bernard M.D. ? Patient Name: ? KAROLINA MOCK ? MR#: [id number] ? : 1960 ? Exam Date: 05/12/2024 [...] ? 4.08 cm2, 4.08 cm2 ?? Deceleration [place]: ? 0.47 m/s2 ?? Pressure Half-Time: ? [...] ?05/15/242 ? DD/ 1640 ? TD/TT: ? Senior Quality Manager: Procedure Note Radiology, RadiologistMD - 05/15/2024 [place] [address] Cardiology Report Signed Patient: KAROLINA MOCK AMR#: [id number] : 1960cct:[id number] Age/Sex: 64 / FADM Date: 05/12/24 Loc: CARD Attending Dr: Deysi Barron M.D. Ordering Physician: Deysi Barron M.D. Date of Service: 05/12/24 Procedure(s): CA echo doppler complete Accession Number(s): [id number] cc: Deysi Barron M.D.; Filiberto Bernard M.D. Patient Name: KAROLINA MOCK MR#: [id number] : 1960 Exam Date: 05/12/2024 Ordering Doctor: [...] Area (VTI): 4.08 cm2, 4.08 cm2 Deceleration [place]: 0.47 m/s2 Pressure Half-Time: 1.81 s Peak [...] DAO Signed By:05/15/24 1642 DD/ 1640 TD/TT: Senior Quality Manager: Authorizing ProviderResult TypeResult StatusGeneric External Data Provider CLINISYNC IMAGINGFinal Result documented in this encounter Visit Diagnoses Not on filedocumented in this encounter Care Teams Team MemberRelationshipSpecialtyStart DateEnd Date Filiberto Bernard MD PCP - GeneralFamily Medicine01/13/24 Filiberto Bernard MD [address] [place] [address] PCP - Medical [place] [employer]11/29/1311documented as of this encounter
--- OUTSIDE RECORDS SUMMARY | 2025-10-01 15:16 | XMS_ITS | Continuity of Care Document ---
Author Organization [facility] Address [address] [place] [address] Phone Care Team Providers Care Warm In Worker Name Role Phone Velasquez Fernandez MD Attending Provider Care Teams Visit Care Team Team Status: Inactive Member Role/Relationship Status Dates Velasquez Fernandez MD [facility] Attending Provider Active Start: September 05, 2025 End: September 05, 2025 Chief Complaint and Reason for Visit Chief Complaint Admit Date Unknown September 05, 2025 10 :15am Allergies, Adverse Reactions, Alerts Allergen Type Severity Reaction Last Updated Verified Status sulfamethoxazole Allergy Unknown Hives May 16, 2025 2:04pm Yes Active trimethoprim Allergy Unknown Hives May 16, 2025 2:04pm Yes Active Social History Smoking Status Status Start Date End Date Date of Observa tion Never smoked tobacco (finding) January 13, 2024 2:50pm Observation Status Observation Response Date of Response Legal Sex Female (finding) [facility] 1959 Family History Relationship Condition Age at Onset Recorded Date/T angela mother Unknown Malignant neoplasmUnknownfatherHeart diseaseUnknownDeceasedUnknown Problems Active Problems Problem Diagnosis/Recorded Date Onset Date Stat us Pain in right hand July 03, 2024 1:59pm Unknown Active Primary osteoarthritis of right hand January 13 3:49pm Unknown Active High cholesterol April 13, 2025 10:50am Unknown A ctive Dysuria January 13, 2024 3:52pm Unknown A ctive Acid reflux January 13, 2024 3:49pm Unknown A ctive Right elbow tendonitis Mary 18th, 2025 2:54pm Unknown Active Medications Medication Status Dose Units Route Directions Qty Days Refills S tart Date Stop Date End Date Reason(s) Instructions Adherence Omeprazole 40 mg capsule,delayed release(DR/EC) Active 40 MG PO Daily January 13, 2024 1:00amUnknownCholecalciferol (Vitamin D3) 25 mcg (1,000 unit) pxfnvcYfaidlnwftey45SGIHYDztdxGenjtisa 2023 1:00amOctober 2024 11:15amPhenazopyridine (Pyridium) 200 mg blchqzLgzzxuxjuvvc061KZOKFqpid times kwbve579Lhetvbmk 2023 1:00amAugust 2023 9:21amNaproxen 500 mg tablet Nyflrg740NQJLSkjpb daily as needed for dhmb36711Jabm 2024 12:00amUnknown Cholecalciferol (Vitamin D3) 50 mcg (2,000 unit) xgolsvLonush56VIMFFRtpvrVdcnpbh 2024 12:00amUnknownAtorvastatin 20 mg zrukriIayfyt01HGFBYul 2024 12:00amUnknown Immunizations Immunization Event Date Not Given Reason Dose Number [employer] Portal Developer Lot Number Reason(s) Given Vaccine Information Statement (VIS) Detail Administration Location Tetanus, Diphtheria, Pertussis (Tdap) June 08, 2022 Advance Directives Advance Directive Response Recorded Date/ Time Advance Directives No May 26 10:51am Insurance Providers Guarantor Karolina Mock Address [address] [place] [id number] Info.Home Phone: Payer Group Member ID Coverage Type Subscriber Relationship to Subscriber Effective Date Expiration Date O Id: [id number] A Frankart Id: [id number] [address] [place] [id number] Home Phone: Email: [email or web address] Encounters Encounter Location(s) Arrival/Admit Date Discharge/Departure Date Discharge/Departure Disposition Provider(s) Departed Referred -[facility] September 05, 2025 10:15am September 05, 2025 10:16am Discharged to home care or self care (routine discharge) Velasquez Fernandez MD FACS
--- OUTSIDE RECORDS SUMMARY | 2025-10-01 15:16 | XMS_ITS | Clinical Summary ---
Author Organization [employer] Address [facility] [id number] [address] [place] [address] Care Team Providers Care Asbestos Abatement Worker Name Role Phone Remy Kirby Primary Care Provider [phone] Allergies Active AllergyReactionsCriticalityNoted DateComments Sulfamethoxazole-Phxbifgwmduw91/20/2016Latex, Natural Bxtovi3204/17/2016 Medications MedicationSigDispense QuantityRefillsLast FilledStart DateEnd DateStatus NEXIUM [...] needed.Active Active Problems ProblemNoted DateDiagnosed DateCricopharyngeal spasm05/08/2016Oropharyngeal /10/2016 Family History Medical HistoryRelationNameCommentsHeart diseaseFatherAsthmaMotherRelationName StatusCommentsFatherMother Social History Tobacco UseTypesPacks/DayYears UsedDateSmoking Tobacco: NeverSmokeless Tobacco: NeverAlcohol UseStandard Drinks/WeekCommentsYes0 (1 standard drink = 0.6 oz pure alcohol)ChildcareAnswerDate DspcnltcLwjfyvxzhWkdoryp70/12/2019EmploymentAnswer Date UwoccgzcLemerangdaZakvatl60/12/2019Purpose - LifeAnswerDate RecordedPurpose and direction in sytpXumyvkd02/11/2021CommentsUnknownSex and Gender InformationValueDate RecordedSex Assigned at BirthNot on fileLegal SexFemale 07/04/2015 11:23 AM EDTGender IdentityNot on fileSexual OrientationNot on file Last Filed Vital Signs Vital SignReadingTime TakenCommentsBlood Zvembkui170/7810 3:33 PM EDT Pulse--Xopxoezacky82.1 ??C (98.7 ??F)07/13/2016 1:24 PM EDTRespiratory Rate-- Oxygen Saturation--Inhaled Oxygen Concentration--Mhdaza94.7 kg (158 lb) 09/26/2018 3:33 PM OOLOhgvoc893.2 cm (5' 7 )09/26/2018 3:33 PM EDTBody Mass Index24.7509/26/2018 3:33 PM EDT Plan of Treatment Health MaintenanceDue DateLast DoneCommentsDepression Vemedltuk91/17/1974Tobacco Wmcafksbk58/17/1974Adult BMI Mtvxqggmx47/17/1980DTaP,Tdap and Td Vaccines (1 - Tdap)1981Pap Smear1983Zoster (Shingles) Vaccine (1 of 2)2012 Influenza Iqiuohj0007/30/2025RSV ( or age 60+ yrs) (1 - 1-dose 75+ series) 2037 [employer] Not on file Insurance Care Teams Team MemberRelationshipSpecialtyStart DateEnd Date Remy Kirby DO [address] [place] [address] [facility]03/20/13
--- OUTSIDE RECORDS SUMMARY | 2025-10-01 15:16 | XMS_ITS | Patient Health Record ---
Author Organization [facility] Address [address] [place] [address] Care Team Providers Care Manager Commodities Name Role Phone Odin Juarez Unavailable [phone] JeffreyGeena lorenzole Unavailable Allergies Allergen (clinical drug ingredient) Drug/Non Drug Allergy documented on EMR Reaction Allergy Type Onset Date Status sulfamethoxazole / trimethoprim Bactrim Unknown Drug Allergy Active Results Component Value Reference Range Notes [facility]- ELBOW 3 VIEW LEFT 43543 Reviewed date:02/15/2025 01:20:10 PM Interpretation: Performing Lab: Notes/Report: SCC- ELBOW 3 VIEW LEFT 25069 Reviewed date:12/19/2024 03:35:47 PM Interpretation: Performing Lab: [...] in the past year?Monthly or less (1 point)Nglezs2SokzegpljthdwqBldinlnd Tobacco Control (Standard) Question Answer Notes Tobacco use: Nonsmoker Problems Problem Type SNOMED Code ICD Code Onset Dates Problem Status W/U Status Risk Notes Problem 79988915 Nondisplaced fra cture of head of left radius, subsequent encounter for closed fracture with routine healing (S52.125D) AtnkqihmfxaazkfHhnucuo35624530Aitiat nondisplaced fracture of head of left radius, initial encounter (S52.125A)Activeconfirmed Vital Signs Height 5'7 in 2025 Muvjmt655 lbs2025BMI24.7401/15/2025 Encounters Encounter Location Date Provider Diagnosis [facility] [address] [place] [address] 12/11/2024 Odin Juarez Closed nondisplaced fracture of head of left radius, initial encounter S52.125A [facility] [address] [place] [address] 12/18/2024 Odin Juarez Nondisplaced fracture of head of left radius, subsequent encounter for closed fracture with routine healing S52.125D [facility] [address] [place] [address] 2025 Odin Juarez Nondisplaced fracture of head of left radius, subsequent encounter for closed fracture with routine healing S52.125D [facility] [address] [place] [address] 02/12/2025 Lakshmi galvinWhiteland Nondisplaced fracture of head [...] Order Date [facility]- ELBOW 3 VIEW LEFT [id number] 02/12/2025 Insurance Providers Payer Name Payer Address Payer Phone Subscriber Number Group Number Insured Name Patient Relationship to Insured Coverage Start Date Coverage End Date [employer] [address] [place] [address] [id number] Carina DIAZ - patient is the insured Medical (General) History Medical History History ICD Code Drug Allergies Surgical History Surgery Date(Month/Year) wrist 2020
--- OUTSIDE RECORDS SUMMARY | 2025-10-01 15:16 | XMS_ITS | Encounter Summary ---
Author Organization [facility] Address [address] [place] [address] Care Team Providers Care Inspector And Clerk Name Role Phone Filiberto Bernard MD Primary Care Provider [phone] Filiberto Bernard MD Unavailable Encounter Details DateTypeDepartmentCare Team (Latest Contact Info)Jqjdtugjxai94/20/2025linisync Result Encounter [facility] External Department Unsolicited Provider, Generic External Data Social History Tobacco UseTypesPacks/DayYears UsedDateSmoking Tobacco: NeverSmokeless Tobacco: CvktyD2871 Health LiteracyAnswerDate RecordedHow often do you need [...] relatives?Twice a week06/21/2025How often do you attend roman catholic or christianity services?More than 4 times per year 06/21/2025Do you belong to any clubs or organizations such as roman catholic groups, unions, fraAvosoft or athletic groups, or school groups?No06/21/2025How often do you attend meetings of the clubs or organizations you belong to?Never06/21/2025 Are you , , , , never , or living with a partner?Bouhqwz3106/21/2025UDIT-CAnswerDate RecordedQ1: How often do you have a [...] heating?Not hard at all06/21/2025PHQ-2AnswerDate RecordedPatient Health Questionnaire-2 Qsrnt866Finlayton hospital [place] of Occupational Health - Occupational Stress QuestionnaireAnswerDate [...] steady place to sleep or slept in [place] (including now)?No 03/30/2024Housing Stability Vital SignAnswerDate RecordedIn [...] now)?No06/21/2025CommentsUnknownSex and Gender InformationValueDate RecordedSex Assigned at VwnkuVclpwf52/15/2024 9:44 AM EDT Legal VzlQlkdhc96/15/2023 10:15 PM EDTGender NnndtvbqSkojcq23/15/2024 9:44 AM EDTSexual AolvjdzkbcqLkpfvbgx87/15/2024 9:44 AM EDTdocumented as of this encounter Functional Status * AUDIT-C ScoreAnswerDate of UcgijyhgvpJuhywy958/24/2025 9:17 AM Baldo, Generic * Q1: How [...] drinks on one occasion?AnswerDate of AssessmentAuthorLess than umjwpss1106/21/2025 9:17 AM Damien Bland documented as of [...] EST Narrative 12/18/2024 11:[address] [facility] ?[address] ? [place] [address] ?XRay Report ? Signed ? Patient: FRANKART,KAROLINA A ?MR#: [id number] ?? : 1960 ?Acct:[id number] ?? Age/Sex: 64 / F ?ADM Date: 12/18/24 ?? Loc: EC ? Attending Dr: Odin Liang M.D. ? Ordering Physician: Odin Liang M.D. ?? Date of Service: 12/18/24 ?? Procedure(s): XR elbow LT min 3V ?? Accession Number(s): [id number] ? cc: Odin Liang M.D.; Filiberto Bernard M.D. ? [facility] ? [address] ? [place] [address] ? Patient Name: ?? KAROLINA MOCK ? MRN: [id number] ? date: 1960 ?Sex: F ?? Assigned Patient Location: EC ?? Current Patient Location: EC ?? Accession/Order Number: [id number] ?? Exam Date: 12/18/2024 ??11:07 ?Report Date: [...] ?12/18/246 ? DD/ 13 ? TD/TT: ? Melt House Supervisor: Procedure Note Radiology, Radiologist, - 12/18/2024 The [place] [id number] XRay Report Signed Patient: KAROLINA MOCK AMR#: [id number] : 1960cct:[id number] Age/Sex: 64 / FADM Date: 12/18/24 Loc: EC Attending Dr: Odin Liang M.D. Ordering Physician: Odin Liang M.D. Date of Service: 12/18/24 Procedure(s): XR elbow LT min 3V Accession Number(s): [id number] cc: Odin Liang M.D.; Filiberto Bernard M.D. The [place] [id number] Patient Name: KAROLINA MOCK MRN: [id number] date: 1960 Sex: F Assigned Patient Location: Current Patient Location: Accession/Order Number: [id number] Exam Date: 12/18/2024 11:07 Report Date: 12/18/2024 [...] Conti M.D. Signed By:12/18/242315 DD/ 13 TD/TT: Melt House Supervisor: Authorizing ProviderResult TypeResult StatusGeneric External Data ProviderIMG XR PROCEDURESFinal Result documented in this encounter Visit Diagnoses Not on filedocumented in this encounter Care Teams Team MemberRelationshipSpecialtyStart DateEnd Date Filiberto Bernard MD PCP - GeneralFamily Medicine01/13/24 Filiberto Bernard MD [address] [place] [address] PCP - Medical [place] [employer]11/29/1311documented as of this encounter
--- OUTSIDE RECORDS SUMMARY | 2025-10-01 15:19 | XMS_ITS | CCD ---
Author Organization [facility] CliniSyid Care Team Providers Care Black [place] Paver Operator Name Role Phone Nayana Huitron Unavailable MD Nayana Huitron Attending Provider [phone] NON STAFF Primary Care Provider UnavailCaprice Syed Unavailable Kusum Palencia Unavailable CARIDAD TREJO Admitting Unavailable CARIDAD TREJO Attending Unavailable JASWINDER, DR FILIBERTO Tellez Primary Care Unavailable SOTO HINOJOSA Consulting Unavailable NICHELLE II, DAVIE Consulting Unavailable CARIDAD TREJO Consulting Unavailable JASWINDER, DR FILIBERTO Tellez Admitting Unavailable JASWINDER, DR FILIBERTO Tellez Attending Unavailable JASWINDER, DR FILIBERTO Tellez Primary Care Unavailable TONAWANDA, DR GIBRAN Beyer Consulting Unavailable JASWINDER, DR FILIBERTO Tellez Consulting Unavailable MAGUE Parekh Attending Provider [phone] Filiberto San MD Primary Care Provider Filiberto San MD Unavailable FILIBERTO SAN Attending Unavailable DEYSI BARRON Attending Unavailable DEYSI BARRON Attending Unavailable DEYSI BARRON Attending Unavailable FILIBERTO SAN Primary Care Physician Velasquez Fernandez MD Attending Provider Velasquez Fernandez Attending Unavailable Velasquez Fernandez Admitting Unavailable FILIBERTO SAN Referring Unavailable Velasquez FERNANDEZ Attending Unavailable Velasquez FERNANDEZ Attending Unavailable Velasquez FERNANDEZ Attending Unavailable Filiberto San MD Primary Care Provider Filiberto San MD Unavailable Velasquez Fernandez MD Attending Provider Filiberto San MD Primary Care Provider Filiberto San MD Attending Provider Allergies Allergy ClassificationReported Allergen(s)Allergy TypeDate of OnsetReaction(s) Facility (7 sources)Sulfamethoxazole / TrimethoprimDrug AllergyUnknoCrittenton Behavioral Health [employer] Other (1 source)Sulfamethoxazole / TrimethoprimDrug Dldevsa15-04-1202[facility] (6 sources)Sulfamethoxazole; Translations: [sulfamethoxazole]Drug Allergy 61-23-5509GfskxXmxpkbzwcBlanchard [facility] (6 sources)Trimethoprim; Translations: [trimethoprim]Drug Pytnhmd73-48-8110YioxsSt. [facility]'S Hospital (15 sources)Sulfonamides (Antibiotic)Propensity to adverse zziicrjzz62-65-2345 [facility] (1 source)Sulfamethoxazole / Trimethoprim; Translations: [SULFAMETHOXAZOLE-TRIMETHOPRIM]Drug Ypwuary42-26-2940WyrhulkzrqSt. [facility] Repository (1 source)Sulfonamides (Antibiotic); Translations: [SULFA (SULFONAMIDE ANTIBIOTICS)]Propensity to adverse reactions to drug (disorder)01-13-2024 [facility] Repository (3 sources)Sulfonamide; Translations: [sulfa drugs]Drug allergyWeal (disorder) [facility] [place] Medications Current Medications MedicationDrug Class(es)DatesSig (Normalized)Sig (Original)acetaminophen 325 mg oral tablet (3 sources)take 1 tablet by mouth every four hoursTylenol 325 MG 1 tablet as needed Orally every 4 hrs Activeatorvastatin 20 mg oral tablet (4 sources)HMG-CoA Reductase InhibitorStart: 13-37-7297Nuhtutofjsue 20 mg tablet Active 20 MG PO April 12, 2025 11:00pm Complies with drug therapycefdinir 300 mg oral capsule (1 source)Cephalosporin Antibacterialtake 1 capsule by mouth twice dailyCefdinir 300 MG TAKE 1 CAPSULE BY MOUTH TWICE A DAY Oral for 10 Days Active cholecalciferol 0.05 mg oral tablet (20 sources)Vitamin DStart: 26-57-2149eyju 1 tablet by mouth once daily Cholecalciferol (Vitamin D3) 50 mcg (2,000 unit) tablet Active 50 MCG PO Daily September 26, 2025 11:00pm Complies with drug therapyStart: 01-13-2024 End: 57-61-3344kzgw 1 tablet by mouth once dailyCholecalciferol (Vitamin D3) 25 mcg (1,000 unit) tablet Discontinued 25 MCG PO Daily December 12:00am September 27, 2025 10:15amcholecalciferol (Vitamin D-3) 50 MCG (2000 UT) tablet 1 (one) time each day at the same time Activenaproxen 500 mg oral tablet (2 sources)Nonsteroidal Anti-inflammatory DrugStart: 73-65-8951fihk 1 tablet by mouth twice daily as needed for painNaproxen 500 mg tablet Active 500 MG PO Twice daily as needed for pain 30 15 May 15, 2025 11:00pm Complies with drug therapyomeprazole 40 mg delayed release oral capsule (20 sources)Proton Pump InhibitorStart: 55-98-0789kkev 1 capsule by mouth once dailyomeprazole 40 mg Cap-DR 40 mg = 1 cap(s), Oral, Daily, Refills(s) 0 Start Date: 07/04/25 Status: Ordered Repeat number: 1Omeprazole 40 MG Oral for 90 Days ActivepredniSONE 20 mg oral tablet (3 sources)Start: 89-60-1713jsuu 1 tablet by mouth every twelve hourspredniSONE 20 MG 1 tablet Orally 2 times a day for 5 day(s) Aug, ActiveVitamin D3 1000 intl units (25 mcg) Tab (2 sources)Start: 75-15-7664nbcj 1 tablet by mouth once dailyVitamin D3 1000 intl units (25 mcg) Tab 25 mcg = 1 tab(s), Oral, Daily, Refills(s) 0 Start Date: 07/04/25 Status: Ordered Repeat number: 1 Completed/Discontinued Medications MedicationDrug Class(es)DatesSig (Normalized)Sig (Original)phenazopyridine hydrochloride 200 mg oral tablet (5 sources)Start: 01-13-2024 End: 47-63-3947xufn 1 tablet by mouth three times dailyPhenazopyridine (Pyridium) 200 mg tablet Discontinued 200 MG PO Three times daily 6 2 0 January 13, 2024 12:00am July 04, 2024 8:21amtriamcinolone acetonide 40 mg/ml injectable suspension (14 sources)CorticosteroidStart: 30-06-5041Dwjxmmg-40 Sep, 20 mgStart: 54-45-9405Uzolfxl-40 Jun, 10 mg Problems Active Problems Problem ClassificationProblemDateDocumented DateEpisodic/ChronicAortic; peripheral; and visceral artery aneurysms (2 sources)Thoracic aortic ectasia; Translations: [Thoracic aortic ectasia] Onset: 36-32-0981OkvkotdGrrtrma dysrhythmias (2 sources)Ventricular tachycardiaOnset: 402245-41-0347DbmrrgiCthrrynuz of lipid metabolism (20 sources)Dyslipidemia; Translations: [Hyperlipidemia, unspecified]Onset: 600002-93-8512IokkgtyXkvkdxevvx disorders (20 sources)Gastro-esophageal reflux disease without esophagitis; Translations: [Gastroesophageal reflux disease]Onset: 274682-41-6217VvdsrxeYmbcbrmvymuhv symptoms and ill-defined conditions (7 sources)Dysuria; Translations: [Dysuria]62-06-5291FrvdthhvVmwhk valve disorders (10 sources)Nonrheumatic aortic (valve) insufficiency; Translations: [Aortic valve disorders]Onset: 421604-62-8649EciuvykSbizjmxonlpmg mental health disorders (1 source)Primary insomnia; Translations: [Primary insomnia]15-21-6603Jdfwkhh Nutritional deficiencies (17 sources)Vitamin D deficiency; Translations: [Vitamin D deficiency, unspecified]Onset: 059548-92-3527SqomlbpQrukewhcgvxgay (20 sources)Osteoarthritis of joint of right hand; Translations: [Primary osteoarthritis, right hand]Onset: 05-26-2022 Resolved: 35-71-8169NdpojyeQmdhe acquired deformities (15 sources)Equinus contracture of the ankle; Translations: [Contracture, left ankle]Onset: 203577-23-9920EluvbmmYxkop aftercare (1 source)Other terminal gauger (current) drug therapy; Translations: [OTH TAX ASSISTANT CURRENT DRUG THERAPY]Onset: 67-79-9463HmnbvmzvZcfez and unspecified benign neoplasm (2 sources)Benign lipomatous neoplasm of skin and subcutaneous tissue of right leg; Translations: [Benign lipomatous neoplasm of skin and/or subcutaneous tissue of right lower limb]Onset: 43-35-9294TqrmgdznOqwdd and unspecified benign neoplasm (2 sources)Lipoma of -38-4394VaguspayGdfgm connective tissue disease (6 sources)Pain in right hand; Translations: [Pain in limb]Onset: 05-26-2022 Resolved: 02-36-4490GikcnubnGvmvy connective tissue disease (1 source)Hand pain; Translations: [Pain in right hand]07-59-2535StsoexnpTuzvw connective tissue disease (2 sources)Pain in right hand; Translations: [Pain in right hand]07-03-2024 EpisodicOther connective tissue disease (2 sources)Tendinitis of right elbow; Translations: [Other enthesopathies, not elsewhere classified]73-37-1732VxtovmiaEzfhz non-traumatic joint disorders (2 sources)Pain in right knee; Translations: [Right knee pain]55-78-9884Prestpuq Other nutritional; endocrine; and metabolic disorders (2 sources)Paufjzlzxq29-03-1567PebvtuhwAngok nutritional; endocrine; and metabolic disorders (2 sources)Overweight in adulthood with body mass index of 25 or more but less than 0566-17-0576NmertdwdVyixxv media and related conditions (1 source)Unspecified nonsuppurative otitis media, right earEpisodicResidual codes; unclassified (1 source)Acquired absence of both cervix and uterus; Translations: [ACQUIRED ABSENCE BOTH CERVIX AND UTERUS]Onset: 56-65-1641HvgcgtgeDzmlkdgmleef (1 source)Other ventricular tachycardia; Translations: [Other ventricular tachycardia]Onset: 66-09-8828Nxgupbtxdgyw (2 sources)Mild aortic valve regurgitationOnset: 834250-90-9808 Past or Other Problems Problem ClassificationProblemDateDocumented DateEpisodic/ChronicCardiac dysrhythmias (17 sources)Palpitations; Translations: [Palpitations]Onset: 04-06-2024 49-93-4656BluxxuevKpoqficxdm associated with dizziness or vertigo (2 sources)Dizziness and giddiness; Translations: [Dizziness and giddiness] Onset: 09-74-3275EllzbfrlNgqfluju of upper limb (15 sources)Closed Colles' fracture; Translations: [Colles' fracture of right radius, initial encounter for closed fracture]Onset: 03-13-2024 Resolved: 528223-56-8789AbvgztcmSrpswvcztmm chest pain (19 sources)Precordial pain; Translations: [Precordial pain]Onset: 04-06-2024 07-71-3058ErlbgcowChxe wounds of extremities (1 source)Laceration without foreign body, unspecified lower leg, initial encounterOnset: 06-08-2022 Resolved: 84-34-0572FqskmeyzEmygr and unspecified benign neoplasm (11 sources)Lipoma of right lower limb; Translations: [Benign lipomatous neoplasm of skin and subcutaneous tissue of right leg]Onset: 06-28-2025 90-01-2147EtvlwtewCnqty connective tissue disease (15 sources)Pain of left heel; Translations: [Pain in left foot]Onset: 167487-72-4333FvdanztcAgtml lower respiratory disease (2 sources)Other forms of dyspnea; Translations: [Other forms of dyspnea]Onset: 21-92-1451HpvtedxqYnaid screening for suspected conditions (not mental disorders or infectious disease) (10 sources)Encounter for screening for malignant neoplasm of colon; Translations: [Encounter for screening mammogram for malignant neoplasm of breast]Onset: 57-70-4582DhwnfyiiBjjfr skin disorders (9 sources)Actinic keratosis; Translations: [Actinic keratosis]Onset: 06-28-2025 96-62-6305YwkqmlamXmktwmcf codes; unclassified (1 source)Family history of malignant neoplasm of ovary; Translations: [FAM HX MALIGNANT NEOPLASM OVARY]Onset: 95-32-2111ZbanfpkoRwcvvdiu codes; unclassified (1 source)Family history of other malignant neoplasms of lymphoid, hematopoietic and related tissues; Translations: [FAM HX OTH MAL JUAN LYMPH HEMATPOETC]Onset: 22-23-6341EuveonuhZtpvhfxx codes; unclassified (15 sources)Persistent insomnia; Translations: [Insomnia, unspecified]Onset: 745975-46-3247AluqtobsPqnenvqebae; intervertebral disc disorders; other back problems (15 sources)Acute thoracic back pain; Translations: [Pain in thoracic spine] Onset: 03-13-2024 Resolved: 143788-37-0398OcldruvfIfzdtbazmjmx (1 source)Other ventricular tachycardia; Translations: [Other ventricular tachycardia]Onset: 07-17-2024 Results Test NameValueInterpretationReference RangeFacilityAmbulatory Visit Summaryon 80-15-9164Uhmuviguyr Visit SummaryAmbulatory Visit Summary KAROLINA MOCK :1960 Visit Date:09/18/2025 Ambulatory Visit Instructions Your Diagnosis Lipoma of right thigh Your Care Team Attending Physician - DANIKA RODGERS, Velasquez Mitchell Primary Care Physician - JASWINDER RODGERS, FILIBERTO This Is Your Medications List Contact prescribing [...] signed up for this yet, please contact [employer] at [phone] to get signed up today. Language Information Language assistance services are available as needed. [facility] CenterGeneral [facility] Office/Clinic Noteon 44-76-3897Shltsyr Surgery Office/Clinic NoteGeneral Surgery Office/Clinic Note Chief [...] virus vaccine, inactivated 09/08/2024 Recorded SARS-CoV-2 (COVID-19) mRNAMUL.ORD![id number] 11/25/2022 Recorded SARS-CoV-2 (COVID-19) mRNA BNT-162b2 vax 10/28/2021 Recorded SARS-CoV-2 (COVID-19) mRNA BNT-162b2 vax 03/14/2021 Recorded SARS-CoV-2 (COVID-19) mRNA BNT-162b2 vax 02/21/2021 RecordedTogus VA Medical CenterComment on above:Result Comment: Electronically Signed By: Velasquez FERNANDEZ MD\Date and Time Signed: 09/18/25 14:23 Lilli 09-05-2025L Specimen: [id number] Received: 09/05/25 Status: NILESH Reantionette Num: [id number] Spec Type: Surgical Subm Dr: Velasquez Fernandez MD FACS Tissues: A Lipoma (LIPOMA RIGHT THIGH) Procedures: HE, Gross/Micro L3 Age/ Patient Sex Location Account Attending Physician Karolina Mock 65/F LABELL [id number] Velasquez Fernandez MD FACS SPEC NUM: [id number] RECD: 09/05/25 STATUS: NILESH REAntionette NUM: [id number] LEXX: 09/05/[address] [facility] [address]: Velasquez Fernandez MD FACS ENTERED: 09/05/[address]: Gretel Santiago SPEC TYPE: Surgical DEPT: [facility] ENTERED BY: [id number] RECV BY: [id number] ORDERED: HE, Gross/Micro L3 ORDERED: HE, Gross/Micro [...] entirely submitted in a single cassette. (1, ns, BS28- 440 A) Microscopic Description Microscopic examination is performed. CPT Codes 18982 Specimen: [id number] Received: 09/05/25 Status: NILESH Marianela Num: [id number] Spec Type: Surgical Subm Dr: Velasquez Fernandez MD FACS Tissues: A Lipoma (LIPOMA RIGHT THIGH) Procedures: JULIETA, Gross/Micro L3 Patient: MookiekishanKarolina [id number] (Continued) Signed (signature on file) Bruce Lorenzo MD 09/06/25 1258Noal [facility] Physician GroupAmbulatory Visit Summaryon 70-81-0459Issdjqpask Visit SummaryAmbulatory Visit Summary KAROLINA MOCK :1960 Visit Date:07/31/2025 Ambulatory Visit Instructions Your Care Team Attending Physician - DANIKA RODGERS, Velasquez Mitchell Primary Care Physician - JASWINDER RODGERS, FILIBERTO Referring Physician - JASWINDER RODGERS, FILIBERTO This Is Your Medications List Contact prescribing [...] signed up for this yet, please contact [employer] at [phone] to get signed up today. Language Information Language assistance services are available as needed. [facility] Medical CenterOffice Visiton 99-22-8799Omexqp- up [id number] Karolina Mock 1960 F Date Provider Department Center 07/05/2025 07834-HMBXHZDEYSI BARRON [facility] Family History Problem Relation Age of Onset Cancer Mother Heart attack Father Heart failure Father Heart failure Maternal Grandfather Family Status - Relation Status Age at Mother Father Maternal Grandfather Level of Service:41067 [place] OFFICE/OUTPATIENT ESTABLISHED LOW MDM 20 MIN Reason for Visit and Comments: 6 month follow up [Other] Echo [Other] Hyperlipidemia [182] Hypertension [714709] Palpitations [004271] Valve Disorder [3372][facility]36on MD Purnima Healy MA Inform patient that she aortic regurgitation is mild and stable Spoke to patient to advise her of Dr. Barron's findings. Patient verbalized understand.[facility] Medical CenterCA ECHO DOPPLER COMPLETEon 50-77-4365A[place]Brian [place] [id number] Cardiology Report Signed Patient: KAROLINA MOCK MR#: [id number] : 1960 Acct:[id number] Age/Sex: 65 / F ADM Date: 05/18/25 Loc: MALIKA Attending Dr: Deysi Barron M.D. Ordering Physician: Deysi Barron M.D. Date of Service: 05/18/25 Procedure(s): CA echo doppler complete Accession Number(s): [id number] cc: Deysi Barron M.D.; Filiberto San M.D. Patient Name: KAROLINA MOCK MR#: [id number] : 1960 Exam Date: 05/18/2025 Ordering Doctor: [...] BRANHAM Signed By: 06 (more content not included)...TBHRadiology, Radiologist, MD - 05/18/2025 [place] [address] Cardiology Report Signed Patient: KAROLINA MOCK MR#: [id number] : 1960 Acct:[id number] Age/Sex: 65 / F ADM Date: 05/18/25 Loc: CARD Attending Dr: Deysi Barron M.D. Ordering Physician: Deysi Barron M.D. Date of Service: 05/18/25 Procedure(s): CA echo doppler complete Accession Number(s): [id number] cc: Deysi Barron M.D.; Filiberto San M.D. Patient Name: KAROLINA MOCK MR#: [id number] : 1960 Exam Date: 05/18/2025 Ordering Doctor: [...] Dictated By: CHRISTIAN BRANHAM Signed By: 05/18/25 184 DD/ 183 TD/TT: Pin Attacher: [facility] HealthcareRadiology Study observation (narrative)[facility] ECHO DOPPLER COMPLETEOrdered By: Radiologist Radiology on 57-16-0982ZWVQ Healthcare Work Phone: aLL LIPID PROFILE (FASTING)on 34-62-9999KQMT HDL RATIO 2.2NOMS HealthcareComment on above:3.3 - 4.4 LOW RISK 4.4 - 7.1 AVERAGE RISK 7.1 - 11.0 MODERATE RISK >11.0 HIGH RISK Cholesterol [Mass/Vol]154 mg/dLNINF - 200 mg/dLNOMS HealthcareCholesterol in HDL [Mass/Vol]69 mg/fEQhmj52 - 60 mg/dLNOMS HealthcareComment on above:> or =60 mg/dl - LOW CARDIOVASCULAR RISK <40 mg/dl - HIGH CARDIOVASCULAR RISK Interpretation and review of laboratory resultsAbnormalNOMS HealthcareMagnesium [Mass/Vol]73 mg/dLNOMS HealthcareComment on above:<100 mg/dl OPTIMAL 100-129 mg/dl NEAR OR ABOVE OPTIMAL 130-159 mg/dl BORDERLINE HIGH 160-189 mg/dl HIGH >190 mg/dl VERY HIGH Magnesium [Mass/Vol]12 mg/dLNOMS HealthcareTriglyceride [Mass/Vol]60 mg/dLNINF - 150 mg/dLNOMS HealthcareCCF Onur 86-14-4077TAT [Catalytic activity/Vol]22 U/L 14 - 59 U/LNOMS HealthcareCCF Shandra 55-50-9894ALX [Catalytic activity/Vol]18 U/L 15 - 37 U/LNOMS HealthcareNo Panel Informationon 92-96-4738TFRZWEEVGWNZS HealthcareXR Elbow - left 3 Viewson 45-65-8365[place] [address] XRay Report Signed Patient: KAROLINA MOCK MR#: [id number] : 1960 Acct:[id number] Age/Sex: 65 / F ADM Date: 02/12/25 Loc: EC Attending Dr: Barbie Liang M.D. Ordering Physician: Barbie Liang M.D. Date of Service: 02/12/25 Procedure(s): XR elbow LT min 3V Accession Number(s): [id number] cc: Barbie Liang M.D.; Filiberto San M.D. [address] [address] Patient Name: KAROLINA MOCK MRN: [id number] date: 1960 Sex: F Assigned Patient Location: Current Patient Location: Accession/Order Number: [id number] Exam Date: 02/12/2025 10:11 Report Date: 02/12/2025 [...] James Jr., D.O.02/12/2025 10:12 AM Dictation Location: [place] [address] Electronically authenticated by: [id number] Y Date: 02/12/2025 10:12 Dictated By: Ankit James M.D. Signed By: 02/12/25 1015 DD/ 1012 TD/TT: Pin Attacher:ALBERTOadiologSiddhartha muñoz, - 02/12/2025 [place] [address] XRay Report Signed Patient: KAROLINA MOCK MR#: [id number] : 1960 Acct:[id number] Age/Sex: 65 / F ADM Date: 02/12/25 Loc: Attending Dr: Barbie Liang M.D. Ordering Physician: Barbie Liang M.D. Date of Service: 02/12/25 Procedure(s): XR elbow LT min 3V Accession Number(s): [id number] cc: Barbie Liang M.D.; Filiberto San M.D. The [address] [id number] Patient Name: KAROLINA MOCK MRN: [id number] date: 1960 Sex: F Assigned Patient Location: Current Patient Location: Accession/Order Number: [id number] Exam Date: 02/12/2025 10:11 Report Date: 02/12/2025 [...] James Jr., D.O.02/12/2025 10:12 AM Dictation Location: [place] [address] Electronically authenticated by: [id number] Y Date: 02/12/2025 10:12 Dictated By: Ankit James M.D. Signed By: 02/12/25 1015 DD/ 1012 TD/TT: Pin Attacher: ASHER HealthcareRadiology Study observation (narrative)NOM HealthcareXR Elbow - left 3 ViewsOrdered By: Radiologist Radiology on 30-81-3630LOBL Healthcare Work Phone: XR Elbow - left 3 Viewson 13-55-5487DvbCent[place] [address] XRay Report Signed Patient: KAROLINA MOCK MR#: [id number] : 1960 Acct:[id number] Age/Sex: 65 / F ADM Date: 01/15/25 Loc: Attending Dr: Barbie Liang M.D. Ordering Physician: Barbie Liang M.D. Date of Service: 01/15/25 Procedure(s): XR elbow LT min 3V Accession Number(s): [id number] cc: Barbie Liang M.D.; Filiberto San M.D. The [place] [address] Patient Name: KAROLINA MOCK MRN: [id number] date: 1960 Sex: F Assigned Patient Location: Current Patient Location: Accession/Order Number: [id number] Exam Date: 2025 08:43 Report Date: 2025 [...] Signed By: 01/15/25 1633 DD/ 1630 TD/TT: Pin Attacher:MAUHRadiology, Radiologist, - [address] [place] [address] XRay Report Signed Patient: KAROLINA MOCK MR#: [id number] : 1960 Acct:[id number] Age/Sex: 65 / F ADM Date: 01/15/25 Loc: Attending Dr: Barbie Liang M.D. Ordering Physician: Barbie Liang M.D. Date of Service: 01/15/25 Procedure(s): XR elbow LT min 3V Accession Number(s): [id number] cc: Barbie Liang M.D.; Filiberto San M.D. The [place] [id number] Patient Name: KAROLINA MOCK MRN: [id number] date: 1960 Sex: F Assigned Patient Location: Current Patient Location: Accession/Order Number: [id number] Exam Date: 2025 08:43 Report Date: 2025 [...] Signed By: 01/15/25 1633 DD/ 1630 TD/TT: Pin Attacher: ASHER HealthcareRadiology Study observation (narrative)NOMS HealthcareXR Elbow - left 3 ViewsOrdered By: Radiologist Radiology on 69-94-6158ZIFI Healthcare Work Phone: Office Visiton [phone]-up [id number] Karolina Mock 1960 F Date Provider Department Center 01/05/2025 10656-PBUZKRDEYSI BARRON [facility] Family History Problem Relation Age of Onset Heart attack Father Heart failure Father Heart failure Maternal Grandfather Family Status - Relation Status Age at Father Maternal Grandfather Level of Service:94450 [place] OFFICE/OUTPATIENT NEW MODERATE MDM 45 MINUTES Reason for Visit and Comments: Chest Pain [665731] - Says chest pain is occurring much less often that it was before. Valve Disorder [3372] Hyperlipidemia [182] - Had lipid in Sep 2024, and again last week. Shortness of Breath [947715] - Only with stairsNormalUniversity of Houston Methodist The Woodlands HospitalALL LIPID PROFILE (FASTING)on 72-55-0502NRJK HDL RATIO2.5NOMS HealthcareComment on above:3.3 - 4.4 [...] [Mass/Vol]56 mg/dLNINF - 150 mg/dLNOMS HealthcareCCF Onur 43-69-4615ACH [Catalytic activity/Vol]21 U/L14 - 59 U/LNOMS HealthcareCCF Shandra 94-18-2088NBK [Catalytic activity/Vol]16 U/L15 - 37 U/LNOMS HealthcareNo Panel Informationon 29-96-3377PBCQFSQZYKPHQ HealthcareXR Elbow - left 3 Viewson 81-42-3383[place] [address] XRay Report Signed Patient: KAROLINA MOCK MR#: [id number] : 1960 Acct:[id number] Age/Sex: 64 / F ADM Date: 12/18/24 Loc: EC Attending Dr: Barbie Liang M.D. Ordering Physician: Barbie Liang M.D. Date of Service: 12/18/24 Procedure(s): XR elbow LT min 3V Accession Number(s): [id number] cc: Barbie Liang M.D.; Filiberto San M.D. [place] [address] Patient Name: KAROLINA MOCK MRN: [id number] date: 1960 Sex: F Assigned Patient Location: Current Patient Location: Accession/Order Number: [id number] Exam Date: 12/18/2024 11:07 Report Date: 12/18/2024 [...] M.D. Signed By: 12/18/242315 DD/ 13 TD/TT: Pin Attacher:ALBERTOadiologSiddhartha muñoz, - 12/18/2024 [place] [address] XRay Report Signed Patient: KAROLINA MOCK MR#: [id number] : 1960 Acct:[id number] Age/Sex: 64 / F ADM Date: 12/18/24 Loc: EC Attending Dr: Barbie Liang M.D. Ordering Physician: Barbie Liang M.D. Date of Service: 12/18/24 Procedure(s): XR elbow LT min 3V Accession Number(s): [id number] cc: Barbie Liang M.D.; Filiberto San M.D. The [place] [address] Patient Name: KAROLINA MOCK MRN: [facility]:[id number] date: 1960 Sex: F Assigned Patient Location: Current Patient Location: Accession/Order Number: [id number] Exam Date: 12/18/2024 11:07 Report Date: 12/18/2024 [...] M.D. Signed By: 12/18/242315 DD/ 13 TD/TT: Pin Attacher: ASHER HealthcareRadiology Study observation (narrative)ASHER HealthcareXR Elbow - left 3 ViewsOrdered By: Radiologist Radiology on 32-12-1457[facility] Work Phone: [phone] 80-35-541104Withgcovq lab results from 10/20/2024: MD Carisa Healy MA Please notify the patient that her total cholesterol and LDL cholesterol are elevated. The goal is to have LDL cholesterol below 100. I recommend to start atorvastatin 20 mg daily with low-fat diet and recheck lipids and ALT/AST in 2 months. Spoke with patient and she is now agreeable to start atorvastatin. RX sent to [facility]. She will have labs prior to her follow up with Dr. Barron in Dec 2024. Lab orders printed, faxed to [facility], and also sent to patient in the mail. She verbalized understanding.[facility] CenterALL LIPID PROFILE (FASTING)on 21-87-0954GJGN HDL RATIO3.1NOMS HealthcareComment on above: 3.3 - 4.4 LOW RISK 4.4 - 7.1 AVERAGE RISK 7.1 - 11.0 MODERATE RISK >11.0 HIGH RISK Cholesterol [Mass/Vol]213 mg/dLHighNINF - 200 mg/dLNOWY HealthcareCholesterol in HDL [Mass/Vol]69 mg/nTEfjj47 - 60 mg/dLNOWY HealthcareComment on above:> or =60 mg/dl - LOW CARDIOVASCULAR RISK <40 mg/dl - HIGH CARDIOVASCULAR RISK Interpretation and review of laboratory resultsAbnormalNOWY HealthcareMagnesium [Mass/Vol]135 mg/dLNOWY HealthcareComment on above:<100 mg/dl OPTIMAL 100-129 mg/dl NEAR OR ABOVE OPTIMAL 130-159 mg/dl BORDERLINE HIGH 160-189 mg/dl HIGH >190 mg/dl VERY HIGH Magnesium [Mass/Vol]9 mg/dLNOWY HealthcareTriglyceride [Mass/Vol]45 mg/dLNINF - 150 mg/dLNOWY HealthcareCLINISYNCNGRADY MEMORIAL [facility] HealthcareMM TOMOSYNTHESIS SCREENING BIon 37-23-9193[place] [address] Mammography Report Signed Patient: KAROLINA MOCK MR#: [id number] : 1960 Acct:[id number] Age/Sex: 64 / F ADM Date: 09/27/24 Loc: MAMMO Attending Dr: Filiberto San M.D. Ordering Physician: Filiberto San M.D. Results: Date of Service: 09/27/24 Follow Up: Procedure(s): MM tomosynthesis screening BI Accession Number(s): [id number] cc: Filiberto San M.D. Patient Name: KAROLINA MOCK MR#: [id number] : 1960 Exam Date: 09/27/2024 Ordering Doctor: [...] cancer at age 82. LOCATION: [facility] BREAST COMPOSITION: The breasts are [...] Green M.D. Signed By: 09/27/24 1639 DD/ TD/TT: Pin Attacher:TBHRadiology, Radiologist, - 09/27/2024 [place] [address] Mammography Report Signed Patient: KAROLINA MOCK MR#: [id number] : 1960 Acct:[id number] Age/Sex: 64 / F ADM Date: 09/27/24 Loc: MAMMO Attending Dr: Filiberto San M.D. Ordering Physician: Filiberto San M.D. Results: Date of Service: 09/27/24 Follow Up: Procedure(s): MM tomosynthesis screening BI Accession Number(s): [id number] cc: Filiberto San M.D. Patient Name: KAROLINA MOCK MR#: [id number] : 1960 Exam Date: 09/27/2024 Ordering Doctor: [...] cancer at age 82. LOCATION: [facility] BREAST COMPOSITION: The breasts are [...] Signed By: 09/27/24 1639 DD/ 1638 TD/TT: Pin Attacher: ASHER [facility] HospitalRadiology Study observation (narrative)[facility] TOMOSYNTHESIS SCREENING BIOrdered By: Radiologist Radiology on 88-76-1723HECD Healthcare Work Phone: [phone] 73-88-203698Ehictmdtb lab results for 07/17/24 From: Deysi Barron MD Sent: 08/01/2024 4:58 PM EDT To: Carisa Cash MA Subject: RE: Scan Those labs are normal. But we need to check magnesium level please Pt was informed and will stop down today to have the magnesium level drawn. Order walked down to front end architect.NormalAvita Health System Galion HospitalALL MAGNESIUMon 93-13-9460Lkthzpcde [Mass/Vol]2.1 mg/dL1.8 - 2.4 mg/dLNOWY HealthcareCLINISYNCNOMS HealthcareOffice Visiton 13-32-6630Jbgfkq-up visit [id number] Karolina Mock 1960 F Date Provider Department Center 07/17/2024 99538-XRBNJBDEYSI BARRON [facility] Family History Problem Relation Age of Onset Heart attack Father Heart failure Father Heart failure Maternal Grandfather Family Status - Relation Status Age at Father Maternal Grandfather Level of Service:81269 RI OFFICE/OUTPATIENT ESTABLISHED MOD MDM 30 MIN Reason for Visit and Comments: Shortness of Breath [918474] Palpitations [969776] Hyperlipidemia [182] Chest Pain [967302]NormalUnSt. Francis HospitalCA ECHO DOPPLER COMPLETEon 69-41-4093JliCent[place] [address] Cardiology Report Signed Patient: KAROLINA MOCK MR#: [id number] : 1960 Acct:[id number] Age/Sex: 64 / F ADM Date: 05/12/24 Loc: CARD Attending Dr: Deysi Barron M.D. Ordering Physician: Deysi Barron M.D. Date of Service: 05/12/24 Procedure(s): CA echo doppler complete Accession Number(s): [id number] cc: Deysi Barron M.D.; Filiberto San M.D. Patient Name: KAROLINA MOCK MR#: [id number] : 1960 Exam Date: 05/12/2024 Ordering Doctor: [...] Area (VTI): 4.08 cm2, 4.08 cm2 Deceleration Sibley: 0.47 m/s2 Pressure Half-Time: 1.81 s Peak [...] not included)...TBHRadiology, Radiologist, MD - 05/15/[address] [address] Cardiology Report Signed Patient: KAROLINA MOCK MR#: [id number] : 1960 Acct:[id number] Age/Sex: 64 / F ADM Date: 05/12/24 Loc: CARD Attending Dr: Deysi Barron M.D. Ordering Physician: Deysi Barron M.D. Date of Service: 05/12/24 Procedure(s): CA echo doppler complete Accession Number(s): [id number] cc: Deysi Barron M.D.; Filiberto San M.D. Patient Name: KAROLINA OMCK MR#: [id number] : 1960 Exam Date: 05/12/2024 Ordering Doctor: [...] Area (VTI): 4.08 cm2, 4.08 cm2 Deceleration Sibley: 0.47 m/s2 Pressure Half-Time: 1.81 s Peak [...] Signed By: 05/15/24 1642 DD/ 1640 TD/TT: Pin Attacher: ASHER HealthcareRadiology Study observation (narrative)ASHER HealthcareCA ECHO DOPPLER COMPLETEOrdered By: Radiologist Radiology on 95-72-6209ZJGX Healthcare Work Phone: ca HOLTER MONITOR 2-7 DA[address]on 01-34-[address] [address] Cardiology Report Signed Patient: KAROLINA MOCK MR#: [id number] : 1960 Acct:[id number] Age/Sex: 64 / F ADM Date: 04/12/24 Loc: CARD Attending Dr: Filiberto San M.D. Ordering Physician: Filiberto San M.D. Date of Service: 04/12/24 Procedure(s): CA holter montior 2-7 days Accession Number(s): [id number] cc: Filiberto San M.D. [facility] Test Date: 2024-04-26 Pat Name: KAROLINA MOCK Department: Room: - Gender: Female Language Translator: : 1960 Requested By: FILIBERTO SAN Order Number: [id number] Reading MD: DAYRON ROSE Interpretive Statements Predominant [...] 04/27/24 0656 04/27/24 0656 DD/ 1504 TD/TT: Pin Attacher:TBHRadiology, Radiologist, - 04/27/[address] [address] Cardiology Report Signed Patient: KAROLINA MOCK MR#: [id number] : 1960 Acct:[id number] Age/Sex: 64 / F ADM Date: 04/12/24 Loc: CARD Attending Dr: Filiberto San M.D. Ordering Physician: Filiberto San M.D. Date of Service: 04/12/24 Procedure(s): CA holter montior 2-7 days Accession Number(s): [id number] cc: Filiberto San M.D. [facility] Test Date: 2024-04-26 Pat Name: KAROLINA MOCK Department: Room: - Gender: Female Language Translator: : 1960 Requested By: FILIBERTO SAN Order Number: [id number] Reading MD: DAYRON ROSE Interpretive Statements Predominant [...] 04/27/24 0656 04/27/24 0656 DD/ 1504 TD/TT: Pin Attacher: ASHER Jeff HOLTER MONITOR 2-7 DAYSOrdered By: Radiologist Radiology on 63-14-3448DSCF [employer] Work Phone: ca HOLTER MONITOR 2-7 DAYSon 72-29-3536Xhxyjyolq Study observation (narrative)ASHER Hernandez CEM PERF SPECT REST STRon 04-26-2024 [place] [address] Nuclear Medicine Report Signed Patient: KAROLINA MOCK MR#: [id number] : 1960 Acct:[id number] Age/Sex: 64 / F ADM Date: 04/26/24 Loc: NM Attending Dr: Filiberto San M.D. Ordering Physician: Filiberto San M.D. Date of Service: 04/26/24 Procedure(s): NM cem perf SPECT rest str Accession Number(s): [id number] cc: Filiberto San M.D. Patient Name: KAROLINA MOCK MR#: [id number] : 1960 Exam Date: 04/26/2024 Ordering Doctor: [...] Signed By: 04/26/24 1429 DD/ 1428 TD/TT: Pin Attacher:TBHRadiology, Radiologist, - 04/26/2024 [place] [address] Nuclear Medicine Report Signed Patient: KAROLINA MOCK MR#: [id number] : 1960 Acct:[id number] Age/Sex: 64 / F ADM Date: 04/26/24 Loc: NM Attending Dr: Filiberto San M.D. Ordering Physician: Filiberto San M.D. Date of Service: 04/26/24 Procedure(s): NM cem perf SPECT rest str Accession Number(s): [id number] cc: Filiberto San M.D. Patient Name: KAROLINA MOCK MR#: [id number] : 1960 Exam Date: 04/26/2024 Ordering Doctor: [...] Lemus M.D. Signed By: 04/26/24 1429 DD/ 27 TD/TT: Pin Attacher: [facility] CenterRadiology Study observation (narrative)[facility] CEM PERF SPECT REST STROrdered By: Radiologist Radiology on 16-44-9879TRMSMetropolitan Saint [facility] Psychiatric Center Work Phone: MG MAMM SCREEN 3D REGINALD CADon 32-94-8036IO MAMM SCREEN 3D REGINALD CADPatient: KAROLINA MOCK Exam Date: 09/22/2022 : 1960 Gender:F Ordering : DR FILIBERTO SAN . Admission #: [id number] Family : Order #: [id number] CLICK HERE TO VIEW EXAM RADIOLOGY REPORT [...] cancer at age 82. LOCATION: [facility] BREAST COMPOSITION: Heterogeneously dense,which may [...] PALPABLE LUMP SHOULD BE BIOPSIED. Dictated by: Girban Lemus MD on 09/23/2022 at 07:58 Approved by: Gibran Lemus MD on 09/23/2022 at 08:00[facility] Vital Signs Date TimeVital SignValuePerforming DfcyaetdyGllrcsww58-59-4730 09:40-0500Body xsquba563.18 cmFiliberto San MD Work Phone: [phone]11-03-2025 09:40-0500 Body mass index (BMI) [Ratio]24.7 kg/m2Filiberto San MD Work Phone: [phone]11-03-2025 09:40-0500 Body archeqmcroq35.1 [degF]Filiberto San MD Work Phone: [phone]11-03-2025 09:40-0500 Body skkwdi76.66 kgFiliberto San MD Work Phone: [phone] [address]11-03-2025 09:40-0500 Diastolic blood dipugqky54 mm[Hg]Filiberto San MD Work Phone: [phone] [place], [place] 9914011-03-2025 09:40-0500 Heart rate74 /minFiliberto San MD Work Phone: [phone] [place], [place] 9914011-03-2025 09:40-0500 Respiratory rate20 /minFiliberto San MD Work Phone: [phone]11-03-2025 09:40-0500 SaO2% (BldA) [Mass fraction]97 %Filiberto San MD Work Phone: [phone] [place], [place] 9914011-03-2025 09:40-0500 Systolic blood aukuxbcx866 mm[Hg]Filiberto San MD Work Phone: [facility]07-31-2025 14:13-0400 Body .2 cmFiliberto San MD Work Phone: [facility] CenterZuajecbmbl24-99-3564 14:13-0400Body mass index (BMI) [Ratio]24.59 kg/m2Filiberto San MD Work Phone: [facility] CenterFgcrghwdbj84-63-2382 14:13-0400Body temperature 97.81 [degF]Filiberto San MD Work Phone: [facility] CenterRngpeggpba01-77-2834 14:13-0400Body hxtyor46.22 kgFiliberto San MD Work Phone: [facility] CenterWeakzcrnlf97-57-6633 14:13-0400Diastolic blood cbhlluoy75 mm[Hg]Filiberto San MD Work Phone: [facility] CenterAzwumauayo85-04-9794 14:13-0400Heart rate64 /min Filiberto San MD Work Phone: [facility] CenterYvrtryfbmh56-67-1516 14:13-0400Respiratory rate20 /minFiliberto San MD Work Phone: [facility] CenterVbtecxzuxc10-53-0645 14:13-4988NlL7% (BldA) [Mass fraction]97 %Filiberto San MD Work Phone: [facility] CenterJunviuefxn99-14-4481 14:13-0400Systolic blood vytdmyur123 mm[Hg]Filiberto San MD Work Phone: [facility] CenterTezwqwqvye55-41-9647 09:20-0400Body gydcxa963.64 cmSum[facility]08-06-2024 09:20-0400Body mass index (BMI) [Ratio]25.3 kg/l4SqhpqcmwoSumma Health08-06-2024 09:20-0400Body ualayv85.21 kgSum[facility] Health02-15-2024 14:40-0500Body height 170.18 cmSumma Health02-15-2024 14:40-0500Body mass index (BMI) [Ratio]26.9 kg/i9XdqhwzmtaSumma Health02-15-2024 14:40-0500 Body vscdcwiibdo08.4 [degF][facility]02-15-2024 14:40-0500Body .01 kgSum[facility] Health02-15-2024 14:40-0500Diastolic blood mm[Hg][facility] 01-13-2024 14:40-0500Heart rate87 [facility] 01-13-2024 14:40-0500Respiratory rate18 /[facility] 01-13-2024 14:40-1461NeC8% (BldA) [Mass fraction]97 %[facility]02-15-2024 14:40-0500Systolic blood jsagymle547 mm[Hg][facility]10-19-2022 15:50-0400Body rkavnx900.18 cmPgriffin [place] Other [employer] Other 10-19-2022 15:50-0400Body mass index (BMI) [Ratio]24.9 kg/a3FumusbKusum [place] Other [employer] Other 10-19-2022 15:50-0400Body wpxwjmeootm19.8 [degF]Kusum Slime Other [employer] Other 10-19-2022 15:50-0400Body meubpy04.12 kgKusum Pal[place] Other [employer] Other 10-19-2022 15:50-0400Diastolic blood mm[Hg] Kusum Rolandmond Other [employer] Other 10-19-2022 15:50-0400Respiratory rate18 /minPamian Palencia Other [facility] Other 10-19-2022 15:50-4882WzF9% (BldA) [Mass fraction]99 % Kusum Palencia Other [facility] Other 10-19-2022 15:50-0400Systolic blood cfidnxtl937 mm[Hg] Kusum [place] Other [facility] Other 08-05-2022 09:00-0400Body vaamlu263.18 Clay Huitron Other [facility] Other 07-11-2022 17:25-0400Body iwuday952.18 cmSheidi Roque Other [employer] Other 07-11-2022 17:25-0400Body mass index (BMI) [Ratio]24.9 kg/o4Kjhoxvemrjeancarlos Roque Other [facility] Other 07-11-2022 17:25-0400Body fwtbdizwvwl81 [degF] Caprice Roque Other [employer] Other 07-11-2022 17:25-0400Body jbvkza17.12 kgStjeancarlos Roque Other [facility] Other 07-11-2022 17:25-0400Diastolic blood sairrqao60 mm[Hg] Caprice Roque Other [facility] Other 07-11-2022 17:25-0400Respiratory rate16 /minSheidi Roque Other [facility] [employer] Other 07-11-2022 17:25-4542ImI1% (BldA) [Mass fraction]100 % Caprice Roque Other nort [employer] Other 07-11-2022 17:25-0400Systolic blood nlvtammu055 mm[Hg] Caprice Crowleyault Other [facility] [employer] Other Encounters Encounter DateEncounter TypeCare ProviderFacilityStart: 10-01-2025 End: 51-67-0688dqovjihxnkZgku Naderer MD Work Phone: -[facility] ClydeStart: 10-01-2025 End: 04-50-8838Rjeglyg encounter procedureFiliberto San MD-[facility] [place] Work Phone: Start: 09-18-2025 End: 31-08-9961zikexfrjqiHpthhyz R NILLFacility: evueStart: 09-18-2025 End: 61-92-8006Pbsmnyg encounter procedureMichael R NILL [phone]-GixpsMercy Health [facility] General Surgery Pamela Start: 09-05-2025 End: 44-96-5908jvihzteobaQgmmjcr R NillC[facility]innati [facility] Work Phone: Start: 09-05-2025 End: 25-91-7378Diubtdkw ReferredVelasquez Fernandez MD FACS-LAB Path Spec [place] HospStart: 09-05-2025 End: 42-79-2075gborhexhucSmaslgx R NILLFacility:CD:[id number]: 07-31-2025 End: 87-88-2882vpouiwytdpKMXR NADERERFacility:GS BellevueStart: 07-31-2025 End: 22-27-6122Ydprfby encounter procedureMichael R NILL [phone]-PprhoMercy Health West Hospital General Surgery [place] Start: 07-05-2025 End: 74-14-5248jdsgrhbergLYMBVPremier Health Upper Valley Medical Centertart: 47-04-3999poldmxqvyqXROZ NADERERFacility:GS BellevueStart: 06-28-2025 End: 24-59-1565Yhflljneha San MD Work Phone: noms CWM FMStart: 06-28-2025 End: 88-35-7068Zxtghx flowsLuis F San MD Work Phone: noms CWM FMStart: 06-28-2025 End: 38-30-1207Gpmjwg outpatient visit 15 minutesFiliberto San MD Work Phone: noms CWM FMComment on above:Actinic keratosis (Primary Dx); Lipoma of right lower extremityStart: 06-28-2025 End: 47-70-3136dwwmmvghpjRADJ NADERERNot AvailableStart: 05-18-2025 End: 19-45-1165Hbkqhyinf Result EncounterGeneric External Data ProviderNOMS External Department UnsolicitedStart: 05-18-2025 End: 80-66-7260Uyuzzugdw Result EncounterGeneric External Data ProviderNOMS External Department UnsolicitedStart: 05-11-2025 End: 21-11-0769Mlbuftupk Result EncounterGeneric External Data ProviderNOMS External Department UnsolicitedStart: 05-11-2025 End: 45-77-0289Gcmvonbml Result EncounterGeneric External Data ProviderNOMS External Department UnsolicitedStart: 02-12-2025 End: 95-60-7133Nmjkjviji Result EncounterGeneric External Data ProviderNOMS External Department UnsolicitedStart: 02-12-2025 End: 24-23-1290Owcqwgsqp Result EncounterGeneric External Data ProviderNOMS External Department UnsolicitedStart: 2025 End: 13-94-9185Clyzgtfvt Result EncounterGeneric External Data ProviderNOMS External Department UnsolicitedStart: 2025 End: 74-67-6044Koripjhbz Result EncounterGeneric External Data ProviderNOMS External Department UnsolicitedStart: 01-05-2025 End: 54-78-0674yyohrhewsvTMVXJJoint Township District Memorial Hospitaltart: 12-29-2024 End: 91-16-5383Qfuzzktlf Result EncounterGeneric External Data ProviderNOMS External Department UnsolicitedStart: 12-29-2024 End: 08-56-4172Pizuhohtm Result EncounterGeneric External Data ProviderNOMS External Department UnsolicitedStart: 12-18-2024 End: 95-05-0582Avamlnxgm Result EncounterGeneric External Data ProviderNOMS External Department UnsolicitedStart: 12-18-2024 End: 23-37-1602Beajvgtcx Result EncounterGeneric External Data ProviderNOMS External Department UnsolicitedStart: 10-20-2024 End: 55-38-8116Ubpkkcusb Result EncounterGeneric External Data ProviderNOMS External Department UnsolicitedStart: 10-20-2024 End: 78-79-9743Bvlaiyofh Result EncounterGeneric External Data ProviderNOMS External Department UnsolicitedStart: 09-27-2024 End: 18-48-5895Obsggqnjw Result EncounterFiliberto San MD Work Phone: noms External Department UnsolicitedStart: 09-27-2024 End: 11-86-8692Lhzenpfvx Result EncounterFiliberto San MD Work Phone: noms External Department UnsolicitedStart: 08-02-2024 End: 77-52-4524Sulphjrto Result EncounterGeneric External Data ProviderNOMS External Department UnsolicitedStart: 08-02-2024 End: 63-70-2052Hqqkzjxpb Result EncounterGeneric External Data ProviderNOMS External Department UnsolicitedStart: 07-17-2024 End: 47-01-6942iyajinsxgzLEPXHPremier Health Upper Valley Medical Centertart: 07-04-2024 End: 32-73-5925whvdflucfmFezxacvicWayne Hospital Work Phone: Start: 07-04-2024 End: 21-20-4761Ddnwykh encounter procedureFormerly [facility] Work Phone: Start: 05-15-2024 End: 47-85-9064Aaebasdvo Result EncounterGeneric External Data ProviderNOMS External Department UnsolicitedStart: 05-15-2024 End: 10-19-4136Yuemlrooc Result EncounterGeneric External Data ProviderNOMS External Department UnsolicitedStart: 04-26-2024 End: 38-99-2366Ucuhupuqw Result EncounterFiliberto San MD Work Phone: noms External Department UnsolicitedStart: 04-26-2024 End: 35-29-2506Gotyngxym Result EncounterFiliberto San MD Work Phone: noms External Department UnsolicitedStart: 01-13-2024 End: 50-04-8693Ppfwwmdd ReferredAPRN Kena Sanchezler Work Phone: [facility] [place] Work Phone: Start: 01-13-2024 End: 51-87-3802fozimydscvErnliohilWayne Hospital Work Phone: Start: 01-13-2024 End: 34-40-1926Zldvmvk encounter procedureFormerly [facility] [place] Work Phone: Start: 10-12-2023 End: 59-98-1400zfkijzvbpcCysxchx [place] Other [employer] Other Start: 41-47-3829Qjnxsr outpatient visit 15 minutes Nayana Barber OrthopedicsStart: 03-05-2023 End: 03-56-0205raawvzhfnkHAQR TAMLYN .Facility:G6Daibp: 12-30-2022 End: 75-41-9429knjflsyrlfBpsatwe [place] Other [employer] Other Start: 59-15-6880Msuemh outpatient visit 15 minutes Nayanapuneet HuitronFPG Elisabeth OrthopedicsStart: 09-22-2022 End: 43-12-3984ioarppcakaZS FILIBERTO Geoff NADERERFacility:N2Texow: 09-16-2022 End: 20-60-0109qtdprzkzcvOmrpgj Dymond Other [employer] Other Start: 67-23-6537Yheciq outpatient visit 15 minutes Kusum RolandrafyFPG Urgent Care ClydeStart: 08-04-2022 End: 49-71-2192jphhzmtarvEfmbnan [place] Other [employer] Other Start: 79-39-5201Fuphyi outpatient visit 15 minutes Nayanapuneet PostG [facility] OrthopedicsStart: 07-03-2022 End: 88-61-4744dldtipbtloRgsphbu [place] Other [facility] Other Start: 98-94-3725Zjlegm outpatient visit 15 minutes Nayana PostG [facility] OrthopedicsStart: 06-08-2022(URG) Urgent Care Visit Caprice JudeFPG Urgent Care ClydeStart: 06-08-2022 End: 33-69-9313wrtvemmmxeQofjseuvn [place] Other [employer] Other Start: 05-26-2022 End: 44-18-9449sssieybkxyGgmdqyt [place] Other [employer] Other Start: 94-19-3136Yvofwq outpatient new 30 minutes Nayana HuitronFPG [facility] OrthopedicsStart: 05-26-2022 End: 37-87-1559Lkrnwsg encounter procedureMD Nayana Huitron Work Phone: [facility] Procedures DateProcedureProcedure DetailPerforming ClinicianStart: 08-63-7222Lfronufs of lipomaMichael NILL Start: 28-81-1443WD ECHO DOPPLER COMPLETEGeneric External Data ProviderStart: 92-83-5211HEW LIPID PROFILE (FASTING)Generic External Data ProviderStart: 23-74-2433NKS ALTGeneric External Data Provider Start: 78-16-3634NMQ ASTGeneric External Data ProviderStart: 85-36-6539Lexdr elbow complete minimum 3 viewsGeneric External Data ProviderStart: 2025 Radex elbow complete minimum 3 viewsGeneric External Data ProviderStart: 74-24-5224CSI LIPID PROFILE (FASTING)Generic External Data ProviderStart: 61-09-3235TBY ALTGeneric External Data ProviderStart: 42-59-8928RZD ASTGeneric External Data ProviderStart: 30-40-7477Fmrbx elbow complete minimum 3 views Generic External Data ProviderStart: 64-32-6602LRF LIPID PROFILE (FASTING) Generic External Data ProviderStart: 52-99-1262GG TOMOSYNTHESIS SCREENING Karthik San MD Work Phone: Start: 75-34-5144VsmnerirjojYngolgt ProviderStart: 04-28-3085CGN MAGNESIUMGeneric External Data ProviderStart: 99-51-5600SL ECHO DOPPLER COMPLETEGeneric External Data ProviderStart: 19-44-9706NS HOLTER MONITOR 2-7 DAYSFiliberto San MD Work Phone: Start: 33-31-5276RQ CEM PERF SPECT REST STRFiliberto San MD Work Phone: Start: 82-46-4644ZqbqdgxednyBeguzra ProviderStart: 03-05-2023 End: 36-28-3849RbkiefwrqlwRduaych ProviderStart: 76-10-5384Qroxx X-ray of right handMD Nayana Huitron Work Phone: Bone spur of right shoulderMichael NILL CardiomyotomyMichael NILL Closed fracture of right wrist (disorder)Velasquez NILL Dilation of esophagusMichael NILL Excision of lipomaMichael NILL Vaginal hysterectomyMichael NILL Plan of Treatment DateCare ActivityDetailAuthorStart: 15-98-8756Jvqxewzsn for malignant neoplasm of colonNOMS HealthcareStart: 25-55-1150Euowsfwgm for malignant neoplasm of breastMammogramNOMS HealthcareStart: 88-44-7871AFGBM-19 Vaccine ( season)COVID-19 Vaccine ( season)NOM HealthcareStart: 07-30-2025 Influenza vaccinationInfluenza Vaccine (#1)NOM HealthcareStart: 06-28-2025 End: 65-91-3506Ctpkrpx encounter iwyqubjwj19/31/2025 2:00 PM EDT [facility] [address] [place] [phone] Filiberto San MD [address] [place] [phone] Mirella FABIAN FMComment on above:ArrivedStart: 06-18-2025 End: 56-98-8502Vplpdub encounter zlxprgait07/21/2025 9:45 AM EDT [facility] FABIAN [address] [place] [phone] Filiberto San MD [address] [place] [phone] [facility] FMStart: 40-00-0492Qujoqfgim for malignant neoplasm of breast MammogramNOMS HealthcareStart: 19-58-1272Qahgcjkku vaccinationInfluenza Vaccine (#1)[facility] HealthcareStart: 87-33-7596Ygrmoxbh identified in Urine by Culture [facility]ightart: 71-19-9229StorlbejbACMC Healthcare System Glenbeightart: 03-81-3633Nfhmiyfi identified in Urine by CultureACMC Healthcare System Glenbeightart: 70-43-7968Dqluvjujm for malignant neoplasm of cervixNOMS HealthcareStart: 85-89-9446Vzhfjbhhs for malignant neoplasm of cervixPap Smear [facility] HealthcareStart: 71-51-0307Fkqiziylmtul Vaccine: Pediatrics (0 to 5 Years) and At-Risk Patients (6 to 64 Years) (1 of 2 - PCV)Pneumococcal Vaccine: Pediatrics (0 to 5 Years) and At-Risk Patients (6 to 64 Years) (1 of 2 - PCV) [facility] HealthcareStart: 46-53-4783TIeG/Tdap/Td Vaccines (1 - Tdap)DTaP/Tdap/Td Vaccines (1 - Tdap)[facility] CenterStart: 31-81-2446LOB Vaccines (1 of 1 - Standard series)MMR Vaccines (1 of 1 - Standard series)[facility] CenterStart: 38-03-2969Mbvbjmmbo for malignant neoplasm of colonNOMS HealthcareChlamydia trachomatis DNA [Presence] in Unspecified specimen by FROILAN with probe detection [facility] HealthNeisseria gonorrhoeae DNA [Presence] in Unspecified specimen by FROILAN with probe detectionSumma HealthTrichomonas vaginalis DNA [Presence] in Unspecified specimen by FROILAN with probe detectionSumma HealthXR Knee - right 4 ViewsH[facility] Immunizations Immunization DateImmunizationNotesCare [id number] virus vaccine, unspecified formulationFiliberto San MD Work Phone: [phone]-ObjnxMercy Health [facility] [place] [id number] virus vaccine, unspecified formulationGeneric ProviderMet[facility] Psychiatric [id number]-FyF-3 (COVID-19) mRNAMUL.ORD![id number] NILL [phone]-VtdklMercy Health West Hospital [facility] [place] 99-93-5224qvijtjz toxoid, reduced diphtheria toxoid, and acellular pertussis vaccine, adsorbedStephanie Jude Other [facility]11-30-2021SARS-CoV-2 (COVID-19) mRNA BNT-162b2 vaxMichael NILL [phone]-NewihMercy Health West Hospital [facility] Surgery [place] 18-19-8665FRLJ-CoV-2 (COVID-19) mRNA BNT-162b2 vaxMichael NILL [phone]-MhoouMercy Health West Hospital [facility] [place] 62-24-1821ZWMF-CoV-2 (COVID-19) mRNA BNT-162b2 vaxMichael NILL [phone]-WrkrmMercy Health West Hospital [facility] [place] Payers DatePayer CategoryPayerPolicy [id number] Health Insurance [id number] [employer] [id number] 2023-Present [address] [place] [id number] 2.0.1.330232.3.57[id number] 2.0.1.271366.3.57[id number] 2.0.1.544780.3.57[id number] 2.840.1.393956.3.57[id number] 2.0.1.694792.3.57[id number] 2..840.1.719095.3.57[id number] 2..840.1.241197.19 [id number] 2..840.1.274223.3.579.2.531 Social History DateTypeDetailFacilityStart: 03-30-2024 End: 17-06-2521Hzh [facility] At [facility]NOWY HealthcareStart: 03-02-4110Nlt [facility] At [facility]: 01-13-2024 End: 80-06-9409Qbnvzht smoking status NHISNever smoked tobacco (finding) [facility]ightart: 50-10-0304Vefugvn use and exposure Smokeless tobacco non-userNOWY HealthcareStart: 03-30-2024 End: 61-44-8194Qczcmkh of Social functionNOMS HealthcareDo you belong to any clubs or organizations such as jew groups, unions, fraternal or athletic shola ups, or school groups?NoNOMS HealthcareAre you now , , , , never or living with a partner?WidowedNOMS HealthcareHow often to you have a drink containing alcohol?Monthly or lessNOMS HealthcareHow many standard drinks containing alcohol do you have on a typical day?1 or 2NOMS HealthcareHow often do you have 6 or more drinks on 1 occasion?Less than monthly NOMS HealthcareStart: 45-37-6272Zao hard is it for you to pay for the very basics like food, housing, medical care, and heatingNot hard at allNOMS HealthcareDo you feel stress - tense, restless, nervous, or anxious, or unable to sleep at night because yourmind is troubled all the time - these days [OSQ] Not at allNOMS Healthcare(I/We) worried whether (my/our) food would run out before (I/we) got money to buy more.Never trueNOMS HealthcareStart: 03-13-2024 Gender identityIdentifies as female gender (finding)NOMS HealthcareStart: 55-56-1267Evwkqc orientationHeterosexual (finding)NOMS HealthcareHow often do you need to have someone help you when you read instructions, pamphlets, or other written material from your doctor or pharmacy [SILS]NeverNOMS Healthcare How many standard drinks containing alcohol do you have on a typical day?3 or 4 NOMS HealthcareSexual OrientationMercy Health West Hospital General Surgery Pamela SexFemale (finding)[facility] Functional Status BodaRzbblvkajyEqwfspBdegfgrk18-15-8644Bequa score [AUDIT-C]3 06/21/2025 9:17 AM EDT Mychart, GenericNOMS Onxwmjtgik03-77-1812Qmv often do you have a drink containing alcohol?Monthly or less 06/21/2025 9:17 AM EDT Mychart, Generic Monthly or lessNOMS Fhxkpvinid08-12-2646Igu many standard drinks containing alcohol do you have on a typical day?3 or 4 06/21/2025 9:17 AM EDT Mychart, Generic 3 or 4NOMS Srianxkmdf04-52-0658Rlz often do you have 6 or more drinks on 1 occasion?Less than monthly 06/21/2025 9:17 AM EDT Mychart, Generic Less than monthlyNOMS Healthcare Clinical Notes 06-30-2016 to 07-31-2025 Note Date & NqfuLbbxQjlpdnjo68-59-5816 NoteGeneral Surgery Office/Clinic Note Chief Complaint consultation [...] plan excisional biopsy under local anesthesia at [facility] for definitive diagnosis and treatment. Follow-up [...] virus vaccine, inactivated 09/08/2024 Recorded SARS-CoV-2 (COVID-19) mRNAMUL.ORD![id number] 11/25/2022 Recorded SARS-CoV-2 (COVID-19) mRNA BNT-162b2 vax 10/28/2021 Recorded SARS-CoV-2 (COVID-19) mRNA BNT-162b2 vax 03/14/2021 Recorded SARS-CoV-2 (COVID-19) mRNA BNT-162b2 vax 02/21/2021 RecordedMagruder Memorial HospitalComment on above:Result Comment: Electronically Signed By: DANIKA RODGERS, Velasquez Yoon\Date and Time Signed: 07/31/25 14:57 [id number] [facility] Reason for [...] stents and CABG, her paternal grandfather had OR. Cardiology ROS: All symptoms were reviewed, they [...] present. NEURO: strength/sensation equa (more content not included)...[facility]07-31-2025 History of Present illness Narrative* Filiberto [...] referral to General Surgery documented in this encounterMetropolitan [facility] CenterPdmlhggfhf88-76-2618 [facility] Note Reason for [...] stents and CABG, her paternal grandfather had OR. Cardiology ROS: All symptoms were reviewed, they [...] changes in inferior an (more content not included)...[facility]08-19-2024 [facility] Note Reason [...] stents and CABG, her paternal grandfather had OR. Cardiology ROS: All symptoms were reviewed, they [...] No reversible isc (more content not included)... 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 [facility] Other 10-19-2022 Evaluation note* Encounter Date Diagnosis [...] fluid (middle ear effusion) material was printed [facility] Other 09-06-2022 Evaluation note* Encounter Date Diagnosis Assessment Notes Treatment Notes Treatment Clinical Notes Jul, Right hand pain (ICD-10 - M79.64 1) Jul,rimary osteoarthritis of right hand (ICD-10 - M19.041)Patient is progressing well from injections. May consider repeat injections in the future if needed. Continue topical and/or oral NSAIDs as needed for pain/inflammation. Call with questions/concerns or return in pain. [facility] Other 08-05-2022 Evaluation note* Encounter Date Diagnosis [...] the office with any questions or concerns. [facility] Other 07-11-2022 Evaluation note* Encounter Date Diagnosis [...] area, fever, or have chills. TDAP updated [facility] Other 06-28-2022 Evaluation note* Encounter Date Diagnosis [...] a medrol dose pack or cortisone injection [facility] Other 08-02-2016 History general Narrative - Reported* Type Description Date Medical History acid reflux Surgical Historyshoulder surgery [id number] Dtmvbkclbssjsjexsfv7414 Surgical HistoryThroat Surgery8/2/16Surgical Historywrist kfuwmiv6847 Hospitalization HistorySee Above [facility] Other Evaluation + Plan note No data available for this section [facility] Surgery [place] Evaluation noteNo assessment information available [facility] Work Phone: Evaluation note* Diagnosis Onset Date Resolution Status Dysuria acute [facility] Work Phone: Evaluation note* Diagnosis Onset Date Resolution Status Pain in right hand acutePrimary osteoarthritis of right handacute [facility] Work Phone: Evaluation note* Diagnosis Precordial pain- Primary Palpitation Palpitations Actinic keratosis- Primary Lipoma of right lower extremity documented in this encounter NOMS HealthcareEvaluation note* Diagnosis Onset Date Resolution Status Admit Date Right knee pain acuteNov2024 9:23am [facility] Work Phone: Hospital Discharge instructions No data available for this section [facility] Progress note No data available for this section [facility] Reason for referral (narrative)No reason for referral information availableCincinnati Shriners [facility] Work Phone: Chief Complaint and Reason for Visit Chief Complaint M79.641 Chief Complaint poss uti Reason for Visit Dysuria Chief Complaint poss uti DysuriaReason for VisitDysuria Chief Complaint OP SP RT HAND PIAN R EQ INJECTION Reason for Visit Pain in right hand Primary osteoarthritis of right hand Chief Complaint Admit Date Unknown September 05, 2025 10 :15am Chief Complaint Admit Date Unknown September 05, 2025 10 :15am right knee pain October 01, 2025 9 :23am Reason for Visit Admit Date Right knee pain October 01, 2025 9 :23am Advance Directives Advance Directive Response Recorded Date/ [...] Active Start: January 13, 2024 End: January 13mbGilson Galloway ProviderActiveStart: January 13, 2024 End: January 13, 2024 Team Status: Inactive Member Role Status Dates Kena Parekh APRN Attending Provider Active Start: January 13, 2024 End: January 13, 2024 Team Status: Active Member Role Status Dates Filiberto San MD Primary Care Provider Active Team Status: Inactive Member Role Status Dates Nayana Huitron MD Attending Provider Active Start: July 04, 2024 End: July 04, 2024[facility] Candace San Care ProviderActiveStart: July 04, 2024 End: July 04, 2024Team MemberRelationshipSpecialtyStart DateEnd Date Filiberto San MD [address] [place] [address] [facility] - [facility]01[facility]13/24 Filiberto San MD [address] [place] [address] PCP - Medical [facility]11/29/1311Team MemberRelationshipSpecialty Start DateEnd Date Filiberto San MD [address] [place] [address] [facility] - [facility]01/13/24 Filiberto San MD [address] [place] [address] PCP - Medical [employer]11/29/1311Team MemberRelationshipSpecialty Start DateEnd Date Filiberto San MD [address] [place] [address] PCP - [facility] Medicine01/13/24 Filiberto San MD [address] [place] [address] PCP - Medical [employer]11/29/1311Team MemberRelationshipSpecialty Start DateEnd Date Filiberto San MD [address] [place] [address] PCP - [facility]01/13/24 Filiberto San MD [address] [place] [address] PCP - Medical [employer]11/29/1311Team MemberRelationshipSpecialty Start DateEnd Date Filiberto San MD [address] [place] [address] PCP - [facility]01/13/24 Filiberto San MD [address] [place] [address] PCP - Medical [employer]11/29/1311Team MemberRelationshipSpecialty Start DateEnd Date Filiberto San MD [address] [place] [address] PCP - [facility]01/13/24 Filiberto San MD [address] [place] [address] PCP - Medical [employer]11/29/1311 Team Status: Inactive Member Role Status Dates Velasquez Fernandez MD FACS Attending Provider Active Start: September 05, 2025 End: September 05, 2025Team MemberRelationshipSpecialtyStart DateEnd Date Filiberto San MD [facility] - [facility]01/13/24 Filiberto San MD [address] [place] [address] [facility] - Medical [employer]11/29/1311Team MemberRelationshipSpecialty Start DateEnd Date Filiberto San MD [facility] - [facility]01/13/24 Filiberto San MD [address] [place] [address] PCP - Medical [employer]11/29/1311 Team Status: Active Member Role/Relationship Status Dates Filiberto San MD Primary Care Provider Active Team Status: Inactive Member Role/Relationship Status Dates Velasquez Fernandez MD FACS Attending Provider Active Start: September 05, 2025 End: September 05, 2025 Team Status: Inactive Member Role/Relationship Status Dates Filiberto San MD Primary Care Provider Active S tart: October 01, 2025 End: October 01, 2025Marc Tacos San ProviderActiveStart: October 01, 2025 End: October 01, 2025 Goals (unrecognized section and content) Goals may be documented in a n alternate section INFORMATION SOURCE (unrecogn ized section and content) DATE CREATED AUTHOR 03/08/2023 [facility] DATE CREATED AUTHOR AUTHOR'S ORGANIZ ATION 06/30/2025 [facility] DATE CREATED AUTHOR AUTHOR'S ORGANIZ ATION 07/11/2025 [facility] DATE CREATED AUTHOR AUTHOR'S ORGANIZ ATION 09/07/2025 [facility] DATE CREATED AUTHOR AUTHOR'S ORGANIZ ATION 09/20/2025 [facility] FOR RECORDS PERTAINING TO [...] BE BASED ON THE PRIMARY CLINICAL RECORDS. [facility] [employer] [facility]. provides no warranty or guarantee of the accuracy or completeness of information in this document.
--- NOTE | 2025-10-01 15:33 | XR_ITS ---
The [address] [address] Patient Name: IGNACIO DIAZ MRN: [id number] date: 1960 Sex: F Assigned Patient Location: [facility] Current Patient Location: [facility] Accession/Order Number: [id number] Exam Date: 10/01/2025 15:28 Report Date: 10/01/2025 16:10 At the request of: CHIRAG SAN MD Procedure: XR knee RT 4V 4 views of the right knee CLINICAL HISTORY: Right Knee Pain COMPARISON: None FINDINGS: No fractures or dislocation identified. Joint spaces are preserved. Soft tissues unremarkable. XR/XR knee RT 4V IMPRESSION: Negative acute osseous abnormality Impression dictated by: Car Calderon M.D. 10/01/2025 4:10 PM Dictation Location: [place] [address] Electronically authenticated by: [id number] Y Date: 10/01/2025 16:10
== END 2025-10-01 15:11 | disposition home or self-care (01) ==
PROVIDERS: PCP Family Medicine; Visit Provider Family Medicine
DX: M25.561 Pain in right knee (principal)
CPT/HCPCS: 73564

== ENCOUNTER 2025-11-19 08:07 | Outpatient (OUT) | payer OTHER, SELFPAY ==
--- OUTSIDE RECORDS SUMMARY | 2025-11-19 08:10 | XMS_ITS | Clinical Summary ---
Author Organization [facility] Address [address], [address] [place] [address] Care Team Providers Care Supervisor Audit Clerks Name Role Phone KofiRemy Paco Primary Care Provider Unavaila ble Allergies Active AllergyReactionsCriticalityNoted AapeAbtpzolvPquwngxUgsed68/01/2012 Medications MedicationSigDispense QuantityRefillsLast FilledStart DateEnd DateStatus esomeprazole Magnesium (NEXIUM) 40 MG PACK Take 40 mg by mouth daily.Active Active Problems ProblemNoted DateDiagnosed DateSkin lesion of right infrapatellar area10/06/2012 Resolved Problems ProblemNoted DateDiagnosed DateResolved DateLeft thigh lump1 Family History Medical HistoryRelationNameCommentsCancerMotherUterineRelationNameStatusComments FatherAliveMotherDeceased Social History Tobacco UseTypesPacks/DayYears UsedDateSmoking Tobacco: NeverSmokeless Tobacco: NeverAlcohol UseStandard Drinks/WeekCommentsYes0 (1 standard drink = 0.6 oz pure alcohol)occasional beerCommentsNoSex and Gender InformationValueDate RecordedSex Assigned at BirthNot on fileLegal ZbdXyklxc59/10/2013 9:21 AM EST Gender IdentityNot on fileSexual OrientationNot on file Last Filed Vital Signs Vital SignReadingTime TakenCommentsBlood Bhvukugc745/8602 9:47 PM EST Nrtdf923701/17/2016 7:35 PM JHDJbqbkxfluzj34.2 ??C (98.9 ??F)10/12/2013 3:19 PM ESTRespiratory Eniz741701/17/2016 7:35 PM ESTOxygen Vvqusijiwn83%01/17/2016 9:31 PM ESTInhaled Oxygen Concentration--Goqdjr54.8 kg (165 lb)01/17/2016 7:35 PM EST Pvtrvx653.2 cm (5' 7 )01/17/2016 7:35 PM ESTBody Mass Index25.8401/17/2016 7:35 PM EST Plan of Treatment Not on file Advance Directives * Full Code (Latest Code Status on File) Date ActivatedDate DwntevgwvhzPltudosv53/6/2013 5:50 PM10/05/2013 11:55 AM * Full Code Date ActivatedDate UyqokbflblwKrzjhxdg79/13/2012 5:56 PM11/11/2012 3:04 PM Care Teams Team MemberRelationshipSpecialtyStart DateEnd Date Remy Kirby DO [facility] Qzablvnk85/22/12
--- OUTSIDE RECORDS SUMMARY | 2025-11-19 08:10 | XMS_ITS | Clinical Summary ---
Author Organization [facility] Address [address] [place] [address] Care Team Providers Care Compound Machine Operator Name Role Phone Filiberto Bernard MD Primary Care Provider [phone] Allergies Active AllergyReactionsCriticalityNoted DateCommentsSulfa (Sulfonamide Antibiotics)Hives01/13/2024Sulfamethoxazole-PxvqamtkibbhAxzxh71/01/2012 Medications MedicationSigDispense QuantityRefillsLast FilledStart DateEnd DateStatus cholecalciferol (Vitamin D-3) 25 MCG (1000 units) tablet Take 1,000 Units by mouth in the morning.Active omeprazole (PriLOSEC) [address] capsule in the morning.01/13/2024ctive atorvastatin (Lipitor) 20 mg tablet Indications:Hyperlipidemia, unspecified hyperlipidemia typeTake 1 tablet (20 mg) by mouth at bedtime. 90 tablet ctive Active Problems ProblemNoted DateDiagnosed ZjovFofjzuvzd75/07/2025Nonrheumatic aortic valve bunkkkvcopqnc60/07/2025ortic root fuykdagjmf11/07/2025Mitral valve insufficiency and aortic valve dftmmxusofosg15/19/0170Bqdrcpg16/05/2024Other chest pain05/03/2024bnormal EKG005/03/2024yspnea on sxfdumpy33/05/2024 Nonsustained ventricular dsjulgdfofi15/05/8425Ftufqjmprkpu64/09/2024 Overview (05/03/2024): Last Assessment & Plan: Frequent [...] If no improvement will refer for PT. Zmbhasxnhtzhbu69/15/2024Equinus contracture of left ankle03/13/2024 Gastroesophageal reflux disease without tfdiwrtpzeu41/15/2024ain of left heel 4Persistent uvuugfgg73/15/2024rimary osteoarthritis of right hand 03/13/2024Vitamin D odsgcmsjhh95/15/2024Cricopharyngeal spasm05/08/2016 Oropharyngeal gzhqwgivl04/10/2016Skin lesion of right leg10/06/2012 Family History Medical HistoryRelationNameCommentsHeart attackFatherHeart failureFatherHeart failureMaternal GrandfatherCancerMotherRelationNameStatusCommentsFatherDeceased Maternal GrandfatherMotherDeceased Social History Tobacco UseTypesPacks/DayYears UsedDateSmoking Tobacco: NeverSmokeless Tobacco: Never Tobacco Cessation:Counseling Given: Not Answered Alcohol UseStandard Drinks/WeekCommentsYes0 (1 standard drink = 0.6 oz pure alcohol)Once every 1 to 2 weeks, usually 4-5 BeersUT Safety & EnvironmentAnswer Date RecordedFear of Current or Ex-PartnerNot on file04/28/2024Emotionally AbusedNot on file04/28/2024hysically AbusedNot on file04/28/2024Sexually Abused Not on file04/28/2024hysically or Sexually AbusedNot on file04/28/2024 CommentsUnknownSex and Gender InformationValueDate RecordedSex Assigned at Nlspdp0807/03/2025 3:53 PM EDTLegal RfyTwqqgm11/31/2024 11:12 AM EDTGender DonsbmqiBqwvjo15/05/2025 3:53 PM EDTSexual OrientationHeterosexual or Straight 07/03/2025 3:53 PM EDT Last Filed Vital Signs Vital SignReadingTime TakenCommentsBlood Dfkrjxfp893/7307/05/2025 3:00 PM EDT Tciby699307/05/2025 3:00 PM EDTTemperature--Respiratory Rate--Oxygen Ozvmeslmwi02% 07/05/2025 3:00 PM EDTInhaled Oxygen Concentration--Nplksk80.6 kg (160 lb) 07/05/2025 3:00 PM RFOIgnwos871.2 cm (5' 7 )07/05/2025 3:00 PM EDTBody Mass Index25.0607/05/2025 3:00 PM EDT Plan of Treatment Health MaintenanceDue DateLast DoneCommentsCT Gutnvmclywrv1962Colonoscopy 2Colorectal Cancer Dpsafrfax1962FIT-DNA1962FIT1960 FOBT3138Vtsonfxpzbwrr1962Depression Obzznikdk15/17/1974Pneumococcal Vaccine: Pediatrics (0 to 5 Years) and At-Risk Patients (6 to 64 Years) (1 of 2 - PCV)1981Pap Smear1983Cervical Cancer Wzzhbxqrz66/17/1992HPV/Cotest 1992Zoster Vaccines (1 of 2)01/15/20129826Epeigvtfx69COVID- 19 Vaccine ( season), 09/30/2023, 11/25/2022, Additional history existsInfluenza Vaccine (#1)/09/2024, 09/30/2023, 10/10/2022, Additional history existsAdult Wlsizod49/09/2022HIB VaccinesAged OutNo longer eligible based on patient's [...] DateEnd Date Filiberto Bernard MD [address] [place] [address] [facility]
--- OUTSIDE RECORDS SUMMARY | 2025-11-19 08:11 | XMS_ITS | Patient Health Record ---
Author Organization [facility] Address [address] [place] [address] Care Team Providers Care Tube Builder Airplane Name Role Phone Odin Juarez Unavailable [phone] JeffreyGeena lorenzole Unavailable Allergies Allergen (clinical drug ingredient) Drug/Non Drug Allergy documented on EMR Reaction Allergy Type Onset Date Status sulfamethoxazole / trimethoprim Bactrim Unknown Drug Allergy Active Results Component Value Reference Range Notes SCC- ELBOW 3 VIEW LEFT [id number] Reviewed date:02/15/2025 01:20:10 PM Interpretation: Performing Lab: Notes/Report: SCC- ELBOW 3 VIEW LEFT [id number] Reviewed date:12/19/2024 03:35:47 PM Interpretation: Performing Lab: [...] in the past year?Monthly or less (1 point)Tsbxbn9BoadyuxekcbhmgPxltodco Tobacco Control (Standard) Question Answer Notes Tobacco use: Nonsmoker Problems Problem Type SNOMED Code ICD Code Onset Dates Problem Status W/U Status Risk Notes Problem Closed fracture of h ead of radius (60973992) Closed nondisplaced fracture of head of left radius, initial encounter (S52.125A) ActiveconfirmedProblemClosed fracture of head of left radius (97238239372302607) Nondisplaced fracture of head of left radius, subsequent encounter for closed fracture with routinehealing (S52.125D)Activeconfirmed Vital Signs Height 5'7 in 2025 Fkdoes905 lbs2025BMI24.7401/15/2025 Encounters Encounter Location Date Provider Diagnosis [facility] [address] [place] [address] [place] [address] 12/11/2024 Odin Juarez Closed nondisplaced fracture of head of left radius, initial encounter S52.125A [address] [place] [address] 12/18/2024 Odin Juarez Nondisplaced fracture of head of left radius, subsequent encounter for closed fracture with routine healing S52.125D [facility] [address] [place] [address] [place] [address] 2025 Odin Juarez Nondisplaced fracture of head of left radius, subsequent encounter for closed fracture with routine healing S52.125D [facility] [address] [place] [address] [place] [address] 02/12/2025 Lakshmi Magaña Nondisplaced fracture of head of left radius, [...] Order Date [facility]- ELBOW 3 VIEW LEFT [id number] 02/12/2025 Insurance Providers Payer Name Payer Address Payer Phone Subscriber Number Group Number Insured Name Patient Relationship to Insured Coverage Start Date Coverage End Date [facility] [address] [place] [address] [id number] Carina DIAZ - patient is the insured Medical (General) History Medical History History ICD Code Drug Allergies Surgical History Surgery Date(Month/Year) wrist 2020
--- OUTSIDE RECORDS SUMMARY | 2025-11-19 08:11 | XMS_ITS | Clinical Summary ---
Author Organization [facility] Address [address] [place] [address] Care Team Providers Care Informatics Physician Name Role Phone Filiberto Bernard MD Primary Care Provider [phone] Filiberto Bernard MD Unavailable Allergies Active AllergyReactionsCriticalityNoted [...] 5Active Active Problems ProblemNoted DateDiagnosed DateMild aortic sarogldnagkgn97/31/2025Actinic ubfjfsscd78/31/2025 Assessment & Plan (06/28/2025 2:51 PM EDT): Lesion appears to be AK. Discussed premalignant nature of lesion and recommended cryo. Used liquidnitrogen to perform 3 freeze thaw cycles and patient tolerated well. Warned will form blister and likely will take multiple treatments. If develop new or worsening symptoms call. Lipoma of right lower tmgsucvgs17/31/2025 Assessment & Plan (06/28/2025 2:52 PM EDT): Lesion appears to be lipoma. C/o pain and refer to surgeon. Ukvbamifcjk81/09/2024 Assessment & Plan (04/06/2024 3:13 PM EDT): Frequent symptoms and check Holter. Precordial pain04/06/2024 Assessment & Plan (04/06/2024 3:13 PM EDT): Recent pain and concerning of cardiac ischemia. Check treadmill cardiolyte stress test. If pain worsens or persists go to ER. Dzwvopenqchx25/15/2024Equinus contracture of left ankle03/13/2024 Gastroesophageal reflux disease without eyphdftinom63/15/2024ersistent insomnia 03/13/2024ain of left heel03/13/2024Vitamin D azsjjpvvcl94/15/2024rimary osteoarthritis of right hand03/13/2024 Resolved Problems ProblemNoted DateDiagnosed DateResolved DateClosed Colles' fracture of right gbdjfg764Acute right-sided thoracic back pain03/13/2024 06/28/2025 Assessment & [...] relatives?Twice a week06/21/2025How often do you attend gnosticist or oriental orthodox services?More than 4 times per year06/21/2025Do you belong to any clubs or organizations such as gnosticist groups, unions, fraternal or athletic groups, or [...] or more drinks on one occasion?Less than jsphfki2006/21/2025Overall Financial Resource Strain (CARDIA)AnswerDate RecordedHow hard is it for you to pay for the very basics like food, housing, medical care, and heating?Not hard at all06/21/2025PHQ-2AnswerDate RecordedPatient Health Questionnaire-2 Score0 03/13/2024[facility] [place] [facility] - Occupational Stress QuestionnaireAnswerDate [...] steady place to sleep or slept in [facility] (including now)?No03/30/2024Housing Stability Vital SignAnswerDate RecordedIn the last 12 months, was there a time when you were not able to pay the mortgage or rent on time?No06/21/2025In the past 12 months, how many times have you moved where you were living?t any time in the past 12 months, were you homeless or living in a [facility] (including now)?No 06/21/2025CommentsUnknownSex and Gender InformationValueDate RecordedSex Assigned at ArnezNdfqdu77/15/2024 9:44 AM EDTLegal PauVedsdz86/15/2023 10:15 PM EDTGender TrgnimwgXlukzm90/15/2024 9:44 AM EDTSexual OrientationStraight 03/13/2024 9:44 AM EDT Last Filed Vital Signs Vital SignReadingTime TakenCommentsBlood Hwkkkycq827/6407/ 2:13 PM EDT Junlm171406/28/2025 2:13 PM XWMHnzkzhwnhcs81.6 ??C (97.8 ??F)06/28/2025 2:13 PM EDTRespiratory Fako762406/28/2025 2:13 PM EDTOxygen Hkukpzajvj59%06/28/2025 2:13 PM EDTInhaled Oxygen Concentration--Yvrppe62.2 kg (157 lb)06/28/2025 2:13 PM EDT Ldkeqe130.2 cm (5' 7 )06/28/2025 2:13 PM EDTBody Mass Index24.59006/28/2025 2:13 PM EDT Plan of Treatment Health MaintenanceDue DateLast DoneCommentsCT Kopbzcfltboo1962FIT-DNA 1962FIT1962FOBT1960 0048Earobbfawprwz1962neumococcal Vaccine: Pediatrics (0 to 5 Years) and At-Risk Patients (6 to 64 Years) (1 of 2 - PCV)1981Pap Smear1983Cervical Cancer Nihbysfcw72/17/1992HPV/Cotest 1992COVID-19 Vaccine ( season), 09/30/2023, 11/25/2022, Additional history existsInfluenza Vaccine (#1)/09/2024, 09/30/2023, 10/10/2022, Additional history zjrzktBbssfsxzm64, 09/23/2023, 10/08/20144930Icckyzmzemw21/07/203304/05/2023, 03/05/2023olorectal Cancer Oepcrojfu27/07/2033 Procedures Procedure NamePriorityDate/TimeAssociated DiagnosisCommentsMM TOMOSYNTHESIS SCREENING BI09/27/2024 4:38 PM EDT from Last 3 Months or Most Recently Relevant to Health Maintenance Results * MM TOMOSYNTHESIS SCREENING BI (09/27/2024 4:38 PM EDT)Anatomical Region LateralityModalityOtherSpecimen (Source)Anatomical Location / Laterality Collection Method / VolumeCollection TimeReceived Time09/27/2024 4:38 PM EDT Narrative 09/27/2024 4:39 PM EDT [facility] ?[address] ? [place] [address] ? Mammography Report ? Signed ? Patient: KAROLINA MOCK A ?MR#: [id number] ?? : 1960 ?Acct:[id number] ?? Age/Sex: 64 / F ?ADM Date: 09/27/24 ?? Loc: MAMMO ? Attending Dr: Filiberto Bernard M.D. ? Ordering Physician: Filiberto Bernard M.D. ?Results: ? Date of Service: 09/27/24 ?Follow Up: ? Procedure(s): MM tomosynthesis screening BI ?? Accession Number(s): [id number] ? cc: Filiberto Bernard M.D. ? Patient Name: ? KAROLINA EMILY ? MR#: [id number] ? : 1960 ? Exam Date: 09/27/2024 [...] at age 82. ? LOCATION: ? [facility] ? BREAST COMPOSITION: ? The breasts are [...] 1639 ? DD/ 1638 ? TD/TT: ? Clinical Laboratory Service Teacher: Procedure Note Radiology, Radiologist, MD - 09/27/2024 [place] [address] Mammography Report Signed Patient: KAROLINA MOCK AMR#: [id number] : 2Acct:[id number] Age/Sex: 64 / FADM Date: 09/27/24 Loc: MAMMO Attending Dr: Filiberto Bernard M.D. Ordering Physician: Filiberto Bernard M.D.Results: Date of Service: 09/27/24Follow Up: Procedure(s): MM tomosynthesis screening BI Accession Number(s): [id number] cc: Filiberto Bernard M.D. Patient Name: KAROLINA MOCK MR#: [id number] : 1960 Exam Date: 09/27/2024 Ordering Doctor: DR Filiberto Bernard . RADIOLOGY REPORT PROCEDURE: MM TOMOSYNTHESIS SCREENING BI COMPARISON: MM TOMOSYNTHESIS SCREENING BI, 09/23/2023. MG MAMM CMJYKD5G REGINALD CAD, 09/22/2022. MG MAMM SCREEN 3D REGINALD CAD, 09/09/2021. MAMMO REGINALD SCREEN, 01/12/2003. INDICATIONS: Screening Calculator Name NCI Breast Cancer Risk Assessment Tool 5 Year Breast Cancer Risk 1.20% Lifetime Breast Cancer Risk 5.70% Personal Breast Cancer No Personal Ovarian Cancer No Treatments None Family Cancers Mother with ovarian cancer at age 46;Grandmother-maternal with lymph node cancer at age 80. LOCATION: [facility] BREAST COMPOSITION: The breasts are [...] M.D. Signed By:09/27/24 1639 DD/ 1638 TD/TT: Clinical Laboratory Service Teacher: Authorizing ProviderResult TypeResult StatusMarc Naderer MDCLINISYNC IMAGING Final Result from Last 3 Months or Most Recently Relevant to Health Maintenance Insurance Care Teams Team MemberRelationshipSpecialtyStart DateEnd Date Filiberto Bernard MD PCP - GeneralFamily Medicine01/13/24 Filiberto Bernard MD [address] [place] [id number] PCP - Medical [place] [employer]11/29/1311
--- OUTSIDE RECORDS SUMMARY | 2025-11-19 08:11 | XMS_ITS | Patient Health Record ---
Author Organization [facility] [place] Address [address] [place] [address] Care Team Providers Care Weft Straightener Name Role Phone Filiberto Bernard MD Primary [...] Date MMO [employer] [address] [place] [address] [phone] NCOTOFS Karolina Mock Self - patient is [...]
[2025-11-19 08:59] LABS: Alanine Aminotransferase 28 U/L (14-59); Aspartate Amino Transferase 22 U/L (15-37); Cholesterol 157 mg/dL (<=200); HDL Cholesterol 62 mg/dL (40-60); Triglycerides 63 mg/dL (<=150); VLDL CHOLESTEROL 12.6 mg/dL
== END 2025-11-19 08:08 | disposition home or self-care (01) ==
LOC: LAB 08:08
PROVIDERS: PCP Family Medicine; Visit Provider Internal Medicine Cardiovascular Disease
DX: E78.00 Pure hypercholesterolemia, unspecified (principal)
CPT/HCPCS: 36415; 80061; 84450; 84460